=== PATIENT | female | born 1945 | race African-American/Black ===

== ENCOUNTER 2017-02-13 14:13 | Inpatient (IN) | payer OTHER ==
[~2017-02-13] VITALS: Ht 157.5 cm; Wt 59.0 kg
--- NOTE | ~2017-02-13 | EKG ---
[place] [address] [facility] [employer] [place] [address] ELECTROCARDIOGRAM REPORT Name: LEIDY ADAMES [id number] Admission: 02/13/17 Attend Phys: Discharge: Date of : 49 Report #: [id number] THIS REPORT FOR: //name// [facility] ED Test Date: 2017-02-13 Test Time: 14:17:23 Pat Name: LEIDY ADAMES Department: Room: Gender: F Purler: Liya GIBBONS : 1945 Requested By: Jasmin Johnson Order Number: [id number] MD: Howard Nguyen Measurements Intervals [place] Rate: 77 P: 43 ID: 136 QRS: 104 QRSD: 116 T: 50 QT: 380 QTc: 431 Interpretive Statements Sinus rhythm Probable left atrial enlargement IRBBB and LPFB Electronically Signed On 02-13-2017 16:59:51 CDT by Howard Nguyen [email or web address] <ELECTRONICALLY SIGNED> By: Howard Nguyen MD 02/13/17 1659 1417 1417 Howard Nguyen MD /SOUMYA
--- NOTE | ~2017-02-13 | HC ---
[facility] [place] [address] CONSULTATION Name: LEIDY ADAMES Room #: 216-P ADM IN M.R.#: [id number] Admission: 02/13/17 Attend Phys: Ashwin Poole MD Discharge: Date of : 49 Report #: [id number] THIS REPORT FOR: //name// CC: Jamaal Poole DATE OF SERVICE: 02/14/2017 PRIMARY CARE PHYSICIAN: Jamaal Cho M.D. HISTORY OF PRESENT ILLNESS: The patient is a 71-year-old black female who I was asked to see in the hospital today after she complained of chest pain. The patient has a previous history of coronary artery stenting. She eventually underwent coronary artery bypass surgery in 2008. The patient actually presented here to [facility] last May with shortness of breath. She ruled in for non-STEMI. I performed a repeat cardiac catheterization on June 03 of last summer, which showed normal left ventricular function. There was a stent in the circumflex that appeared to be chronically occluded. The robinson right coronary artery was chronically occluded. There was a vein graft to the diagonal with a jump graft to marginal branches. There was a second vein graft that went to the distal right coronary artery. There was an 80% stenosis noted at the anastomosis of the vein graft to the distal right coronary artery. There is a patent HALEY graft to the LAD, although the apical LAD had a 70% stenosis. I then placed a drug-eluting stent in the vein graft to the distal right coronary artery. She was subsequently discharged. She was actually admitted here to [facility] with pneumonia last August. She is not very active because of her multiple medical problems. She came to the emergency room yesterday after she noticed some chest pain. It is not related to exertion or meals. It seemed to occur after she was coughing. She did note some shortness of breath, diaphoresis. She took a couple nitroglycerins that did seem to help. She came to the hospital and was admitted. She denies any recent bleeding. She has had no belching with the episode. No recent rash on her chest. She denies significant dyspnea, palpitation, syncope, edema. PAST MEDICAL HISTORY: Significant for hysterectomy. She was diagnosed with lupus in the past. She has diabetes, hypertension, hyperlipidemia, seizure disorder, peripheral arterial disease with previous bilateral bypass and stenting. She has had a previous stroke. She has a history of carotid stenosis. MEDICATIONS: On admission included Pradaxa, Celexa, lisinopril, Lipitor, metoprolol, amlodipine, Aricept. ALLERGIES: She has intolerance to multiple medications including PENICILLIN and [address] [address] CONSULTATION Name: LEIDY ADAMES Room #: 216-P [facility] IN M.R.#: [id number] Admission: 02/13/17 Attend Phys: Ashwin Poole MD Discharge: Date of : 49 Report #: [id number] SULFA DRUGS. FAMILY HISTORY: had heart disease. SOCIAL HISTORY: She is . She and her live in [place], [place]. Quit smoking years ago. No alcohol abuse. REVIEW OF SYSTEMS: She has had no history of asthma, peptic ulcer disease, liver disease, no cancer. No chronic skin condition. PHYSICAL EXAMINATION: GENERAL: Revealed an elderly black female lying in bed. She appeared in no distress. VITAL SIGNS: She had a blood pressure 150/60, pulse is 90. She is afebrile. HEENT: She was anicteric, conjunctivae pink. Mucous membranes appear moist. NECK: Veins do not appear distended. CHEST: Clear to auscultation. CARDIAC: Regular rate and rhythm. ABDOMEN: Soft. EXTREMITIES: Had no edema. Dorsalis pedis pulse could not be palpated. SKIN: Cool and dry. NEUROLOGIC: Nonfocal. LABORATORY DATA: Her ECG showed a sinus rhythm with a right bundle branch block. Her workup in the emergency room, sodium 143, potassium 3.6, BUN 15, creatinine 1.0. Her troponin 0.04. Her white blood cell count 8.2, hemoglobin 10.3. She had a portable chest x-ray, which showed cardiomegaly. Mild interstitial lung markings were noted, possible pulmonary edema. IMPRESSION AND RECOMMENDATIONS: 1. Chest pain. Possible unstable angina. No evidence of acute myocardial infarction. At this time, I would recommend a conservative approach. I would not recommend stress testing or cardiac catheterization at this time. I would continue medical therapy. The patient had a drug-eluting stent placed last May, so I would consider Plavix. 2. Previous stroke. The patient is on Pradaxa. 3. Hypertension. 4. Diabetes. 5. Hyperlipidemia. 6. Peripheral arterial disease. 7. Anemia. By: 1441 0002 Junior Du MD, [facility] /nt
[~2017-02-13 14:13] MED LIST: ACETAMINOPHEN-1 EAC1 PO; ACETAMINOPHEN325 M1 PO; ACTOS 30 MG TAB30 MG PO; AMARYL4 MG PO; AMLODIPINE BESY10 MG PO; AMLODIPINE PO; ARICEPT 5 MG TAB5 MG PO; ARICEPT10 MG PO; ASA5UEC; ASA5UEC PO; ASA81BEC PO; ASPIR 8181 MG PO; ASPIRIN EC325 M1 PO; ASPIRIN325 PO; ATIVAN1 MG PO; ATORVASTATIN CA10 MG PO; ATORVASTATIN CA80 MG PO; AUGMENTIN 875875 M1 PO; AVELOX 400 MG400 MG PO; AZITHROMYCIN 2250 MG PO; BAYER CHEWABLE81 MG PO; CEFDINIR PO; CEFTIN 250 MG250 MG PO; CEFTIN500 MG PO; CELEXA 20 MG TA20 MG PO; CELLCEPT 250 M250 M1 PO; CELLCEPT500 MG PO; CHANTIX1 MG PO; CIPRO500 MG PO; CIPROFLOXACIN500 M1 PO; CIPROFLOXACIN500 M3 PO; CITALOPRAM HBR40 MG PO; CLOPIDOGREL75 MG PO; CYCLOBENZAPRINE PO; DARVOCET-N 1001 EAC1 PO; DILANTIN 100 M100 MG PO; DILANTIN100 MG PO; DOCUPRENE100 MG PO; DONEPEZIL HCL 55 M1 PO; ENOXAPARIN40 MG/0.1 SUBQ; FISH OIL 1,001000 M2 PO; FLONASE 0.05%50 MCG NASAL; FUROSEMIDE 40 M40 MG PO; GLUCOPHAGE XR500 MG PO; GLUCOPHAGE1000 MG PO; GLUCOPHAGE500 MG PO; HUMALOG PE100 UNIT/1 SC; HUMALOG100 UNIT/1; HUMALOG100 UNIT/1 SQ; HYDROCODON-ACE1 EAC8 PO; HYDROCODON-ACE1 EACH PO; HYDROCODONE-AP1 EAC6 PO; IMDUR 60 MG TAB60 M1 PO; IMDUR 60 MG TAB60 MG PO; IRON325 PO; ISOSORBIDE MONO20 MG PO; K-DUR 20 MEQ T20 MEQ; K-DUR 20 MEQ T20 MEQ PO; KEFLEX500 MG PO; KEPPRA 500 MG500 M2 PO; LANTUS SC; LASIX 20 MG TAB20 MG PO; LASIX 40 MG TAB40 M1 PO; LASIX 40 MG TAB40 MG PO; LEVAQUIN 250 M250 MG PO; LEVAQUIN 500 M500 M1 PO; LEVAQUIN 500 M500 M5 PO; LIPITOR10 MG PO; LIPITOR40 MG PO; LISINOPRIL10 MG PO; LISINOPRIL20 MG PO; LORATIDINE 10 M10 M1 PO; LORTAB 5 MG/5001 TA1 PO; MACROBID 100 M100 M1 PO; MAG DELAY64 MG PO; METFORMIN HCL500 MG PO; MONOKET10 MG PO; NAMENDA 5 MG TAB5 M1 PO; NAMENDA XR28 MG PO; NAPROSYN500 MG PO; NAPROXEN 220 M220 M1 PO; NITROGLYCERIN0.3 MG SL; NITROGLYCERIN0.4 MG SUBLING; NORCO 10-325 T1 EACH PO; NORCO 5-325 TA1 EACH PO; NORVASC 5 MG TAB5 MG PO; NORVASC10 MG PO; NORVASC5 MG PO; NOVOLOG100 UNIT/1; NOVOLOG100 UNIT/1 SUBQ; NYSTATIN 1100000 U/M PO; ONDANSETRON ODT4 MG PO; OXYCODON-ACETA1 EAC1 PO; PAIN RELIEVER325 MG PO; PANTOPRAZOLE SO40 M1 PO; PEPCID40 MG PO; PERCOCET 5-3251 EACH PO; PERCOCET PO; PHISOHEX148 ML; PLAVIX 75 MG TA75 M1 PO; PLAVIX 75 MG TA75 MG PO; POTASSIUM20 PO; PRADAXA150 MG PO; PREDNISONE 10 M10 M1 PO; PREDNISONE 10 M10 MG PO; PREDNISONE 20 M20 M1 PO; PREDNISONE PO; PRILOSEC 10MG C10 M1 PO; PROAIR HFA8.5 GM IH; PROMETHAZINE-C120 ML PO; PROTONIX40 M2 PO; RANEXA 500 MG500 M1 PO; TERBINAFINE HC250 MG PO; TESSALON PERLE100 MG PO; TOPIRAMATE200 MG PO; TOPROL XL100 MG PO; TOPROL XL25 MG PO; TRANDATE100 MG PO; TYLENOL325 MG PO; WELLBUTRIN XL150 M1 PO; ZOFRAN ODT4 MG PO; ZPAK PO
[2017-02-13 14:15] VITALS: BP 193/90
[2017-02-13 16:13] LABS: ABSOLUTE NEUTROPHILS 4.8 thou/uL (1.4-8.2); BASOPHILS 1.1 % (0.0-2.0); EOSINOPHILS 2.8 % (0.0-3.0); HEMATOCRIT 31.1 % (37.0-47.0); HEMOGLOBIN 10.3 gm/dL (12.0-15.0); LYMPHOCYTES 25.9 % (24.0-44.0); MCH 31.1 pg (26.0-34.0); MCHC 33.2 g/dL (28.0-37.0); MCV 93.4 fL (80.0-100.0); MONOCYTES 11.9 % (1.0-8.0); POLYS 58.3 % (36.0-66.0); RBC 3.33 mil/uL (4.20-5.00); RDW 13.7 % (10.5-14.5); WBC 8.2 thou/uL (4.0-11.0)
[2017-02-13 16:14] LABS: MANUAL DIFF NO
[2017-02-13 16:36] LABS: NT-PRO BRAIN NAT PEPTIDE 5343 pg/mL (<300); PLATELET COUNT 253 thou/uL (150-400); PLATELET ESTIMATE NORMAL; TROPONIN-I < 0.04 ng/mL (<0.04-0.07)
[2017-02-13 16:54] LABS: CALCIUM 8.2 mg/dL (8.5-10.1); CREATININE 0.9 mg/dL (0.6-1.0); POTASSIUM 4.9 mmol/L (3.5-5.1)
[2017-02-13 16:57] LABS: ALBUMIN 2.8 g/dL (3.4-5.0); MAGNESIUM 1.4 mg/dL (1.8-2.4); TOTAL BILIRUBIN 0.4 mg/dL (<0.1-1.0); TOTAL PROTEIN 7.2 g/dL (6.4-8.2)
[2017-02-13 18:23] VITALS: BP 151/64
[2017-02-13 18:49] VITALS: BP 189/84
[2017-02-13 20:17] VITALS: BP 152/61
[2017-02-13 23:57] VITALS: BP 148/69
[2017-02-13 23:59] VITALS: BP 148/69
[2017-02-14 03:27] VITALS: BP 121/53
[2017-02-14 03:35] LABS: CALCIUM 8.4 mg/dL (8.5-10.1); MAGNESIUM 1.2 mg/dL (1.8-2.4)
[2017-02-14 03:37] LABS: POTASSIUM 3.7 mmol/L (3.5-5.1)
[2017-02-14 08:36] VITALS: BP 152/60
[2017-02-14 11:56] VITALS: BP 162/63
[2017-02-14 16:20] VITALS: BP 134/63
[2017-02-14 21:10] VITALS: BP 148/65
[2017-02-15 04:30] LABS: ALBUMIN 2.9 g/dL (3.4-5.0); ANION GAP 9 mmol/L (7-16); BUN 21 mg/dL (7-18); CALCIUM 8.7 mg/dL (8.5-10.1); CHLORIDE 102 mmol/L (98-107); CO2 27 mmol/L (21-32); CREATININE 1.1 mg/dL (0.6-1.0); GLUCOSE 90 mg/dL (74-106); PHOSPHORUS 4.4 mg/dL (2.5-4.9); POTASSIUM 4.1 mmol/L (3.5-5.1); SODIUM 138 mmol/L (136-145); TROPONIN-I < 0.04 ng/mL (<0.04-0.07)
[2017-02-15 05:01] VITALS: BP 168/78
[2017-02-15 07:45] VITALS: BP 152/70
[2017-02-15] MEDS ORDERED: METOPROLOL SUCC50 MG PO (09:51)
[2017-02-15 10:50] VITALS: BP 152/70
[2017-02-15 12:07] VITALS: BP 152/70
== END 2017-02-15 12:13 | disposition home or self-care (01) | DRG 291 ==
LOC: ER 14:13 → 2N 17:22 → EROBS 17:22 → 2N 18:39
PROVIDERS: Hospitalist; Nurse Practitioner Acute Care; Nurse Practitioner Family
DX: I50.33 Acute on chronic diastolic (congestive) heart failure (principal); E43 Unspecified severe protein-calorie malnutrition; I11.0 Hypertensive heart disease with heart failure; M32.9 Systemic lupus erythematosus, unspecified; J44.9 Chronic obstructive pulmonary disease, unspecified; G40.909 Epilepsy, unspecified, not intractable, without status epilepticus; F41.9 Anxiety disorder, unspecified; E78.5 Hyperlipidemia, unspecified; E11.51 Type 2 diabetes mellitus with diabetic peripheral angiopathy without gangrene; F03.90 Unspecified dementia, unspecified severity, without behavioral disturbance, psychotic disturbance, mood disturbance, and anxiety; I16.0 Hypertensive urgency; I34.0 Nonrheumatic mitral (valve) insufficiency; I37.1 Nonrheumatic pulmonary valve insufficiency; I07.1 Rheumatic tricuspid insufficiency; E83.42 Hypomagnesemia; D64.9 Anemia, unspecified; I25.10 Atherosclerotic heart disease of native coronary artery without angina pectoris; Z79.4 Long term (current) use of insulin; Z86.711 Personal history of pulmonary embolism; I69.311 Memory deficit following cerebral infarction; Z95.1 Presence of aortocoronary bypass graft; Z98.42 Cataract extraction status, left eye; Z98.41 Cataract extraction status, right eye; Z90.711 Acquired absence of uterus with remaining cervical stump; Z87.891 Personal history of nicotine dependence; Z88.0 Allergy status to penicillin; Z88.2 Allergy status to sulfonamides; Z88.1 Allergy status to other antibiotic agents; Z95.5 Presence of coronary angioplasty implant and graft; Z82.49 Family history of ischemic heart disease and other diseases of the circulatory system; Z79.899 Other long term (current) drug therapy; I25.2 Old myocardial infarction
CPT/HCPCS: 10081

== ENCOUNTER 2017-05-05 18:40 | Inpatient (IN) | payer OTHER ==
[~2017-05-05] VITALS: Ht 157.5 cm; Wt 60.3 kg
--- NOTE | ~2017-05-05 | EKG ---
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: wilfred vidal : 1945 Requested By: Merary Kiran Order Number: [id number] MD: Markus Ott Measurements Intervals Belva Rate: 85 P: 43 DC: 146 QRS: 71 QRSD: 135 T: 44 QT: 392 QTc: 467 Interpretive Statements Sinus rhythm Right bundle branch block Compared to ECG 05/05/2017 19:08:57 No significant changes Electronically Signed On 05-07-2017 8:22:41 CDT by Markus Ott [email or web address] <ELECTRONICALLY SIGNED> By: Markus Ott MD, [facility] 05/07/17 0822 9 Markus Ott MD, [facility] /EPI
--- NOTE | ~2017-05-05 | EKG ---
[address] [place] [address] ELECTROCARDIOGRAM REPORT Name: LEIDY ADAMES Room #: 430- ADM IN M.R.#: [id number] Admission: 05/05/17 Attend Phys: Kaylin Joshi Discharge: Date of : 49 Report #: [id number] THIS REPORT FOR: //name// [facility] ED Test Date: 2017-05-05 Test Time: 19:08:57 Pat Name: LEIDY ADAMES Department: Room: 430 Gender: F Manager Medical Affairs: BRE : 1945 Requested By: Kirill Solano Order Number: [id number] MD: Markus Ott Measurements Intervals [place] Rate: 70 P: 30 MO: 147 QRS: 76 QRSD: 137 T: 56 QT: 423 QTc: 457 Interpretive Statements Sinus rhythm Right bundle branch block Compared to ECG 02/13/2017 14:17:23 No significant changes Electronically Signed On 05-06-2017 17:07:54 CDT by Markus Ott [email or web address] <ELECTRONICALLY SIGNED> By: Markus Ott MD, [facility] 05/06/17 1707 D: [id number] 07 Markus Ott MD, [facility] /EPI
[~2017-05-05 18:40] MED LIST changes: +METOPROLOL SUCC50 MG PO
[2017-05-05 18:41] VITALS: BP 128/60
[2017-05-05] MEDS ORDERED: PLAVIX 75 MG TA75 M1 PO (19:19)
[2017-05-05] MEDS ORDERED: GLUCOPHAGE1000 MG PO (19:20)
[2017-05-05 19:47] LABS: URINE BLOOD NEGATIVE (Negative); URINE COLOR YELLOW; URINE GLUCOSE-RANDOM* NEGATIVE (Negative); URINE KETONES TRACE (Negative); URINE NITRITE NEGATIVE (Negative); URINE PROTEIN (DIPSTICK) NEGATIVE (Negative); URINE SPECIFIC GRAVITY >= 1.030 (1.003-1.035); URINE UROBILINOGEN 0.2 E.U./dl (0.2-1.0)
[2017-05-05 19:48] LABS: ICTOTEST (BILI CONFIRMATORY) Negative (Negative); URINE BILIRUBIN NEGATIVE (Negative)
[2017-05-05 19:54] LABS: CASTS None Seen /LPF (None Seen); CRYSTALS None Seen /LPF (None Seen); SQUAMOUS 0-3 Few /LPF (0-3)
[2017-05-05 19:55] LABS: BACTERIA None Seen /HPF (None Seen); URINE RBC 0-2 Rare /HPF (0-2); URINE WBC 0-5 Rare /HPF (0-5)
[2017-05-05 19:57] LABS: ANION GAP 10 mmol/L (7-16); BUN 37 mg/dL (7-18); CALCIUM 9.1 mg/dL (8.5-10.1); CHLORIDE 107 mmol/L (98-107); CO2 25 mmol/L (21-32); CREATININE 2.9 mg/dL (0.6-1.0); GLUCOSE 151 mg/dL (74-106); POTASSIUM 4.9 mmol/L (3.5-5.1); SODIUM 142 mmol/L (136-145)
[2017-05-05 19:59] LABS: ABSOLUTE NEUTROPHILS 7.6 thou/uL (1.4-8.2); BASOPHILS 0.5 % (0.0-2.0); EOSINOPHILS 0.1 % (0.0-3.0); HEMATOCRIT 27.5 % (37.0-47.0); HEMOGLOBIN 9.1 gm/dL (12.0-15.0); LYMPHOCYTES 10.4 % (24.0-44.0); MCH 30.4 pg (26.0-34.0); MCHC 32.9 g/dL (28.0-37.0); MCV 92.1 fL (80.0-100.0); MONOCYTES 4.7 % (1.0-8.0); PLATELET COUNT 212 thou/uL (150-400); POLYS 84.3 % (36.0-66.0); RBC 2.98 mil/uL (4.20-5.00); RDW 15.1 % (10.5-14.5)
[2017-05-05 20:00] LABS: MANUAL DIFF NO
[2017-05-05 20:03] LABS: ALBUMIN 3.4 g/dL (3.4-5.0); ALKALINE PHOSPHATASE 91 U/L (46-116); DIRECT BILIRUBIN < 0.1 mg/dL (<0.1-0.3); SGOT 13 U/L (15-37); SGPT 13 U/L (30-65); TOTAL BILIRUBIN 0.3 mg/dL (<0.1-1.0)
[2017-05-05 20:30] LABS: NT-PRO BRAIN NAT PEPTIDE 1983 pg/mL (<300); TROPONIN-I < 0.04 ng/mL (<0.04-0.07)
[2017-05-05 21:53] VITALS: BP 134/60
[2017-05-05 22:30] VITALS: BP 149/66
[2017-05-06 04:35] VITALS: BP 119/51
[2017-05-06 06:31] LABS: HEMATOCRIT 23.1 % (37.0-47.0); HEMOGLOBIN 7.5 gm/dL (12.0-15.0); MCH 30.2 pg (26.0-34.0); MCHC 32.6 g/dL (28.0-37.0); MCV 92.6 fL (80.0-100.0); RBC 2.5 mil/uL (4.20-5.00); RDW 14.5 % (10.5-14.5); WBC 9.6 thou/uL (4.0-11.0)
[2017-05-06 06:46] LABS: CALCIUM 8.2 mg/dL (8.5-10.1); MAGNESIUM 1.8 mg/dL (1.8-2.4); POTASSIUM 4.5 mmol/L (3.5-5.1)
[2017-05-06 06:47] LABS: CREATININE 1.9 mg/dL (0.6-1.0)
[2017-05-06 07:21] VITALS: BP 121/48
[2017-05-06 16:00] VITALS: BP 167/65
[2017-05-06 20:15] VITALS: BP 105/38
[2017-05-07 04:20] VITALS: BP 136/50
[2017-05-07 06:20] LABS: ALBUMIN 2.5 g/dL (3.4-5.0); CREATININE 1.1 mg/dL (0.6-1.0); PHOSPHORUS 2.5 mg/dL (2.5-4.9); POTASSIUM 4.5 mmol/L (3.5-5.1)
[2017-05-07 08:55] VITALS: BP 179/81
[2017-05-07 17:30] VITALS: BP 197/85
[2017-05-07 20:00] VITALS: BP 165/83
[2017-05-08 04:00] VITALS: BP 209/98
[2017-05-08 06:56] LABS: ALBUMIN 2.6 g/dL (3.4-5.0); CALCIUM 8.4 mg/dL (8.5-10.1); CREATININE 0.9 mg/dL (0.6-1.0); PHOSPHORUS 2.6 mg/dL (2.5-4.9)
[2017-05-08 07:48] VITALS: BP 178/85
[2017-05-08] MEDS ORDERED: CYCLOBENZAPRINE5 MG PO (10:04)
[2017-05-08] MEDS ORDERED: SENOKOT-S1 TA1 PO (10:05)
[2017-05-08] MEDS ORDERED: HYDROCODON-ACE1 EAC7 PO (10:05)
[2017-05-08 10:11] VITALS: BP 178/85
[2017-05-08 15:18] VITALS: BP 178/85
== END 2017-05-08 15:15 | disposition home health service (06) | DRG 682 ==
LOC: ER 18:40 → EROBS 21:15 → 4E 21:15
PROVIDERS: Hospitalist; Nurse Practitioner; Nurse Practitioner Acute Care
DX: N17.9 Acute kidney failure, unspecified (principal); G93.41 Metabolic encephalopathy; I50.32 Chronic diastolic (congestive) heart failure; M48.56XA Collapsed vertebra, not elsewhere classified, lumbar region, initial encounter for fracture; L93.0 Discoid lupus erythematosus; I25.10 Atherosclerotic heart disease of native coronary artery without angina pectoris; I11.0 Hypertensive heart disease with heart failure; J44.9 Chronic obstructive pulmonary disease, unspecified; G40.909 Epilepsy, unspecified, not intractable, without status epilepticus; E11.51 Type 2 diabetes mellitus with diabetic peripheral angiopathy without gangrene; F03.90 Unspecified dementia, unspecified severity, without behavioral disturbance, psychotic disturbance, mood disturbance, and anxiety; E78.5 Hyperlipidemia, unspecified; W18.39XA Other fall on same level, initial encounter; Z95.1 Presence of aortocoronary bypass graft; Z98.42 Cataract extraction status, left eye; Z98.41 Cataract extraction status, right eye; Z90.710 Acquired absence of both cervix and uterus; Z86.73 Personal history of transient ischemic attack (TIA), and cerebral infarction without residual deficits; I25.2 Old myocardial infarction; Z95.5 Presence of coronary angioplasty implant and graft; Z79.899 Other long term (current) drug therapy; Z88.2 Allergy status to sulfonamides; Z88.0 Allergy status to penicillin; Z88.8 Allergy status to other drugs, medicaments and biological substances; Z88.1 Allergy status to other antibiotic agents; Z87.891 Personal history of nicotine dependence; Y93.89 Activity, other specified; Y92.89 Other specified places as the place of occurrence of the external cause; Y99.8 Other external cause status
CPT/HCPCS: 10183

== ENCOUNTER 2018-06-28 11:38 | Inpatient (IN) | payer OTHER ==
[~2018-06-28] VITALS: Ht 157.5 cm; Wt 59.0 kg
--- NOTE | ~2018-06-28 | EKG ---
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 : 1945 Requested By: Junior Du Order Number: [id number] MD: Howard Nguyen Measurements Intervals [place] Rate: 70 P: 45 CO: 160 QRS: 90 QRSD: 131 T: 28 QT: 443 QTc: 479 Interpretive Statements Sinus rhythm Probable left atrial enlargement RBBB and LPFB Baseline wander in lead(s) V3 Compared to ECG 05/07/2017 05:20:13 Left posterior fascicular block now present Electronically Signed On 07-02-2018 15:00:50 CDT by Howard Nguyen [email or web address] <ELECTRONICALLY SIGNED> By: Howard Nguyen MD 07/02/18 1500 4 4 Howard Nguyen MD /EPI
--- NOTE | ~2018-06-28 | EKG ---
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
--- NOTE | ~2018-06-28 | HC ---
[facility] [place] [address] CONSULTATION Name: LEIDY ADAMES Room #: 249-P ADM IN M.R.#: [id number] Admission: 06/28/18 Attend Phys: Lorne Saravia MD Discharge: Date of : 49 Report #: [id number] THIS REPORT FOR: //name// CC: Lorne Saravia ROMAINE BOX Romaine Box DATE OF SERVICE: 06/29/2018 Cardiology Consultation HISTORY OF PRESENT ILLNESS: The patient is a 72-year-old black female who I was asked to see in the hospital today after she complained of chest pain. The patient had a previous history of coronary artery stenting. She eventually underwent coronary artery bypass surgery in 2008. She presented in 2015 with a non-STEMI. I performed a repeat heart catheterization in 05/2016 that showed normal left ventricular function. The stent in the circumflex appeared chronically occluded. The lummi right coronary artery is chronically occluded. The vein graft to the diagonal had a jump graft to the marginal branch. There is a second vein graft to the distal right coronary artery. There was an 80% stenosis noted at the anastomosis of the vein graft to the distal right coronary artery. There is a patent HALEY graft to the LAD. Although the apical LAD had a 70% stenosis. I placed a drug-eluting stent in the vein graft to the distal right coronary artery. She is not very active because of multiple medical problems. She was actually admitted here to [facility] in 02/2017 with chest pain. Medical therapy was recommended. She has actually done fairly well since that time. The patient states she was doing well until yesterday she complained of some chest pain. She was evaluated in the emergency room and admitted. I was asked to see her in consultation. She denies the pain being related to food or exertion. The pain seemed to be related to food. She did have some belch with the episode. She has had a cough recently. She denied associated shortness of breath, diaphoresis or nausea. She was brought to the emergency room yesterday and admitted. She denies any leg pain, dyspnea on exertion, palpitations or syncope. PAST MEDICAL HISTORY: Significant for previous hysterectomy. She has been diagnosed with lupus. She has diabetes, hypertension, hyperlipidemia, seizure disorder, peripheral arterial disease with previous bilateral bypass and stenting. She has had a previous stroke. She has had a history of carotid stenosis. MEDICATIONS: On admission consisted of Pradaxa, metoprolol, Flexeril, Celexa, lisinopril, Lipitor, Keppra, amlodipine, prednisone, metformin, Neurontin. ALLERGIES: She is intolerant to SULFA DRUGS. [address] [address] CONSULTATION Name: LEIDY ADAMES Room #: 249-P [facility] IN M.R.#: [id number] Admission: 06/28/18 Attend Phys: Lorne Saravia MD Discharge: Date of : 49 Report #: [id number] FAMILY HISTORY: Heart disease runs in the family. SOCIAL HISTORY: She is . She lives with her in [place], [place]. She quit smoking years ago. No alcohol abuse. REVIEW OF SYSTEMS: She apparently has had a previous stroke. No history of asthma, peptic ulcer disease, liver disease. She has chronic kidney disease. No cancer. No chronic skin condition. She does have memory loss. PHYSICAL EXAMINATION: GENERAL: Revealed elderly -Fijian female lying in bed. She appeared in no acute distress. VITAL SIGNS: She had a blood pressure of 120/60, pulse 70. She is afebrile. HEENT: She was anicteric, conjunctiva pink. Mucous members moist. NECK: Veins nondistended. Bilateral carotid bruits were heard. CHEST: Clear to auscultation. CARDIAC: Regular rate and rhythm, grade 3 holosystolic murmur at the apex. ABDOMEN: Soft. EXTREMITIES: Had no edema. Dorsalis pedis pulse could not be palpated. SKIN: Cool and dry. NEUROLOGIC: Nonfocal. DIAGNOSTIC DATA: Her ECG shows sinus rhythm with a right bundle-branch block. There was no acute ST or T-wave change. LABORATORY WORK: Sodium 140, potassium 4.8, BUN 45. Her creatinine 5.4, in the past had been as high as 2.9. Her liver function studies were normal. Troponin elevated at 1.26. Her white blood cell count 7.3, hemoglobin 9.4. It had been 7.6 as far as back as 2016. IMPRESSION AND RECOMMENDATIONS: 1. Non-ST segment elevation myocardial infarction. In light of her multiple medical problems, I would recommend a conservative approach. I would not recommend cardiac catheterization or stress testing at this time. I would continue Plavix, aspirin, beta gary. 2. Mitral regurgitation. 3. Peripheral arterial disease with previous bifemoral bypass. 4. Diabetes. 5. Hypertension. 6. Hyperlipidemia. 7. Previous stroke. [facility] [address] [place] [address] CONSULTATION Name: LEIDY ADAMES Room #: 249-P ADM IN Tanja.#: [id number] Admission: 06/28/18 Attend Phys: Lorne Saravia MD Discharge: Date of : 49 Report #: [id number] 8. Renal failure. 9. Anemia. No history of bleeding. <ELECTRONICALLY SIGNED> By: Junior Du MD, FACC 06/29/18 1637 0733 0812 Junior Du MD, FACC /nt
--- NOTE | ~2018-06-28 | HC ---
[facility] [place] [address] CONSULTATION Name: LEIDY ADAMES Room #: 361-P [facility] IN M.R.#: [id number] Admission: 06/28/18 Attend Phys: Lorne Saravia MD Discharge: 07/01/18 Date of : 49 Report #: [id number] THIS REPORT FOR: //name// CC: Lorne Hinton Box REASON FOR CONSULTATION: Acute kidney injury. REASON FOR PRESENTATION: Vague chills and chest pain. HISTORY OF PRESENT ILLNESS: This is a 72-year-old with past medical history of coronary artery disease, post-CABG; also known to have peripheral vascular disease. She had normal kidney function when she was discharged back in 2017. She presented with vague chest pain and was found to have elevated troponins. She reported to chills. No urinary symptoms. No nausea or vomiting. Chest pain is being addressed by her entry analyst. It does look like that the patient has some sort of dementia and is not able to provide with further information. She denies any GI symptoms in the form of nausea or vomiting. No new medications. Listed amongst her diagnosis is lupus, but the patient is not able to provide me with the details of those issues. No nonsteroidal anti-inflammatory medications. She is known to have longstanding diabetes mellitus and hypertension besides her peripheral arterial disease, coronary artery disease. She is maintained on lisinopril. Laboratory values when the patient presented yesterday revealed that her creatinine was all the way up to the mid 4 range. She was on the hypotensive side when she came yesterday. I am being consulted to manage her acute kidney injury. PAST MEDICAL HISTORY: Extensive and includes the followin. Hypertension. 2. Diabetes mellitus. 3. Questionable lupus. 4. Coronary artery disease. 5. Bilateral cataracts. 6. Seizure disorder. 7. Hysterectomy. 8. Dementia. 9. Peripheral vascular disease. 10. CVA. 11. Non-STEMI. 12. Remote history of pyelonephritis. 13. Mitral regurgitation. 14. Severe pulmonary hypertension. 15. Right carotid endarterectomy. SOCIAL HISTORY: She lives with her . No drug or alcohol abuse. MEDICATIONS: [facility] [address] [place] [address] CONSULTATION Name: LEIDY ADAMES Room #: 361-P [facility] IN M.R.#: [id number] Admission: 06/28/18 Attend Phys: Lorne Saravia MD Discharge: 07/01/18 Date of : 49 Report #: [id number] 1. Lisinopril. 2. Atorvastatin. 3. Keppra. 4. Amlodipine. 5. Prednisone. 6. Plavix. 7. Metformin. 8. Gabapentin. 9. Ciprofloxacin. FAMILY HISTORY: Significant for hypertension. REVIEW OF SYSTEMS: GENERAL: No fever, but significant for chills. CARDIOVASCULAR: As per history of present illness. PULMONARY: No cough or hemoptysis. GASTROINTESTINAL: No nausea or vomiting. GENITOURINARY: No frequency, no urgency. MUSCULOSKELETAL: Occasional back pain. SKIN: No rash or ulcerations. PHYSICAL EXAMINATION: GENERAL: She is alert and oriented. VITAL SIGNS: Temperature 36.2, blood pressure 150/62. HEAD AND NECK: No jugular venous distention, no bruit, no thyromegaly. CHEST: No crackles. CARDIOVASCULAR: Systolic murmur present. ABDOMEN: Soft, nontender with no hepatosplenomegaly. LOWER EXTREMITIES: No edema. LABORATORY VALUES: From today reviewed. Creatinine is down to 4.2 from 5.4. Troponin mildly elevated at 1.04. Platelets low at 144. UA significant for trace protein. There are some white blood cells. ASSESSMENT, IMPRESSION AND PLAN: 1. Acute kidney injury. 2. Systemic lupus erythematosus. 3. Coronary artery disease. 4. Peripheral vascular disease. 5. Diabetes mellitus. 6. Hypertension. 7. Seizure disorder. 8. The source of worsening of her kidney function is not clear to me. She is known to have lupus in the past. She has required numerous immunosuppressive medications. I will have to reach out to her family as the patient is not able to provide me with the details of her lupus history, I reviewed previous [address] [address] CONSULTATION Name: LEIDY ADAMES Room #: 361-P [facility] IN M.R.#: [id number] Admission: 06/28/18 Attend Phys: Lorne Saravia MD Discharge: 07/01/18 Date of : 49 Report #: [id number] consultation from her rheumatological rural health consultant along with our previous nephrology consultation back in 2016 and in 2013. From the renal perspective, I will send appropriate laboratory values for her acute kidney injury. I will also scan her kidneys. We will evaluate the urine protein to creatinine ratio. We will hold on any nephrotoxic medications. 9. Continue strict input and output. 10. Continue IV fluid. 11. Cardiology is following regarding her elevated troponin. 12. Septic workup had been initiated as she is chronically immune compromise. 13. Continue with the gentle hydration for now. 14. Follow the cultures. 15. We will continue to follow along. <ELECTRONICALLY SIGNED> By: Nataly Gilbert MD 07/06/18 0741 0858 1042 Nataly Gilbert MD /nt
--- NOTE | ~2018-06-28 | 2DMMODE ---
[facility] [email or web address] [address] 2 D/M-MODE ECHOCARDIOGRAM Name: LEIDY ADAMES Room #: 249-P ADM IN .R.#: [id number] Admission: 06/28/18 Attend Phys: Lorne Saravia MD Discharge: Date of : 49 Date of Service: 06/29/18 1255 Report #: [id number] THIS REPORT FOR: //name// APPROVED REPORT Study performed: 06/29/2018 08:34:41 EXAM: Comprehensive 2D, Doppler, and color-flow Echocardiogram Patient Location: ICU Room #: 249 Status: routine BSA: 1.59 HR: 72 bpm BP: 152/62 mmHg Rhythm: NSR Other Information Study Quality: Good Indications COPD Non STEMI Chest Pain Hypertension/HDD CABG 2D Dimensions RVDd: 36.25 mm IVSd: 10.94 (7-11mm) LVOT Diam: 17.23 (18-24mm) LVDd: 39.89 mm PWd: 12.95 (7-11mm) Ascending Ao: 24.13 (22-36mm) LVDs: 22.41 (25-40mm) Aortic Root: 25.73 mm IVC: 22.00 mm Volumes Left Atrial Volume (Systole) Single Plane 4CH: 96.77 mL Single Plane 2CH: 92.58 mL LA ESV Index: 65.00 mL/m2 Aortic Valve AoV Peak Justice.: 1.33 m/s AO Peak Gr.: 7.09 mmHg LVOT Max P.40 mmHg LVOT Max V: 1.16 m/s NATALIE Vmax: 2.03 cm2 [facility] [address] [address] 2 D/M-MODE ECHOCARDIOGRAM Name: LEIDY ADAMES Room #: 249-P [facility]#: [id number] Admission: 06/28/18 Attend Phys: Lorne Saravia MD Discharge: Date of : 49 Date of Service: 06/29/18 1255 Report #: [id number] Mitral Valve MV Peak Gr.: 24.40 mmHg MV Mean Gr.: 12.90 mmHg E/A Ratio: 1.1 MV Decel. Time: 348.70 ms MV E Max Justice.: 2.11 m/s MV A Justice.: 1.92 m/s MV Max Justice.: 2.47 m/s MV Mean Justice.: 1.73 m/s MV VTI: 758.17 mm MV PHT: 101.12 ms MVA (PHT): 1.80 cm2 IVRT: 64.59 ms Pulmonary Valve PV Peak Justice.: 1.05 m/s PV Peak Gr.: 4.44 mmHg Pulmonary Vein P Vein S: 0.36 m/s P Vein A: 0.18 m/s P Vein D: 0.32 m/s P Vein A Dur.: 115.3 msec P Vein S/D Ratio: 1.13 Tricuspid Valve TR Peak Justice.: 3.69 m/s TR Peak Gr.: 54.61 mmHg PA Pressure: 70.00 mmHg Left Ventricle The left ventricle is normal size. There is normal LV segmental wall motion. Mild concentric left ventricular hypertrophy. Left ventricular systolic function is hyperdynamic. LVEF is 65-70%. The diastolic function is abnormal. Right Ventricle The right ventricle is normal size. The right ventricular systolic function is normal. Atria Left atrium is moderately dilated. Right atrium is mildly dilated. Aortic Valve Aortic valve is calcified. Trace aortic regurgitation. There is no aortic valvular stenosis. Mitral Valve Moderate mitral annular calcification. moderate mitral regurgitation. [facility] [address] [place] [address] 2 D/M-MODE ECHOCARDIOGRAM Name: LEIDY ADAMES Room #: 249-P [facility] IN ..#: [id number] Admission: 06/28/18 Attend Phys: Lorne Saravia MD Discharge: Date of : 49 Date of Service: 06/29/18 1255 Report #: [id number] Moderate mitral stenosis. Tricuspid Valve The tricuspid valve is normal in structure. There is mild to moderate tricuspid regurgitation. Estimated PAP 70 mmHg. There is moderate-severe pulmonary hypertension. Pulmonic Valve The pulmonary valve is normal in structure. Mild pulmonic regurgitation. Great Vessels The aortic root is normal in size. The inferior vena cava is dilated with no inspiratory collapse. Pericardium There is no pericardial effusion. <Conclusion> Mild concentric left ventricular hypertrophy. LVEF is 65-70%. Left atrium is moderately dilated. Aortic valve is calcified. Moderate mitral stenosis. moderate mitral regurgitation. There is mild to moderate tricuspid regurgitation. Estimated PAP 70 mmHg. There is moderate-severe pulmonary hypertension. <ELECTRONICALLY SIGNED> By: Junior Du MD, FACC 06/29/18 1255 1255 1255 Junior Du MD, FACC /INF
[~2018-06-28 11:38] MED LIST changes: +CYCLOBENZAPRINE5 MG PO; +HYDROCODON-ACE1 EAC7 PO; +SENOKOT-S1 TA1 PO
[2018-06-28 11:42] VITALS: BP 114/53
[2018-06-28] MEDS ORDERED: CIPRO250 M1 PO (12:35)
[2018-06-28] MEDS ORDERED: ATIVAN1 MG PO (12:35)
[2018-06-28] MEDS ORDERED: NEURONTIN 300300 M1 PO (12:35)
[2018-06-28 13:30] LABS: URINE BILIRUBIN NEGATIVE (Negative); URINE BLOOD NEGATIVE (Negative); URINE CLARITY SL CLOUDY; URINE COLOR YELLOW; URINE GLUCOSE-RANDOM* NEGATIVE (Negative); URINE KETONES NEGATIVE (Negative); URINE NITRITE-REFLEX NEGATIVE (Negative); URINE PROTEIN (DIPSTICK) TRACE (Negative); URINE SPECIFIC GRAVITY >= 1.030 (1.005-1.035); URINE UROBILINOGEN 0.2 E.U./dl (0.2-1.0)
[2018-06-28 13:31] LABS: URINE LEUKOCYTES-REFLEX 1+ (Negative)
[2018-06-28 13:38] LABS: SQUAMOUS 0-3 Few /LPF (0-3)
[2018-06-28 13:40] LABS: BACTERIA-REFLEX 1-9 Few /HPF (None Seen); CASTS None Seen /LPF (None Seen); URINE RBC None Seen /HPF (0-2); URINE WBC-REFLEX 6-15 Few /HPF (0-5)
[2018-06-28 13:41] LABS: CALCIUM OXALATE 0-3 Few /LPF (None Seen)
[2018-06-28 14:05] LABS: ABSOLUTE NEUTROPHILS 4.5 thou/uL (1.4-8.2); BASOPHILS 0.3 % (0.0-2.0); EOSINOPHILS 3.7 % (0.0-3.0); HEMATOCRIT 30.2 % (37.0-47.0); LYMPHOCYTES 26.6 % (24.0-44.0); MCH 31.8 pg (26.0-34.0); MCHC 33.2 g/dL (28.0-37.0); MCV 95.9 fL (80.0-100.0); MONOCYTES 11.2 % (1.0-8.0); PLATELET COUNT 161 thou/uL (150-400); POLYS 58.2 % (36.0-66.0); RBC 3.15 mil/uL (4.20-5.00); RDW 14.9 % (10.5-14.5); WBC 7.8 thou/uL (4.0-11.0)
[2018-06-28 14:06] LABS: CALCIUM 8.3 mg/dL (8.5-10.1); CREATININE 5.4 mg/dL (0.6-1.0); POTASSIUM 4.8 mmol/L (3.5-5.1)
[2018-06-28 14:15] LABS: ALBUMIN 3.3 g/dL (3.4-5.0); TOTAL BILIRUBIN 0.2 mg/dL (<0.1-1.0); TOTAL PROTEIN 7.9 g/dL (6.4-8.2)
[2018-06-28 14:18] LABS: TROPONIN-I 1.14 ng/mL (<0.06)
[2018-06-29] VITALS (7 sets, daily range): BP systolic 117–163; BP diastolic 45–71
[2018-06-29 03:06] LABS: HEMOGLOBIN 9.4 gm/dL (12.0-15.0); MCH 31.1 pg (26.0-34.0); MCHC 32.3 g/dL (28.0-37.0); MCV 96.1 fL (80.0-100.0); RBC 3.02 mil/uL (4.20-5.00); RDW 14.7 % (10.5-14.5); WBC 7.3 thou/uL (4.0-11.0)
[2018-06-29 03:22] LABS: POTASSIUM 4.8 mmol/L (3.5-5.1)
[2018-06-29 03:24] LABS: CREATININE 4.2 mg/dL (0.6-1.0)
[2018-06-29 03:26] LABS: TROPONIN-I 1.04 ng/mL (<0.06)
[2018-06-29 09:28] LABS: URINE BILIRUBIN NEGATIVE (Negative); URINE BLOOD NEGATIVE (Negative); URINE CLARITY CLEAR; URINE COLOR YELLOW; URINE GLUCOSE-RANDOM* NEGATIVE (Negative); URINE KETONES NEGATIVE (Negative); URINE LEUKOCYTES NEGATIVE (Negative); URINE NITRITE NEGATIVE (Negative); URINE PROTEIN (DIPSTICK) NEGATIVE (Negative); URINE SPECIFIC GRAVITY >= 1.030 (1.005-1.035); URINE UROBILINOGEN 0.2 E.U./dl (0.2-1.0)
[2018-06-29 09:43] LABS: URINE CREATININE-RANDOM* 228.3 mg/dL
[2018-06-30 04:35] VITALS: BP 150/66
[2018-06-30 05:29] LABS: HEMATOCRIT 29.4 % (37.0-47.0); HEMOGLOBIN 9.5 gm/dL (12.0-15.0); MCH 31.2 pg (26.0-34.0); MCHC 32.5 g/dL (28.0-37.0); MCV 96.1 fL (80.0-100.0); PLATELET COUNT 159 thou/uL (150-400); RBC 3.06 mil/uL (4.20-5.00); RDW 14.3 % (10.5-14.5); WBC 5.4 thou/uL (4.0-11.0)
[2018-06-30 05:58] LABS: ALBUMIN 2.6 g/dL (3.4-5.0); ANION GAP 10 mmol/L (7-16); BUN 35 mg/dL (7-18); CALCIUM 8.4 mg/dL (8.5-10.1); CHLORIDE 111 mmol/L (98-107); CHOLESTEROL 105 mg/dL (<200); CO2 20 mmol/L (21-32); GLUCOSE 78 mg/dL (74-106); HDL CHOLESTEROL 36 mg/dL (>40); LDL CHOLESTEROL 58 mg/dL (<100); PHOSPHORUS 2.8 mg/dL (2.5-4.9); POTASSIUM 4.4 mmol/L (3.5-5.1); SODIUM 141 mmol/L (136-145); TC:HDL 2.9 Ratio (Not establshd); TRIGLYCERIDE 56 mg/dL (<150); VLDL 11 mg/dL (<40)
[2018-06-30 06:07] LABS: % SATURATION 33 % (20-39); CREATININE 1.8 mg/dL (0.6-1.0); IRON 57 ug/dL (50-170); TIBC 175 ug/dL (250-450)
[2018-06-30 06:55] LABS: ABSOLUTE NEUTROPHILS 3.7 thou/uL (1.4-8.2); METAMYELOCYTES 1 %; MYELOCYTES 1 %
[2018-06-30 06:56] LABS: ANISOCYTOSIS SLIGHT
[2018-06-30 07:52] VITALS: BP 184/75
[2018-06-30 16:52] VITALS: BP 172/65
[2018-06-30 19:10] VITALS: BP 168/69
[2018-07-01 03:57] VITALS: BP 153/66
[2018-07-01 06:25] LABS: ALBUMIN 2.6 g/dL (3.4-5.0); CALCIUM 8.5 mg/dL (8.5-10.1); CREATININE 1.4 mg/dL (0.6-1.0); PHOSPHORUS 2.5 mg/dL (2.5-4.9); POTASSIUM 4.8 mmol/L (3.5-5.1)
[2018-07-01 08:33] VITALS: BP 151/66
[2018-07-01] MEDS ORDERED: IMDUR 60 MG TAB60 M1 PO (08:45)
[2018-07-01 11:20] VITALS: BP 151/66
== END 2018-07-01 13:22 | disposition home or self-care (01) | DRG 280 ==
LOC: ER 11:38 → ICU 14:41 → EROBS 14:41 → ICU 23:45 → 3W 06-29 17:23 → ENTRNSPT 07-01 13:06 → EDTRNSPTSTS 07-01 13:10 → 3W 07-01 13:22
PROVIDERS: Hospitalist; Internal Medicine Cardiovascular Disease; Nurse Practitioner Family; Student in an Organized Health Care Education/Training Program
DX: I21.4 Non-ST elevation (NSTEMI) myocardial infarction (principal); E43 Unspecified severe protein-calorie malnutrition; N39.0 Urinary tract infection, site not specified; N17.9 Acute kidney failure, unspecified; M32.9 Systemic lupus erythematosus, unspecified; F03.90 Unspecified dementia, unspecified severity, without behavioral disturbance, psychotic disturbance, mood disturbance, and anxiety; I25.10 Atherosclerotic heart disease of native coronary artery without angina pectoris; J44.9 Chronic obstructive pulmonary disease, unspecified; G40.909 Epilepsy, unspecified, not intractable, without status epilepticus; F41.9 Anxiety disorder, unspecified; E78.5 Hyperlipidemia, unspecified; I50.9 Heart failure, unspecified; E11.51 Type 2 diabetes mellitus with diabetic peripheral angiopathy without gangrene; I11.0 Hypertensive heart disease with heart failure; I95.9 Hypotension, unspecified; I27.20 Pulmonary hypertension, unspecified; D50.0 Iron deficiency anemia secondary to blood loss (chronic); I05.2 Rheumatic mitral stenosis with insufficiency; I65.21 Occlusion and stenosis of right carotid artery; Z95.5 Presence of coronary angioplasty implant and graft; Z95.1 Presence of aortocoronary bypass graft; Z98.42 Cataract extraction status, left eye; Z98.41 Cataract extraction status, right eye; Z90.710 Acquired absence of both cervix and uterus; Z86.73 Personal history of transient ischemic attack (TIA), and cerebral infarction without residual deficits; I25.2 Old myocardial infarction; Z79.899 Other long term (current) drug therapy; Z88.0 Allergy status to penicillin; Z88.8 Allergy status to other drugs, medicaments and biological substances; Z87.891 Personal history of nicotine dependence; Z88.2 Allergy status to sulfonamides; Z82.49 Family history of ischemic heart disease and other diseases of the circulatory system
CPT/HCPCS: 10080; 10203

== ENCOUNTER 2018-08-29 15:24 | Emergency (ER) | payer OTHER ==
[~2018-08-29] VITALS: Ht 157.5 cm; Wt 54.4 kg
[~2018-08-29 15:24] MED LIST changes: +CIPRO250 M1 PO; +NEURONTIN 300300 M1 PO
[2018-08-29 17:51] VITALS: BP 146/62
[2018-08-29] MEDS ORDERED: NORCO 5-325 TA1 EACH PO (17:56)
[2018-08-29] MEDS ORDERED: SENNA8.6 MG PO (17:56)
[2018-08-29] MEDS ORDERED: ELIQUIS5 M1 PO (17:56)
== END 2018-08-29 17:51 | disposition home or self-care (01) ==
LOC: ER 15:24
DX: I82.402 Acute embolism and thrombosis of unspecified deep veins of left lower extremity (principal); M32.9 Systemic lupus erythematosus, unspecified; E11.9 Type 2 diabetes mellitus without complications; I25.10 Atherosclerotic heart disease of native coronary artery without angina pectoris; J44.9 Chronic obstructive pulmonary disease, unspecified; F41.9 Anxiety disorder, unspecified; E78.5 Hyperlipidemia, unspecified; I11.0 Hypertensive heart disease with heart failure; I50.9 Heart failure, unspecified; F03.90 Unspecified dementia, unspecified severity, without behavioral disturbance, psychotic disturbance, mood disturbance, and anxiety; I73.9 Peripheral vascular disease, unspecified; M06.9 Rheumatoid arthritis, unspecified; Z86.73 Personal history of transient ischemic attack (TIA), and cerebral infarction without residual deficits; Z90.711 Acquired absence of uterus with remaining cervical stump; Z87.891 Personal history of nicotine dependence; Z88.8 Allergy status to other drugs, medicaments and biological substances; Z88.0 Allergy status to penicillin; Z88.2 Allergy status to sulfonamides; Z86.2 Personal history of diseases of the blood and blood-forming organs and certain disorders involving the immune mechanism

== ENCOUNTER 2018-10-31 00:38 | Inpatient (IN) | payer OTHER ==
[~2018-10-31] VITALS: Ht 165.1 cm; Wt 63.3 kg
[2018-10-31] VITALS (9 sets, daily range): BP systolic 114–177; BP diastolic 50–89
--- NOTE | ~2018-10-31 | HC ---
[facility] [place] [address] CONSULTATION Name: LEIDY ADAMES Room #: 217-P ADM IN M.R.#: [id number] Admission: 10/31/18 Attend Phys: Perry Arellano MD Discharge: Date of : 49 Report #: [id number] THIS REPORT FOR: //name// CC: Junior Du MD [facility] Perry Arellano ROMAINE BOX Romaine Box INDICATION: Chest pain. HISTORY OF PRESENT ILLNESS: The patient is a very pleasant 72-year-old -Turkish female with a long history of coronary artery disease. She has a remote history of coronary artery bypass grafting in 2008. Subsequent to that, she has had some percutaneous coronary intervention. In 2015, she had a catheterization that showed normal LV systolic function. There was a stent in the circumflex artery that appeared occluded. The [place] right coronary artery was occluded. A vein graft to a diagonal with a jump to a marginal branch was patent. A vein graft to the distal right coronary artery had an 80% stenosis at the distal anastomosis. A HALEY graft to the LAD was patent. The [place] LAD distal to the graft was diffusely diseased. At that time, she underwent percutaneous coronary intervention with a drug-eluting stent placed to the vein graft to the distal right coronary artery. Yesterday, she had midsternal chest discomfort that was prolonged in nature. She had some associated diaphoresis, but no shortness of breath, nausea or vomiting. The patient apparently was treated in the Emergency Room with resolution of her pain. Of note, she was fairly hypertensive on admission. At present, she is resting comfortably and not having any pain. Her troponins have been unremarkable. EKG shows sinus rhythm with right bundle-branch block without acute ST or T-wave changes when compared to her previous EKGs. She otherwise appears stable from a cardiac standpoint. PAST MEDICAL HISTORY: 1. Lupus. 2. Type 2 diabetes mellitus. 3. Hypertension. 4. Hyperlipidemia. 5. Seizure disorder. 6. Peripheral arterial disease with bilateral bypass and stenting to the legs. 7. History of stroke. 8. History of carotid stenosis. 9. Previous hysterectomy. HOME MEDICATIONS: Amlodipine 5 mg p.o. q. day, Eliquis 5 mg p.o. b.i.d., atorvastatin 20 mg at bedtime, citalopram 40 mg daily, Plavix 75 mg daily, gabapentin 300 mg t.i.d., hydrocodone/acetaminophen 5/325 q. 4 hours p.r.n., Imdur 60 mg daily, Keppra 500 mg b.i.d., lisinopril 20 mg daily, lorazepam 2 mg t.i.d., Namenda 5 mg daily, metformin 1000 mg b.i.d., metoprolol succinate [address] [place] [address] CONSULTATION Name: LEIDY ADAMES Room #: 217-P [facility] IN .R.#: [id number] Admission: 10/31/18 Attend Phys: Perry Arellano MD Discharge: Date of : 49 Report #: [id number], Nitrostat p.r.n., Protonix 40 mg daily, prednisone 10 mg daily, Senokot-S 1 tablet at bedtime. ALLERGIES: SULFA. FAMILY HISTORY: Positive for coronary artery disease. SOCIAL HISTORY: The patient is . She lives with her in [facility]. She quit smoking many years ago. She does not drink alcohol. She has an adult daughter that lives in town. REVIEW OF SYSTEMS: Positive for stroke. She denies convulsions, although she has a seizure disorder. No unexplained weight loss or fever. She has a cough that is chronic without production. Cardiac as outlined above. In addition, she denies orthopnea or paroxysmal nocturnal dyspnea. She has type 2 diabetes mellitus. She denies thyroid disease. She denies any hematemesis, melena or hematochezia. She has no dysuria or hematuria. No history of cancer or blood clots. Allergies as outlined above. She denies depression or anxiety. She has arthritis. She has lupus. She wears glasses for reading, but has no acute loss in vision. She denies epistaxis. PHYSICAL EXAMINATION: VITAL SIGNS: Blood pressure 186/84, pulse is 68 and regular. GENERAL: This is a pleasant elderly female in no distress. Mood and affect appropriate. HEENT: Extraocular muscles intact. Mucous membranes are moist. NECK: Shows no jugular venous distention. There are no carotid bruits. CHEST: Reveals clear lung kumar. CARDIAC: Reveals regular rhythm with rate 2-3/6 apical holosystolic murmur. I do not appreciate gallop. ABDOMEN: Reveals normal bowel sounds. The abdomen is soft and nontender. EXTREMITIES: Shows no edema. Peripheral pulses palpable. SKIN: Warm and dry. LABORATORY DATA: A 12-lead EKG shows sinus rhythm with right bundle-branch block. No acute ST or T-wave abnormalities are noted. Labs are reviewed. Sodium 144, potassium 3.5, chloride 108, bicarbonate 29, BUN 17, creatinine 1.0. Serum glucose 81. LFTs are within normal limits. Troponins are less than 0.06 on 2 separate occasions. White blood cell count 10.1, hemoglobin 10.6, platelet count 180,000. Chest x-ray shows possible mild congestion consistent with congestive heart failure. NT-proBNP slightly elevated at 1982. [facility] [address] [place] [address] CONSULTATION Name: LEIDY ADAMES Room #: 217-P ADM IN M.R.#: [id number] Admission: 10/31/18 Attend Phys: Perry Arellano MD Discharge: Date of : 49 Report #: [id number] IMPRESSION AND RECOMMENDATIONS: 1. Chest pain. The patient has ruled out for myocardial infarction. At this point in time, I would continue continued medical management. We will make adjustments to her medications. I believe her hypertension is likely contributing. No plans for invasive evaluation at this time. Continue antiplatelet therapy as outlined above. 2. Hypertension. Blood pressure elevated. I will make adjustments to her antihypertensive regimen in an effort to improve her blood pressure. 3. Hyperlipidemia. Continue current statin agent. She has been at goal on this dose. 4. Peripheral vascular disease, presently stable. 5. History of stroke in the past without recurrent symptoms presently. Continue antiplatelet therapy. By: 1450 [id number] Denny Gallegos MD, FACC /nt
[~2018-10-31 00:38] MED LIST changes: +ELIQUIS5 M1 PO; +SENNA8.6 MG PO
[2018-10-31 02:29] LABS: ABSOLUTE NEUTROPHILS 7.5 thou/uL (1.4-8.2); BASOPHILS 0.9 % (0.0-2.0); EOSINOPHILS 1.8 % (0.0-3.0); HEMOGLOBIN 10.6 gm/dL (12.0-15.0); LYMPHOCYTES 14.4 % (24.0-44.0); MCH 30.6 pg (26.0-34.0); MCHC 32.1 g/dL (28.0-37.0); MCV 95.3 fL (80.0-100.0); MONOCYTES 7.9 % (1.0-8.0); PLATELET COUNT 180 thou/uL (150-400); RBC 3.46 mil/uL (4.20-5.00); RDW 16.7 % (10.5-14.5); WBC 10.1 thou/uL (4.0-11.0)
[2018-10-31 02:31] LABS: ANION GAP 8 mmol/L (7-16); BUN 16 mg/dL (7-18); CALCIUM 8.4 mg/dL (8.5-10.1); CHLORIDE 106 mmol/L (98-107); CO2 29 mmol/L (21-32); GLUCOSE 105 mg/dL (74-106); POTASSIUM 3.5 mmol/L (3.5-5.1); SODIUM 143 mmol/L (136-145)
[2018-10-31 02:39] LABS: ALBUMIN 3.2 g/dL (3.4-5.0); SGOT 12 U/L (15-37); SGPT 13 U/L (30-65); TOTAL BILIRUBIN 0.6 mg/dL (<0.1-1.0); TOTAL PROTEIN 7.9 g/dL (6.4-8.2); TROPONIN-I <0.06 ng/mL (<0.06)
[2018-10-31] MEDS ORDERED: LISINOPRIL20 MG PO (03:25)
--- NOTE | 2018-10-31 04:21 | NUR ---
THE PATIENT IS ORIENTED TO SELF, PLACE AND SITUATION. SHE DOES NOT KNOW THE MONTH OR THE YEAR. SHE STATES THAT SHE WAS AT HOME AND SHE STARTED TO HAVE CHEST PAINS YESTERDAY EVENING. SHE SAID THAT SHE TOOK 4 NTG TABLETS AT HOME AND ALSO TOOK A TYLENOL #3. SHE DID STATE THAT GAVE HER SOME RELIEF. SHE TOLD HER ABOUT THE PAIN AND HE DROVE HER TO THE HOSPITAL. THE PT CURRENTL DENIES CHEST PAIN, HOWEVER SHE DOES STATE THAT SHE HAS SOME LOWER ABDOMINAL PAIN. SHE STATES THAT SHE HAD A BM YESTERDAY. SHE STATES THAT SHE HAS NOT HAD DIARRHEA OR NAUSEA. SHE DENIES NAUSEA AT THIS TIME. THE PATIENT STATES THAT HER DAUGHTER PLACES HER PILLS IN A PILL BOX AND THE PATIENT STATES THAT SHE DOES TAKE HER MEDICATIONS THAT HER DAUGHTER PUTS IN THE BOX. SHE STATES THAT SHE IS ABLE TO AFFORD HER MEDICATIONS/COPAY. SHE SAYS THAT SHE HAD A PAIN LIKE THIS BEFORE ABOUT 2 MONTHS AGO. SHE WENT TO HER DOCTOR AT THAT TIME AND HE GAVE HER SOME NTG TABLETS. SHE STATES THAT THEY WORKED. THE PAIN DOES NOT RADIATE. SHE STATES THAT IT STAYS IN ONE SPOT FOR THE MOST PART. SHE DENIES ANY TROUBLE BREATHING. THE PATIENT IS CURRENTLY TIRED IT IS 4:30 IN THE MORNING. VSS. ASSESSMENT CHARTED. WILL CONTINUE TO MONITOR.
[2018-10-31 08:43] LABS: CALCIUM 8.2 mg/dL (8.5-10.1); POTASSIUM 3.5 mmol/L (3.5-5.1)
--- NOTE | 2018-10-31 12:06 | EKG ---
[place] [address] [facility] [place] [address] ELECTROCARDIOGRAM REPORT Name: LEIDY ADAMES Room #: 217-P ADM IN M.R.#: [id number] Admission: 10/31/18 Attend Phys: Perry Arellano MD Discharge: Date of : 49 Report #: [id number] THIS REPORT FOR: //name// [facility] ED Test Date: 2018-10-31 Test Time: 01:45:54 Pat Name: LEIDY ADAMES Department: Room: 217 Gender: F Tractor Operator Helper: Liya WELLS : 1945 Requested By: Lindy Guy Order Number: [id number] MD: Markus Ott Measurements Intervals [place] Rate: 86 P: 53 NM: 149 QRS: 98 QRSD: 126 T: 24 QT: 408 QTc: 488 Interpretive Statements Sinus rhythm Left atrial enlargement Right bundle branch block Compared to ECG 06/30/2018 06:15:28 No significant change was found Electronically Signed On 10-31-2018 12:06:09 CUSTOM GRINDER by Markus Ott [email or web address] <ELECTRONICALLY SIGNED> By: Markus Ott MD, [facility] 10/31/18 1206 0145 0145 Markus Ott MD, FAC /EPI
--- NOTE | 2018-10-31 12:12 | EKG ---
[place] [address] [facility] [place] [address] ELECTROCARDIOGRAM REPORT Name: LEIDY ADAMES Room #: 217-P ADM IN M.R.#: [id number] Admission: 10/31/18 Attend Phys: Perry Arellano MD Discharge: Date of : 49 Report #: [id number] THIS REPORT FOR: //name// [facility] Test Date: 2018-10-31 Test Time: 10:41:11 Pat Name: LEIDY ADAMES Department: Room: 217 Gender: F Pool Lifeguard: ABBIE : 1945 Requested By: Ana Luisa Brown Order Number: [id number] MD: Markus Ott Measurements Intervals [place] Rate: 75 P: 40 DE: 146 QRS: 104 QRSD: 126 T: 35 QT: 439 QTc: 491 Interpretive Statements Sinus rhythm Probable left atrial enlargement Right bundle branch block Compared to ECG 06/30/2018 06:15:28 No significant change was found Electronically Signed On 10-31-2018 12:12:24 TRUCK LOADER by Markus Ott [email or web address] <ELECTRONICALLY SIGNED> By: Markus Ott MD, [facility] 10/31/18 1212 104 104 Markus Ott MD, FAC /EPI
--- NOTE | 2018-10-31 12:12 | EKG ---
[place] [address] [facility] [employer] [place] [place] [address] ELECTROCARDIOGRAM REPORT Name: LEIDY ADAMES Room #: 217-P ADM IN M.R.#: [id number] Admission: 10/31/18 Attend Phys: Perry Arellano MD Discharge: Date of : 49 Report #: [id number] THIS REPORT FOR: //name// [facility] Test Date: 2018-10-31 Test Time: 10:40:13 Pat Name: LEIDY ADAMES Department: Room: 217 Gender: F Picker And Sorter Load And Unload: TRENT : 1945 Requested By: Lindy Guy Order Number: [id number] MD: Markus Ott Measurements Intervals [place] Rate: 75 P: 40 MS: 144 QRS: 101 QRSD: 128 T: 36 QT: 437 QTc: 489 Interpretive Statements Sinus rhythm Right bundle branch block Baseline wander in lead(s) V2 Compared to ECG 06/30/2018 06:15:28 No significant change was found Electronically Signed On 10-31-2018 12:12:10 LINING CASER by Markus Ott [email or web address] <ELECTRONICALLY SIGNED> By: Markus Ott MD, [facility] 10/31/18 1212 1040 1040 Markus Ott MD, [facility] /EPI
[2018-11-01] VITALS (7 sets, daily range): BP systolic 116–155; BP diastolic 51–80
[2018-11-01 07:13] LABS: HEMATOCRIT 25.8 % (37.0-47.0); HEMOGLOBIN 8.7 gm/dL (12.0-15.0); MCH 31.8 pg (26.0-34.0); MCHC 33.6 g/dL (28.0-37.0); MCV 94.6 fL (80.0-100.0); RBC 2.72 mil/uL (4.20-5.00); RDW 16.7 % (10.5-14.5); WBC 8.8 thou/uL (4.0-11.0)
--- NOTE | 2018-11-01 07:54 | NUR ---
ASSUME CARE 1900. PT DENIES ANY PAIN. TOLEWRATES ACTIVITY WELL. UP TO Bathroom with supervions. assessment as charted. no chest pain noted, trops negative. plan is to medically manage chest pain and adjust meds. will contiue to follow with jorge
[2018-11-01] MEDS ORDERED: LIDOPATCH1 EACH TRANSDERM (09:01)
--- NOTE | 2018-11-01 13:35 | NUR ---
ASSUMED PATIENT CARE THIS AM. PATIENT UP TO CHAIR STAND BY ASSIST. NO COMPLAINTS STATED. HEADACHE MANAGED WITH TYLENOL. THERAPY WITH PATIENT AT THIS TIME. PLAN TO DISCHARGE PATIENT HOME WITH SPOUSE.
--- NOTE | 2018-11-01 16:06 | NUR ---
PATIENT TO CT HOME TODAY. THERAPY APPROACHED AND REPORTS PATIENT HAS A WALKER AT HOME AND THEY RECOMMEND SHE USE WALKER AT HOME. THEY REPORTS SHE WOULD BENEFIT FROM HH AT [place]. HER HX INDICATES SHE HAS USED [facility] IN PAST. SP WITH PATIENT WHO AT FIRST DECLINED HH BUT THEN AGREEABLE WITH [facility]. [facility] NOTES SHE HAS REFUSED VISITS IN PAST BUT ACCEPTING FOR HOME HEALTH. VERFIED ADDRESS AND DR DEGROOT HER PCP.
== END 2018-11-01 17:06 | disposition home health service (06) | DRG 302 ==
LOC: ER 00:38 → EROBS 03:01 → 2N 03:01 → ENTRNSPT 11-01 16:43 → 2N 11-01 17:06
PROVIDERS: Nurse Practitioner Family; Student in an Organized Health Care Education/Training Program; ADMIT Hospitalist
DX: I25.110 Atherosclerotic heart disease of native coronary artery with unstable angina pectoris (principal); E43 Unspecified severe protein-calorie malnutrition; J44.9 Chronic obstructive pulmonary disease, unspecified; F41.9 Anxiety disorder, unspecified; R07.89 Other chest pain; E78.5 Hyperlipidemia, unspecified; F03.90 Unspecified dementia, unspecified severity, without behavioral disturbance, psychotic disturbance, mood disturbance, and anxiety; E11.51 Type 2 diabetes mellitus with diabetic peripheral angiopathy without gangrene; I10 Essential (primary) hypertension; M32.9 Systemic lupus erythematosus, unspecified; F32.9 Major depressive disorder, single episode, unspecified; D63.8 Anemia in other chronic diseases classified elsewhere; K21.9 Gastro-esophageal reflux disease without esophagitis; G40.909 Epilepsy, unspecified, not intractable, without status epilepticus; Z79.4 Long term (current) use of insulin; Z95.1 Presence of aortocoronary bypass graft; Z98.42 Cataract extraction status, left eye; Z98.41 Cataract extraction status, right eye; Z90.711 Acquired absence of uterus with remaining cervical stump; I25.2 Old myocardial infarction; Z95.5 Presence of coronary angioplasty implant and graft; Z86.73 Personal history of transient ischemic attack (TIA), and cerebral infarction without residual deficits; Z88.1 Allergy status to other antibiotic agents; Z88.0 Allergy status to penicillin; Z88.2 Allergy status to sulfonamides; Z88.8 Allergy status to other drugs, medicaments and biological substances; Z87.891 Personal history of nicotine dependence; Z82.49 Family history of ischemic heart disease and other diseases of the circulatory system; Z86.718 Personal history of other venous thrombosis and embolism; Z95.828 Presence of other vascular implants and grafts; Z79.52 Long term (current) use of systemic steroids; Z79.899 Other long term (current) drug therapy
CPT/HCPCS: 10081

== ENCOUNTER 2018-11-23 12:41 | Inpatient (IN) | payer OTHER ==
[~2018-11-23] VITALS: Ht 157.5 cm; Wt 63.5 kg
[~2018-11-23 12:41] MED LIST changes: +CELEXA20 MG PO; +LIDOPATCH1 EACH TRANSDERM
[2018-11-23 12:43] VITALS: BP 107/45
[2018-11-23 13:00] LABS: ABSOLUTE NEUTROPHILS 4.7 thou/uL (1.4-8.2); BASOPHILS 1.4 % (0.0-2.0); EOSINOPHILS 3.8 % (0.0-3.0); HEMATOCRIT 28.2 % (37.0-47.0); HEMOGLOBIN 9.6 gm/dL (12.0-15.0); LYMPHOCYTES 18.1 % (24.0-44.0); MCHC 33.9 g/dL (28.0-37.0); MCV 94.3 fL (80.0-100.0); MONOCYTES 8.1 % (1.0-8.0); POLYS 68.6 % (36.0-66.0); RBC 2.99 mil/uL (4.20-5.00); RDW 15.3 % (10.5-14.5); WBC 6.9 thou/uL (4.0-11.0)
[2018-11-23 13:08] LABS: CALCIUM 9.3 mg/dL (8.5-10.1); CREATININE 4.8 mg/dL (0.6-1.0)
[2018-11-23 13:11] LABS: POTASSIUM 6.4 mmol/L (3.5-5.1)
[2018-11-23 13:14] LABS: ALBUMIN 3.6 g/dL (3.4-5.0); TOTAL BILIRUBIN 0.4 mg/dL (<0.1-1.0); TOTAL PROTEIN 8.2 g/dL (6.4-8.2)
[2018-11-23 13:23] LABS: LARGE PLATELETS FEW; PLATELET COUNT 165 thou/uL (150-400); PLATELET ESTIMATE NORMAL
[2018-11-23] MEDS ORDERED: IMDUR 30 MG TAB30 M1 PO (15:13)
[2018-11-23] MEDS ORDERED: SPIRONOLACTONE25 M1 PO (15:13)
[2018-11-23] MEDS ORDERED: PROTONIX40 M1 PO (15:13)
[2018-11-23 15:30] LABS: CHOLESTEROL 123 mg/dL (<200); HDL CHOLESTEROL 36 mg/dL (>40); LDL CHOLESTEROL 75 mg/dL (<100); TC:HDL 3.4 Ratio (Not establshd); TRIGLYCERIDE 63 mg/dL (<150); VLDL 13 mg/dL (<40)
[2018-11-23 15:52] VITALS: BP 123/50
[2018-11-23 16:23] VITALS: BP 148/54
[2018-11-23 16:30] VITALS: BP 130/56
--- NOTE | 2018-11-23 17:17 | EKG ---
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 Washing Machine Mechanic: erica : 1945 Requested By: Mary Wilson Order Number: [id number] MD: Howard Nguyen Measurements Intervals [place] Rate: 65 P: 57 WI: 183 QRS: 126 QRSD: 152 T: 50 QT: 467 QTc: 486 Interpretive Statements Sinus rhythm Right bundle branch block Compared to ECG 10/31/2018 10:41:11 No significant changes Electronically Signed On 11-23-2018 17:16:48 UPPER CUTTER OUT by Howard Nguyen [email or web address] ��������������������������������������������� <ELECTRONICALLY SIGNED> ���������������������������������������� By: Howard Nguyen MD ��������������������������������������������� 11/23/18 1716 1343 1343 Howard Nguyen MD /SOUMYA
--- NOTE | 2018-11-23 18:26 | NUR ---
Assumed care of Pt at 0700. alert and oriented x2. denies pain. breathing comfortably on room air. iv fluids infusing per order. simmons inserted per order. sinus on telemetry. up w/ 1 assist. reports weakness. minimal appetite. will cont to monitor.
[2018-11-23 20:00] VITALS: BP 155/71
[2018-11-23 23:42] VITALS: BP 148/64
--- NOTE | 2018-11-24 02:00 | NUR ---
LAB UNABLE TO OBTAIN SPECIMEN FOR POTASSIUM LEVEL CHECK AT 2100. PT ALSO HAD L-AC IV SITE INFILTRATE AND WAS THUS REMOVED. PT HAD MULTIPLE UNSUCCESFUL IV STARTS. AN IV WAS FINALLY OBTAINED OVER THE LEFT BREAST BUT RN WAS NOT ABLE TO ASPIRATE ANY BLOOD FOR THE LAB. LAB AT THIS TIME IS ATTEMPTING TO OBTAIN THE SAMPLE. WILL FOLLOW.
[2018-11-24 02:22] LABS: ABSOLUTE NEUTROPHILS 3.6 thou/uL (1.4-8.2); BASOPHILS 0.7 % (0.0-2.0); EOSINOPHILS 2.9 % (0.0-3.0); HEMATOCRIT 28.6 % (37.0-47.0); HEMOGLOBIN 9.4 gm/dL (12.0-15.0); LYMPHOCYTES 22.4 % (24.0-44.0); MCH 31.1 pg (26.0-34.0); MCHC 32.8 g/dL (28.0-37.0); MCV 94.7 fL (80.0-100.0); PLATELET COUNT 158 thou/uL (150-400); RBC 3.02 mil/uL (4.20-5.00); RDW 15.3 % (10.5-14.5); WBC 5.6 thou/uL (4.0-11.0)
[2018-11-24 02:28] LABS: CALCIUM 9.2 mg/dL (8.5-10.1); MAGNESIUM 2.2 mg/dL (1.8-2.4)
[2018-11-24 02:59] LABS: CREATININE 3.6 mg/dL (0.6-1.0); POTASSIUM 5.7 mmol/L (3.5-5.1)
[2018-11-24 04:11] VITALS: BP 124/58
--- NOTE | 2018-11-24 05:34 | NUR ---
PT MAKING SLOW PROGRESS TOWARDS GOALS. NOTED ORIGINAL K+ VALUE OF (6.4). REPEAT k+ LEVEL WAS (6.2). ORDERS RECIEVED TO REPEAT DOSING OF ALBUTEROL, INSULIN AND DEX 50%. THIS AM K+ IS (5.7). CREATININE HAS ALSO IMPROVED FROM 4.8 TO 3.6 CONTINUE TO MONITOR.
[2018-11-24 07:19] VITALS: BP 137/61
[2018-11-24 11:20] VITALS: BP 125/48
--- NOTE | 2018-11-24 14:36 | NUR ---
INITIAL ASSESSMENT: SW reviewed chart and spoke with nursing and attending physician. Pt was admitted from home due weakness/CHEYENNE/hyperkalemia. Renal consulted. SW met with pt at bedside. Introduced role of SW. Pt is alert/orientated x 4. Pt reports she lives at home with family. Prior to admission, pt was independent with ADLs. Pt has a cane and walker at home. Pt states she does not use the DME. Pt states she is currently on service with [facility] for home health. Pt's PCP is Dr. Jamaal Cho. SW notified intake at [facility]. Plan is for pt to return home with services. SW is following to assist as needed with discharge planning.
[2018-11-24 16:34] VITALS: BP 29/67
[2018-11-24 19:37] VITALS: BP 120/59
--- NOTE | 2018-11-24 20:05 | NUR ---
care of pt assumed this am @ ~0700. pt noted to be sleepy and drowsy this am, needing much encouragement to wake, go to her chair to enjoy breakfast. pt w/ a fair appetite for her meals today, she least liked/enjoyed dinner tonight. pt able to sit up in her chair for ~ 5 hours today. pt worked w/ pt and ot today, she was noted to ambulate in the hallway (w/ gait belt and walker) w/ pt today. pt also ambulating to the [facility] w/ x1 minimal to sba. pt has denied n/v/d today. no soa and her only co pain was a lower posterior headache which she requested a pain pill, refusing tylenol (stating it would not help this headache). ivf's infusing wo issue. new iv access placed by iv team, as teddy stated the pt is not a canidate for a picc line at this time. pt seen by dr. gallagher today.
[2018-11-25 05:23] LABS: ALBUMIN 2.9 g/dL (3.4-5.0); CALCIUM 8.7 mg/dL (8.5-10.1); CREATININE 2.6 mg/dL (0.6-1.0); PHOSPHORUS 3.3 mg/dL (2.5-4.9); POTASSIUM 5.3 mmol/L (3.5-5.1)
[2018-11-25 07:30] VITALS: BP 109/43
--- NOTE | 2018-11-25 08:15 | NUR ---
PT MAKING SLOW PROGRESS TOWARDS GOALS. PT INITIALLY DENIED ANY PAIN BUT DID STATE THAT HER BACK WAS SORE TO WHICH PT ALREADY HAS A LIDOCAINE PATCH IN PLACE.
[2018-11-25 12:35] VITALS: BP 132/59
--- NOTE | 2018-11-25 15:03 | NUR ---
SW reviewed chart and spoke with nursing and attending physician. Pt is progressing towards goals for discharge. Discharge home is anticipated for tomorrow. SW met with pt at bedside to discuss discharge plan. Pt requests SW contact her dtr, Ramila, regarding HH services. ANDRE spoke with Ramila, via phone to provide update and notify of anticipated discharge. Ramila is aware and agreeable with d/c plan and states that she does not think pt will need HH services. SW updated intake at [facility]. SW is following to assist as needed with discharge planning.
[2018-11-25 15:57] VITALS: BP 133/70
--- NOTE | 2018-11-25 17:36 | NUR ---
PT RATES BACK PAIN @ 6-10..MEDICATED WITH LIDOCAINE PATCH AND TYLENOL PRN...
[2018-11-25 20:20] VITALS: BP 144/66
[2018-11-26 03:30] VITALS: BP 160/75
[2018-11-26 04:15] LABS: ALBUMIN 2.9 g/dL (3.4-5.0); CALCIUM 8.6 mg/dL (8.5-10.1); PHOSPHORUS 2.8 mg/dL (2.5-4.9)
[2018-11-26 04:22] LABS: POTASSIUM 5.5 mmol/L (3.5-5.1)
[2018-11-26 07:05] VITALS: BP 149/97
--- NOTE | 2018-11-26 08:00 | NUR ---
PATIENT IS SLOWLY PROGRESSING IN HER CARE PLAN. VITAL SIGNS STABLE WITH PATIENT HAVING NO COMPLAINTS OF NAUSEA. PATIENT DID COMPLAIN OF PAIN IN CHEST AND HEADACHE WHICH WERE TREATED WITH MEDICATIONS AND NON PHARMACOLOGICAL INTERVENTIONS. AROUND 0330 PATIENT ALERTED NURSE TO CHEST AND BACK PAIN. AFTER OBTAINING VITAL SIGNS PATIENT GIVEN NITRO TIMES ONE AND 3L VIA NASAL CANNULA. RESTAURANT HOST [employer]FA[employer] CONTACTED WITH ORDERS OBTAINED FOR STAT EKG AND TROPONIN, BOTH OF WHICH WERE NEGATIVE. IT IS THOUGHT THAT PATIENT WAS EXPERIENCING INDIGESTION. CONTINUE PLAN OF CARE.
--- NOTE | 2018-11-26 08:17 | EKG ---
[address] [place] [address] ELECTROCARDIOGRAM REPORT Name: LEIDY ADAMES Room #: 363-P ADM IN M.R.#: [id number] ������������������ Admission: 11/23/18 ������������������ Attend Phys: Lorne Saravia MD Discharge: ������������������ Date of : 49 Report #: [id number] ����������������������������������������������������������������� [id number] THIS REPORT FOR: //name// [facility] Test Date: 2018-11-26 Test Time: 03:44:54 Pat Name: LEIDY ADAMES Department: Room: 363 Gender: F Headend Technician: ernestine valdez : 1945 Requested By: Ana Luisa Brown Order Number: [id number] MD: Markus Ott Measurements Intervals [place] Rate: 72 P: 43 MT: 159 QRS: 85 QRSD: 137 T: 21 QT: 444 QTc: 486 Interpretive Statements Sinus rhythm Right bundle branch block Compared to ECG 11/23/2018 13:43:56 No significant change was found Electronically Signed On 11-26-2018 8:17:02 SENIOR SQL DATABASE DEVELOPER by Markus Ott [email or web address] ��������������������������������������������� <ELECTRONICALLY SIGNED> ���������������������������������������� By: Markus Ott MD, [facility] ��������������������������������������������� 11/26/18 0817 0344 3 Markus Ott MD, FAC /EPI
--- NOTE | 2018-11-26 09:23 | HC ---
[facility] [address] CONSULTATION Name: LEIDY ADAMES Room #: 363-P ADM IN M.R.#: [id number] Admission: 11/23/18 ������������������ Attend Phys: Lorne Saravia MD Discharge: ������������������ Date of : 49 Report #: [id number] THIS REPORT FOR: //name// CC: Lorne Hinton Box DATE OF SERVICE: 11/24/2018 REASON FOR CONSULTATION: Hyperkalemia and renal insufficiency. HISTORY OF PRESENT ILLNESS: The patient with a longstanding diagnosis of systemic lupus as well as coronary artery disease had coronary bypass grafting in 2008, had since that time drug-eluting stents placed in her heart despite that having relatively normal LV function with some diastolic dysfunction on an echocardiogram late last year. She has been on long-term chronic prednisone. At some point, according to the patient the prednisone was stopped. She was admitted to this hospital 3 weeks ago and was on prednisone at that time and also admitted to this hospital last fall also on prednisone at that time. It is unclear who or why the prednisone was stopped, but she insists that she has not been taking prednisone at home. She has felt reasonably well and went for routine labs and was found to have hyperkalemia and a creatinine that had been 1.0 had risen to 4.8, potassium up to 6.4 and blood pressure on the low side with mild hyponatremia. No nausea, vomiting or diarrhea, but her appetite had been off and she had been somewhat weak. History is somewhat compromised by the patient's some degree of cognitive impairment. PAST MEDICAL HISTORY: She had the previous heart disease as mentioned as well as a history of seizure disorder, previous hypertension, diabetes, peripheral arterial disease. She has had bypasses and stenting in her legs, history of stroke and previous hysterectomy. HOME MEDICATIONS: As listed include amlodipine 5 mg daily, Lipitor 10 mg daily, Celexa 20 mg daily, Imdur 30 mg daily, Keppra 500 mg b.i.d., lisinopril 20 mg daily, metformin 1000 mg b.i.d., Protonix 40 mg daily, prednisone 10 mg daily, spironolactone 25 mg daily and she states she was not taking the prednisone, but had been on daily Lasix, which she had been on presumably for some swelling. FAMILY HISTORY: No renal disease or connective tissue disease. SOCIAL HISTORY: Lives at home with her . No alcohol and no drugs. Remote smoking history. REVIEW OF SYSTEMS: Again she is somewhat of a poor historian. EYES: She says her vision is okay. ENT: Swallows okay. No mouth sores. ENDOCRINE: Positive for the diabetes. [address] [address] CONSULTATION Name: LEIDY ADAMES Room #: 363-P [facility] IN M.R.#: [id number] Admission: 11/23/18 ������������������ Attend Phys: Lorne Saravia MD Discharge: ������������������ Date of : 49 Report #: [id number] RESPIRATORY: Denies shortness of breath or pleuritic pain. CARDIAC: Denying chest pain. She has had the swelling in her legs and was on the Lasix and now is better. GASTROINTESTINAL: Appetite poor, but no nausea, vomiting or diarrhea. No bloody stools. GENITOURINARY: Good urinary stream without dysuria. NEUROLOGIC: Just generalized weakness and the cognitive impairment as mentioned. MUSCULOSKELETAL: Arthritis, she says her joints have been feeling okay. PHYSICAL EXAMINATION: GENERAL: This is a reasonably well-appearing, slightly confused woman in no acute distress. SKIN: No lesions are noted. SKELETAL: Well developed, well nourished: No amputations. HEENT: Extraocular movements are full. Mucous membranes are somewhat dry. NECK: Supple, without JVD. CHEST: Clear. HEART: Regular. ABDOMEN: Soft and nontender. EXTREMITIES: Show no peripheral edema. NEUROLOGIC: Shows a little bit of compromise in terms of recall. LABORATORY DATA: Potassium was 6.4 and now down to 5.7. ASSESSMENT: 1. Acute kidney injury. Creatinine up. It is coming down with IV fluids. Of interest, she did get her prednisone as ordered today, I believe and we will be sure that she is back on her prednisone as I believe the patient has iatrogenic adrenal insufficiency, was not getting her prednisone at home and therefore developed hyperkalemia, weakness and hypotension and was also on lisinopril, spironolactone and Lasix further contributing to the volume depletion and hyperkalemia ended up with a vicious cycle and now is recovering with IV fluids, discontinuation of the offending agents and with yazidi of her steroids. I believe she will get better without much difficulty. She will have to stay on prednisone for a while and this can be possibly slowly tapered. 2. Systemic lupus. 3. Hyperkalemia, improving. 4. Cognitive impairment. 5. Coronary artery disease, status post bypass and stents. 6. History of diastolic dysfunction. ��������������������������������������������� <ELECTRONICALLY SIGNED> ���������������������������������������� By: Marcio Tirado MD ��������������������������������������������� 11/26/18 0923 1645 0323 Marico Tirado MD /nt
[2018-11-26 11:32] VITALS: BP 133/60
--- NOTE | 2018-11-26 12:28 | NUR ---
ANDRE reviewed chart and spoke with nursing and attending physician. Pt is not ready for discharge home today. Chest Xray will be repeated tomorrow. Plan is for pt to discharge home. ANDRE spoke with pt's dtr, Ramila, via phone to provide update. Ramila is agreeable with discharge plan. Pt will not have any discharge needs. SW is available to assist should needs arise.
--- NOTE | 2018-11-26 17:48 | NUR ---
ASSUMED PATIENT CARE AT 0700. A/O X3. PLEASANT. DENIES CHEST PAIN, NO SOB. UP WALK IN HALLWAY WITH WALKER. VOID AFTER AVERY VALLES'D PROGRESSING TOWARDS POC GOALS.. TRANSFER TO 222.
[2018-11-26 17:54] VITALS: BP 178/73
[2018-11-26 19:25] VITALS: BP 168/76
--- NOTE | 2018-11-27 04:19 | NUR ---
ASSUMED CARE OF PATIENT AT 1899. VSS. ASSESSMENT COMPLETED AT 2114 AND IS DOCUMENTED. FSBS AT 2020 WAS 199. 3U OF COVERAGE INSULIN GIVEN PER SLIDING SCALE. AFTER AMBULATING TO THE BATHROOM AT 2299, PT C/O WEAKNESS AND "NOT FEELING RIGHT". BLOOD SUGAR WAS 33 AND 34 RESPECTFULLY. STAT GLUCOSE LAB OBTAINED AND WAS 47. 1 PRN GLUCOSE TAB GIVEN WITH ORANGE JUICE. BLOOD SUGAR WAS CHECKED AGAIN AT 19 AND WAS 51. ANOTHER PRN GLUCOSE TAB GIVEN WITH 2 CUPS OF ORANGE JUICE. AT 0047, BLOOD SUGAR WAS 86. CAMILO ORTIZ NOTIFIED OF HYPOGLYCEMIA. AT 2329, PT C/O CHEST PAIN AND REQUESTED PRN NITRO, WHICH WAS GIVEN PER ORDER. BP: 170/74 AT THIS TIME. AT 5, PAIN HAD STILL NOT SUBSIDED AND PT REQUESTED PAIN MEDICATION. BP: 150/66. PRN MORPHINE GIVEN WITH DESIRED EFFECT ACHIEVED. PT IS CURRENTLY SLEEPING SOUNDLY IN BED IN NO ACUTE DISTRESS. CALL LIGHT WITHIN REACH. BED LOCKED AND IN LOWEST POSITION. WCTM.
[2018-11-27 07:34] VITALS: BP 165/73
[2018-11-27 08:44] LABS: ALBUMIN 3.1 g/dL (3.4-5.0); CALCIUM 9.1 mg/dL (8.5-10.1); CREATININE 1.8 mg/dL (0.6-1.0); POTASSIUM 5.7 mmol/L (3.5-5.1)
--- NOTE | 2018-11-27 09:26 | NUR ---
ASSUMED CARE OF PATIENT THIS MORNING. SHE IS ALERT AND ORIENTED TO PERSON AND PLACE. PATIENT COMPLAINED OF CHEST PAIN THIS MORNING NON CARDIAC, NO OTHER COMPLAINTS OF PAIN. SHE IS UP WITH STAND BY ASSISTANCE W/ A WALKER. MORNING MEDICATIONS WERE GIVEN AND LIDOCAINE PATCH PLACED ON PATIENTS BACK FOR PAIN. PATIENT'S LABS WERE DRAWN AT 0825, POTASSIUM ELEVATED AT 5.7 AND SODIUM LOW AT 134, CREATITINE 1.8H. HER BLOOD SUGAR WAS 98 AT 0741 NO INSULIN WAS GIVEN. PATIENT WILL BE TRANSFERRED TO CCU ROOM 219. SHE IS CURRENTLY LYING IN BED WITH CALL LIGHT WITHIN REACH. SHE CALLS OUT APPROPRIATELY.
[2018-11-27 10:00] VITALS: BP 166/72
[2018-11-27 16:00] VITALS: BP 134/60
[2018-11-27 20:55] VITALS: BP 149/55
[2018-11-28] VITALS: BP 129/49
[2018-11-28 03:10] VITALS: BP 120/41
--- NOTE | 2018-11-28 04:41 | NUR ---
PT. ALERT TO PERSON, SITUATION AND PLACE; CALLED FOR HELP TO USE THE BED SIDE COMMODE; C/O HEADACHE; BS CHECKED 98 WHILE EATING; PRN ACETAMINOPHEN AND JUICE PROVIDE; ABLE TO REST MOST OF THE NIGHT; HIGHEST SBP 140'S; HS MEDICATION GIVEN; ASSESSMENT CHARGED; FOLLOWIN POC; WILL PASS ON REPORT.
[2018-11-28 06:24] LABS: ALBUMIN 2.9 g/dL (3.4-5.0); CALCIUM 9.3 mg/dL (8.5-10.1); CREATININE 2.1 mg/dL (0.6-1.0); PHOSPHORUS 3.1 mg/dL (2.5-4.9); POTASSIUM 5.3 mmol/L (3.5-5.1)
[2018-11-28 08:00] VITALS: BP 142/52
[2018-11-28 12:40] VITALS: BP 121/44
[2018-11-28 16:00] VITALS: BP 139/51
--- NOTE | 2018-11-28 16:58 | NUR ---
ASSESSMENTS DOCUMENTED. PT DENIES ANY CHEST PAIN OR DISCOMFORT. SINUS RHYTHM ON THE MONITOR. UP TO CHAIR THROUGH OUT THE DAY. ALERT AND ORIENTED TO SELF AND SITUATION. FORGETFUL AT TIMES. PLAN TO HAVE STRESS TEST IN THE AM. WILL CONTINUE TO MONITOR.
[2018-11-28 19:37] VITALS: BP 149/58
--- NOTE | 2018-11-29 04:08 | NUR ---
ASSESSMENT DOCUMENTED.PT BEEN RESTING IN NO ACUTE DISTRESS.DENIES CHEST PAIN AT THIS TIME.PAIN MEDS GIVEN FOR HEADCHE W/RELIEF.VSS.SR ON MONITOR.STB ASSIST W/TOILETING.NPO AFTER MIDNOC FOR STRESS TEST TODAY.PT DENIES NEEDS AT THIS TIME.WILL CONT TO MONITOR PER POC.
[2018-11-29 04:24] LABS: ALBUMIN 2.9 g/dL (3.4-5.0); CALCIUM 8.6 mg/dL (8.5-10.1); CREATININE 1.9 mg/dL (0.6-1.0); PHOSPHORUS 3.4 mg/dL (2.5-4.9)
[2018-11-29 04:44] LABS: POTASSIUM 5.2 mmol/L (3.5-5.1)
[2018-11-29 04:54] VITALS: BP 141/50
[2018-11-29 08:08] VITALS: BP 145/49
[2018-11-29 12:41] VITALS: BP 122/57
--- NOTE | 2018-11-29 14:38 | NUR ---
ASSESSMENTS DOCUMENTED. SINUS RHYTHM ON THE MONITOR. DENIES ANY PAIN OR DISCOMFORT. DR. MULLIGAN CONSULTED FOR DIABETIC MANAGEMENT. TELEPHONE ORDERS RECIEVED. RN TO CALL WITH [facility] BLOOD SUGARS FOR INSULIN DOSING. STRESS TEST DONE THIS AM - RESULTS PENDING. PATIENT DENIES ANY NEEDS OR CONCERNS AT THIS TIME. WILL CONTINUE TO MONITOR.
[2018-11-29 16:45] VITALS: BP 124/67
[2018-11-29 21:18] VITALS: BP 133/68
[2018-11-29 23:07] LABS: GLYCOHEMOGLOBIN (HGB A1C) 6.3 % (4.8-5.6)
--- NOTE | 2018-11-30 01:29 | HC ---
[facility] [address] CONSULTATION Name: LEIDY ADAMES Room #: 219-P ADM IN M.R.#: [id number] Admission: 11/23/18 ������������������ Attend Phys: Lorne Saravia MD Discharge: ������������������ Date of : 47 Report #: [id number] THIS REPORT FOR: //name// CC: Lorne Hinton Box DATE OF SERVICE: 11/29/2018 ENDOCRINE CONSULTATION The patient of Dr. Saravia, U, room 219. SUBJECTIVE: A 73-year-old black female admitted for acute renal insufficiency, hyperkalemia, weakness, etc. The patient is a limited historian. She states she has had kidney disease for "many years," but is unable to elaborate the duration or extent. She states that recently she was told of a worsening in renal function. She also notes she has had diabetes for approximately 1 year and during that time, has been on an unknown dosage of metformin given b.i.d., but it is not clear whether this was given in contradiction to renal status, but it was recently discontinued. Since admission, the patient has been treated with sliding scale insulin and has had episodes of both hyper and hypoglycemia, with many, but not all of the hypoglycemia, apparently precipitated by insulin administration, particularly given the long duration of insulin in patients with renal disease. At home, the patient has not been on any specific diet. She eats approximately 3 meals per day and snacks occasionally. Her weight has been relatively stable. Her activity is extremely limited. She states she monitors her glucoses at home in an unknown frequency and values are generally in the low 100s. She does not have any information regarding hemoglobin A1c or other determinants of glucose control. Otherwise, she is unable to provide any pertinent endocrine history that has not previously been dictated. OBJECTIVE: LABORATORY DATA: As per chart. There is evidence of subclinical hypothyroidism. Multiple episodes of hypoglycemia are as noted. There is no recent hemoglobin A1c. PHYSICAL EXAMINATION: GENERAL: Thin 73-year-old black female, in no acute distress. VITAL SIGNS: The patient is afebrile. Heart rate 68 and regular, blood pressure 122/57. SKIN: Warm and moist without abnormality. Otherwise, the routine physical examination is as previously dictated. She is clinically euthyroid. [address] [address] CONSULTATION Name: LEIDY ADAMES Room #: 219-P [facility] IN M.R.#: [id number] Admission: 11/23/18 ������������������ Attend Phys: Lorne Saravia MD Discharge: ������������������ Date of : 47 Report #: [id number] ASSESSMENT: 1. Diabetes mellitus, out of control with multiple episodes of hypoglycemia. Many if not all of these are precipitated by insulin, particularly in a patient with significant renal disease, but some may be due to decreased gluconeogenesis in the liver. 2. Subclinical hypothyroidism, which is of no clinical significance at this time. PLAN: 1. Will evaluate prior control with hemoglobin A1c. 2. Will discontinue insulin and place the patient on appropriate diet for renal disease, diabetes, height and weight etc. 3. Will then monitor glucose and treat only if there is significant hyperglycemia, most likely using a DPP-4 inhibitor such as linagliptin, which can be used in renal disease and will not be prone to inducing hypoglycemia since this blocks hyperglycemia, but does not induce increases in basal insulin secretion. Will monitor for hypoglycemia and treat accordingly to not institute secondary hyperglycemia. 4. The patient's mild elevation of TSH is subclinical and does not need to be treated, but only followed at this time. Thank you very much for this consultation. I will continue to follow the patient with you for evaluation and treatment of endocrine disease. ��������������������������������������������� <ELECTRONICALLY SIGNED> ���������������������������������������� By: Junior Vázquez MD ��������������������������������������������� 11/30/18 0129 1514 0022 Junior Vázquez MD /nt
--- NOTE | 2018-11-30 01:29 | HC ---
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 This will not be a problem as long as the patient is continued on current dosage, but caution should be undertaken if dosage is ever tapered or discontinued, which should probably not occur. If it does occur, it should only be done over a protracted period of time in very slow and minimal increments while monitoring patient response. ��������������������������������������������� <ELECTRONICALLY SIGNED> ���������������������������������������� By: Junior Vázquez MD ��������������������������������������������� 11/30/18 0129 1522 0013 Junior Vázquez MD /nt
[2018-11-30 03:50] VITALS: BP 148/63
--- NOTE | 2018-11-30 07:22 | NUR ---
ASSESSMENT DOCUMENTED.PT BEEN RESTING IN NO ACUTE DISTRESS.VSS.BLOOD GLUCOSE MANAGED BY DR MULLIGAN,RESULTS CALLED,ORDERS NOTED.NO CONCERNS VOICED BY THE PT AT THIS TIME.WILL CONT TO MONITOR PER POC.
[2018-11-30 07:29] VITALS: BP 127/56
[2018-11-30 10:28] LABS: ALBUMIN 3.4 g/dL (3.4-5.0); CREATININE 1.9 mg/dL (0.6-1.0); POTASSIUM 4.6 mmol/L (3.5-5.1)
[2018-11-30 11:08] VITALS: BP 106/52
--- NOTE | 2018-11-30 11:49 | NUR ---
Nutrition: pt admitted with acute renal failure, hyperkalemia, metabolic encephalopathy and seen due to LOS. Chart reviewed. Pt eating approx. 50% of meals. No weight change per hx. Instructed on ordering meals as desired. BG 52-298 on carb controlled diet and also requiring steroids. String Laster consulted for insulin management. Pt would like Glucerna daily, offer at dinner. D/C soon. Consider low nutrition risk at this time.
[2018-11-30] MEDS ORDERED: CARVEDILOL12.5 MG PO (14:40)
[2018-11-30] MEDS ORDERED: ASPIR 8181 MG PO (14:40)
[2018-11-30] MEDS ORDERED: TRADJENTA5 MG PO (14:41)
[2018-11-30 14:59] VITALS: BP 106/52
== END 2018-11-30 17:43 | disposition home or self-care (01) | DRG 682 ==
LOC: ER 12:41 → EROBS 14:17 → 3W 14:17 → ENTRNSPT 11-24 18:25 → SICU 11-26 17:07 → 2N 11-27 10:33
PROVIDERS: Internal Medicine Endocrinology, Diabetes & Metabolism; Internal Medicine Nephrology; Nurse Practitioner; Physician Assistant; ADMIT Hospitalist
DX: N17.9 Acute kidney failure, unspecified (principal); G93.41 Metabolic encephalopathy; E87.2 Acidosis; E27.40 Unspecified adrenocortical insufficiency; E11.51 Type 2 diabetes mellitus with diabetic peripheral angiopathy without gangrene; M32.9 Systemic lupus erythematosus, unspecified; I25.10 Atherosclerotic heart disease of native coronary artery without angina pectoris; J44.9 Chronic obstructive pulmonary disease, unspecified; F41.9 Anxiety disorder, unspecified; E78.5 Hyperlipidemia, unspecified; G40.909 Epilepsy, unspecified, not intractable, without status epilepticus; E87.5 Hyperkalemia; E11.649 Type 2 diabetes mellitus with hypoglycemia without coma; D64.9 Anemia, unspecified; R62.7 Adult failure to thrive; F32.9 Major depressive disorder, single episode, unspecified; I27.20 Pulmonary hypertension, unspecified; E02 Subclinical iodine-deficiency hypothyroidism; I11.0 Hypertensive heart disease with heart failure; I50.9 Heart failure, unspecified; F03.90 Unspecified dementia, unspecified severity, without behavioral disturbance, psychotic disturbance, mood disturbance, and anxiety; I25.2 Old myocardial infarction; Z95.1 Presence of aortocoronary bypass graft; Z95.5 Presence of coronary angioplasty implant and graft; Z87.891 Personal history of nicotine dependence; Z68.25 Body mass index [BMI] 25.0-25.9, adult; Z86.73 Personal history of transient ischemic attack (TIA), and cerebral infarction without residual deficits; Z86.718 Personal history of other venous thrombosis and embolism; Z98.42 Cataract extraction status, left eye; Z98.41 Cataract extraction status, right eye; Z95.820 Peripheral vascular angioplasty status with implants and grafts; Z90.710 Acquired absence of both cervix and uterus; Z79.899 Other long term (current) drug therapy; Z79.84 Long term (current) use of oral hypoglycemic drugs; Z88.1 Allergy status to other antibiotic agents; Z88.0 Allergy status to penicillin; Z88.2 Allergy status to sulfonamides; Z88.8 Allergy status to other drugs, medicaments and biological substances
CPT/HCPCS: 10081; 10879; 15002

== ENCOUNTER 2018-12-05 21:49 | Inpatient (IN) | payer OTHER ==
[~2018-12-05] VITALS: Ht 157.5 cm; Wt 61.2 kg
--- NOTE | ~2018-12-05 | HC ---
[facility] [place] [address] CONSULTATION Name: LEIDY ADAMES Room #: 202-P ADM IN M.R.#: [id number] Admission: 12/05/18 ������������������ Attend Phys: Perry Arellano MD Discharge: ������������������ Date of : 47 Report #: [id number] THIS REPORT FOR: //name// CC: Perry Hinton Box DATE OF SERVICE: 12/06/2018 REASON FOR CONSULTATION: Right hip fracture. HISTORY OF PRESENT ILLNESS: The patient is a 73-year-old female, with a fair amount of dementia, who apparently was diagnosed with a fractured right hip at [facility] ER. She was out of network and was transferred to [facility] apparently. She is a very poor historian. PAST MEDICAL HISTORY: Obtained from the patient's medical record includes history of acute kidney failure, dementia, congestive heart failure, history of CVA, DVT, hypertension, hyperlipidemia, peripheral artery disease. ALLERGIES: ERTAPENEM, PENICILLIN, SULFA, SULFAMETHOXAZOLE, TETRACYCLINE AND TRIMETHOPRIM. SOCIAL HISTORY: She reports living with her . Denies using any ambulatory aids; however, with her history of dementia, I am uncertain if this is correct. PAST SURGICAL HISTORY: Obtained from the patient's medical record and appears to be none. MEDICATIONS: The patient's MAR was reviewed, which showed Senokot, prednisone, isosorbide mononitrate, citalopram, atorvastatin, carvedilol, pantoprazole, nitroglycerin, levetiracetam, hydrocodone, insulin. LABORATORY DATA: From 12/06/2018 shows white blood cell count of 10.5, hemoglobin 9, hematocrit 27.1, platelet count 277. INR is 1. Chemistry: Has a low sodium of 135, potassium is 5.1, creatinine is 1.7, the rest is within normal range. PHYSICAL EXAMINATION: GENERAL: The patient is alert and oriented to person and place. She answers some questions, but is somewhat confused. She is a well-developed, well-nourished female. VITAL SIGNS: Most recent vital signs show heart rate of 78, blood pressure 145/49. Height and weight are unable to be obtained, they appear within normal ranges. EXTREMITIES: Examination of her bilateral upper extremities, distally [address] [address] CONSULTATION Name: LEIDY ADAMES Room #: 202-P ADM IN .R.#: [id number] Admission: 12/05/18 ������������������ Attend Phys: Perry Arellano MD Discharge: ������������������ Date of : 47 Report #: [id number] neurovascularly intact. Brisk capillary refill. Skin is clean, dry and intact. She moves her bilateral upper extremities without pain. She is sitting in her bed with both of her hips flexed and knees flexed, she actually apparently tolerated that quite well. She has significant pain with attempted right hip range of motion. No pain with left hip, bilateral knee, ankle or foot range of motion, is distally neurovascularly intact on both. The skin is clean, dry and intact. She has no tenderness to palpation throughout the bilateral knees, ankles, legs or feet. RADIOGRAPHS: AP and lateral of the right hip were reviewed, which shows an essentially nondisplaced right intertrochanteric hip fracture. IMPRESSION AND PLAN: Right intertrochanteric hip fracture in a 73-year-old patient with moderate amount of dementia. I have discussed this patient with Dr. Dial as he most likely will be performing the surgical procedure to provide stabilization of the hip in order to allow her to rehab and allow the hip fracture to heal. I will try to attempt to contact her family. Surgery will most likely be today either by my partner, Dr. Junior Dial or by Dr. Rick Barrett. ��������������������������������������������� ���������������������������������������� By: ��������������������������������������������� 0924 2338 Clarissa Huber MD /nt
[~2018-12-05 21:49] MED LIST changes: +CARVEDILOL12.5 MG PO; +IMDUR 30 MG TAB30 M1 PO; +PROTONIX40 M1 PO; +SPIRONOLACTONE25 M1 PO; +TRADJENTA5 MG PO
[2018-12-05 23:24] VITALS: BP 168/70
[2018-12-06] VITALS (9 sets, daily range): BP systolic 118–157; BP diastolic 45–63
[2018-12-06 03:52] LABS: HEMATOCRIT 27.1 % (37.0-47.0); MCHC 33.3 g/dL (28.0-37.0); MCV 96.2 fL (80.0-100.0); RBC 2.81 mil/uL (4.20-5.00); RDW 15.7 % (10.5-14.5); WBC 10.5 thou/uL (4.0-11.0)
[2018-12-06 04:00] LABS: CREATININE 1.7 mg/dL (0.6-1.0)
[2018-12-06 04:03] LABS: POTASSIUM 5.1 mmol/L (3.5-5.1)
--- NOTE | 2018-12-06 04:32 | NUR ---
PT DIRECT ADMIT FROM [facility].ARRIVED 2300 PT HAD PREVIOUSLY BEEN HOSPITALIZED AT [facility], AND DC'D ON THE . WENT TO [facility] EMERGENCY ROOM AFTER BEING UNABLE TO HER RIGHT HIP AFTER FALL. CT/X-RAY SHOW HIP FRACTURE. PT AO X3. DENIES CHEST PAIN , N/V/D. C/O INTENSE PAIN IN THE RIGHT HIP. MORPHINE 4MG AND HYDROCODONE GIVEN . PT HAS BEEN NPO SINCE 99, PENDING AORTHO CONSULT. WILL CONTINUE TO FOLLOW POC.
[2018-12-06 15:45] LABS: HEMOGLOBIN 7.9 gm/dL (12.0-15.0); MCH 32.2 pg (26.0-34.0); MCHC 32.8 g/dL (28.0-37.0); MCV 98.1 fL (80.0-100.0); RBC 2.45 mil/uL (4.20-5.00); RDW 15.4 % (10.5-14.5); WBC 14.7 thou/uL (4.0-11.0)
--- NOTE | 2018-12-06 15:56 | NUR ---
PT GONE TO OR THIS AM FOR RT HIP FX REPAIR. PT RETURNED AT APPROX 1500. PT ON 2L NC, NO SOA. NO ABDUCTOR PILLOW, REGULAR PILLOW BETWEEN LEGS. PAIN MED ADMINISTERED PER PT REQUEST. DAUGHTER AT BEDSIDE HAS BEEN EDUCATED AND UPDATED ON POC
--- NOTE | 2018-12-06 18:57 | O ---
[facility] [place] [address] OPERATIVE REPORT Name: LEIDY ADAMES Room #: 202-P ADM IN M.R.#: [id number] Admission: 12/05/18 ������������������ Attend Phys: Perry Arellano MD Discharge: ������������������ Date of : 47 Report #: [id number] THIS REPORT FOR: //name// CC: Perry Arellano Jamaal Box DATE OF SERVICE: 12/06/2018 PREOPERATIVE DIAGNOSIS: Right proximal femur fracture. POSTOPERATIVE DIAGNOSIS: Right proximal femur fracture. PROCEDURE: Open reduction and internal fixation, right femoral intertrochanteric fracture using antegrade TFN nail fixation. SURGEON: Junior Dial MD INDICATIONS: This rather frail and mildly demented 73-year-old female who has been ambulatory, but with difficulty and poor balance, she fell injuring the right hip. X-rays confirmed an essentially nondisplaced fracture in the intertrochanteric region of the right proximal femur. I have discussed the issue with the patient and her daughter and they have agreed to go ahead with surgical repair. DESCRIPTION OF PROCEDURE: The patient was taken to the operating room where she was placed under general anesthesia. Prophylactic intravenous antibiotics were administered. She was positioned on the fracture table with gentle longitudinal traction and slight internal rotation, which resulted in essentially anatomic alignment of the right proximal femur fracture. This was confirmed with C-arm. The lateral aspect of the right hip and thigh were then meticulously prepped and draped. A skin incision was made just proximal to the greater trochanter and a guidewire passed through the trochanter into the canal. The trochanter was opened with a small reamer and a Synthes TFN 10 mm diameter nail was inserted. This was advanced to an appropriate level. The outrigger guide was positioned and guidewire passed to the lateral femoral cortex positioning this low and slightly posterior in the femoral head and neck region. This was measured and a 90 mm length helical blade was inserted. This was impacted to a point about 1 cm below the subchondral bone at the femoral head. It seated nicely and appeared to be secure. A distal interlock screw was then placed using the outrigger guide and C-arm guidance. The wounds were gently irrigated. Good hemostasis was established. The wounds were closed with 2-0 Monocryl and skin [facility] [address] [place] [address] OPERATIVE REPORT Name: LEIDY ADAMES Room #: 202-P ADM IN .R.#: [id number] Admission: 12/05/18 ������������������ Attend Phys: Perry Arellano MD Discharge: ������������������ Date of : 47 Report #: [id number] rosie. A sterile dressing was applied. The patient was awakened and returned to recovery room in good condition. ��������������������������������������������� <ELECTRONICALLY SIGNED> ���������������������������������������� By: Junior Dial MD ��������������������������������������������� 12/06/18 1857 1244 1330 Junior Dial MD /nt
[2018-12-07 03:35] VITALS: BP 130/40
--- NOTE | 2018-12-07 04:00 | NUR ---
Pt post ORIF of the right hip fracture. pt rates pain at 6-9, that is controled with pain meds. vital signs stable. Alert x 2, when reoriented, pt alert x 3. ice pac on the dressing (R hip) and q2 turns as tolerated by patient. dress c/d/i. Pt received 2 doses clindamycin over night. Pain management was primary goal for the night. pt reports having rested better than previous night. will continue to follow poc.
[2018-12-07 04:36] LABS: HEMATOCRIT 21.7 % (37.0-47.0); MCHC 32.1 g/dL (28.0-37.0); RBC 2.21 mil/uL (4.20-5.00); WBC 8.5 thou/uL (4.0-11.0)
[2018-12-07 04:37] LABS: MCH 31.5 pg (26.0-34.0); RDW 15.6 % (10.5-14.5)
[2018-12-07 07:56] VITALS: BP 18/40
[2018-12-07 10:25] LABS: HEMOGLOBIN 6.6 gm/dL (12.0-15.0)
[2018-12-07 10:26] LABS: HEMATOCRIT 20.4 % (37.0-47.0)
[2018-12-07 12:06] LABS: % SATURATION 8 % (20-39); IRON 16 ug/dL (50-170); TIBC 194 ug/dL (250-450)
[2018-12-07 12:15] VITALS: BP 118/41; BP 121/40
--- NOTE | 2018-12-07 12:35 | NUR ---
met with patient who post ORIF. She reports resides at home with spouse and grandson. All needs on one level. She has a walker but was not using sea captain. Patient with recent dc from [facility] 11/26/18. She reports she fell at home. She went to [facility] who transferred to [facility] as she was out of network. Discussed with patient need for post acute care. Left coventry/aetna list in room of skilled facilities to review. Left message with dtr of above to call casemgt
[2018-12-07 14:27] VITALS: BP 120/42
--- NOTE | 2018-12-07 14:34 | NUR ---
PT IS ALERT AND ORIENTED X3. FORGETS WHAT SHE IS HERE IN THE HOSPITAL FOR AND WHAT HAPPENED EXPLAIN TO HER THAT IT WAS HER HIP. PAIN MEDS GIVEN FOR HIP PAIN DRESSING DRY AND INTACT ON RIGHT HIP. LUNGS ARE CLEAR. LOW SODIUM DIET. TOLERATING WELL. VARELA TO DD WITH YELLOW URINE PRESENT. 1 UNIT OF BLOOD GIVEN FOR LOW REPEAT HGB DRAWN. NOTIFIED PHYSICAN AND ORDER OBTAINED FOR A UNIT OF BLOOD. NO ADVERSE REACTION. WILL CONTINUE TO MONITOR AND ASSESS PER NURSING
[2018-12-07 20:01] VITALS: BP 141/48
[2018-12-08 03:57] VITALS: BP 140/48
--- NOTE | 2018-12-08 04:06 | NUR ---
Assumed care 1900, pt AO x 2. unable to recall why she is at [facility]. Pt has a cathete by frequently forgets and request a bedpan to void. C/o pain in the right hip. pt does not remember she fractured her hip. pulled the dressing off. incision sutures C/D/I. no swelling noted, covered with abds. vital signs stable, no nausea, vomiting or diarrea reported/noted. pt primarily was pain management, will continue to follow POC.
[2018-12-08 04:14] LABS: HEMATOCRIT 24.3 % (37.0-47.0); HEMOGLOBIN 8.1 gm/dL (12.0-15.0); MCH 31.8 pg (26.0-34.0); MCHC 33.2 g/dL (28.0-37.0); MCV 95.5 fL (80.0-100.0); RBC 2.55 mil/uL (4.20-5.00); RDW 15.5 % (10.5-14.5); WBC 15.6 thou/uL (4.0-11.0)
--- NOTE | 2018-12-08 10:53 | NUR ---
Dtr still reviewing list of facilities and touring. She reports patient at this time not agreeable will cont to discuss recommendation of post acute care.
[2018-12-08 15:16] VITALS: BP 124/42
--- NOTE | 2018-12-08 18:31 | NUR ---
ASSUMED CARE OF PT AT SHIFT CHANGE. ASSESSMENTS CHARTED. MEDS GIVEN PER DEC. PT ALERT AND ORIENTED, FORGETFUL AT TIMES. PT CALLS APPROPRIATELY WITH NEEDS, FALL PRECAUTIONS IN PLACE. VSS, NO S/SX OF CARDIAC OR RESP DISTRESS NOTED. C/O PAIN, MANAGED WITH PO PAIN MEDS. DENIES CONCERNS AT THIS TIME. WILL CONTINUE TO MONITOR AND FOLLOW POC.
[2018-12-09 03:21] VITALS: BP 150/57
[2018-12-09 04:30] LABS: HEMOGLOBIN 7.6 gm/dL (12.0-15.0); MCH 30.4 pg (26.0-34.0); MCHC 31.7 g/dL (28.0-37.0); MCV 95.9 fL (80.0-100.0); RBC 2.5 mil/uL (4.20-5.00); WBC 12.5 thou/uL (4.0-11.0)
[2018-12-09 04:39] LABS: CALCIUM 8.2 mg/dL (8.5-10.1); CREATININE 1.9 mg/dL (0.6-1.0)
[2018-12-09 05:02] LABS: POTASSIUM 5.4 mmol/L (3.5-5.1)
--- NOTE | 2018-12-09 06:59 | NUR ---
ASSUME CARE 1900. PT/VITALS STABLE. TOLERATING ACTIVITY MODERATELY. ASSESSMETN CHARTED. PROGRESSING WELL WITH POC. ADEQUATE REST NOTED. VARELA OUT, PT VOIDING ADEQUATELY. PLAN IS TO CONTINUE TO MONITRO POST UP IMPROVEMENT AND PREVENT INFECTION. WILL CONTINUE TO FOLLOW WITH POC
[2018-12-09 07:20] VITALS: BP 160/59
[2018-12-09 11:45] VITALS: BP 130/47
--- NOTE | 2018-12-09 12:27 | NUR ---
Continuous Wave Operator spoke with the pt's dtr Ramila. She indicates that [facility] SNF is their first choice for rehab. She is also open to taking the pt home with HH ([facility]) if therapy feels that is reasonable. She has FMLA available through her employer. The pt is TTWB. Call placed to therapy to discuss recommendations. [facility] to submit for admission auth per her insurance plan if they can accept as she is dc ready per the attending. The [facility] environmental emergencies planner has faxed her referral to admissions.
[2018-12-09 16:25] VITALS: BP 153/76
--- NOTE | 2018-12-09 16:26 | NUR ---
FAXED REFERRAL TO [facility] SPOKE WITH [facility] IN ADM. SHE RECEIVED REFERRAL AND THEY WILL REVIEW. DCP TO FOLLOW.
--- NOTE | 2018-12-09 18:58 | NUR ---
PT HAS BEEN IN CHAIR SINCE 0900..USING BEDPAN AT TIMES AND COMMODE AT TIMES..PLANS TO TX TO REHAB WHEN INSURANCE AUTH..
[2018-12-09 19:28] VITALS: BP 161/62
[2018-12-10] VITALS (8 sets, daily range): BP systolic 123–182; BP diastolic 45–76
--- NOTE | 2018-12-10 05:27 | NUR ---
ASSUME CARE 1900. PT/VITALS STABLE. INTERMITTENT RIGHT HIP PAIN. HYDROCODONE FOR MANAGEMENT. TOLERATES ACTIVITY WELL. UP TO CHAIR/BSC WITH ASSISTANCE AND WALKER. TIME CONSUMING. ASSESSMENT CHARTED. PROGRESSING WELL WITH POC. PLAN IS POSSIBLE DISCHARE TO REHAB WITHIN 1-2 DAYS. WILL CONTINUE TO MONITOR AND FOLLOW WITH POC
[2018-12-10 05:50] LABS: CALCIUM 8.8 mg/dL (8.5-10.1); CREATININE 1.4 mg/dL (0.6-1.0)
[2018-12-10 05:53] LABS: POTASSIUM 5.7 mmol/L (3.5-5.1)
--- NOTE | 2018-12-10 14:34 | NUR ---
DC to snf at [facility] on hold today d/t elev potassium. All parties anticipating dc to SNF tomorrow. [facility] admissions is working on ins auth for tomorrow. Dtr and care team updated. Chart copy will need to be updated. Call back rec'd now from [facility] and ins auth is in place for Thursday admission.Thursday staff to call report to [phone] and fax orders to [phone]. W/c van transport can be arranged thru [facility] at [phone] billable to the snf. Dtr updated.
[2018-12-11] VITALS (7 sets, daily range): BP systolic 102–198; BP diastolic 48–93
[2018-12-11 04:58] LABS: CALCIUM 8.8 mg/dL (8.5-10.1); CREATININE 1.5 mg/dL (0.6-1.0); POTASSIUM 4.8 mmol/L (3.5-5.1)
--- NOTE | 2018-12-11 07:48 | NUR ---
ASSESSMENTS CHARTED. PT COMPLAINED OF CHEST PAIN AROUND 2330. ELEVATED BLOOD PRESSURE, TRIED NITRO THERAPY. NITRO DID NOT DO WELL RELIEVING PAIN. DID EKG, NO CHANGE NOTED. GAVE GI COCKTAIL AND PAIN MEDS WHICH WERE AVAILABLE. WHEN PATIENT WOKE UP AGAIN SHE AGAIN C/O CHEST PAIN 06/21 AND BLOOD PRESSURE WAS AGAIN ELEVATED. HAD TROPONIN RUN, PAIN MEDS GIVEN AGAIN, WAITED 30 MINUTES TOOK BLOOD PRESSURE AGAIN, STILL HIGH, GAVE ONETIME DOSE OF HYDRALAZINE. PATIENT WAS TO GO TO [facility] TODAY OR TOMORROW.
[2018-12-11] MEDS ORDERED: IRON325 PO (13:09)
[2018-12-11] MEDS ORDERED: HYDROCODONE-AP1 EAC6 PO (15:20)
--- NOTE | 2018-12-12 19:33 | EKG ---
[address] [place] [address] ELECTROCARDIOGRAM REPORT Name: LEIDY ADAMES Room #: 202- DIS IN M.R.#: [id number] ������������������ Admission: 12/05/18 ������������������ Attend Phys: Perry Arellano MD Discharge: 12/11/18 ������������������ Date of : 47 Report #: [id number] ����������������������������������������������������������������� [id number] THIS REPORT FOR: //name// [facility] Test Date: 2018-12-10 Test Time: 23:55:30 Pat Name: LEIDY ADAMES Department: Room: 202 P Gender: F Pattern Grader Cutter: rakesh : 1945 Requested By: Ana Luisa Brown Order Number: [id number] MD: Jules Garcia Measurements Intervals [place] Rate: 97 P: 32 CA: 188 QRS: 108 QRSD: 123 T: 19 QT: 368 QTc: 468 Interpretive Statements Sinus rhythm Right bundle branch block Compared to ECG 11/26/2018 03:44:54 No significant changes Electronically Signed On 12-12-2018 19:33:26 TOURS HOSTESS by Jules Garcia [email or web address] ��������������������������������������������� <ELECTRONICALLY SIGNED> ���������������������������������������� By: Jules Garcia MD ��������������������������������������������� 12/12/181932 5180 Jules Garcia MD /EPI
--- NOTE | 2018-12-13 15:17 | NUR ---
WAS NOTIFIED TODAY BY [facility] IN ADM. AT THAT SHE NEEDED THE DA-124 FAXED TO FACILITY. HAIP FAXED AND IT WAS RECEIVED .
== END 2018-12-11 16:39 | DRG 480 ==
LOC: 2N 21:49
PROVIDERS: Nurse Practitioner Acute Care; Orthopaedic Surgery; ADMIT Hospitalist
PROC: 0QS606Z Reposition Right Upper Femur with Intramedullary Internal Fixation Device, Open Approach (ICD-10-PCS; principal; 2018-12-06)
PROC: 30233N1 Transfusion of Nonautologous Red Blood Cells into Peripheral Vein, Percutaneous Approach (ICD-10-PCS; 2018-12-07)
DX: S72.141A Displaced intertrochanteric fracture of right femur, initial encounter for closed fracture (principal); N17.0 Acute kidney failure with tubular necrosis; D62 Acute posthemorrhagic anemia; I13.0 Hypertensive heart and chronic kidney disease with heart failure and stage 1 through stage 4 chronic kidney disease, or unspecified chronic kidney disease; N17.9 Acute kidney failure, unspecified; N18.3 Chronic kidney disease, stage 3 (moderate); E11.22 Type 2 diabetes mellitus with diabetic chronic kidney disease; I25.10 Atherosclerotic heart disease of native coronary artery without angina pectoris; J44.9 Chronic obstructive pulmonary disease, unspecified; G40.909 Epilepsy, unspecified, not intractable, without status epilepticus; F41.9 Anxiety disorder, unspecified; I50.9 Heart failure, unspecified; E11.51 Type 2 diabetes mellitus with diabetic peripheral angiopathy without gangrene; F03.90 Unspecified dementia, unspecified severity, without behavioral disturbance, psychotic disturbance, mood disturbance, and anxiety; E87.5 Hyperkalemia; M32.9 Systemic lupus erythematosus, unspecified; I27.20 Pulmonary hypertension, unspecified; I34.0 Nonrheumatic mitral (valve) insufficiency; K21.9 Gastro-esophageal reflux disease without esophagitis; E78.5 Hyperlipidemia, unspecified; W18.39XA Other fall on same level, initial encounter; Y93.89 Activity, other specified; Y92.090 Kitchen in other non-institutional residence as the place of occurrence of the external cause; Y99.8 Other external cause status; Z95.1 Presence of aortocoronary bypass graft; Z95.5 Presence of coronary angioplasty implant and graft; Z90.710 Acquired absence of both cervix and uterus; I25.2 Old myocardial infarction; Z87.891 Personal history of nicotine dependence; Z98.42 Cataract extraction status, left eye; Z98.41 Cataract extraction status, right eye; Z86.73 Personal history of transient ischemic attack (TIA), and cerebral infarction without residual deficits; Z86.718 Personal history of other venous thrombosis and embolism; Z79.4 Long term (current) use of insulin; Z79.899 Other long term (current) drug therapy; Z88.1 Allergy status to other antibiotic agents; Z88.0 Allergy status to penicillin; Z88.2 Allergy status to sulfonamides; Z88.8 Allergy status to other drugs, medicaments and biological substances; Z82.49 Family history of ischemic heart disease and other diseases of the circulatory system
CPT/HCPCS: 10081; 50010; 50101; 50133; 50386; 51412; 51538; 51817; 52145; 52146; 52304; 56525; 57092; 62110; 62900; 70005

== ENCOUNTER 2018-12-23 18:36 | Inpatient (IN) | payer OTHER ==
[~2018-12-23] VITALS: Ht 157.5 cm; Wt 59.9 kg
[2018-12-23 18:56] VITALS: BP 209/80
[2018-12-23 20:24] LABS: ABSOLUTE NEUTROPHILS 7.6 thou/uL (1.4-8.2); EOSINOPHILS 0.2 % (0.0-3.0); HEMATOCRIT 27.8 % (37.0-47.0); HEMOGLOBIN 9.1 gm/dL (12.0-15.0); LYMPHOCYTES 8.8 % (24.0-44.0); MCH 32.4 pg (26.0-34.0); MCHC 32.9 g/dL (28.0-37.0); MCV 98.5 fL (80.0-100.0); MONOCYTES 5.3 % (1.0-8.0); PLATELET COUNT 220 thou/uL (150-400); POLYS 84.7 % (36.0-66.0); RBC 2.83 mil/uL (4.20-5.00)
[2018-12-23 20:34] LABS: CALCIUM 8.6 mg/dL (8.5-10.1); CREATININE 1.2 mg/dL (0.6-1.0); POTASSIUM 4.9 mmol/L (3.5-5.1)
[2018-12-23 20:41] LABS: ALBUMIN 3.3 g/dL (3.4-5.0); TOTAL BILIRUBIN 0.5 mg/dL (<0.1-1.0); TOTAL PROTEIN 7.8 g/dL (6.4-8.2)
[2018-12-23 21:52] LABS: APTT 27.1 Seconds (24.5-32.8); PROTIME 10.5 Seconds (9.3-11.4)
[2018-12-23 22:09] VITALS: BP 209/80
[2018-12-23 22:24] VITALS: BP 203/86
[2018-12-23] MEDS ORDERED: METFORMIN HCL500 MG PO (23:48)
[2018-12-23] MEDS ORDERED: LASIX 40 MG TAB40 M2 PO (23:50)
[2018-12-23] MEDS ORDERED: SPIRONOLACTONE25 M1 PO (23:50)
[2018-12-23] MEDS ORDERED: LISINOPRIL20 MG PO (23:51)
[2018-12-23] MEDS ORDERED: ELIQUIS5 MG PO (23:51)
[2018-12-23] MEDS ORDERED: NEURONTIN 300300 M1 PO (23:52)
[2018-12-23 23:53] VITALS: BP 207/108
[2018-12-24 01:30] VITALS: BP 158/75
[2018-12-24 01:45] VITALS: BP 171/77
--- NOTE | 2018-12-24 02:36 | NUR ---
PATIENT ARRIVED FROM ED AT 2310 VIA CART WITH BILATERAL LOWER EXTREMITY DVT. PATIENT WAS ALERT AND ORIENTED X 4 AND WAS PLEASENTY COOPERATIVE. VISHNU WAS ORIENTED TO THE ROOM AND SIGNED CONSENTS. ADMISSION CHECKLIST COMPLETED. INITIAL BP ON THE FLOOR READ 207/108 AND ASSEMBLY LINE INSPECTOR WAS NOTIFIED. HYDRALAZINE WAS ADMINISTERED RESULTING IN A BP OF 158/75. AN URINARY CATHETER WAS INSERTED DUE TO PATIENT BEING ON BEDREST. PATIENT THEN COMPLAINED ABOUT CHEST PAIN. NITROGLYCERIN WAS ADMINISTERED X2 WHICH RESULTED IN SOME RELIEF. THIS IS PATIENT'S NORMAL AND OCCURS EVERY OTHER DAY PER PATIENT AND SHE ALLEVIATES CHEST PAIN WITH NITRATES AT HOME. UPON REASSESSMENT, VISHNU WAS SLEEPING COMFORTABLY.
[2018-12-24 03:56] VITALS: BP 130/53
[2018-12-24 05:25] LABS: HEMATOCRIT 27.2 % (37.0-47.0); HEMOGLOBIN 9.2 gm/dL (12.0-15.0); MCH 33.2 pg (26.0-34.0); MCHC 33.7 g/dL (28.0-37.0); MCV 98.3 fL (80.0-100.0); RBC 2.76 mil/uL (4.20-5.00); RDW 17.1 % (10.5-14.5); WBC 9.4 thou/uL (4.0-11.0)
[2018-12-24 05:29] LABS: CALCIUM 8.8 mg/dL (8.5-10.1); CREATININE 1.1 mg/dL (0.6-1.0)
[2018-12-24 05:32] LABS: POTASSIUM 3.9 mmol/L (3.5-5.1)
--- NOTE | 2018-12-24 08:15 | NUR ---
chart review. cm visited with pt at bedside, a & o x 3. able to make her needs know, some forgetfulness and pleasant. intro to cm, transition of care, home health and post acute " i just home for [facility]. hh yes. live with -celia, 1 step to front door. no step inside house. use walker, shower chair and check own bs. daughter sets up medication pill box, does laundry and cooks. does the driving. right left is hurting"/krys. letting pt rest and passed on information to bedside nurse rt c/o of pain. will cont following as needed for dc needs. joni spoke with daughter, "yenny just dc yesterday from [facility] place because of insurance, she was not even able to work with walking with therapy because of dr orders after she fell and broke hip last months, she was going to have [facility] home [facility] and she does need to learn how to walk again. i brought her back because of swelling and pain she was having in her right leg. she does have a ivc flitter . call if need anything or have any question. thank you"/lucy. will cont following as needed for dc needs. dcp home with [facility] vs reccomendation
--- NOTE | 2018-12-24 11:36 | NUR ---
Nutrition: assess d/t consult. Pt admitted for DVT. Was recently d/c. Hx of high BG. Weight stable over past 2 years. Pt sleeping during attempted visit. Previously liked Kira parker, will reorder. With diet intervention in place, consider low risk.
[2018-12-24 15:00] VITALS: BP 140/63
--- NOTE | 2018-12-24 16:49 | NUR ---
IF PT IS MEDICALLY STABLE TO DISCHARGE OVER THE WEEKEMD FAX ORDERS AND DC SUMMERY TO [facility] AT .
[2018-12-24 20:00] VITALS: BP 115/36
--- NOTE | 2018-12-25 03:28 | NUR ---
ASSUMED CARE FROM PREVIOUS SHIFT, PT RESTING IN BED UP TO BSC HAS MED SOFT STOOL, PAIN MEDICATION GIVEN FOR LEG AND FOOT PAIN, NSR ON CONSULTANT, RESTED WELL THROUGHOUT HOURLY ROUNDS,WILL CONTINUE WITH CURRENT PLAN OF CARE.
[2018-12-25 03:41] VITALS: BP 156/53
[2018-12-25 03:53] VITALS: BP 156/53
[2018-12-25 07:00] VITALS: BP 143/58
[2018-12-25] MEDS ORDERED: IRON325 PO (08:49)
[2018-12-25] MEDS ORDERED: ELIQUIS5 MG PO ×2 (08:50→08:53)
[2018-12-25] MEDS ORDERED: HYDROCODONE-AP1 EAC6 PO (08:50)
[2018-12-25] MEDS ORDERED: PREDNISONE 10 M10 MG PO (08:55)
[2018-12-25 11:21] VITALS: BP 143/48
--- NOTE | 2018-12-25 12:47 | NUR ---
ASSUMED PATIENT CARE AT 0715. A&OX4, FORGETFUL. NO COMPLAINTS OF PAIN. UP WITH ASSIST OF ONE WITH WALKER AND GAIT BELT. CHRIS IN RIGHT HIP OPEN TO AIR. PATIENT STATES THEY HAVE A FOLLOW UP APPOINTMENT WITH ORTHO ON THURSDAY. DISCHARGING WITH HOME HEALTH. ORDERS FAXED AND SPOKE WITH THE HOME HEALTH [facility]. [facility] WILL SEE PATIENT AT HOME TOMORROW. IV DC'D. VARELA REMOVED. SPOKE WITH DAUGHTER REGARDING DISCHARGE.
== END 2018-12-25 15:40 | disposition home health service (06) | DRG 291 ==
LOC: ER 18:36 → EROBS 22:06 → 4W 22:06
PROVIDERS: Nurse Practitioner Family; Physician Assistant; ADMIT Hospitalist
DX: I13.0 Hypertensive heart and chronic kidney disease with heart failure and stage 1 through stage 4 chronic kidney disease, or unspecified chronic kidney disease (principal); I50.33 Acute on chronic diastolic (congestive) heart failure; D62 Acute posthemorrhagic anemia; N17.9 Acute kidney failure, unspecified; I16.0 Hypertensive urgency; N18.3 Chronic kidney disease, stage 3 (moderate); M32.9 Systemic lupus erythematosus, unspecified; I25.10 Atherosclerotic heart disease of native coronary artery without angina pectoris; J44.9 Chronic obstructive pulmonary disease, unspecified; G40.909 Epilepsy, unspecified, not intractable, without status epilepticus; F41.9 Anxiety disorder, unspecified; E78.5 Hyperlipidemia, unspecified; F03.90 Unspecified dementia, unspecified severity, without behavioral disturbance, psychotic disturbance, mood disturbance, and anxiety; F32.9 Major depressive disorder, single episode, unspecified; I27.20 Pulmonary hypertension, unspecified; I34.0 Nonrheumatic mitral (valve) insufficiency; E11.51 Type 2 diabetes mellitus with diabetic peripheral angiopathy without gangrene; Z95.1 Presence of aortocoronary bypass graft; Z86.718 Personal history of other venous thrombosis and embolism; Z95.820 Peripheral vascular angioplasty status with implants and grafts; Z86.711 Personal history of pulmonary embolism; Z86.73 Personal history of transient ischemic attack (TIA), and cerebral infarction without residual deficits; I25.2 Old myocardial infarction; Z87.891 Personal history of nicotine dependence; Z98.42 Cataract extraction status, left eye; Z98.41 Cataract extraction status, right eye; Z90.710 Acquired absence of both cervix and uterus; Z79.01 Long term (current) use of anticoagulants; Z79.82 Long term (current) use of aspirin; Z79.899 Other long term (current) drug therapy; Z88.0 Allergy status to penicillin; Z88.2 Allergy status to sulfonamides; Z88.8 Allergy status to other drugs, medicaments and biological substances; Z82.49 Family history of ischemic heart disease and other diseases of the circulatory system
CPT/HCPCS: 10045

== ENCOUNTER 2018-12-28 10:47 | Emergency (ER) | payer OTHER ==
[~2018-12-28] VITALS: Ht 157.5 cm; Wt 54.4 kg
[~2018-12-28 10:47] MED LIST changes: +ELIQUIS5 MG PO; +LASIX 40 MG TAB40 M2 PO
[2018-12-28 11:41] LABS: ABSOLUTE NEUTROPHILS 6.2 thou/uL (1.4-8.2); BASOPHILS 1.1 % (0.0-2.0); EOSINOPHILS 1.6 % (0.0-3.0); HEMATOCRIT 26.2 % (37.0-47.0); HEMOGLOBIN 8.8 gm/dL (12.0-15.0); LYMPHOCYTES 14.7 % (24.0-44.0); MCH 32.6 pg (26.0-34.0); MCHC 33.4 g/dL (28.0-37.0); MCV 97.6 fL (80.0-100.0); MONOCYTES 7.6 % (1.0-8.0); PLATELET COUNT 242 thou/uL (150-400); RBC 2.69 mil/uL (4.20-5.00); RDW 16.7 % (10.5-14.5); WBC 8.3 thou/uL (4.0-11.0)
[2018-12-28 11:56] LABS: ANION GAP 6 mmol/L (7-16); BUN 45 mg/dL (7-18); CALCIUM 8.9 mg/dL (8.5-10.1); CHLORIDE 101 mmol/L (98-107); CO2 31 mmol/L (21-32); CREATININE 1.6 mg/dL (0.6-1.0); GLUCOSE 101 mg/dL (74-106); POTASSIUM 3.9 mmol/L (3.5-5.1); SODIUM 138 mmol/L (136-145); TROPONIN-I <0.06 ng/mL (<0.06)
[2018-12-28 17:27] VITALS: BP 126/49
--- NOTE | 2018-12-29 16:54 | EKG ---
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: KKODJOVI : 1945 Requested By: Denny Winston Order Number: [id number] MD: Markus Ott Measurements Intervals [place] Rate: 88 P: 52 [place]: 156 QRS: 100 QRSD: 127 T: 27 QT: 407 QTc: 493 Interpretive Statements Sinus rhythm RBBB and LPFB Compared to ECG 12/10/2018 23:55:30 No significant change was found Electronically Signed On 12-29-2018 16:54:25 CDT by Markus Ott [email or web address] ��������������������������������������������� <ELECTRONICALLY SIGNED> ���������������������������������������� By: Markus Ott MD, [facility] ��������������������������������������������� 12/29/18 1654 1059 58 Markus Ott MD, FACC /EPI
--- NOTE | 2018-12-29 16:59 | EKG ---
[address] [address] [facility] [place] [address] ELECTROCARDIOGRAM REPORT Name: LEIDY ADAMES [id number] ������������������ Admission: 12/28/18 ������������������ Attend Phys: Discharge: 12/28/18 ������������������ Date of : 49 Report #: [id number] ����������������������������������������������������������������� [id number] THIS REPORT FOR: //name// [facility] ED Test Date: 2018-12-28 Test Time: 14:44:13 Pat Name: LEIDY ADAMES Department: Room: Gender: F Membership Sales Manager: KKODJOVI : 1945 Requested By: Denny Winston Order Number: [id number] MD: Markus Ott Measurements Intervals [place] Rate: 82 P: 48 [place]: 156 QRS: 99 QRSD: 126 T: 18 QT: 412 QTc: 482 Interpretive Statements Sinus rhythm RBBB and LPFB Compared to ECG 12/10/2018 23:55:30 No significant change was found Electronically Signed On 12-29-2018 16:59:39 CDT by Markus Ott [email or web address] ��������������������������������������������� <ELECTRONICALLY SIGNED> ���������������������������������������� By: Markus Ott MD, [facility] ��������������������������������������������� 12/29/18 1659 1444 1444 Markus Ott MD, FACC /EPI
== END 2018-12-28 17:46 | disposition home or self-care (01) ==
LOC: ER 10:47
PROVIDERS: Emergency Medicine
DX: R07.89 Other chest pain (principal); M32.9 Systemic lupus erythematosus, unspecified; I25.10 Atherosclerotic heart disease of native coronary artery without angina pectoris; J44.9 Chronic obstructive pulmonary disease, unspecified; F41.9 Anxiety disorder, unspecified; E78.5 Hyperlipidemia, unspecified; F03.90 Unspecified dementia, unspecified severity, without behavioral disturbance, psychotic disturbance, mood disturbance, and anxiety; I11.0 Hypertensive heart disease with heart failure; I50.9 Heart failure, unspecified; E11.9 Type 2 diabetes mellitus without complications; Z88.0 Allergy status to penicillin; Z88.1 Allergy status to other antibiotic agents; Z88.2 Allergy status to sulfonamides; Z86.2 Personal history of diseases of the blood and blood-forming organs and certain disorders involving the immune mechanism; Z90.711 Acquired absence of uterus with remaining cervical stump; Z88.8 Allergy status to other drugs, medicaments and biological substances; Z87.891 Personal history of nicotine dependence; Z86.718 Personal history of other venous thrombosis and embolism

== ENCOUNTER 2019-01-01 11:15 | Emergency (ER) | payer OTHER ==
[~2019-01-01] VITALS: Ht 157.5 cm; Wt 54.4 kg
[2019-01-01 12:15] LABS: ABSOLUTE NEUTROPHILS 8.5 thou/uL (1.4-8.2); BASOPHILS 0.4 % (0.0-2.0); EOSINOPHILS 0.6 % (0.0-3.0); HEMOGLOBIN 7.4 gm/dL (12.0-15.0); LYMPHOCYTES 8.7 % (24.0-44.0); MCH 33.2 pg (26.0-34.0); MCHC 33.4 g/dL (28.0-37.0); MCV 99.5 fL (80.0-100.0); MONOCYTES 6.3 % (1.0-8.0); PLATELET COUNT 234 thou/uL (150-400); RBC 2.22 mil/uL (4.20-5.00); RDW 16.9 % (10.5-14.5); WBC 10.2 thou/uL (4.0-11.0)
[2019-01-01 12:23] LABS: ANION GAP 9 mmol/L (7-16); BUN 59 mg/dL (7-18); CALCIUM 8.3 mg/dL (8.5-10.1); CHLORIDE 103 mmol/L (98-107); CO2 26 mmol/L (21-32); CREATININE 1.9 mg/dL (0.6-1.0); GLUCOSE 189 mg/dL (74-106); POTASSIUM 4.1 mmol/L (3.5-5.1); SODIUM 138 mmol/L (136-145)
[2019-01-01 12:32] LABS: ALBUMIN 3.3 g/dL (3.4-5.0); MAGNESIUM 2.1 mg/dL (1.8-2.4); SGOT 13 U/L (15-37); SGPT 12 U/L (30-65); TOTAL BILIRUBIN 0.4 mg/dL (<0.1-1.0); TOTAL PROTEIN 7.4 g/dL (6.4-8.2); TROPONIN-I <0.06 ng/mL (<0.06)
[2019-01-01] MEDS ORDERED: PREDNISONE 20 M20 MG PO (13:20)
[2019-01-01] MEDS ORDERED: LIDODERM1 EACH TOP (13:20)
[2019-01-01 13:32] VITALS: BP 154/67
--- NOTE | 2019-01-02 10:49 | EKG ---
[address] [address] [place] [address] ELECTROCARDIOGRAM REPORT Name: LEIDY ADAMES [id number] ������������������ Admission: 01/01/19 ������������������ Attend Phys: Discharge: 01/01/19 ������������������ Date of : 49 Report #: [id number] ����������������������������������������������������������������� [id number] THIS REPORT FOR: //name// [facility] ED Test Date: 2019-01-01 Test Time: 11:40:42 Pat Name: LEIDY ADAMES Department: Room: Gender: F Supervisor [employer]: : 1945 Requested By: Russell Carpenter Order Number: [id number] MD: Ki Gimenez Measurements Intervals [place] Rate: 71 P: 55 PA: 154 QRS: 93 QRSD: 132 T: 20 QT: 426 QTc: 463 Interpretive Statements Sinus rhythm RBBB and LPFB Compared to ECG 12/28/2018 14:44:13 No significant changes Electronically Signed On 01-02-2019 10:48:52 CDT by Ki Gimenez [email or web address] ��������������������������������������������� <ELECTRONICALLY SIGNED> ���������������������������������������� By: Ki Gimenez MD ��������������������������������������������� 01/02/19 1048 1140 1140 Ki Gimenez MD /SOUMYA
== END 2019-01-01 13:32 | disposition home or self-care (01) ==
LOC: ER 11:15
PROVIDERS: Emergency Medicine
DX: R07.89 Other chest pain (principal); K21.9 Gastro-esophageal reflux disease without esophagitis; D64.9 Anemia, unspecified; I12.9 Hypertensive chronic kidney disease with stage 1 through stage 4 chronic kidney disease, or unspecified chronic kidney disease; E11.22 Type 2 diabetes mellitus with diabetic chronic kidney disease; N18.9 Chronic kidney disease, unspecified; I13.0 Hypertensive heart and chronic kidney disease with heart failure and stage 1 through stage 4 chronic kidney disease, or unspecified chronic kidney disease; I50.9 Heart failure, unspecified; J44.9 Chronic obstructive pulmonary disease, unspecified; F41.9 Anxiety disorder, unspecified; E78.5 Hyperlipidemia, unspecified; F03.90 Unspecified dementia, unspecified severity, without behavioral disturbance, psychotic disturbance, mood disturbance, and anxiety; Z90.710 Acquired absence of both cervix and uterus; Z87.891 Personal history of nicotine dependence; Z88.0 Allergy status to penicillin; Z88.2 Allergy status to sulfonamides; Z88.8 Allergy status to other drugs, medicaments and biological substances

== ENCOUNTER 2019-07-14 13:25 | Emergency (ER) | payer OTHER ==
[~2019-07-14] VITALS: Ht 157.5 cm; Wt 52.2 kg
[~2019-07-14 13:25] MED LIST changes: +LIDODERM1 EACH TOP; +PREDNISONE 20 M20 MG PO
[2019-07-14 13:48] LABS: URINE BILIRUBIN NEGATIVE (Negative); URINE BLOOD NEGATIVE (Negative); URINE CLARITY SL CLOUDY; URINE COLOR YELLOW; URINE GLUCOSE-RANDOM* NEGATIVE (Negative); URINE KETONES NEGATIVE (Negative); URINE LEUKOCYTES-REFLEX TRACE (Negative); URINE NITRITE-REFLEX NEGATIVE (Negative); URINE PROTEIN (DIPSTICK) TRACE (Negative); URINE SPECIFIC GRAVITY >= 1.030 (1.005-1.035); URINE UROBILINOGEN 0.2 E.U./dl (0.2-1.0)
[2019-07-14 14:06] LABS: SQUAMOUS >10 Many /LPF (0-3)
[2019-07-14 14:07] LABS: HYALINE CASTS 0-3 Few /LPF (None Seen)
[2019-07-14 14:08] LABS: CRYSTALS None Seen /LPF (None Seen); URINE RBC None Seen /HPF (0-2); URINE WBC 6-15 Few /HPF (0-5)
[2019-07-14 14:10] LABS: ABSOLUTE NEUTROPHILS 8.3 thou/uL (1.4-8.2); BASOPHILS 0.7 % (0.0-2.0); EOSINOPHILS 1.6 % (0.0-3.0); HEMATOCRIT 30.9 % (37.0-47.0); HEMOGLOBIN 9.8 gm/dL (12.0-15.0); LYMPHOCYTES 6.8 % (24.0-44.0); MCH 30.9 pg (26.0-34.0); MCHC 31.7 g/dL (28.0-37.0); MCV 97.4 fL (80.0-100.0); MONOCYTES 4.4 % (1.0-8.0); POLYS 86.5 % (36.0-66.0); RBC 3.17 mil/uL (4.20-5.00); RDW 17.1 % (10.5-14.5); WBC 9.6 thou/uL (4.0-11.0)
[2019-07-14 14:28] LABS: PLATELET COUNT 203 thou/uL (150-400)
[2019-07-14 15:03] LABS: CREATININE 1.9 mg/dL (0.6-1.0); POTASSIUM 5.3 mmol/L (3.5-5.1)
[2019-07-14 15:09] LABS: ALBUMIN 2.8 g/dL (3.4-5.0); TOTAL BILIRUBIN 0.3 mg/dL (<0.1-1.0); TOTAL PROTEIN 7.1 g/dL (6.4-8.2)
[2019-07-14] MEDS ORDERED: NORCO 5-325 TA1 EAC1 PO (15:31)
[2019-07-14] MEDS ORDERED: CIPRO500 MG PO ×5 (15:31→15:38)
[2019-07-14 16:51] VITALS: BP 119/60
== END 2019-07-14 17:20 | disposition home or self-care (01) ==
LOC: ER 13:25
PROVIDERS: Nurse Practitioner Family
DX: N39.0 Urinary tract infection, site not specified (principal); N28.9 Disorder of kidney and ureter, unspecified; E11.9 Type 2 diabetes mellitus without complications; I11.0 Hypertensive heart disease with heart failure; I50.9 Heart failure, unspecified; I25.2 Old myocardial infarction; F41.9 Anxiety disorder, unspecified; J44.9 Chronic obstructive pulmonary disease, unspecified; I25.10 Atherosclerotic heart disease of native coronary artery without angina pectoris; Z90.711 Acquired absence of uterus with remaining cervical stump; Z86.2 Personal history of diseases of the blood and blood-forming organs and certain disorders involving the immune mechanism; Z86.73 Personal history of transient ischemic attack (TIA), and cerebral infarction without residual deficits; Z88.2 Allergy status to sulfonamides; Z88.0 Allergy status to penicillin; Z88.8 Allergy status to other drugs, medicaments and biological substances; Z87.891 Personal history of nicotine dependence

== ENCOUNTER 2019-11-21 21:11 | Inpatient (IN) | payer OTHER ==
[~2019-11-21] VITALS: Ht 157.5 cm; Wt 63.5 kg
[~2019-11-21 21:11] MED LIST changes: +NORCO 5-325 TA1 EAC1 PO
[2019-11-21 22:28] VITALS: BP 181/78
[2019-11-21] MEDS ORDERED: FUROSEMIDE 40 M40 MG IV PUSH (23:22)
[2019-11-21] MEDS ORDERED: LEVO-T50 MCG PO (23:29)
[2019-11-21] MEDS ORDERED: LISINOPRIL2.5 MG PO (23:32)
[2019-11-21] MEDS ORDERED: LORAZEPAM 1 MG T1 MG PO (23:33)
[2019-11-21] MEDS ORDERED: REMERON 30 MG T30 M1 PO (23:34)
[2019-11-21] MEDS ORDERED: NAMENDA 10 MG T10 MG PO (23:35)
[2019-11-21] MEDS ORDERED: NAMENDA XR28 MG PO (23:36)
[2019-11-21] MEDS ORDERED: LOPRESSOR50 MG PO (23:38)
[2019-11-21] MEDS ORDERED: NORVASC 2.5 MG2.5 M1 PO (23:39)
[2019-11-21] MEDS ORDERED: PREDNISONE 5 MG5 M1 PO (23:39)
[2019-11-21] MEDS ORDERED: RANEXA1000 MG PO (23:42)
[2019-11-22] VITALS (7 sets, daily range): BP systolic 122–157; BP diastolic 47–79
[2019-11-22 00:42] LABS: ABSOLUTE NEUTROPHILS 7.9 thou/uL (1.4-8.2); BASOPHILS 0.6 % (0.0-2.0); EOSINOPHILS 0.5 % (0.0-3.0); HEMATOCRIT 25.4 % (37.0-47.0); HEMOGLOBIN 8.4 gm/dL (12.0-15.0); LYMPHOCYTES 8.3 % (24.0-44.0); MCH 32.7 pg (26.0-34.0); MCV 98.9 fL (80.0-100.0); MONOCYTES 8.4 % (1.0-8.0); PLATELET COUNT 234 thou/uL (150-400); POLYS 82.2 % (36.0-66.0); RBC 2.57 mil/uL (4.20-5.00); RDW 16.5 % (10.5-14.5); WBC 9.6 thou/uL (4.0-11.0)
[2019-11-22 00:55] LABS: ANION GAP 7 mmol/L (7-16); BUN 33 mg/dL (7-18); CALCIUM 8.2 mg/dL (8.5-10.1); CHLORIDE 102 mmol/L (98-107); CO2 31 mmol/L (21-32); CREATININE 1.5 mg/dL (0.6-1.0); GLUCOSE 98 mg/dL (74-106); MAGNESIUM 1.5 mg/dL (1.8-2.4); POTASSIUM 3.6 mmol/L (3.5-5.1); SODIUM 140 mmol/L (136-145); TROPONIN-I <0.06 ng/mL (<0.06)
--- NOTE | 2019-11-22 03:05 | NUR ---
PT NEW ADMIT, DIRECT FROM [facility]. ARRIVED ON UNIT ABOUT 1934. DEAN OF GRADUATE STUDIES NOTIFIED. INITIAL ASSESSMENT AND ADMISSION COMPLETED. PT HAD BRUISES ON THE ABDOMEN WHICH SHE REPORTS ITS FROM ANTICOAGULANTS. 2L OXYGEN NC. DESATS RAPIDLY WITHOUT O2. SMALL PRESSURE ULCER ON THE RIGHT BUTTOCK. PHOTOGRAPH TAKEN. PT C/O OF HEADACHE AND LE PAIN. TYLENOL GIVEN. CONSENTS SIGNED. PT HAS A VARELA CATHETER IN PLACE. GOOD OUTPUT. ELEVATED BP, HYDRALAZINE PRN GIVEN. ORDERS ACKNOWLEGED. NO FURTHER C/O/ DISTRESS AT THIS TIME. WILL CONTINUE TO FOLLOW POC.
--- NOTE | 2019-11-22 10:28 | NUR ---
WOUND CARE CONSULT; SMALL ULCER R BUTTOCK, .9CM L X .6CM W X.2CM D, BLANCHABLE, NO S/S INFECTION, NO DRAINAGE, WOUND BED MOSTLY DRY/CRUSTED, HELIARC WELDER PRESENT, PT ALERT, COOPERATIVE, PT UNSURE WHY/HOW WOUND OCCURRED, SCRATCHING, ENCOURAGED TO KEEP OFF AREA RECOMMENDATIONS ZGUARD DAILY AND PRN, OFF LOADING, IF LESS MOBILE WILL ORDER LOW AIR LOSS HELIARC WELDER AWARE
--- NOTE | 2019-11-22 11:35 | 2DMMODE ---
[facility] [place] [address] 2 D/M-MODE ECHOCARDIOGRAM Name: LEIDY ADAMES Room #: 212-P ADM IN M.R.#: [id number] Admission: 11/21/19 Attend Phys: Samantha Oh MD Discharge: Date of : 49 Report #: [id number] THIS REPORT FOR: cc: Jaamal Cho MD, Mark S. MD Lammoglia, Francisco J. MD ~ APPROVED REPORT Study performed: 11/22/2019 09:36:21 EXAM: Comprehensive 2D, Doppler, and color-flow Echocardiogram Patient Location: Bedside Room #: 212 Status: routine BSA: 1.61 HR: 74 bpm BP: 142/54 mmHg Rhythm: NSR Other Information Study Quality: Good Indications COPD Pulmonary Hypertension Diabetes CAD Hypertension/HDD 2D Dimensions RVDd: 43.87 mm IVSd: 10.72 (7-11mm) LVOT Diam: 17.83 (18-24mm) LVDd: 38.29 mm PWd: 11.58 (7-11mm) Ascending Ao: 25.51 (22-36mm) LVDs: 24.92 (25-40mm) Aortic Root: 25.30 mm IVC: 23.00 mm Volumes Left Atrial Volume (Systole) Single Plane 4CH: 132.48 mL Single Plane 2CH: 101.79 mL LA ESV Index: 78.00 mL/m2 Aortic Valve AoV Peak Justice.: 1.67 m/s [facility] [address] [place] [address] 2 D/M-MODE ECHOCARDIOGRAM Name: LEIDY ADAMES Room #: 212-P ADM IN M.R.#: [id number] Admission: 11/21/19 Attend Phys: Preet Roper Discharge: Date of : 49 Report #: [id number] AO Peak Gr.: 11.09 mmHg LVOT Max P.81 mmHg LVOT Max V: 1.31 m/s NATALIE Vmax: 1.96 cm2 AI Vmax: 3.77 m/s AI Dimmit: 3.47 m/s2 AI PHT: 315.52 ms Mitral Valve MV Peak Gr.: 22.65 mmHg MV Mean Gr.: 13.72 mmHg MV Max Justice.: 2.38 m/s MV Mean Justice.: 1.80 m/s MV VTI: 863.25 mm MV PHT: 135.46 ms MVA (PHT): 1.62 cm2 Pulmonary Valve PV Peak Justice.: 1.15 m/s PV Peak Gr.: 5.31 mmHg Tricuspid Valve TR Peak Justice.: 4.35 m/s TR Peak Gr.: 75.53 mmHg PA Pressure: 85.00 mmHg Left Ventricle The left ventricle is normal size. There is normal left ventricular wall thickness. Left ventricular systolic function is hyperdynamic. LVEF is 65-70%. This study is not technically sufficient to allow evaluation of the LV diastolic function. Right Ventricle The right ventricle is normal size. The right ventricular systolic function is normal. Atria Left atrium is dilated. Right atrium is dilated. Aortic Valve The aortic valve is normal in structure. Focal echodensity present likely calcification cannot exclude vegatation Aortic valve is calcified. Mild to moderate aortic regurgitation. There is no aortic valvular stenosis. Mitral Valve Prosthetic mitral valve. Mild to moderate mitral regurgitation. No evidence of mitral valve stenosis. [facility] [address] [place] [address] 2 D/M-MODE ECHOCARDIOGRAM Name: LEIDY ADAMES Room #: 212-P ADM IN .R.#: [id number] Admission: 11/21/19 Attend Phys: Preet Roper Discharge: Date of : 49 Report #: [id number] Tricuspid Valve The tricuspid valve is normal in structure. There is moderate to severe tricuspid regurgitation. Estimated PAP 85 mmHg. There is severe pulmonary hypertension. Pulmonic Valve The pulmonary valve is normal in structure. Mild pulmonic regurgitation. Great Vessels The aortic root is normal in size. IVC is dilated and collapses <50% with inspiration. Pericardium There is no pericardial effusion. <Conclusion> The left ventricle is normal size. LVEF is 65-70%. Left atrium is dilated. Right atrium is dilated. The aortic valve is normal in structure. Focal echodensity present likely calcification cannot exclude vegatation Aortic valve is calcified. Mild to moderate aortic regurgitation. Prosthetic mitral valve. Mild to moderate mitral regurgitation. The tricuspid valve is normal in structure. There is moderate to severe tricuspid regurgitation. Estimated PAP 85 mmHg. There is severe pulmonary hypertension. The pulmonary valve is normal in structure. Mild pulmonic regurgitation. There is no pericardial effusion. <ELECTRONICALLY SIGNED> By: Jules Garcia MD 11/22/19 1134 1134 1134 Jules Garcia MD /INF
--- NOTE | 2019-11-22 14:53 | NUR ---
Nutrition: pt admitted with pulmonary edema, DVT and seen due to consult for wounds. Wound care has evaled and indicated a small ulcer on buttock that is more consistent with a scratch per nsg. No wounds. Unable to interview pt. Sleeping soundly at time of visit and no po records to view however noted very stable weight trends. PMH: CAD, COPD, dementia, DM. No BG levels to evaluate. Currently only on one oral med for DM. Per past admit likes glucerna, offer once daily. Consider low nutrition risk for now.
[2019-11-22 16:58] LABS: INR 1.1; PROTIME 10.8 Seconds (9.3-11.4)
--- NOTE | 2019-11-22 18:28 | NUR ---
PT CARE ASSUMED APPROXIMATELY 0700. PT ASSESSMENTS CHARTED. MEDICATION CHARTED. PT HAS BASELINE DEMENTIA BUT RESPONDS APPROPRIATELY ONCE HER ATTENTION IS GAINED. SALES AND DISTRIBUTION CLERK DOESN'T BELIEVE PT'S WOUND IS A PRESSURE WOUND.
[2019-11-23] VITALS (7 sets, daily range): BP systolic 117–151; BP diastolic 50–64
--- NOTE | 2019-11-23 04:52 | NUR ---
1900. PT ALERT AND ORIENTED. FAMILY AT BEDSIDE. C/O HEADACHE AND LE PAIN. HYDROCODONE PRN. VARELA CATHETER IN PLACE. MIDLINE DRESSING DONE. PT TOLERATED PROCEDURE WELL. NO FURTHER EVENTS OVERNIGHT. PT CONTINUES TO PROGRESS TOWARDS GOAL.
[2019-11-23 06:57] LABS: CALCIUM 8.2 mg/dL (8.5-10.1); CREATININE 1.7 mg/dL (0.6-1.0); POTASSIUM 3.5 mmol/L (3.5-5.1)
[2019-11-23 12:15] LABS: HEMATOCRIT 25.9 % (37.0-47.0); HEMOGLOBIN 8.5 gm/dL (12.0-15.0); MCH 32.7 pg (26.0-34.0); MCHC 32.6 g/dL (28.0-37.0); MCV 100.2 fL (80.0-100.0); RBC 2.59 mil/uL (4.20-5.00); RDW 17.4 % (10.5-14.5); WBC 9.6 thou/uL (4.0-11.0)
--- NOTE | 2019-11-23 12:43 | EKG ---
[facility] [place] [address] ELECTROCARDIOGRAM REPORT Name: LEIDY ADAMES Room #: 212- ADM IN M.R.#: [id number] Admission: 11/21/19 Attend Phys: Samantha Oh MD Discharge: Date of : 49 Report #: [id number] THIS REPORT FOR: cc: Jamaal Cho MD, Mark S. MD Lundgren,Markus Daniel MD [facility] THIS REPORT FOR: //name// [facility] Test Date: 2019-11-22 Test Time: 08:30:03 Pat Name: LEIDY ADAMES Department: Room: 212 Gender: F Drawbridge Operator: MILAD : 1945 Requested By: Germaine Hough Order Number: [id number] MD: Markus Ott Measurements Intervals [place] Rate: 67 P: 60 AL: 153 QRS: 117 QRSD: 143 T: 50 QT: 457 QTc: 483 Interpretive Statements Sinus rhythm RBBB and LPFB Compared to ECG 01/01/2019 11:40:42 No significant changes Electronically Signed On 11-22-2019 9:21:12 SHUTTLE SPOTTER by Markus Ott [email or web address] <ELECTRONICALLY SIGNED> By: Markus Ott MD, FAC 11/22/1921 9 9 Markus Ott MD, [facility] /EPI
--- NOTE | 2019-11-23 14:12 | NUR ---
Patient transferred to [facility] for ins purpose. She admits with pulm edema. met with patient and sp with dtr Ramila. patient resides at home with spouse and grandson. All needs on one level in home. She has a walker at home and shower bnech. She does not wear home oxygen. She reports in [place], grandson home at night but works during day. Patient with [facility] for skilled care and [facility] for HH. She reports both were fine. Dtr reports they assist and keep close eye on patient may not need HH at ma. [facility] following.
--- NOTE | 2019-11-23 15:17 | NUR ---
PT CARE ASSUMED APPROXIMATELY 0700. PT ASSESSMENTS CHARTED. PT RECEIVED DIALYSIS WITHOUT ISSUE. PT TO BE DISCHARGED POST DIALYSIS PER DR ORDER. PT DENIES PAIN. PT RECEIVED MEDICATION CHARTED.
--- NOTE | 2019-11-23 17:36 | NUR ---
PT CARE ASSUMED APPROXIMATELY 0700. PT ASSESSMENTS CHARTED. PT MEDICATION CHARTED. PT ALERT AND ORIENTED X 4 ONCE HER ATTENTION IS GAINED, BUT WILL OFTEN STARE BLANKLY. PT WENT FOR AN US AND CT OF HER LEFT ARM AND FLANK, DUE TO PAIN AND NODULES UNDER THE SKIN. PT WALKS WELL WITH PT. APPETITE IS POOR, BUT SHE WILL DRINK.
[2019-11-24] VITALS (9 sets, daily range): BP systolic 128–169; BP diastolic 45–61
[2019-11-24 07:57] LABS: HEMATOCRIT 21.9 % (37.0-47.0); HEMOGLOBIN 7.1 gm/dL (12.0-15.0); MCH 32.3 pg (26.0-34.0); MCHC 32.2 g/dL (28.0-37.0); MCV 100.3 fL (80.0-100.0); RBC 2.19 mil/uL (4.20-5.00); RDW 17.2 % (10.5-14.5); WBC 9.9 thou/uL (4.0-11.0)
[2019-11-24 08:02] LABS: CALCIUM 8.2 mg/dL (8.5-10.1); CREATININE 1.6 mg/dL (0.6-1.0); POTASSIUM 3.8 mmol/L (3.5-5.1)
--- NOTE | 2019-11-24 08:42 | NUR ---
PAIN WELL CONTROLLED WITH PAIN PILL.MONITOR SHOWS TO DD.O2 1L NC.POC CONTINUED.
--- NOTE | 2019-11-24 09:21 | NUR ---
WOUND CARE F/U ASSESS R BUTTOCK WOUND W/ UI ARCHITECT TWIN, AREA ALMOST CLOSED, .3CMX.3CM, BLANCHABLE, NO DRAINAGE NO S/S INFECTION, ENCOURAGED TO TURN/OFF LOADING WHEN IN BED, PT ABLE TO TURN SELF, AMBULATORY RECOMMENDATIONS, CONT ZGUARD DAILY AND PRN, PRESSURE RELIEF, OFF LOADING, TURN [id number] WHEN IN BED, UI ARCHITECT AWARE
--- NOTE | 2019-11-24 16:43 | NUR ---
Continuing to follow for possible hh referral at dc. Referral faxed to [facility] for possible weekend dc. Will follow.
--- NOTE | 2019-11-24 18:33 | NUR ---
PT CARE ASSUMED APPROXIMATELY 0700. PT ASSESSMENTS CHARTED. VSS. PT HAS REOCCURRING FLANK PAIN, TREATED SUCCESSFULY WITH MEDICATION. PT RECEIVED 1 UNIT OF BLOOD WITHOUT ISSUE. URINARY CATHETER REMOVED.
[2019-11-24 19:04] LABS: HEMOGLOBIN 8.1 gm/dL (12.0-15.0)
[2019-11-25 04:30] VITALS: BP 131/54
[2019-11-25 05:06] LABS: HEMATOCRIT 24.4 % (37.0-47.0); HEMOGLOBIN 7.9 gm/dL (12.0-15.0); MCH 31.3 pg (26.0-34.0); MCHC 32.5 g/dL (28.0-37.0); MCV 96.2 fL (80.0-100.0); RBC 2.54 mil/uL (4.20-5.00); RDW 18.6 % (10.5-14.5); WBC 11.4 thou/uL (4.0-11.0)
--- NOTE | 2019-11-25 05:06 | NUR ---
ASSUMED PT CARE AT AROUND 1900, PT IS ALERT AND ORIENTEDX4,COMPLAINS OF PAIN ON THE RIGHT FLANK AND LEFT LOWER EXTREMITY, PAIN MEDICATION GIVEN ORDERED WITH PARTIAL RELIEF, SR/BBB ON THE MONITOR, ASSESSMENTS CHARTED, VS STABLE,DENIES SOB, RESTED WELL, WILL CONTINUE TO MONITOR
[2019-11-25 05:30] LABS: CALCIUM 7.8 mg/dL (8.5-10.1); CREATININE 1.6 mg/dL (0.6-1.0); POTASSIUM 4.1 mmol/L (3.5-5.1)
[2019-11-25 08:10] VITALS: BP 124/47
[2019-11-25 11:23] VITALS: BP 126/51
[2019-11-25] MEDS ORDERED: KEFLEX500 M1 PO (13:12)
[2019-11-25] MEDS ORDERED: KEPPRA 500 MG500 M1 PO (13:12)
[2019-11-25] MEDS ORDERED: IPRAT-ALBUT 0.5-3 ML INH (13:12)
[2019-11-25] MEDS ORDERED: SPIRONOLACTONE25 M1 PO (13:12)
[2019-11-25] MEDS ORDERED: LASIX 40 MG TAB40 MG PO (13:43)
--- NOTE | 2019-11-25 13:54 | NUR ---
PT ASSESSED, ORIENTED 2-3, SOMEWHAT FORGETFUL, BUT VERY PLEASANT, DR FOY IN TO ASSESS PT AND THE "SORE/TENDER HEMATOMA" BY HER RIGHT BREAST, LUMP IS SMALLER THAT IT WAS YESTERDAY PER MD, PAIN MEDS GIVEN TO MAKE PT COMFORTABLE WHEN MOVING. REPORT GIVEN TO KRISTY GOODRICH AT 6231
[2019-11-25 13:55] VITALS: BP 126/51
--- NOTE | 2019-11-25 13:58 | NUR ---
PT DCING HOME TODAY. HH ORDERS TO BE FAXED TO [facility] PER THE DC HEALTH CARE TECHNICIAN. FAMILY TO TAKE THE PT HOME THIS AFTERNOON. NO OTHER NEEDS INDICATED.
--- NOTE | 2019-11-25 14:06 | NUR ---
14:00 ASSUMED CARE OF PT, SITTING UP IN RECLINER. PULLED IT OUT SO SHE COULD RECLINE AND PULLED TABLE OVER, NO NEEDS AT THIS TIME.A&0X2-3 WITH PROMPTING. IS NOT IMPULISIVE THUS FAR. ENCOURAGED HER TO USE CALL LIGHT FOR ANY NEEDS. SLURRED SPEECH. SEE SEPARATE INTERVENTIONS FOR ASSESSMENTS.ON ROOM AIR
--- NOTE | 2019-11-25 14:22 | NUR ---
REFERRAL FAXED TO [facility] SPOKE WITH [facility] THEY CAN ACCEPT AND FAXED DC ORDERS/SUMMARY RECEIVED CONFIRMATION AND THEY WILL NOTIFY PT TIME OF VISITS.
[2019-11-25 16:09] VITALS: BP 116/54
--- NOTE | 2019-11-26 10:21 | NUR ---
PT'S DAUGHTER CALLED (PT DISCHARGED YESTERDAY) D/C INSTRUCTIONS CONFUSING. WENT OVER W/HER AND CALLED PHYSICIAN TO AMEND
== END 2019-11-25 19:11 | disposition home health service (06) | DRG 291 ==
LOC: 2N 21:11
PROVIDERS: Internal Medicine Pulmonary Disease; Nurse Practitioner; ADMIT Hospitalist
DX: I13.0 Hypertensive heart and chronic kidney disease with heart failure and stage 1 through stage 4 chronic kidney disease, or unspecified chronic kidney disease (principal); I50.31 Acute diastolic (congestive) heart failure; J96.01 Acute respiratory failure with hypoxia; N17.9 Acute kidney failure, unspecified; I69.351 Hemiplegia and hemiparesis following cerebral infarction affecting right dominant side; D62 Acute posthemorrhagic anemia; E78.5 Hyperlipidemia, unspecified; I27.20 Pulmonary hypertension, unspecified; J44.9 Chronic obstructive pulmonary disease, unspecified; I25.10 Atherosclerotic heart disease of native coronary artery without angina pectoris; F03.90 Unspecified dementia, unspecified severity, without behavioral disturbance, psychotic disturbance, mood disturbance, and anxiety; G40.909 Epilepsy, unspecified, not intractable, without status epilepticus; F41.9 Anxiety disorder, unspecified; E11.51 Type 2 diabetes mellitus with diabetic peripheral angiopathy without gangrene; I34.0 Nonrheumatic mitral (valve) insufficiency; I07.1 Rheumatic tricuspid insufficiency; I65.21 Occlusion and stenosis of right carotid artery; I16.0 Hypertensive urgency; E11.22 Type 2 diabetes mellitus with diabetic chronic kidney disease; N18.9 Chronic kidney disease, unspecified; F32.9 Major depressive disorder, single episode, unspecified; E53.8 Deficiency of other specified B group vitamins; K59.00 Constipation, unspecified; M79.81 Nontraumatic hematoma of soft tissue; I27.21 Secondary pulmonary arterial hypertension; Z82.49 Family history of ischemic heart disease and other diseases of the circulatory system; Z88.1 Allergy status to other antibiotic agents; Z95.5 Presence of coronary angioplasty implant and graft; Z86.718 Personal history of other venous thrombosis and embolism; Z79.01 Long term (current) use of anticoagulants; Z95.828 Presence of other vascular implants and grafts; Z95.1 Presence of aortocoronary bypass graft; Z88.0 Allergy status to penicillin; Z88.2 Allergy status to sulfonamides; Z79.82 Long term (current) use of aspirin; Z79.891 Long term (current) use of opiate analgesic; Z79.899 Other long term (current) drug therapy; M32.9 Systemic lupus erythematosus, unspecified; Z98.42 Cataract extraction status, left eye; Z98.41 Cataract extraction status, right eye; Z90.710 Acquired absence of both cervix and uterus; I25.2 Old myocardial infarction; Z87.891 Personal history of nicotine dependence
CPT/HCPCS: 10081

== ENCOUNTER 2019-11-26 20:55 | Inpatient (IN) | payer OTHER ==
[~2019-11-26] VITALS: Ht 157.5 cm; Wt 60.1 kg
[~2019-11-26 20:55] MED LIST changes: +FUROSEMIDE 40 M40 MG IV PUSH; +IPRAT-ALBUT 0.5-3 ML INH; +KEFLEX500 M1 PO; +KEPPRA 500 MG500 M1 PO; +LEVO-T50 MCG PO; +LISINOPRIL2.5 MG PO; +LOPRESSOR50 MG PO; +LORAZEPAM 1 MG T1 MG PO; +NAMENDA 10 MG T10 MG PO; +NORVASC 2.5 MG2.5 M1 PO; +PREDNISONE 5 MG5 M1 PO; +RANEXA1000 MG PO; +REMERON 30 MG T30 M1 PO
[2019-11-26 20:58] VITALS: BP 145/63
--- NOTE | 2019-11-26 22:28 | NUR ---
ULTRASOUND IV ATTEMPTED X4. NOT PATENT. BLOOD RETURN AND NOT ABLE TO ADVANCE. DR. WHEELER NOTIFIED.
[2019-11-27] VITALS (8 sets, daily range): BP systolic 109–139; BP diastolic 44–64
[2019-11-27 00:05] LABS: ABSOLUTE NEUTROPHILS 10.6 thou/uL (1.4-8.2); BASOPHILS 0.6 % (0.0-2.0); EOSINOPHILS 0.6 % (0.0-3.0); HEMATOCRIT 25.5 % (37.0-47.0); HEMOGLOBIN 8.1 gm/dL (12.0-15.0); LYMPHOCYTES 3.9 % (24.0-44.0); MCH 31.1 pg (26.0-34.0); MCHC 31.7 g/dL (28.0-37.0); MCV 98.1 fL (80.0-100.0); MONOCYTES 4.4 % (1.0-8.0); PLATELET COUNT 220 thou/uL (150-400); POLYS 90.5 % (36.0-66.0); RDW 18.7 % (10.5-14.5); WBC 11.7 thou/uL (4.0-11.0)
[2019-11-27 00:10] LABS: CALCIUM 8.5 mg/dL (8.5-10.1); CREATININE 2.5 mg/dL (0.6-1.0); POTASSIUM 4.9 mmol/L (3.5-5.1)
[2019-11-27 00:17] LABS: APTT 27.8 Seconds (24.5-32.8); PROTIME 10.2 Seconds (9.3-11.4)
[2019-11-27 00:20] LABS: TROPONIN-I 0.59 ng/mL (<0.06)
--- NOTE | 2019-11-27 02:53 | NUR ---
73 y/o female admitted to CCU Room 209 as CC Tele w/ diagnosis: [place], Elevated troponin, and right breast hematoma. Oriented x 4. Denies pain at this time. VSS. Afebrile. SR/BBB per monitor. Murmur. Denies chest pain or pressure. O2 2L NC. Lungs with bibasilar crackles. Pt states she has not been taking lasix since discharge Thursday. No shortness of breath noted. Denies nausea. Awaiting orders on diet. Saline lock RAC placed in ER by Dr. Barrera utilizing ultrasound. Denies need to void at this time. See admission H&P.
[2019-11-27 06:30] LABS: HEMOGLOBIN 7.8 gm/dL (12.0-15.0); MCHC 32.4 g/dL (28.0-37.0); MCV 98.7 fL (80.0-100.0); RBC 2.43 mil/uL (4.20-5.00); RDW 18.4 % (10.5-14.5); WBC 9.3 thou/uL (4.0-11.0)
[2019-11-27 06:44] LABS: CALCIUM 8.4 mg/dL (8.5-10.1); CREATININE 2.5 mg/dL (0.6-1.0); POTASSIUM 4.6 mmol/L (3.5-5.1)
[2019-11-27 06:54] LABS: TROPONIN-I 1.09 ng/mL (<0.06)
--- NOTE | 2019-11-27 07:46 | NUR ---
Pt very difficult IV stick. Multiple attempts at access in ER with use of ultrasound. Dr. Barrera able to place saline lock right AC. Pt c/o it hurting/burning. IV therapy consulted to place midline. Cardiology consult called to Dr. Benoit, message left with answering service.
--- NOTE | 2019-11-27 08:53 | EKG ---
[facility] [place] [address] ELECTROCARDIOGRAM REPORT Name: LEIDY ADAMES Room #: 209-P ADM IN M.R.#: [id number] Admission: 11/27/19 Attend Phys: Duane Muhammad MD Discharge: Date of : 49 Report #: [id number] THIS REPORT FOR: cc: Jamaal Cho MD, Mark S. MD Couchonnal, Luis F. 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: [facility] : 1945 Requested By: April Barrera Order Number: [id number] MD: Howard Nguyen Measurements Intervals [place] Rate: 96 P: 76 [place]: 159 QRS: 131 QRSD: 139 T: 31 QT: 386 QTc: 488 Interpretive Statements Sinus rhythm Probable left atrial enlargement RBBB and LPFB Baseline wander in lead(s) II,III,aVR,aVF,V4 Compared to ECG 11/22/2019 08:30:03 No significant changes Electronically Signed On 11-27-2019 8:52:47 DIRECTOR OF PUBLIC RELATIONS by Howard Nguyen [email or web address] <ELECTRONICALLY SIGNED> By: Howard Nguyen MD 11/27/19 0852 00 00 Howard Nguyen MD /EPI
--- NOTE | 2019-11-27 08:55 | EKG ---
[facility] [place] [address] ELECTROCARDIOGRAM REPORT Name: LEIDY ADAMES Room #: 209-P ADM IN M.R.#: [id number] Admission: 11/27/19 Attend Phys: Duane Muhammad MD Discharge: Date of : 49 Report #: [id number] THIS REPORT FOR: cc: Jamaal Cho MD, Mark S. MD Couchonnal, Luis F. MD ~ THIS REPORT FOR: //name// [facility] Test Date: 2019-11-27 Test Time: 07:54:44 Pat Name: LEIDY ADAMES Department: Room: 209 Gender: F Invoice Clerk: : 1945 Requested By: Ana Luisa Brown Order Number: [id number] MD: Howard Nguyen Measurements Intervals [place] Rate: 73 P: 39 NV: 153 QRS: 122 QRSD: 135 T: 42 QT: 440 QTc: 485 Interpretive Statements Sinus rhythm Probable left atrial enlargement Right bundle branch block Compared to ECG 11/22/2019 08:30:03 Left posterior fascicular block no longer present Electronically Signed On 11-27-2019 8:54:37 MEETING PLANNER by Howard Ngueyn [email or web address] <ELECTRONICALLY SIGNED> By: Howard Nguyen MD 11/27/19 0854 0754 0754 Howard Nguyen MD /EPI
--- NOTE | 2019-11-27 11:36 | NUR ---
PLACED A 20G 2.5INCH PIV IN LO FOR IV ACCESS FOR PRN IV MEDS. BRISK BLOOD RETURN AND PT HAS CKD SO A ML IS CONTRAINDICATED
--- NOTE | 2019-11-27 17:29 | NUR ---
ASSUMED CARE AT SHIFT CHANGE, ALERT AND ORIENTED X4. VSS AND SA/BBB ON THE MONITOR. C/O LT LEG SEVERE PAIN AND MEDICATED INDICATED. METOPROLOL HELD FOR LOW BP AND DR COUGHLIN NOTIFIED. AND WILL CONTIUE WITH POC.
[2019-11-28 00:29] VITALS: BP 122/57
[2019-11-28 05:38] VITALS: BP 131/45
[2019-11-28 08:00] VITALS: BP 140/52
[2019-11-28 11:11] VITALS: BP 168/73
[2019-11-28 11:21] LABS: HEMATOCRIT 26.3 % (37.0-47.0); HEMOGLOBIN 8.3 gm/dL (12.0-15.0); MCH 31.4 pg (26.0-34.0); MCHC 31.7 g/dL (28.0-37.0); RBC 2.65 mil/uL (4.20-5.00); RDW 18.4 % (10.5-14.5); WBC 9.5 thou/uL (4.0-11.0)
[2019-11-28 11:23] LABS: CALCIUM 8.5 mg/dL (8.5-10.1); CREATININE 2.2 mg/dL (0.6-1.0); POTASSIUM 5.1 mmol/L (3.5-5.1)
[2019-11-28] MEDS ORDERED: NORVASC 2.5 MG2.5 M1 PO (16:14)
[2019-11-28] MEDS ORDERED: NEURONTIN300 MG PO (16:15)
[2019-11-28] MEDS ORDERED: VITAMIN D31250 MC1 PO (16:17)
[2019-11-28 20:50] VITALS: BP 131/46
[2019-11-29 05:25] VITALS: BP 145/64
[2019-11-29 05:28] LABS: HEMATOCRIT 24.1 % (37.0-47.0); HEMOGLOBIN 7.7 gm/dL (12.0-15.0); MCHC 32.2 g/dL (28.0-37.0); MCV 99.5 fL (80.0-100.0); RBC 2.42 mil/uL (4.20-5.00); RDW 18.9 % (10.5-14.5); WBC 9.9 thou/uL (4.0-11.0)
--- NOTE | 2019-11-29 05:39 | NUR ---
PATIENTS CARES WERE ASSUMED AT SHIFT CHANGE. PATIENT WAS ASSESSED AND MEDS WERE PASSED DIRECTED. PATIENT DID SLEEP MOST OF THIS SHIFT. UP X2 TO THE BSC THIS SHIFT. HOURLY ROUNDS WERE DONE. THE BE IS IN A LOW AND LOCKED POSITION
[2019-11-29 05:48] LABS: CALCIUM 8.4 mg/dL (8.5-10.1); CREATININE 2.1 mg/dL (0.6-1.0); POTASSIUM 4.6 mmol/L (3.5-5.1)
[2019-11-29 08:10] VITALS: BP 166/50
[2019-11-29 12:10] VITALS: BP 155/54
[2019-11-29 16:00] VITALS: BP 133/57
--- NOTE | 2019-11-29 17:46 | NUR ---
ASSESSMENT DOCUMENTED, AND SCHEDULED MEDS PASSED. VSS AND AFEBRILE.PATIENT C/O GENERALIZED PAIN 10, AND MEDICATED NEEDED. WILL CONTINUE WITH POC.
[2019-11-29 22:08] VITALS: BP 153/53
[2019-11-30 04:05] VITALS: BP 154/62
--- NOTE | 2019-11-30 05:30 | NUR ---
PATIENTS CARES WERE ASSUMED AT SHIFT CHANGE. PATIENT WAS ASSESSED AND MEDS WERE PASSED. PATIENT DID SLEEP THE MAJORITY OF THIS SHIFT. NO REQUEST WERE MADE. HOURLY ROUNDS WERE MADE. THE BED IS IN A LOW AND LOCKED POSITION
[2019-11-30 08:00] VITALS: BP 173/69
[2019-11-30 09:10] LABS: ABSOLUTE NEUTROPHILS 7.5 thou/uL (1.4-8.2); BASOPHILS 0.8 % (0.0-2.0); EOSINOPHILS 1.4 % (0.0-3.0); HEMATOCRIT 29.5 % (37.0-47.0); HEMOGLOBIN 9.4 gm/dL (12.0-15.0); LYMPHOCYTES 10.1 % (24.0-44.0); MCH 31.7 pg (26.0-34.0); MCV 99.1 fL (80.0-100.0); MONOCYTES 7.8 % (1.0-8.0); PLATELET COUNT 316 thou/uL (150-400); POLYS 79.9 % (36.0-66.0); RBC 2.98 mil/uL (4.20-5.00); RDW 18.2 % (10.5-14.5); WBC 9.4 thou/uL (4.0-11.0)
[2019-11-30 09:22] LABS: ALBUMIN 3.2 g/dL (3.4-5.0); CREATININE 1.7 mg/dL (0.6-1.0); PHOSPHORUS 3.4 mg/dL (2.5-4.9); POTASSIUM 4.4 mmol/L (3.5-5.1)
--- NOTE | 2019-11-30 09:36 | NUR ---
Patient dc home Thursday and readmit. Plan cardiac cath. Met with patient she resides at home with spouse and grandson. Grandson works during day but avail at night. Dtr assists with care as well. Patient has walker and bath bench at home. Patient rec HH at dc but patient reports she does no want HH this time. "I dont want to be bothered." [facility] following for dc planning therapy evals in process.
[2019-11-30 10:04] LABS: ANISOCYTOSIS 1+; HYPOCHROMASIA 1+; PLATELET ESTIMATE NORMAL
[2019-11-30 12:00] VITALS: BP 149/69
[2019-11-30 17:00] VITALS: BP 140/64
[2019-11-30 18:14] LABS: URINE BILIRUBIN NEGATIVE (Negative); URINE BLOOD NEGATIVE (Negative); URINE CLARITY CLEAR; URINE COLOR YELLOW; URINE GLUCOSE-RANDOM* NEGATIVE (Negative); URINE KETONES NEGATIVE (Negative); URINE LEUKOCYTES NEGATIVE (Negative); URINE NITRITE NEGATIVE (Negative); URINE PROTEIN (DIPSTICK) NEGATIVE (Negative); URINE UROBILINOGEN 0.2 E.U./dl (0.2-1.0)
[2019-11-30 18:19] LABS: URINE CREATININE-RANDOM* 47.4 mg/dL; URINE PROTEIN-RANDOM* 22.5 mg/dL (<11.9)
--- NOTE | 2019-11-30 19:46 | NUR ---
ASSESSMENT DOCUMENTED,SCHEDULED MEDS GIVEN, AND NEW ORDERS CARRIED OUT. AND WILL CONTNUE WITH POC.
[2019-11-30 20:54] VITALS: BP 154/64
[2019-12-01 03:29] VITALS: BP 159/55
[2019-12-01 05:58] LABS: HEMATOCRIT 26.2 % (37.0-47.0); HEMOGLOBIN 8.5 gm/dL (12.0-15.0); MCH 32.5 pg (26.0-34.0); MCHC 32.5 g/dL (28.0-37.0); RBC 2.62 mil/uL (4.20-5.00); RDW 18.8 % (10.5-14.5); WBC 8.6 thou/uL (4.0-11.0)
[2019-12-01 06:19] LABS: ALBUMIN 2.8 g/dL (3.4-5.0); CALCIUM 8.5 mg/dL (8.5-10.1); CREATININE 1.5 mg/dL (0.6-1.0); PHOSPHORUS 3.5 mg/dL (2.5-4.9); POTASSIUM 4.9 mmol/L (3.5-5.1)
[2019-12-01 07:00] VITALS: BP 159/70
[2019-12-01 07:30] VITALS: BP 173/66
--- NOTE | 2019-12-01 08:06 | NUR ---
ASSESSMENTS CHARTED, PT RESTING QUIETLY IN BED AND REPOSITIONED NEEDED, VSS, NO PAIN MEDS NEEDED THRU THE NOC, REPORT GIVEN TO NEXT SHIFT TO CON'T WITH PPOC.
[2019-12-01 11:30] VITALS: BP 159/78
[2019-12-01 16:30] VITALS: BP 152/63
--- NOTE | 2019-12-01 18:39 | NUR ---
RECEIVED PT'S CARE AROUND 0735; PT. REQUESTING TO VOID; HELPED TO VOID ON BEDSIDE COMMODE; DURING ASSESSMENT C/O HEADACHE; PRN PAIN MEDICATION GIVEN BY FUNDRAISING SALE REPRESENTATIVE; PT. ALERT TO PERSON, YEAR, NOT MONTH; AM MEDICATIONS GIVEN; EDUCATED ABOUT FALL PRECAUTIONS; ST. UNDERSTANDING; EDUCATED ABOUT GOALS THROUGH THE DAY; ST. UNDERSTANDING; DURING THE AFTERNOON UP TO CHAIR; FALL PRECAUTIONS ON PLACE; SR ON THE MONITOR; SBP 170s EARLY ON THE MORNING; SCHEDULED MEDICATION GIVEN; SBP ON THE LATES 150s; PACK MASTER DRIVER'S EDUCATION INSTRUCTOR NOTIFIED; NO NEW ORDERS; MONITORING; ASSESSMENT CHARGED; FOLLOWING POC; WILL PASS ON REPORT;
[2019-12-01 20:47] VITALS: BP 171/58
[2019-12-02] VITALS (12 sets, daily range): BP systolic 122–171; BP diastolic 45–73
--- NOTE | 2019-12-02 03:45 | NUR ---
ASSUMED PT CARE AT 1900, PT IS ALERT AND ORIENTED TO SELF AND PLACE, PT IS WITH SR/BBB, PT IS ON 2L OF O2, PT IS NPO AFTER MIDNIGHT FOR HEART CATH IN THE AM, NO COMPLAINS OF PAIN, VITAL SIGNS STABLE, NO EDEMA, BLOOD SUGAR STABLE, ASSESSMENTS CHARTED, RESTED WELL, WILL CONTINUE TO MONITOR
[2019-12-02 04:08] LABS: ALBUMIN 2.9 g/dL (3.4-5.0); CREATININE 1.7 mg/dL (0.6-1.0); PHOSPHORUS 3.9 mg/dL (2.5-4.9); POTASSIUM 5.2 mmol/L (3.5-5.1)
--- NOTE | 2019-12-02 14:24 | HC ---
[facility] [place] [address] CONSULTATION Name: LEIDY ADAMES Room #: 209-P ADM IN M.R.#: [id number] Admission: 11/27/19 Attend Phys: Samantha Oh MD Discharge: Date of : 49 Report #: [id number] THIS REPORT FOR: cc: Jamaal Cho MD, Mark S. MD Al-Absi, Ahmed I. MD ~ CC: Samantha Cho REASON FOR THE PRESENTATION: Chest pain. REASON FOR CONSULTATION: Elevated creatinine. HISTORY OF PRESENT ILLNESS: A 74-year-old with extensive past medical history including diabetes mellitus and hypertension. She presented to the hospital reporting that she has been having some chest pain. She is known to have coronary artery disease, status post CABG. She is also known to have seizure disorder with history of lupus. It looks like that the patient has been in different facilities lately. I have evaluated this patient along with one of my associates' evaluation back in 2019. She is status post CABG in 2009 with a drug-eluted stent. She has had prednisone chronically in the past. She goes into episodes of acute kidney injury; one of them was associated with hyperkalemia. Last time was back in 2019 and this was thought due to be to hypertension. The patient does have dementia and is not able to provide me with the details of her comorbid conditions. She is being considered for cardiac catheterization given her elevated troponin. PAST MEDICAL HISTORY: 1. Hypertension. 2. Diabetes mellitus. 3. Questionable history of lupus. 4. Seizure disorder. 5. Hysterectomy. 6. Dementia. 7. Cerebrovascular accident. 8. Peripheral vascular disease. 9. Severe pulmonary hypertension. 10. Right carotid endarterectomy. SOCIAL HISTORY: She lives with her . No reported drug abuse. MEDICATIONS: 1. Atorvastatin. 2. Keppra. 3. Plavix. 4. Gabapentin. 5. Amlodipine. [facility] [address] [place] [address] CONSULTATION Name: LEIDY ADAMES Room #: 209-P [facility] IN [facility].#: [id number] Admission: 11/27/19 Attend Phys: Samantha Oh MD Discharge: Date of : 49 Report #: [id number] FAMILY HISTORY: Significant for hypertension. REVIEW OF SYSTEMS: GENERAL: No fever or chills. CARDIOVASCULAR: As per the history of present illness. PULMONARY: No cough or hemoptysis. GASTROINTESTINAL: No nausea or vomiting. GENITOURINARY: No frequency, no urgency. NEUROLOGICAL: No headache, no dizziness. PHYSICAL EXAMINATION: GENERAL: She is awake, alert, and confused. VITAL SIGNS: Blood pressure is 145/64, temperature 37.1. HEAD AND NECK: No jugular venous distention. CHEST: No crackles. CARDIOVASCULAR: No rub. ABDOMEN: Soft, nontender. LOWER EXTREMITIES: There is no evidence of lower extremity edema. LABORATORY DATA: Creatinine was up to 2.5 and this has trended down to 2.1. Sodium 140, potassium 4.6, chloride 102, carbon dioxide 32. IMPRESSION AND PLAN: 1. Acute kidney injury. 2. Chronic kidney disease. 3. Elevated troponins. 4. Severe pulmonary hypertension. 5. Right chest wall hematoma. 6. Deep venous thrombosis. 7. Seizure disorder. 8. Lupus. 9. Chronic steroid usage. 10. The patient's creatinine seems to be improving and I would continue with the current measures for now. Continue to hold on cardiac catheterization until we get her creatinine down. 11. Risk of contrast-induced nephropathy should be discussed with the patient. She has a very limited cognitive issue and I am not really sure if she got what we have talked about with her. 12. Continue her blood pressure medication. 13. Continue to address her pulmonary hypertension. 14. We will continue to follow. <ELECTRONICALLY SIGNED> By: Nataly Gilbert MD 12/02/19 1424 [id number] [id number] Nataly Gilbert MD /nt
--- NOTE | 2019-12-02 18:53 | NUR ---
RECEIVED PT'S CARE AROUND 0715; PT. ON BED RESTING WITH EYES CLOSED; EQUAL CHEST RISING NOTICED; NPO; DURING AM ASSESSMENT REMAINED ABOUT NPO; MOST AM MEDICATION GIVEN; IV STARTED; FLUIDS STARTED; SCHEDULED FOR CARDIAC CATH; AROUND 1100 PT. GONE FOR PROCEDURE; RETURNED ABOUT 1315; PT. AOX4; O2 80s ON RA; NC APPLIED; 1L; SB; EDUCATED ABOUT BED REST; ST. UNDERSTANDING; FORGETFUL; REMAINED; R. GROIN AREA C/D/I; NO HEMATOMA THROUGH THE AFTERNOON; VS STABLE; MONITORING; ASSESSMENT CHARGED; FOLLOWING POC; WILL PASS ON REPORT;
[2019-12-03 03:20] VITALS: BP 177/65
--- NOTE | 2019-12-03 05:10 | NUR ---
ASSUMED PT CARE AT 1945. PT IS ALERT AND ORIENTED WITH NO SIGN OF DISTRESS NOTED IN PT. DENIES ANY PAIN.PT IS ALYING COMFORATBLE IN BED. FALL PRECAUTION IN PLACE. CALL LIGHT WITHIN REACH. ASSESSMENT COMPLETED AND DOCUMETED. DENIES ANY PAIN. SCHEDULED MEDS ADMINISTERED TO PT. TOLERATED PO INTAKE. CONTINUE TO MONITOR PATIENT. DENIES ANY FURTHER NEEDS AT THIS TIME.
[2019-12-03 06:50] LABS: ALBUMIN 2.9 g/dL (3.4-5.0); CALCIUM 8.8 mg/dL (8.5-10.1); CREATININE 1.5 mg/dL (0.6-1.0); POTASSIUM 4.5 mmol/L (3.5-5.1)
[2019-12-03 07:17] VITALS: BP 179/66
[2019-12-03] MEDS ORDERED: NORVASC5 MG PO (10:56)
[2019-12-03] MEDS ORDERED: ASPIR 8181 MG PO (10:56)
[2019-12-03] MEDS ORDERED: LOPRESSOR50 PO (10:56)
[2019-12-03] MEDS ORDERED: TRADJENTA5 MG PO (10:59)
[2019-12-03 11:54] VITALS: BP 179/66
[2019-12-03] MEDS ORDERED: ISOSORBIDE MONO60 M1 PO (13:56)
--- NOTE | 2019-12-03 19:33 | NUR ---
PT WAS DISCHARGED AROUND 1420. DISCHARGE INSTRUCTIONS WERE REVIEWED WITH DAUGHTER. PIV AND TELE WERE DC'D EARLIER. ALL PT BELONGINGS WERE SENT WITH PT ALONG WITH DC INSTRUCTIONS, EDUCATION MATERIALS. RXS WERE SENT ELECTRONICALLY BY DR FULLER AND [facility] RX WAS CALLED IN BY THIS RN PER DR FULLER.
--- NOTE | 2019-12-07 22:24 | CATHLAB ---
[facility] [place] [address] INVASIVE PROCEDURE REPORT Name: LEIDY ADAMES Room #: 209-P DIS IN M.R.#: [id number] Admission: 11/27/19 Attend Phys: Samantha Oh MD Discharge: 12/03/19 Date of : 49 Report #: [id number] THIS REPORT FOR: cc: Jamaal Cho MD, Mark S. MD Lammoglia, Francisco J. MD ~ APPROVED REPORT Study performed: 12/02/2019 11:41:11 Patient Details Patient Status: Out-Patient Room #: The patient is a 74 year-old female Event Personnel Jules Garcia Aviation Maintenance Technician, Kayley Shah RN RN, Junior Mirza Brown, Roberta Monitor, Gabriel Trujillo RTR Monitor, Isiah Garcia RTR Monitor Procedures Performed Art Access - R femoral artery* Left Heart Cath w/or w/o Coronaries 0751988 [facility] 35661 Initial Mod Sed Same Phys/QHP [facility] 096298 19133 Mod Sed Same Phys/QHP Ea 285486 Hemostasis with Manual pressure, supervision of conscious sedation,left internal mammary artery bypass angiography: Saphenous vein graft angiography Indication Heart failure, Cardiomyopathy, Chest pain, elevated cardiac enzymes Risk Factors Peripheral Vascular Disease, Hypercholesterolemia, Coronary Artery DiseaseHypertension Procedure Narrative The Right Groin^ was infiltrated with 1% Lidocaine subcutaneous anesthesia. A PINNACLE 4FR Sheath #[id number] sheath was inserted into the RFA^. Coronary angiography was performed using coronary diagnostic catheters. The right coronary system was accessed and visualized with a JR4 catheter. The left coronary system was accessed and visualized with a JL4 catheter. The left ventricle was accessed and visualized with a pigtail catheter. The patient tolerated the procedure well and there were no complications associated with the procedure. There was no hematoma. [facility] [employer] [address] INVASIVE PROCEDURE REPORT Name: LEIDY ADAMES Room #: 209-P [facility] IN M.R.#: [id number] Admission: 11/27/19 Attend Phys: Preet Roper Discharge: 12/03/19 Date of : 49 Report #: [id number] Intraoperative Conscious Sedation Sedation start time: 1218 Case end Time: 1249 Versed 1 mg Fluoro Time: 6.09 minutes Dose: DAP 3281.00 cGycm2 458 mGy Contrast Type and Amount: Omnipaque 60 ml Coronary Angiography The patient's coronary anatomy is right dominant. Diagnostic Cath Left Main left main is of normal origin and caliber bifurcates left anterior descending left circumflex. There is a rapid taper towards the distal portion of the left main of 50%. No flow-limiting lesions are noted LAD small-caliber vessel which is occluded in the proximal portion of the mid LAD. small threadlike diagonal and septal vessels are noted prior to the total occlusion. the mid and distal LAD fills via a patent left internal mammary graft. There is moderate calcification throughout the course of the mid and distal LAD. There is moderate irregularities in the diffuse disease identified. Diagonal 1 small string-like vessels with diffuse moderate stenosis Circumflex totally occluded proximally the site of previous stenting. Marginal branches are filled via saphenous vein graft and are meter string-like vessels.distal portion of the saphenous vein which is anastomose to the marginal branch tapers to a strain which is supplying the marginal branch of the circumflex itself is self is a string-like vessel OM1 highly disease and diminutive size vessel OM2 disease and diminutive size vessel Right Coronary 100% occlusion at the origin with mild homocollaterals filling the proximal portion of the RCAis totally occluded shortly thereafter R PDA string-like vessel filling via [id number] collaterals Left Ventriculography Left Ventriculography was not performed. Hemodynamics The aortic pressure is 152/59 mmHg with a mean of 95 mmHg. The left ventricular pressure is 149/10 mmHg with a mean of mmHg. The left ventricular end diastolic pressure is 37 mmHg. [facility] [address] [place] [address] INVASIVE PROCEDURE REPORT Name: LEIDY ADAMES Room #: 209-P DIS IN M.R.#: [id number] Admission: 11/27/19 Attend Phys: Preet Roper Discharge: 12/03/19 Date of : 49 Report #: [id number] Conclusion 1. Coronary disease, severe, multivessel, involving occlusion of a saphenous vein graft to the PDA 2. Abnormal hemodynamics with elevated left ventricular end-diastolic pressures 3. Diminutive's highly diseased vessels not amenable to percutaneous or surgical revascularization Recommendations Cardiac Risk Reduction Program Medical Therapy <ELECTRONICALLY SIGNED> By: Jules Garcia MD 12/07/192222 22 22 Jules Garcia MD /INF
== END 2019-12-03 14:43 | disposition home or self-care (01) | DRG 286 ==
LOC: ER 20:55 → EROBS 11-27 00:46 → 2N 11-27 00:46
PROVIDERS: Emergency Medicine; Hospitalist; Nurse Practitioner; Nurse Practitioner Family; ADMIT Hospitalist
PROC: B2111ZZ Fluoroscopy of Multiple Coronary Arteries using Low Osmolar Contrast (ICD-10-PCS; principal; 2019-12-02)
PROC: 4A023N7 Measurement of Cardiac Sampling and Pressure, Left Heart, Percutaneous Approach (ICD-10-PCS; principal; 2019-12-02)
DX: I25.10 Atherosclerotic heart disease of native coronary artery without angina pectoris (principal); I50.31 Acute diastolic (congestive) heart failure; J96.01 Acute respiratory failure with hypoxia; N17.9 Acute kidney failure, unspecified; D62 Acute posthemorrhagic anemia; I69.351 Hemiplegia and hemiparesis following cerebral infarction affecting right dominant side; I13.0 Hypertensive heart and chronic kidney disease with heart failure and stage 1 through stage 4 chronic kidney disease, or unspecified chronic kidney disease; I25.110 Atherosclerotic heart disease of native coronary artery with unstable angina pectoris; J44.9 Chronic obstructive pulmonary disease, unspecified; G40.909 Epilepsy, unspecified, not intractable, without status epilepticus; E78.5 Hyperlipidemia, unspecified; F41.9 Anxiety disorder, unspecified; E11.51 Type 2 diabetes mellitus with diabetic peripheral angiopathy without gangrene; I27.20 Pulmonary hypertension, unspecified; N18.9 Chronic kidney disease, unspecified; S20.01XA Contusion of right breast, initial encounter; M32.9 Systemic lupus erythematosus, unspecified; I34.0 Nonrheumatic mitral (valve) insufficiency; F32.9 Major depressive disorder, single episode, unspecified; I27.21 Secondary pulmonary arterial hypertension; E11.22 Type 2 diabetes mellitus with diabetic chronic kidney disease; S40.021A Contusion of right upper arm, initial encounter; F03.90 Unspecified dementia, unspecified severity, without behavioral disturbance, psychotic disturbance, mood disturbance, and anxiety; I25.2 Old myocardial infarction; Z88.1 Allergy status to other antibiotic agents; Z88.0 Allergy status to penicillin; Z88.2 Allergy status to sulfonamides; Z88.8 Allergy status to other drugs, medicaments and biological substances; Z87.891 Personal history of nicotine dependence; Z86.718 Personal history of other venous thrombosis and embolism; Z95.828 Presence of other vascular implants and grafts; Z79.4 Long term (current) use of insulin; Z95.1 Presence of aortocoronary bypass graft; Z98.42 Cataract extraction status, left eye; Z98.41 Cataract extraction status, right eye; Z90.711 Acquired absence of uterus with remaining cervical stump; Z82.49 Family history of ischemic heart disease and other diseases of the circulatory system; Z79.52 Long term (current) use of systemic steroids; Z95.5 Presence of coronary angioplasty implant and graft; Z79.82 Long term (current) use of aspirin; Z79.899 Other long term (current) drug therapy; X58.XXXA Exposure to other specified factors, initial encounter; Y93.89 Activity, other specified; Y92.89 Other specified places as the place of occurrence of the external cause; Y99.8 Other external cause status
CPT/HCPCS: 10081

== ENCOUNTER 2019-12-12 18:21 | Inpatient (IN) | payer OTHER ==
[~2019-12-12] VITALS: Ht 157.5 cm; Wt 63.0 kg
[~2019-12-12 18:21] MED LIST changes: +ISOSORBIDE MONO60 M1 PO; +LOPRESSOR50 PO; +NEURONTIN300 MG PO; +VITAMIN D31250 MC1 PO
[2019-12-12 18:23] VITALS: BP 117/43
[2019-12-12 19:48] LABS: URINE BILIRUBIN NEGATIVE (Negative); URINE BLOOD NEGATIVE (Negative); URINE CLARITY CLEAR; URINE COLOR YELLOW; URINE GLUCOSE-RANDOM* NEGATIVE (Negative); URINE KETONES TRACE (Negative); URINE LEUKOCYTES-REFLEX NEGATIVE (Negative); URINE NITRITE-REFLEX NEGATIVE (Negative); URINE PROTEIN (DIPSTICK) NEGATIVE (Negative); URINE SPECIFIC GRAVITY >= 1.030 (1.005-1.035); URINE UROBILINOGEN 0.2 E.U./dl (0.2-1.0)
[2019-12-12 20:28] LABS: ABSOLUTE NEUTROPHILS 8.9 thou/uL (1.4-8.2); BASOPHILS 0.7 % (0.0-2.0); EOSINOPHILS 0.3 % (0.0-3.0); HEMATOCRIT 31.6 % (37.0-47.0); LYMPHOCYTES 7.2 % (24.0-44.0); MCH 32.1 pg (26.0-34.0); MCHC 31.7 g/dL (28.0-37.0); MCV 101.1 fL (80.0-100.0); MONOCYTES 5.8 % (1.0-8.0); PLATELET COUNT 258 thou/uL (150-400); RBC 3.12 mil/uL (4.20-5.00); RDW 18.7 % (10.5-14.5); WBC 10.3 thou/uL (4.0-11.0)
[2019-12-12 20:48] LABS: CALCIUM 8.8 mg/dL (8.5-10.1); CREATININE 4.8 mg/dL (0.6-1.0)
[2019-12-12 20:53] LABS: ALBUMIN 3.5 g/dL (3.4-5.0); TOTAL BILIRUBIN 0.4 mg/dL (<0.1-1.0); TOTAL PROTEIN 8.4 g/dL (6.4-8.2)
[2019-12-12 21:41] VITALS: BP 116/52
[2019-12-12 22:07] VITALS: BP 104/50
[2019-12-12 23:04] VITALS: BP 112/51
--- NOTE | 2019-12-13 01:12 | NUR ---
Pt arrived on unit from ED at 2230 via cart accompanied by staff/son. Assist of 2 to transfer to bed. Pt only stands w/Walker but uses WC as primary mode of transport per son when at home. A/OX4,denied pain on assessment. Unable to reconcile home meds as son/pt does not remember all the meds she has been taking last week off her head and requested to wait to ask dtr in the morning for list. Pt's continent of B&B. Fall education reinforced and pt agrees to call for help,saon at the bedside for the night. Fall precautions in place,call light/personal items within reach.
[2019-12-13 04:23] LABS: ABSOLUTE NEUTROPHILS 7.6 thou/uL (1.4-8.2); BASOPHILS 0.6 % (0.0-2.0); EOSINOPHILS 0.5 % (0.0-3.0); HEMATOCRIT 30.3 % (37.0-47.0); HEMOGLOBIN 9.6 gm/dL (12.0-15.0); LYMPHOCYTES 11.2 % (24.0-44.0); MCHC 31.6 g/dL (28.0-37.0); MCV 101.3 fL (80.0-100.0); MONOCYTES 9.9 % (1.0-8.0); PLATELET COUNT 257 thou/uL (150-400); POLYS 77.8 % (36.0-66.0); RBC 2.99 mil/uL (4.20-5.00); RDW 17.7 % (10.5-14.5); WBC 9.8 thou/uL (4.0-11.0)
[2019-12-13 04:41] LABS: CALCIUM 8.2 mg/dL (8.5-10.1); CREATININE 4.9 mg/dL (0.6-1.0); MAGNESIUM 2.2 mg/dL (1.8-2.4); POTASSIUM 4.9 mmol/L (3.5-5.1)
--- NOTE | 2019-12-13 08:21 | EKG ---
[facility] [place] [address] ELECTROCARDIOGRAM REPORT Name: LEIDY ADAMES Room #: 404-P ADM IN M.R.#: [id number] Admission: 12/12/19 Attend Phys: Perry Arellano MD Discharge: Date of : 49 Report #: [id number] THIS REPORT FOR: cc: Jamaal Cho MD, Mark S. MD Lundgren, Craig H. MD [facility] THIS REPORT FOR: //name// [facility] ED Test Date: 2019-12-12 Test Time: 20:32:12 Pat Name: LEIYD ADAMES Department: Room: [facility] Gender: F Director Trial: DELIO : 1945 Requested By: Jasmin Johnson Order Number: [id number] MD: Makrus Ott Measurements Intervals [place] Rate: 58 P: 60 ID: [id number] QRS: 114 QRSD: 139 T: 37 QT: 478 QTc: 470 Interpretive Statements Sinus rhythm RBBB and LPFB Compared to ECG 11/27/2019 07:54:44 No significant change was found Electronically Signed On 12-13-2019 8:20:11 PATIENT SAFETY MANAGER by Markus Ott [email or web address] <ELECTRONICALLY SIGNED> By: Markus Ott MD, FACC 12/13/19819 31 31 Markus Ott MD, [facility] /EPI
[2019-12-13 08:22] VITALS: BP 124/60; BP 134/60
[2019-12-13 15:56] VITALS: BP 134/61
--- NOTE | 2019-12-13 19:41 | NUR ---
ASSUMED CARE OF PATIENT AT 0715, PATIENT ALERT BUT DROWSY. C/O PAIN WITH BACK AREA, HYDROCODONE 1 TABLET GIVEN, LIDOCAINE PATCH APPED TO LOW BACK. LEFT CHEST WITH NS AT 75CC/HR. VARELA INSERTED WITH ADEQUATE AMT. PATIENT IS A FEEDER, HAS TREMORS. CT SCAN OF ABD/PELVIS, DR MONGE CALLED WITH RESULTS HEMATOMA RIGHT AXILLA 4X7CM. IVC FILTER PENTRATING WALL OF JVC/DR NOTIFIED. BLOOD SUGAR MONITORED, INSULIN REFUSED AT LUNCH, PATIENT DIDN'T EAT LUNCH. WILL CONTINUE TO MONITOR.
[2019-12-13 20:32] VITALS: BP 140/52
--- NOTE | 2019-12-14 01:40 | NUR ---
ASSESSMENT COMPLETED AT THE START OF SHIFT.PT DENIED PAIN SO FAR.PT'S DTR CAME TO THE UNIT BECAUSE SHE WAS CONCERNED THAT PT IS NOT ACTING WELL.PT'S DTR STATED THAT SHE COULDN'T UNDERSTAND A WORD HER MOM IS SAYING.PT'S MED LIST WAS UPDATED PER METAL CEILING HANGER'S ORDER,SEE EMAR.PT'S DTR TO BRING PT'S NAMENDA FROM HOME WE DON'T CARRY THAT DOSAGE HERE,SHE WAS REMINDED TO BRING IT IN THE ORIGINAL BOTTLE THAT THE MED CAME IN SHE REF TO USE THE SUBSTITUTE WE HAVE. PT'S DTR ALSO HAD QUESTIONS ON WHY PT WAS GETTING IVF,EDUCATION GIVEN FAMILY SPENT SOME TIME WITH THE PT BEFORE THEY FINALLY WENT HOME.PT STILL SLEEPING BUT EASILY AROUSABLE.PT'S SON IN THE ROOM SLEEPING AT THIS TIME.PT'S DTR WANTS THE GABAPENTIN TO BE HELD IN THE MORNING TO SEE IF PT WILL BE MORE AWAKE.FALL PRECAUTIONS IN PLACE,CALL LIGHT WITHIN REACH.
--- NOTE | 2019-12-14 03:38 | NUR ---
PT WAS DROWSY BUT EASILY AROUSABLE AT THE START OF SHIFT.PT DENIED PAIN.PT'S FAMILY CAME TO VISIT ,THEY EXPRESSED CONCERN ON THE WAY PT PRESENTED,THEY STATED THAT PT'S CONDITION WAS NOT HER BASELINE.PT'S DTR CAME BY AND BROUGHT HER MED LIST TO BE RECOINCILED.MEDLIST UPDATED AND TENSION MACHINE OPERATOR ON DUTY NOTIFIED OF THE CHANGES ON HER MED LIST,TENSION MACHINE OPERATOR STATED THAT IT IS OK TO MAKE THE CHANGES.PT'S DTR TO BRING HER NAMENDA FROM HOME BC WE DON'T HAVE THE DOSAGE SHE TAKES AT HOME AND DTR DOES NOT WANT TO USE THE SUBSTITUTE WE HAVE FOR THE MED.PT'S DTR WAS REMINDED TO BRING THE MEDICATION IN THE ORIGINAL BOTTLE IT CAME WITH BEFORE SHE WENT HOME.PT'S SON STILL IN THE ROOM WITH HER.AVERY GUTIÉRREZ TO DD.FALL PRECAUTIONS IN PLACE,CALL LIGHT ANITHA MURPHY.
[2019-12-14 05:21] LABS: HEMATOCRIT 29.1 % (37.0-47.0); HEMOGLOBIN 9.1 gm/dL (12.0-15.0); MCH 31.7 pg (26.0-34.0); MCHC 31.2 g/dL (28.0-37.0); MCV 101.4 fL (80.0-100.0); RBC 2.87 mil/uL (4.20-5.00); RDW 17.9 % (10.5-14.5); WBC 11.6 thou/uL (4.0-11.0)
[2019-12-14 05:31] LABS: ALBUMIN 2.7 g/dL (3.4-5.0); CALCIUM 7.2 mg/dL (8.5-10.1); PHOSPHORUS 5.5 mg/dL (2.5-4.9); POTASSIUM 4.7 mmol/L (3.5-5.1)
[2019-12-14 05:53] LABS: CREATININE 3.8 mg/dL (0.6-1.0)
[2019-12-14 07:39] LABS: BE(vivo) -1.3 mmol/L (-2 to +3); HCO3 23.3 mmol/L (22.0-26.0); PO2 69.4 mmHg (80.0-100.0); pH 7.395 (7.360-7.450); sO2 93.9 % (92.0-98.0)
[2019-12-14 09:56] VITALS: BP 180/75
[2019-12-14 10:40] VITALS: BP 180/75
--- NOTE | 2019-12-14 10:44 | NUR ---
ASSUMED CARE OF PATIENT AT 0700. PT IS VERY LETHARGIC WHEN AWAKE. PT IS CURRENTLY SLEEPING. NURSE WOKE THE PT IN ORDER TO GIVE SCHEDULED MORNING MEDS WITH APPLESAUCE. SON AGREED PT NEEDED TO TAKE BP MEDICATION LONG GABAPENTIN WAS NOT INCLUDED. PT'S VARELA CATH IS PATENT WITH GOOD OUTPUT. IV PATENT ON LEFT CHEST WITH FLUIDS RUNNING AT 75CC/HR. SON AT BEDSIDE, CALL LIGHT IN REACH. WILL CONTINUE TO MONITOR PT.
[2019-12-14 13:15] VITALS: BP 142/60
[2019-12-14 15:42] LABS: URINE BILIRUBIN NEGATIVE (Negative); URINE BLOOD 1+ (Negative); URINE CLARITY CLEAR; URINE COLOR YELLOW; URINE GLUCOSE-RANDOM* NEGATIVE (Negative); URINE KETONES NEGATIVE (Negative); URINE NITRITE-REFLEX NEGATIVE (Negative); URINE PROTEIN (DIPSTICK) NEGATIVE (Negative); URINE SPECIFIC GRAVITY 1.025 (1.005-1.035); URINE UROBILINOGEN 0.2 E.U./dl (0.2-1.0)
[2019-12-14 15:43] LABS: URINE LEUKOCYTES-REFLEX 1+ (Negative)
[2019-12-14 15:50] LABS: CASTS None Seen /LPF (None Seen); SQUAMOUS 0-3 Few /LPF (0-3); URINE RBC 3-10 Few /HPF (0-2); URINE WBC-REFLEX 6-15 Few /HPF (0-5)
[2019-12-14 15:51] VITALS: BP 152/57
[2019-12-14 15:51] LABS: BACTERIA-REFLEX 1-9 Few /HPF (None Seen); CRYSTALS None Seen /LPF (None Seen)
[2019-12-14 16:46] LABS: SMEAR FOR EOSINOPHILS Moderate per HPF
[2019-12-14 17:08] LABS: COMPLEMENT-C3 89 mg/dL (82-167); COMPLEMENT-C4 10 mg/dL (14-44)
--- NOTE | 2019-12-14 18:20 | NUR ---
Pt was a transfer from [facility] today approx 1300 accompanied by family. Pt lethargic and drowsy, but following commands. Dr. Sanz notified of pts crackles in lungs; normal saline dc'd and D5 0.45 NS started at a slow rate to maintain blood sugar as patient is not eating or drinking at this time. Pt following commands and now slightly easier to arouse, but still drowsy and not wanting to wake up and eat. Family updated by nursing staff and physician at bedside today. Pt not progressing toward plan of care goals yet.
[2019-12-14 20:03] VITALS: BP 158/53
[2019-12-15 00:28] VITALS: BP 150/47
[2019-12-15 02:54] VITALS: BP 143/60
[2019-12-15 04:55] LABS: ALBUMIN 2.4 g/dL (3.4-5.0); CALCIUM 7.9 mg/dL (8.5-10.1); PHOSPHORUS 3.5 mg/dL (2.5-4.9); POTASSIUM 4.4 mmol/L (3.5-5.1)
[2019-12-15 05:09] LABS: HEMATOCRIT 27.1 % (37.0-47.0); HEMOGLOBIN 8.4 gm/dL (12.0-15.0); MCH 31.9 pg (26.0-34.0); MCHC 31.2 g/dL (28.0-37.0); MCV 102.3 fL (80.0-100.0); RBC 2.65 mil/uL (4.20-5.00); WBC 13.4 thou/uL (4.0-11.0)
--- NOTE | 2019-12-15 06:16 | NUR ---
ASSUMED CARE AT 1900. PT VERY DROWSY BUT AROUSABLE AND WOULD ANSWER MOST QUESTIONS APPROPRIATELY AND FOLLOW COMMANDS. PT STILL HIGH RISK FOR ASPIRATION, HELD PO MEDS AND OBTAINED ORDERS FOR IV ROUTE ON SOME MEDS. PT DENIED PAIN, NAUSEA, OR SOB. HAS CONGESTED COUGH AND UNABLE TO CLEAR SECRETIONS, CONGESTED LUNG SOUNDS. ELEVATED TEMP OVERNIGHT, GAVE ONE DOSE OF TYLENOL SUPPOSITORY. IV FLUIDS INFUSING. TESTED PT WITH SOME ORANGE JUICE AND WATER, BUT COUGHED AND SPLUTTERED WHEN DRINKING. NO OTHER CONCERNS, WILL CONTINUE TO MONITOR.
[2019-12-15 08:04] VITALS: BP 144/48
[2019-12-15 12:43] VITALS: BP 143/48
--- NOTE | 2019-12-15 14:51 | NUR ---
INITIAL ASSESSMENT: Received consult for discharge planning. SW reviewed chart and spoke with nursing and attending physician. Pt was admitted from home due to acute renal failure/dehydration. [facility]. Pt is slowly progressing towards goals for discharge. Pt may be ready for discharge home over the weekend. SW met with pt at bedside. Pt is alert/orientated. Pt reports that she lives at home with her family. Prior to admission, pt was independent with ADLs. Pt has a walker at home. Pt states she has used [facility] for HH in the past and she has been to [facility] for skilled rehab. Pt's PCP is Dr. Jamaal Cho. Pt asked SW to contact her dtr, Ramila, for an update. SW spoke with Ramila. Confirmed plan is for pt to discharge home. Pt's dtr is agreeable with services if needed, and would like to use [facility]. SW is following to assist as needed with discharge planning.
[2019-12-15 15:35] VITALS: BP 117/81
--- NOTE | 2019-12-15 16:25 | NUR ---
Assumed care approx. 0700 this AM. Pt awake and alert eating, drinking and taking PO meds. Pt complains of chronic lower back pain with no relief from tylenol. Dr. Sanz notified, new order added. Maintenance fluids stopped per verbal order from Dr. Gilbert. Family updated on phone and at bedside today. No new changes noted. Pt progressing toward plan of care goals.
[2019-12-15 19:14] VITALS: BP 123/42
[2019-12-16] VITALS (8 sets, daily range): BP systolic 145–165; BP diastolic 59–78
[2019-12-16 05:15] LABS: HEMOGLOBIN 9.2 gm/dL (12.0-15.0); MCH 32.2 pg (26.0-34.0); MCHC 31.6 g/dL (28.0-37.0); MCV 101.9 fL (80.0-100.0); RBC 2.84 mil/uL (4.20-5.00); RDW 18.2 % (10.5-14.5); WBC 10.7 thou/uL (4.0-11.0)
[2019-12-16 05:19] LABS: CALCIUM 8.1 mg/dL (8.5-10.1); CREATININE 1.8 mg/dL (0.6-1.0); POTASSIUM 4.7 mmol/L (3.5-5.1)
--- NOTE | 2019-12-16 07:37 | NUR ---
following poc to reach dc goals. pt mentation is improvoing and more alert and aware. vss, and pt has no complaints. hourly rounding.
--- NOTE | 2019-12-16 11:14 | NUR ---
PT OFF UNIT TO [facility].
--- NOTE | 2019-12-16 11:34 | NUR ---
PT RETURN TO [facility].
--- NOTE | 2019-12-16 16:10 | NUR ---
SW reviewed chart and spoke with nursing and attending physician. ID physician consulted due to recurrent fevers. corporate planner to fax HH referral to [facility] for review. Anticipate pt will discharge home with services when medically stable. SW is available to assist as needed with discharge planning. [facility] --
--- NOTE | 2019-12-16 16:12 | NUR ---
DISCHARGE PLANNING. ANTICIPATED WEEKEND DISCHARGE. HOME WITH HOME HEALTH SERVICES. PATIENT REFERRAL FAXED TO [facility] PER REQUEST. CALL PLACED TO DAMIEN REYNAGA [facility] TO NOTIFY. RONNELL TO FACILITATE. IF PATIENT SHOULD DISCHARGE OVER THE WEEKEND. PLEASE FAX COMPLETED DISCHARGE/HOME HEALTH ORDERS AND DISCHARGE SUMMARY TO [facility]. DAMIEN INTAKE CONTACT NUMBER IS [phone] FAX NUMBER IS [phone]. THANK YOU.
--- NOTE | 2019-12-17 01:44 | NUR ---
Pt alert and oriented x4 with periods of forgetfulness. T 99.1 other VSS. Metoprolol given as ordered for hr and BP. Tolerated well. Lungs have fine scattered crackles on all lung kumar. O2 2LNC on. No SOA noted presently. IV to left chest discontinued since it was not intact. RFA SL intact and patent. Reinstructed pt on fall and safety precautons. Bed alarm is on . Call light in reach. C/o back pain. Medicated with ultram. She is sleeping presently . NO s/s distress.
[2019-12-17 04:39] LABS: HEMATOCRIT 29.4 % (37.0-47.0); HEMOGLOBIN 9.5 gm/dL (12.0-15.0); MCH 32.6 pg (26.0-34.0); MCHC 32.3 g/dL (28.0-37.0); MCV 100.9 fL (80.0-100.0); RBC 2.91 mil/uL (4.20-5.00); RDW 18.4 % (10.5-14.5); WBC 9.3 thou/uL (4.0-11.0)
[2019-12-17 04:55] LABS: CALCIUM 8.3 mg/dL (8.5-10.1); CREATININE 1.5 mg/dL (0.6-1.0); MAGNESIUM 2.1 mg/dL (1.8-2.4); POTASSIUM 5.3 mmol/L (3.5-5.1)
--- NOTE | 2019-12-17 04:59 | NUR ---
Pt is sleeping quietly after tramadol. No s/sdistress.
[2019-12-17 06:00] VITALS: BP 160/93
[2019-12-17 06:23] VITALS: BP 153/74
--- NOTE | 2019-12-17 06:25 | NUR ---
Pt resting quietly. Denied pain. VSS.
[2019-12-17 07:48] VITALS: BP 138/65
--- NOTE | 2019-12-17 09:52 | NUR ---
PT CARE ASSUMED AT 0700, ALERT AND ORIENTED X4, DENIES ANY PAIN, NAUSEA AND VOMITING. ASSESSMENT COMPLETED. SACRUM REDNESS, BARRIER CREAM APPLIED. PT STATES ITS PAINFUL. PT MDENIES ANY OTHER NEEDS, CALL LIGHT AND TABLE IN REACH AND BED AT LOWEST LEVEL.
[2019-12-17 11:36] VITALS: BP 138/60
[2019-12-17 15:13] VITALS: BP 126/63
[2019-12-17 20:08] VITALS: BP 128/69
--- NOTE | 2019-12-17 20:43 | NUR ---
Pt alert and oriented x person, place, sitation. Reoriented to date and month. HRR. Denied SOA/ NO chest pain. o2 2lnc on. NO s/s distress presently. Reinstructed pt to not get OOB witjout help. Siderails up x3. Bed alarm on. Moisture barrier to buttocks.
[2019-12-18 00:01] VITALS: BP 144/60
--- NOTE | 2019-12-18 04:50 | NUR ---
Pt is cnfused pulled off scds and pulled out SL. SL restarted left shoulder. UO 250. Bed alarm composition worker light in reach. No c/o pain presently.
[2019-12-18 04:54] LABS: HEMATOCRIT 27.8 % (37.0-47.0); HEMOGLOBIN 8.9 gm/dL (12.0-15.0); MCH 32.3 pg (26.0-34.0); RBC 2.76 mil/uL (4.20-5.00); RDW 17.8 % (10.5-14.5); WBC 8.2 thou/uL (4.0-11.0)
[2019-12-18 04:55] LABS: CALCIUM 8.3 mg/dL (8.5-10.1); CREATININE 1.4 mg/dL (0.6-1.0); MAGNESIUM 2.1 mg/dL (1.8-2.4); POTASSIUM 5.9 mmol/L (3.5-5.1)
[2019-12-18 04:59] VITALS: BP 135/65
[2019-12-18 07:34] VITALS: BP 157/79
--- NOTE | 2019-12-18 11:00 | NUR ---
PT CARE ASSUMED AT 0700, PT ALERT AND ORIENTED X4, FORGETFUL AT TIMES. PT DENIES ANY PAIN, NAUSEA AND VOMITING. NO SIGNS OF DISTRESS NOTED. ASSESSMENT COMPLETED. PT UP IN CHAIR, ALARM ON. CALL LIGHT AND TABLE WITHIN REACH. PRAMOD CONTINUE TO MONITOR.
[2019-12-18 11:28] VITALS: BP 146/67
[2019-12-18 15:43] VITALS: BP 147/71
[2019-12-18 20:05] VITALS: BP 126/63
--- NOTE | 2019-12-19 04:02 | NUR ---
DENIES PAIN, SHE OCCASSIONALLY PULLS OFF THE OXYGEN. SHE IS RESTING QUIETLY TONIGHT. CONTINUES ON IV ANTIBIOTICS. CAREPLAN REVIEWED.
[2019-12-19 05:00] VITALS: BP 119/60
--- NOTE | 2019-12-19 06:40 | NUR ---
CONFUSED THIS MORNING, SHE AWOKE ASKING WHERE SHE IS AT?. REORIENTED HER AND OFFERED REASSURANCE. DENIES PAIN.
[2019-12-19 08:24] VITALS: BP 155/70
[2019-12-19 08:47] LABS: HEMATOCRIT 30.6 % (37.0-47.0); HEMOGLOBIN 9.4 gm/dL (12.0-15.0); MCH 31.6 pg (26.0-34.0); MCHC 30.6 g/dL (28.0-37.0); RBC 2.97 mil/uL (4.20-5.00); WBC 7.2 thou/uL (4.0-11.0)
[2019-12-19 08:49] LABS: CALCIUM 8.8 mg/dL (8.5-10.1); CREATININE 1.5 mg/dL (0.6-1.0); MAGNESIUM 2.3 mg/dL (1.8-2.4)
[2019-12-19 08:56] LABS: POTASSIUM 6.3 mmol/L (3.5-5.1)
[2019-12-19 12:12] VITALS: BP 155/69
--- NOTE | 2019-12-19 12:36 | NUR ---
WOUND CONSULT; FRICTION INJURY AREAS NOTED TO THE BUTTOCKS BILATERALLY. SUPERFICIAL. NO S/S OF INFECTION. PATIENT DENIES PAIN. RECOMMENDATIONS; 1-LOW AIR LOSS PUMP 2-ZGUARD BID 3-Q2H TURNS DISCUSSED WITH RN
[2019-12-19 15:11] VITALS: BP 145/62
--- NOTE | 2019-12-19 16:31 | NUR ---
SW reviewed chart and spoke with nursing and attending physician. Pt is slowly progressing towards goals for discharge. Plan is for pt to discharge home with [facility] when medically stable. ANDRE spoke with Ramila in intake at to provide update. ANDRE is following to assist as needed with discharge planning.
--- NOTE | 2019-12-19 18:53 | HC ---
[facility] [place] [address] CONSULTATION Name: LEIDY ADAMES Room #: 362-P ADM IN M.R.#: [id number] Admission: 12/12/19 Attend Phys: Perry Arellano MD Discharge: Date of : 49 Report #: [id number] THIS REPORT FOR: cc: Jamaal Cho MD, Mark S. MD Geha, Daniel J. MD ~ CC: Perry Cho DATE OF SERVICE: 12/16/2019 INFECTIOUS DISEASE CONSULTATION. REASON FOR CONSULTATION: I was asked to evaluate concerning fever. HISTORY OF PRESENT ILLNESS: The patient is a 74-year-old who has been hospitalized for most of the last 2 months with congestive heart failure, right chest hematoma, DVT in the setting of seizures, COPD, coronary artery disease, stroke with right hemiparesis and underlying dementia. She was discharged approximately a week ago with congestive heart failure. Now returns with generalized weakness, acute kidney injury with creatinine up to 4.8. She had temperature 2 days ago up to 103 degrees. She has been on broad antibiotic coverage. Overall, has shown some improvement. She was up and ambulating with physical therapy today. The patient has underlying dementia and was without complaint other than some low back pain, which she says is chronic. Denied any headache or photophobia. No oral lesions or pharyngitis symptoms. Denied any rash or decubiti. No cough or sputum production. No chest pain. Denies any shortness of breath, PND or orthopnea. No nausea, vomiting or diarrhea. She has an indwelling Lovelace catheter. Peripheral IV in place. Does have tenderness to her right chest wall, which has been chronic. She notes no change in this. No other bleeding episodes. REVIEW OF SYSTEMS: Full 14-point review of systems was negative other than what has been described above. ALLERGIES: PENICILLIN, SULFA, ERTAPENEM, TETRACYCLINE. MEDICATIONS: As noted on her MAR including Levaquin. She was previously on corticosteroids for systemic lupus erythematosus. She was not on this when she was admitted nor has it been restarted. PAST MEDICAL HISTORY: Fairly extensive including DVT with IVC filter; lupus; diabetes; coronary artery disease; coronary bypass grafting; bioprosthetic mitral valve placed in 2007; hypertension; tobacco use, past; bilateral cataract surgery; COPD; seizure disorder; anxiety; congestive heart failure; hyperlipidemia; partial hysterectomy; dementia; peripheral vascular disease, [facility] [address] [place] [address] CONSULTATION Name: LEIDY ADAMES Room #: 362-P [facility] IN .R.#: [id number] Admission: 12/12/19 Attend Phys: Perry Arellano MD Discharge: Date of : 49 Report #: [id number] status post peripheral bypass; stroke; pyelonephritis in 2015; bilateral renal stones; anemia; pulmonary hypertension; right carotid artery endarterectomy; right hip ORIF. FAMILY HISTORY: Coronary artery disease. SOCIAL HISTORY: Past smoker, no significant alcohol intake. Lives with her . PHYSICAL EXAMINATION: VITAL SIGNS: Afebrile, hemodynamically stable. She is alert and cooperative. She just got done walking in the room with physical therapy. Her maximum temperature earlier this morning was 100.6. GENERAL: She is alert and cooperative and pleasant. SKIN: With ecchymosis to the right chest wall and breast. No other rashes or lesions. Right axillary tenderness and fullness with palpable nodes in the right axilla with fullness and tenderness right breast. EYES: Without scleral icterus. MOUTH: Without mucositis. NECK: Supple. LUNGS: Clear to auscultation. HEART: Regular without appreciable murmur, gallop or rub. She had crisp valve sounds. ABDOMEN: Soft, nontender, no hepatosplenomegaly or mass. BACK: Low back tenderness across the lumbar region. There was no specific CVA tenderness or one-spot percussion tenderness. It was fairly diffuse in the lumbar region. EXTREMITIES: With trace edema. Mild weakness on the right side. NEUROLOGIC: Cranial nerves intact. PSYCHIATRIC: Mood was normal. LABORATORY STUDIES: Reviewed. MICROBIOLOGY: Reviewed. IMAGING: CT scan chest, abdomen and pelvis reviewed. Noted on her CT scan, she had a right renal stent in place and an IVC filter. There was no ureteral stent. IMPRESSION: A 74-year-old with underlying history of coronary artery disease; coronary artery bypass grafting; chronic obstructive pulmonary disease; seizures; systemic lupus erythematosus, on previous corticosteroids, presents with generalized weakness and fever. Source of her fever is yet to be determined. Possibilities would include occult bacteremia, right chest wall from previous hematoma, basilar infiltrate. Hypoadrenalism should cause a persistent fever, which I do not think she qualifies for at this point. [facility] [address] [place] [address] CONSULTATION Name: LEIDY ADAMES Room #: 362-P ADM IN M.R.#: [id number] Admission: 12/12/19 Attend Phys: Perry Arellano MD Discharge: Date of : 49 Report #: [id number] RECOMMENDATIONS: We will change from Levaquin to vancomycin, cefepime and add back in her prednisone. We will see how she does with this, pending further culture results. Monitor her right chest wall, serial laboratory studies and follow her renal function. <ELECTRONICALLY SIGNED> By: Russell Munoz MD 12/19/19 1853 1514 03 Russell Munoz MD /nt
[2019-12-19 19:27] VITALS: BP 123/58
[2019-12-19 23:57] VITALS: BP 141/71
--- NOTE | 2019-12-20 02:32 | NUR ---
pt awake this morning. yelling and pulling of her heart monitor. she is trying to get out of bed and wants the catheter out. she is oriented x person place and time. she says that the catheter is uncomfortable. removed, per her direction she would not take no for an answer. instructed to call for assist out of bed, when she needs to get up to urinate. she stated that she understands. son at bedside, she is very irritable.
--- NOTE | 2019-12-20 04:12 | NUR ---
PT CONTINUES TO TAKE OFFF HEART MONITOR. REMOVED IT MULTIPLE TIMES AND SETS IT ON BEDSIDE TABLE. SHE IS TAKING A BREAK FROM IT SO I CAN, GIVE HER SOME SPACE AND THEN TRY AGAIN. SHE HAS BEEN UNCOOPERATIVE AND ANGRY MOST OF THE NIGHT. SHE WANTS TO GO HOME IS MAIN THEME.
[2019-12-20 06:43] LABS: HEMATOCRIT 27.6 % (37.0-47.0); HEMOGLOBIN 8.8 gm/dL (12.0-15.0); MCH 32.2 pg (26.0-34.0); MCHC 31.9 g/dL (28.0-37.0); RBC 2.74 mil/uL (4.20-5.00); WBC 9.4 thou/uL (4.0-11.0)
[2019-12-20 06:56] LABS: CALCIUM 8.4 mg/dL (8.5-10.1); CREATININE 1.3 mg/dL (0.6-1.0)
[2019-12-20 07:13] LABS: POTASSIUM 5.3 mmol/L (3.5-5.1)
[2019-12-20 07:36] VITALS: BP 151/70
[2019-12-20 12:36] VITALS: BP 166/80
[2019-12-20 15:18] VITALS: BP 173/80
--- NOTE | 2019-12-20 15:30 | NUR ---
SW reviewed chart and spoke with nursing and attending physician. Pt is progressing towards goals for discharge. Pt to have lymph node bx and will follow up with hem/onc as an outpatient. Discharge home is anticipated for tomorrow with [facility]. SW updated liaison. SW is following to assist as needed with discharge planning.
[2019-12-20 16:57] VITALS: BP 140/62
--- NOTE | 2019-12-20 18:34 | NUR ---
PT APPEARS MUCH CALMER TODAY...POTASSIUM IS TRENDING DOWN...WILL MONITOR
[2019-12-20 19:24] VITALS: BP 124/67
--- NOTE | 2019-12-21 01:32 | NUR ---
Pt is alert and oriented x2. Confused ad forgetful at times. Bed alarm is on. Call light in reach. Reinstructed on fall precautions. Inc. of urine x1. Moisture barrier applied to buttock wounds. Lungs sound clear tonight. Unlabored on RA. No s/s distress. C/o pain to right leg. Medicated with tramadlol with adequate relief obtained. Pt is sleeping quietly. Report gave to Shari Carrasco who assumed care of pt.
--- NOTE | 2019-12-21 03:14 | NUR ---
TOOK OVER CARE OF PATIENT AT 0100. ASSESSMENT CHARTED. MEDS CHARTED GIVEN. PATIENT C/O BACK PAIN 06/21 WHEN I FIRST MET PATIENT, PAIN MEDS HAD RECENTLY BEEN GIVEN. PATIENT MOST COMFORTABLE SITTING ON THE SIDE OF THE BED. SINUS ARRHYTHMIA ON TELEMETRY AT O2OO. LOOKING AT PAST STRIPS, RHYTHM IS NOT NEW TO PATIENT. C/O PAIN AT 0300 03/21. MOVED PATIENT TO RECLINER. PLAN OF CARE IS TO CONTINUE CARES TO DETERMINE CAUSE OF RIGHT BREAST SWELLING AND LYMPH NODE ENLARGEMENT. ANTIBIOTIC THERAPY. FALL PRECAUTIONS IN PLACE DURING SHIFT.
[2019-12-21 04:52] VITALS: BP 148/65
[2019-12-21 08:10] VITALS: BP 144/68
[2019-12-21 10:01] LABS: ALBUMIN 2.9 g/dL (3.4-5.0); CALCIUM 8.5 mg/dL (8.5-10.1); CREATININE 1.4 mg/dL (0.6-1.0); POTASSIUM 4.7 mmol/L (3.5-5.1)
--- NOTE | 2019-12-21 11:31 | NUR ---
WOUND CARE F/U; THE BILATERAL BUTTOCKS WOUND ARE MUCH IMPROVED. THERE IS NO NEED TO CHANGE THE TREATMENT PLAN AT THIS TIME. RECOMMEDNATION; CONTINUE POC RN PRESENT
[2019-12-21 12:27] VITALS: BP 121/58
[2019-12-21] MEDS ORDERED: CEFDINIR300 MG PO (13:17)
[2019-12-21 14:55] VITALS: BP 149/68
--- NOTE | 2019-12-21 14:58 | NUR ---
DISCHARGE NOTE: ANDRE reviewed chart and spoke with nursing and attending physician. Pt is medically stable for discharge home today with HH. ANDRE faxed finalized discharge orders/summary to [facility]. ANDRE spoke with Deb in intake to notify of pt's discharge. ANDRE spoke with pt's dtr, Ramila, via phone to provide update and notify of discharge. Pt's dtr is agreeable with discharge plan and will provide transportation home this afternoon. Contact info for HH placed in pt's discharge summary. No additional SW needs identified at this time, but is available to assist should needs arise.
[2019-12-21 15:18] VITALS: BP 149/68
--- NOTE | 2019-12-21 16:31 | NUR ---
DC IUNSTRUCTIOS RECEIVED. IV REMOVED FROM R UA. DC INSTRUCTIONS, F/U APPOINTMENTS AND PO ANTIBIOTIC SENT TO PT'S PHARMACY. PT ESCORTED BY VOLUNTEER TO MAIN ENTRANCE.
== END 2019-12-21 16:15 | disposition home health service (06) | DRG 871 ==
LOC: ER 18:21 → EROBS 21:08 → 4N 21:08 → 3W 12-14 12:40 → ENTRNSPT 12-14 12:41 → 3W 12-14 12:41 → EDTRNSPTSTS 12-14 12:46 → ENTRNSPT 12-21 16:15 → 3W 12-21 16:15
PROVIDERS: Hospitalist; Internal Medicine; Nurse Practitioner; Nurse Practitioner Family; ADMIT Hospitalist
DX: A41.9 Sepsis, unspecified organism (principal); J18.9 Pneumonia, unspecified organism; S22.009A Unspecified fracture of unspecified thoracic vertebra, initial encounter for closed fracture; N17.9 Acute kidney failure, unspecified; G93.40 Encephalopathy, unspecified; I13.0 Hypertensive heart and chronic kidney disease with heart failure and stage 1 through stage 4 chronic kidney disease, or unspecified chronic kidney disease; I50.9 Heart failure, unspecified; I27.20 Pulmonary hypertension, unspecified; E11.22 Type 2 diabetes mellitus with diabetic chronic kidney disease; F32.9 Major depressive disorder, single episode, unspecified; N64.89 Other specified disorders of breast; N20.0 Calculus of kidney; I34.0 Nonrheumatic mitral (valve) insufficiency; N18.9 Chronic kidney disease, unspecified; F03.90 Unspecified dementia, unspecified severity, without behavioral disturbance, psychotic disturbance, mood disturbance, and anxiety; J44.9 Chronic obstructive pulmonary disease, unspecified; G40.909 Epilepsy, unspecified, not intractable, without status epilepticus; F41.9 Anxiety disorder, unspecified; E78.5 Hyperlipidemia, unspecified; M54.9 Dorsalgia, unspecified; X58.XXXA Exposure to other specified factors, initial encounter; I25.10 Atherosclerotic heart disease of native coronary artery without angina pectoris; Z95.1 Presence of aortocoronary bypass graft; Z86.718 Personal history of other venous thrombosis and embolism; Z79.01 Long term (current) use of anticoagulants; I73.9 Peripheral vascular disease, unspecified; M32.9 Systemic lupus erythematosus, unspecified; Z95.828 Presence of other vascular implants and grafts; Z86.73 Personal history of transient ischemic attack (TIA), and cerebral infarction without residual deficits; Z87.440 Personal history of urinary (tract) infections; Z95.2 Presence of prosthetic heart valve; Z87.891 Personal history of nicotine dependence; Z98.42 Cataract extraction status, left eye; Z98.41 Cataract extraction status, right eye; Z90.710 Acquired absence of both cervix and uterus; I25.2 Old myocardial infarction; Z95.5 Presence of coronary angioplasty implant and graft; Z88.0 Allergy status to penicillin; Z88.2 Allergy status to sulfonamides; Z88.8 Allergy status to other drugs, medicaments and biological substances; Y93.9 Activity, unspecified; Z82.49 Family history of ischemic heart disease and other diseases of the circulatory system; Y92.89 Other specified places as the place of occurrence of the external cause; Y99.8 Other external cause status; Z79.899 Other long term (current) drug therapy
CPT/HCPCS: 10091; 10879

== ENCOUNTER 2019-12-25 00:07 | Inpatient (IN) | payer OTHER ==
[2019-12-25] VITALS (7 sets, daily range): BP systolic 152–199; BP diastolic 71–100
[~2019-12-25] VITALS: Ht 157.5 cm; Wt 58.6 kg
[~2019-12-25 00:07] MED LIST changes: +CEFDINIR300 MG PO
[2019-12-25 01:21] LABS: ABSOLUTE NEUTROPHILS 12.7 thou/uL (1.4-8.2); BASOPHILS 0.6 % (0.0-2.0); EOSINOPHILS 1.2 % (0.0-3.0); HEMATOCRIT 33.9 % (37.0-47.0); HEMOGLOBIN 10.7 gm/dL (12.0-15.0); LYMPHOCYTES 7.2 % (24.0-44.0); MCH 31.6 pg (26.0-34.0); MCHC 31.4 g/dL (28.0-37.0); MCV 100.6 fL (80.0-100.0); MONOCYTES 4.2 % (1.0-8.0); PLATELET COUNT 345 thou/uL (150-400); POLYS 86.8 % (36.0-66.0); RBC 3.37 mil/uL (4.20-5.00); RDW 17.9 % (10.5-14.5); WBC 14.6 thou/uL (4.0-11.0)
[2019-12-25 01:24] LABS: ANION GAP 8 mmol/L (7-16); BUN 23 mg/dL (7-18); CALCIUM 9.1 mg/dL (8.5-10.1); CHLORIDE 105 mmol/L (98-107); CO2 26 mmol/L (21-32); CREATININE 1.1 mg/dL (0.6-1.0); GLUCOSE 103 mg/dL (74-106); POTASSIUM 4.1 mmol/L (3.5-5.1); SODIUM 139 mmol/L (136-145)
[2019-12-25 01:34] LABS: MAGNESIUM 1.5 mg/dL (1.8-2.4); TROPONIN-I <0.06 ng/mL (<0.06)
[2019-12-25 01:47] LABS: BE(vivo) -2.1 mmol/L (-2 to +3); HCO3 21.5 mmol/L (22.0-26.0); PCO2 32.4 mmHg (35.0-45.0); pH 7.439 (7.360-7.450); sO2 90.5 % (92.0-98.0)
[2019-12-25 01:48] LABS: PO2 55.8 mmHg (80.0-100.0)
--- NOTE | 2019-12-25 06:39 | NUR ---
ADMIT FROM ED. PT ADMITTED FROM HOME C/O BACK PAIN AND L SIDE PAIN SINCE YESTERDAY AM. PT WAS AT [facility] FOR A PE AND DISCHARGED TWO DAYS AGO. PT AOX4, AMBULATES INDEPENDENTLY, CONTINENT. LIVES WITH HER . WHILE IN ED PT PLACED ON BIPAP SINCE RR 30 AND O2 SAT ON 4L 91%. SHE RECEIVED NITRO TO LOWER HER BP AND RELEIVE CHEST PAIN, WELL IV LASIX. HR IRREG CLICK, LUNGS WITH WHEEZES, O2 PER NC 2L. PRN PROVIDED FOR BACK PAIN, PER REQUEST. DAUGHTER AT BEDSIDE. BED ALARM.
--- NOTE | 2019-12-25 16:15 | NUR ---
PT adimitted from ER for CHF and RESP FAILURE in this category consultant , pt is A&OX3, pt is continuing o2 3l/min/nc, pt starts IV lasix 40mg BID, PT'S vs and o2sat are stable, RN has called Dr to replace low mag 1.5, pt's pain and sob have improved.
--- NOTE | 2019-12-26 03:12 | NUR ---
PT WAS SEEN IN THE ROOM AT THE BEGINNING OF THE SHIFT ON THE COMMODE, THE PATIENT WAS REMINDED OF FALL RISK AND INSTRUCTED BY THE RNs TO USE THE CALL LIGHT FOR GETTING OUT OF BED. PT HAS BEEN PLEASANT THROUGHOUT THE SHIFT, PT WAS SEEN RESTING DURING HOURLY ROUNDING. CALL LIGHT/PERSONAL ITEMS/BEDSIDE TABLE WITHIN REACH. LIGHTS TURNED OFF AND DOOR HALF SHUT PER REQUEST. WILL CONTINUE TO MONITOR AND UPDATE PRN
[2019-12-26 04:16] VITALS: BP 188/89
[2019-12-26 05:41] LABS: HEMOGLOBIN 9.3 gm/dL (12.0-15.0); MCH 31.7 pg (26.0-34.0); MCV 99.2 fL (80.0-100.0); RBC 2.92 mil/uL (4.20-5.00); RDW 18.4 % (10.5-14.5)
[2019-12-26 05:53] LABS: CALCIUM 8.3 mg/dL (8.5-10.1); CREATININE 1.3 mg/dL (0.6-1.0); MAGNESIUM 2.1 mg/dL (1.8-2.4); POTASSIUM 3.8 mmol/L (3.5-5.1)
[2019-12-26 07:24] VITALS: BP 180/75
[2019-12-26 08:33] LABS: URINE BILIRUBIN NEGATIVE (Negative); URINE BLOOD NEGATIVE (Negative); URINE CLARITY CLEAR; URINE COLOR YELLOW; URINE GLUCOSE-RANDOM* NEGATIVE (Negative); URINE KETONES NEGATIVE (Negative); URINE LEUKOCYTES-REFLEX NEGATIVE (Negative); URINE NITRITE-REFLEX NEGATIVE (Negative); URINE PROTEIN (DIPSTICK) 1+ (Negative); URINE SPECIFIC GRAVITY 1.015 (1.005-1.035); URINE UROBILINOGEN 0.2 E.U./dl (0.2-1.0)
[2019-12-26 08:53] LABS: SQUAMOUS 0-3 Few /LPF (0-3)
[2019-12-26 08:54] LABS: BACTERIA-REFLEX 1-9 Few /HPF (None Seen); CASTS None Seen /LPF (None Seen); CRYSTALS None Seen /LPF (None Seen); URINE RBC None Seen /HPF (0-2); URINE WBC-REFLEX None Seen /HPF (0-5)
--- NOTE | 2019-12-26 09:48 | EKG ---
[facility] [place] [address] ELECTROCARDIOGRAM REPORT Name: LEIDY ADAMES Room #: 354-P ADM IN M.R.#: [id number] Admission: 12/25/19 Attend Phys: Samantha Oh MD Discharge: Date of : 49 Report #: [id number] THIS REPORT FOR: cc: Jamaal Cho MD, Mark S. MD Lundgren,Markus Daniel MD [facility] ~ THIS REPORT FOR: //name// [facility] ED Test Date: 2019-12-25 Test Time: 00:49:36 Pat Name: LEIDY ADAMES Department: Room: [facility] Gender: F Falsework Builder: elena cooper : 1945 Requested By: Maddi Mcclelland Order Number: [id number] MD: Markus Ott Measurements Intervals [place] Rate: 98 P: 38 OK: 188 QRS: 107 QRSD: 120 T: -13 QT: 373 QTc: 477 Interpretive Statements Sinus rhythm Left atrial enlargement RBBB and LPFB Repol abnrm suggests ischemia, diffuse leads Compared to ECG 12/12/2019 20:32:12 ST and T wave abnormality is now present Electronically Signed On 12-26-2019 9:47:03 CDT by Markus Ott [email or web address] <ELECTRONICALLY SIGNED> By: Markus Ott MD, FAC 12/26/19 0947 0049 0049 Markus Ott MD, FAC /EPI
[2019-12-26 11:42] VITALS: BP 129/53
--- NOTE | 2019-12-26 14:31 | NUR ---
INITIAL ASSESSMENT: Received consult for discharge planning. SW reviewed chart and spoke with nursing and attending physician. Pt was admitted from home due to CHF. Pt is on IV lasix. Pt was recently discharge home with [facility] on 12/20. SW met with pt at bedside. Pt is alert/orientated. Pt reports that she lives at home with her family. Prior to admission, pt was independent with ADLs. Pt has a walker at home. No steps to navigate. Pt states she has been to [facility] for skilled rehab in the past. Pt's PCP is Dr. aJmaal Cho. Pt asked SW to contact her dtr, Ramila, for an update. SW left voice message for Ramila. SW is following to assist as needed with discharge planning.
[2019-12-26 15:13] VITALS: BP 127/54
--- NOTE | 2019-12-26 19:59 | NUR ---
PT is A&OX3, PT's 02 has reduced to 2L/MIN/NC from 3L , pt's vs and o2sat are stable, pt gets up to use BSC with assist, pt denies N/V and SOB at this time.
[2019-12-26 20:00] VITALS: BP 152/69
[2019-12-27 04:05] VITALS: BP 147/71
--- NOTE | 2019-12-27 05:15 | NUR ---
ASSUMED CARE OF PATIENT AT 1900. PATIENT REPORTED IMPROVEMENT OF SOA AND OCCASIONAL NON-PRODUCTIVE COUGH. NO EDEMA PRESENT. PATIENT HAD C/O MODERATE PAIN IN LEFT BACK/SIDE. REPORTS RELIEF WITH TYLENOL. PATIENT CALLS APPROPRIATELY FOR ASSISTANCE TO BEDSIDE COMMODE. FALL PRECAUTIONS IN PLACE. PATIENT STABLE. WILL CONTINUE TO MONITOR.
[2019-12-27 07:16] VITALS: BP 132/55
[2019-12-27 09:56] LABS: CALCIUM 8.6 mg/dL (8.5-10.1); CREATININE 1.8 mg/dL (0.6-1.0); POTASSIUM 4.1 mmol/L (3.5-5.1)
[2019-12-27 11:23] VITALS: BP 140/47
--- NOTE | 2019-12-27 14:29 | NUR ---
SW reviewed chart and spoke with nursing and attending physician. Pt is progressing towards goals for discharge. Pt to be on PO lasix when discharged home. SW faxed clinical info to [facility] for review and notified HH liaison of anticipated discharge. ANDRE spoke with pt's dtr, Ramila, via phone, who confirmed plan for pt to discharge home with HH. Pt's dtr states pt may not be agreeable with HH services, but we can set it up. Pt's dtr had questions regarding possible need for home O2 and requests to speak with attending physician. SW explained criteria for qualifying for home O2. Pt's dtr verbalized understanding. Ramila'e contact info provided to attending physician. Rest/exercise oximetry to be completed prior to discharge. ANDRE is following to assist as needed with discharge planning.
[2019-12-27 14:58] VITALS: BP 140/59
--- NOTE | 2019-12-27 18:31 | NUR ---
PT IS A&OX3, PT STARTS OFF O2 AT 1600PM , O2SAT KEEP AT 92-94%, PT'S VS ARE STABLE, PT DENIES SOB BY THIS TIME, PT MAY DC HOME TOMORROW.
[2019-12-27 19:30] VITALS: BP 154/59
[2019-12-28 03:35] VITALS: BP 184/82
--- NOTE | 2019-12-28 05:56 | NUR ---
ASSUMED CARE OF PATIENT AT 1900. PATIENT CONTINUED ON RA WHICH MAINTAINED OXYGEN SATURATIONS ABOVE 94% T/O THE NOC. PATIENT HAD TO BE REMINDED TO CALL FOR ASSISTANCE TO THE BEDSIDE COMMODE. PATIENT REPORTED BACK PAIN THAT WAS MINIMALLY RELIEVED BY TYLENOL. PATIENT IN STABLE CONDITION. WILL CONTINUE TO MONITOR.
[2019-12-28 06:19] LABS: CALCIUM 8.2 mg/dL (8.5-10.1); CREATININE 1.8 mg/dL (0.6-1.0); POTASSIUM 4.2 mmol/L (3.5-5.1)
[2019-12-28 07:43] VITALS: BP 163/61
[2019-12-28 10:25] VITALS: BP 163/61
[2019-12-28 11:29] VITALS: BP 141/60
[2019-12-28] MEDS ORDERED: AMLODIPINE BESY10 MG PO (12:21)
[2019-12-28] MEDS ORDERED: LASIX 40 MG TAB40 M2 PO (12:21)
--- NOTE | 2019-12-28 14:06 | NUR ---
DISCHARGE NOTE: SW reviewed chart and spoke with nursing and attending physician. Pt is medically stable for discharge home today with HH. Pt's RA sat is 90% or above. SW faxed finalized discharge orders/summary to [facility]. SW notified HH liaison of discharge orders. Pt's family to provide transportation home. Contact info for HH placed in pt's discharge summary. No additional SW needs identified at this time, but is available to assist should needs arise.
== END 2019-12-28 14:45 | disposition home health service (06) | DRG 291 ==
LOC: ER 00:07 → 3W 05:02 → EROBS 05:02 → 3W 05:44 → ENTRNSPT 12-28 14:22 → 3W 12-28 14:45
PROVIDERS: Emergency Medicine Emergency Medical Services; Nurse Practitioner; Nurse Practitioner Family; ADMIT Hospitalist
PROC: 5A09357 Assistance with Respiratory Ventilation, Less than 24 Consecutive Hours, Continuous Positive Airway Pressure (ICD-10-PCS; principal; 2019-12-25)
PROC: 5A09357 Assistance with Respiratory Ventilation, Less than 24 Consecutive Hours, Continuous Positive Airway Pressure (ICD-10-PCS; 2019-12-26)
DX: I13.0 Hypertensive heart and chronic kidney disease with heart failure and stage 1 through stage 4 chronic kidney disease, or unspecified chronic kidney disease (principal); I50.33 Acute on chronic diastolic (congestive) heart failure; J96.21 Acute and chronic respiratory failure with hypoxia; N17.0 Acute kidney failure with tubular necrosis; I69.351 Hemiplegia and hemiparesis following cerebral infarction affecting right dominant side; I27.20 Pulmonary hypertension, unspecified; I25.10 Atherosclerotic heart disease of native coronary artery without angina pectoris; G40.909 Epilepsy, unspecified, not intractable, without status epilepticus; F41.9 Anxiety disorder, unspecified; I34.0 Nonrheumatic mitral (valve) insufficiency; M54.89 Other dorsalgia; F32.9 Major depressive disorder, single episode, unspecified; M32.9 Systemic lupus erythematosus, unspecified; R59.1 Generalized enlarged lymph nodes; E83.42 Hypomagnesemia; R23.4 Changes in skin texture; N63.0 Unspecified lump in unspecified breast; N18.9 Chronic kidney disease, unspecified; F03.90 Unspecified dementia, unspecified severity, without behavioral disturbance, psychotic disturbance, mood disturbance, and anxiety; E78.5 Hyperlipidemia, unspecified; E11.22 Type 2 diabetes mellitus with diabetic chronic kidney disease; E11.51 Type 2 diabetes mellitus with diabetic peripheral angiopathy without gangrene; J44.9 Chronic obstructive pulmonary disease, unspecified; Z86.718 Personal history of other venous thrombosis and embolism; Z95.828 Presence of other vascular implants and grafts; Z79.4 Long term (current) use of insulin; Z95.1 Presence of aortocoronary bypass graft; Z98.42 Cataract extraction status, left eye; Z98.41 Cataract extraction status, right eye; Z90.711 Acquired absence of uterus with remaining cervical stump; Z88.1 Allergy status to other antibiotic agents; Z88.0 Allergy status to penicillin; Z88.2 Allergy status to sulfonamides; Z88.8 Allergy status to other drugs, medicaments and biological substances; Z87.891 Personal history of nicotine dependence; Z79.82 Long term (current) use of aspirin; Z79.899 Other long term (current) drug therapy
CPT/HCPCS: 10779; 10879

== ENCOUNTER → 2020-01-05 | Outpatient (CLI) | payer OTHER ==
[~2020-01-05] MED LIST changes: +BACTRIM DS TAB1 EACH PO; +BENICAR40 MG PO
== END ==
LOC: SJCVC 13:25
PROVIDERS: ATTEND Internal Medicine
DX: I45.10 Unspecified right bundle-branch block (principal); R94.31 Abnormal electrocardiogram [ECG] [EKG]; I25.118 Atherosclerotic heart disease of native coronary artery with other forms of angina pectoris; E78.49 Other hyperlipidemia; J44.9 Chronic obstructive pulmonary disease, unspecified; E11.22 Type 2 diabetes mellitus with diabetic chronic kidney disease; I13.0 Hypertensive heart and chronic kidney disease with heart failure and stage 1 through stage 4 chronic kidney disease, or unspecified chronic kidney disease; I50.9 Heart failure, unspecified; N18.9 Chronic kidney disease, unspecified; Z95.5 Presence of coronary angioplasty implant and graft; Z90.710 Acquired absence of both cervix and uterus; Z95.1 Presence of aortocoronary bypass graft; Z79.899 Other long term (current) drug therapy; Z87.891 Personal history of nicotine dependence

== ENCOUNTER 2020-01-25 11:13 | Emergency (ER) | payer OTHER ==
[~2020-01-25] VITALS: Ht 157.5 cm; Wt 52.2 kg
[~2020-01-25 11:13] MED LIST changes: -BACTRIM DS TAB1 EACH PO; -BENICAR40 MG PO
[2020-01-25 12:02] LABS: ABSOLUTE NEUTROPHILS 4.8 thou/uL (1.4-8.2); BASOPHILS 1.5 % (0.0-2.0); EOSINOPHILS 4.4 % (0.0-3.0); HEMATOCRIT 35.9 % (37.0-47.0); HEMOGLOBIN 11.5 gm/dL (12.0-15.0); LYMPHOCYTES 15.2 % (24.0-44.0); MCH 32.1 pg (26.0-34.0); MCV 100.4 fL (80.0-100.0); MONOCYTES 9.6 % (1.0-8.0); PLATELET COUNT 223 thou/uL (150-400); POLYS 69.3 % (36.0-66.0); RBC 3.58 mil/uL (4.20-5.00); RDW 16.4 % (10.5-14.5)
[2020-01-25 12:08] LABS: CALCIUM 9.1 mg/dL (8.5-10.1); CREATININE 1.5 mg/dL (0.6-1.0); POTASSIUM 3.6 mmol/L (3.5-5.1)
[2020-01-25 12:14] LABS: ALBUMIN 3.3 g/dL (3.4-5.0); TOTAL BILIRUBIN 0.4 mg/dL (<0.1-1.0); TOTAL PROTEIN 8.2 g/dL (6.4-8.2)
[2020-01-25 13:44] LABS: URINE BILIRUBIN NEGATIVE (Negative); URINE BLOOD 2+ (Negative); URINE CLARITY CLEAR; URINE COLOR YELLOW; URINE GLUCOSE-RANDOM* NEGATIVE (Negative); URINE KETONES NEGATIVE (Negative); URINE LEUKOCYTES-REFLEX NEGATIVE (Negative); URINE NITRITE-REFLEX NEGATIVE (Negative); URINE PROTEIN (DIPSTICK) 1+ (Negative); URINE SPECIFIC GRAVITY 1.025 (1.005-1.035); URINE UROBILINOGEN 0.2 E.U./dl (0.2-1.0)
[2020-01-25 13:59] LABS: URINE RBC 0-2 Rare /HPF (0-2); URINE WBC-REFLEX None Seen /HPF (0-5)
[2020-01-25 14:00] LABS: BACTERIA-REFLEX 1-9 Few /HPF (None Seen); CASTS None Seen /LPF (None Seen); CRYSTALS None Seen /LPF (None Seen); SQUAMOUS 0-3 Few /LPF (0-3)
[2020-01-25] MEDS ORDERED: BACTRIM DS TAB1 EACH PO (16:04)
[2020-01-25 16:35] VITALS: BP 173/64
== END 2020-01-25 16:35 | disposition home or self-care (01) ==
LOC: ER 11:13
PROVIDERS: Physician Assistant
DX: N39.0 Urinary tract infection, site not specified (principal); L02.214 Cutaneous abscess of groin; I11.0 Hypertensive heart disease with heart failure; I50.9 Heart failure, unspecified; E11.9 Type 2 diabetes mellitus without complications; J44.9 Chronic obstructive pulmonary disease, unspecified; G40.909 Epilepsy, unspecified, not intractable, without status epilepticus; F17.210 Nicotine dependence, cigarettes, uncomplicated; Z79.4 Long term (current) use of insulin; Z86.718 Personal history of other venous thrombosis and embolism; Z86.79 Personal history of other diseases of the circulatory system; Z88.0 Allergy status to penicillin; Z88.2 Allergy status to sulfonamides; Z88.1 Allergy status to other antibiotic agents; Z88.8 Allergy status to other drugs, medicaments and biological substances; Z79.899 Other long term (current) drug therapy

== ENCOUNTER → 2020-02-09 | Outpatient (CLI) | payer OTHER ==
[~2020-02-09] MED LIST changes: +BACTRIM DS TAB1 EACH PO
== END ==
LOC: SJCVC 15:11
DX: I25.118 Atherosclerotic heart disease of native coronary artery with other forms of angina pectoris (principal); E11.22 Type 2 diabetes mellitus with diabetic chronic kidney disease; I12.9 Hypertensive chronic kidney disease with stage 1 through stage 4 chronic kidney disease, or unspecified chronic kidney disease; N18.9 Chronic kidney disease, unspecified; M06.9 Rheumatoid arthritis, unspecified; J44.9 Chronic obstructive pulmonary disease, unspecified; E78.5 Hyperlipidemia, unspecified; I25.2 Old myocardial infarction; Z95.1 Presence of aortocoronary bypass graft; Z95.5 Presence of coronary angioplasty implant and graft; Z90.710 Acquired absence of both cervix and uterus; Z79.899 Other long term (current) drug therapy; Z87.891 Personal history of nicotine dependence

== ENCOUNTER → 2020-02-17 | Outpatient (CLI) | payer OTHER | LOC: RAD 13:09 | DX: M47.817 Spondylosis without myelopathy or radiculopathy, lumbosacral region (principal); M43.8X5 Other specified deforming dorsopathies, thoracolumbar region ==

== ENCOUNTER 2020-04-14 20:19 | Inpatient (IN) | payer OTHER ==
[~2020-04-14] VITALS: Ht 5.1 cm; Wt 54.4 kg
[~2020-04-14 20:19] MED LIST changes: -LEVO-T50 MCG PO; +LEVO-T75 MCG PO
[2020-04-14 20:26] VITALS: BP 129/63
[2020-04-15] VITALS (16 sets, daily range): BP systolic 134–191; BP diastolic 51–83
[2020-04-15 01:04] LABS: HEMOGLOBIN 11.9 gm/dL (12.0-15.0); MCH 32.4 pg (26.0-34.0); MCV 98.2 fL (80.0-100.0); RBC 3.67 mil/uL (4.20-5.00); RDW 15.1 % (10.5-14.5); WBC 7.5 thou/uL (4.0-11.0)
[2020-04-15 01:14] LABS: APTT 32.1 Seconds (24.5-32.8); INR 1.1
--- NOTE | 2020-04-15 04:24 | NUR ---
PT WAS AN ER ADMIT. SHE WAS ADMITTED A RESULT OF DVT TO LEFT LEG. PT IS ON HEPARIN DRIP. VERBALIZES PAIN OF 9 ON A SCALE OF 0-10. PAIN MED ADMINISTERED TO PT. NO SIGN OF DISTRESS NOTED IN PT. PT IS ALERT AND ORIENTED. PT IS ABLE TO ANSWER QUESTIONS. ADMISSION EDUCATION AND ASSESSMENT COMPLETED WITH PATIENT. FALL PRECAUTION IN PLACE. ELEVATED BLOOD PRESSURE NOTED UPON ADMISSION. NO NOTIFIED. PT IS NPO. BLODD SUGAR STABLE. CONTINUE TO MONITOR PT. DENIES ANY FURTHER NEEDS AT THIS TIME.
[2020-04-15 08:55] LABS: ALBUMIN 2.9 g/dL (3.4-5.0); CALCIUM 8.5 mg/dL (8.5-10.1); POTASSIUM 3.7 mmol/L (3.5-5.1); TOTAL BILIRUBIN 0.3 mg/dL (0.2-1.0); TOTAL PROTEIN 7.2 g/dL (6.4-8.2)
--- NOTE | 2020-04-15 17:43 | NUR ---
PT ALERT AND ORIENTED. HAD HIGH BP THIS AM. BP MEDS GIVEN ORDERED. PT HAD CARDIAC CATH THIS SHIFT. RIGHT GROIN INCISION C/D/I. NO HEMATOMA NOTED. PRN PAIN MED GIVEN WITH PARTIAL RELIEF. NO CONCERNS AT THIS TIME. WILL CONTINUE TO MONITOR.
[2020-04-16] VITALS (8 sets, daily range): BP systolic 131–194; BP diastolic 55–88
[2020-04-16 02:07] LABS: GLYCOHEMOGLOBIN (HGB A1C) 6.6 % (4.8-5.6)
[2020-04-16 08:53] LABS: CALCIUM 8.7 mg/dL (8.5-10.1); CREATININE 1.1 mg/dL (0.6-1.0); POTASSIUM 3.6 mmol/L (3.5-5.1)
--- NOTE | 2020-04-16 09:49 | NUR ---
ASSUME CARE 1900. PT/VITALS STABLE. CONSTANT LEFT LEG PAIN AND CHEST PAIN. BLE WARM WITH CAP REFILL LESS THAT 3. DOPPLER PULSES NOTED ON LEFT LEG AND 1+ NOTED RIGHT PEDAL PULSES. BP RUNS HIGH/BP MEDS TO STABILIZE BP. EDUCATED ON THE NEED TO CALL BEFORE GETTING UP. PROGRESSING MODERATELY WITH POC. PLAN IS POSSIBLE DISCHARGE TODAY. WILL CONTINUE TO MONITOR AND FOLLOW WIHT POC
[2020-04-16] MEDS ORDERED: CLOPIDOGREL75 MG PO (11:59)
[2020-04-16] MEDS ORDERED: CARVEDILOL12.5 MG PO (12:00)
[2020-04-16] MEDS ORDERED: BENICAR40 MG PO (12:00)
[2020-04-16] MEDS ORDERED: HYDROCODON-ACE1 EAC7 PO ×2 (12:01→13:13)
[2020-04-16] MEDS ORDERED: ISOSORBIDE MONO60 M1 PO (13:13)
--- NOTE | 2020-04-16 14:02 | NUR ---
ASSESSMENT CHARTED. PT ALERT AND ORIENTED. HAD HIGH BP THIS AM. RIGHT GROIN INCISION C/D/I. NO HEMATOMA NOTED. PRN PAIN MED GIVEN WITH PARTIAL RELIEF. ORDERS GIVEN TO DISCHARGE PT TO HOME. DISCHARGE INSTRUCTIONS GIVEN TO PT AND THE DAUGHTER. THEY BOTH VERBERLISED UNDERSTANDING. WILL CONTINUE TO MONITOR.
--- NOTE | 2020-04-17 07:38 | EKG ---
[facility] [place] [address] ELECTROCARDIOGRAM REPORT Name: LEIDY ADAMES Room #: 208-P DIS IN M.R.#: [id number] Admission: 04/15/20 Attend Phys: Duane Muhammad MD Discharge: 04/16/20 Date of : 49 Report #: [id number] THIS REPORT FOR: cc: Jamaal Cho MD, Mark S. MD Lundgren, Craig H. MD [facility] ~ THIS REPORT FOR: //name// [facility] Test Date: 2020-04-16 Test Time: 09:15:34 Pat Name: LEIDY ADAMES Department: Room: 208 P Gender: F Embedded Software Development Engineer: EDILSON : 1945 Requested By: Perry Arellano Order Number: [id number] MD: Markus Ott Measurements Intervals [place] Rate: 89 P: 46 [place]: 156 QRS: 119 QRSD: 141 T: 17 QT: 403 QTc: 491 Interpretive Statements Sinus rhythm Probable left atrial enlargement Right bundle branch block Compared to ECG 12/25/2019 00:49:36 ST segment abnormality is less pronounced Electronically Signed On 04-17-2020 7:38:39 CDT by Markus Ott [email or web address] <ELECTRONICALLY SIGNED> By: Markus Ott MD, [facility] 04/17/20 0738 4 4 Markus Ott MD, [facility] /EPI
[2020-04-19] MEDS ORDERED: IMDUR 30 MG TAB30 M1 PO (13:13)
[2020-04-25] MEDS ORDERED: CEFDINIR300 MG PO (10:06)
== END 2020-04-16 14:06 | disposition home or self-care (01) | DRG 252 ==
LOC: ER 20:19 → EROBS 04-15 00:10 → 2N 04-15 00:10
PROVIDERS: Emergency Medicine; Nurse Practitioner Adult Health; Nurse Practitioner Family; ADMIT Internal Medicine; ATTEND Internal Medicine
PROC: B41D1ZZ Fluoroscopy of Aorta and Bilateral Lower Extremity Arteries using Low Osmolar Contrast (ICD-10-PCS; principal; 2020-04-15)
PROC: B4181ZZ Fluoroscopy of Bilateral Renal Arteries using Low Osmolar Contrast (ICD-10-PCS; principal; 2020-04-15)
PROC: [UNRECOGNIZED PROCEDURE] (principal; 2020-04-15)
DX: T82.858A Stenosis of other vascular prosthetic devices, implants and grafts, initial encounter (principal); E43 Unspecified severe protein-calorie malnutrition; N17.9 Acute kidney failure, unspecified; I50.32 Chronic diastolic (congestive) heart failure; I13.0 Hypertensive heart and chronic kidney disease with heart failure and stage 1 through stage 4 chronic kidney disease, or unspecified chronic kidney disease; I69.351 Hemiplegia and hemiparesis following cerebral infarction affecting right dominant side; I82.412 Acute embolism and thrombosis of left femoral vein; I77.89 Other specified disorders of arteries and arterioles; J44.9 Chronic obstructive pulmonary disease, unspecified; E78.5 Hyperlipidemia, unspecified; F03.90 Unspecified dementia, unspecified severity, without behavioral disturbance, psychotic disturbance, mood disturbance, and anxiety; I27.20 Pulmonary hypertension, unspecified; G43.909 Migraine, unspecified, not intractable, without status migrainosus; G40.909 Epilepsy, unspecified, not intractable, without status epilepticus; F41.9 Anxiety disorder, unspecified; I16.0 Hypertensive urgency; N18.3 Chronic kidney disease, stage 3 (moderate); E11.22 Type 2 diabetes mellitus with diabetic chronic kidney disease; E11.51 Type 2 diabetes mellitus with diabetic peripheral angiopathy without gangrene; M06.9 Rheumatoid arthritis, unspecified; F32.9 Major depressive disorder, single episode, unspecified; E78.00 Pure hypercholesterolemia, unspecified; Y83.8 Other surgical procedures as the cause of abnormal reaction of the patient, or of later complication, without mention of misadventure at the time of the procedure; I70.203 Unspecified atherosclerosis of native arteries of extremities, bilateral legs; I25.119 Atherosclerotic heart disease of native coronary artery with unspecified angina pectoris; N63.0 Unspecified lump in unspecified breast; Z86.718 Personal history of other venous thrombosis and embolism; Z90.710 Acquired absence of both cervix and uterus; Z98.42 Cataract extraction status, left eye; Z98.41 Cataract extraction status, right eye; Z95.1 Presence of aortocoronary bypass graft; Z79.899 Other long term (current) drug therapy; Z79.82 Long term (current) use of aspirin; Z88.1 Allergy status to other antibiotic agents; Z88.0 Allergy status to penicillin; Z88.2 Allergy status to sulfonamides; Z88.8 Allergy status to other drugs, medicaments and biological substances; Z95.5 Presence of coronary angioplasty implant and graft; I25.2 Old myocardial infarction; Z87.891 Personal history of nicotine dependence; Y92.89 Other specified places as the place of occurrence of the external cause
CPT/HCPCS: 10081

== ENCOUNTER 2020-04-16 20:36 | Inpatient (IN) | payer OTHER ==
[~2020-04-16] VITALS: Ht 154.9 cm; Wt 54.0 kg
[~2020-04-16 20:36] MED LIST changes: +BENICAR40 MG PO
[2020-04-16 21:12] LABS: ABSOLUTE NEUTROPHILS 8.5 thou/uL (1.4-8.2); BASOPHILS 0.9 % (0.0-2.0); EOSINOPHILS 0.8 % (0.0-3.0); HEMATOCRIT 38.6 % (37.0-47.0); HEMOGLOBIN 12.6 gm/dL (12.0-15.0); LYMPHOCYTES 9.3 % (24.0-44.0); MCHC 32.7 g/dL (28.0-37.0); MCV 97.8 fL (80.0-100.0); MONOCYTES 8.1 % (1.0-8.0); PLATELET COUNT 330 thou/uL (150-400); POLYS 80.9 % (36.0-66.0); RBC 3.94 mil/uL (4.20-5.00); RDW 14.8 % (10.5-14.5); WBC 10.6 thou/uL (4.0-11.0)
[2020-04-16 21:36] LABS: POTASSIUM 4.9 mmol/L (3.5-5.1)
[2020-04-16 21:44] LABS: ALBUMIN 3.3 g/dL (3.4-5.0); TOTAL BILIRUBIN 1.4 mg/dL (0.2-1.0); TOTAL PROTEIN 8.6 g/dL (6.4-8.2)
[2020-04-16 21:47] LABS: TROPONIN-I 0.88 ng/mL (<0.06)
[2020-04-16 21:56] LABS: HEMOGLOBIN 12.2 gm/dL (12.0-15.0); MCH 31.9 pg (26.0-34.0); MCHC 33.1 g/dL (28.0-37.0); MCV 96.6 fL (80.0-100.0); RBC 3.83 mil/uL (4.20-5.00); RDW 14.8 % (10.5-14.5); WBC 10.5 thou/uL (4.0-11.0)
[2020-04-16 22:09] LABS: PROTIME 10.6 Seconds (9.3-11.4)
[2020-04-16 22:57] VITALS: BP 124/74
--- NOTE | 2020-04-16 23:20 | NUR ---
FIRST ATTEMPT AT REPORT. NURSE IS BUSY AND WILL CALL BACK.
[2020-04-16 23:40] VITALS: BP 171/69
[2020-04-17] VITALS: BP 184/81
--- NOTE | 2020-04-17 03:36 | NUR ---
PT WAS AN ER ADMIT. PATIENT WAS ADMITTED WITH CHEST PAIN. PT WAS RECENTLY DISCHARGED HOME ON THE SAME DAY OF ADMISSION. PT VERBALIZES CHEST PAIN. PAIN MED ADMINISTERED FOR CHEST PAIN. ADMISSION ASSESSMENT AND EDUCATION COMPLETED WITH PATIENT. PT IS STABLE THROUGH THE NIGHT. CONTINUE TO MONITOR PT. DENIES ANY FURTHER NEEDS AT THIS TIME.
[2020-04-17 04:25] VITALS: BP 159/71
[2020-04-17 05:20] LABS: CALCIUM 8.6 mg/dL (8.5-10.1)
[2020-04-17 05:36] LABS: POTASSIUM 3.2 mmol/L (3.5-5.1)
[2020-04-17 05:37] LABS: TROPONIN-I 0.9 ng/mL (<0.06)
--- NOTE | 2020-04-17 07:49 | EKG ---
[facility] [address] ELECTROCARDIOGRAM REPORT Name: LEIDY ADAMES Room #: 212- ADM IN M.R.#: [id number] Admission: 04/16/20 Attend Phys: Perry Arellano MD Discharge: Date of : 49 Report #: [id number] THIS REPORT FOR: cc: Jamaal Cho MD, Mark S. MD Lundgren, Craig H. MD [facility] ~ THIS REPORT FOR: //name// [facility] ED Test Date: 2020-04-16 Test Time: 20:46:50 Pat Name: LEIDY ADAMES Department: Room: [facility] Gender: F Procurement Technician: : 1945 Requested By: Kaylin Joshi Order Number: [id number] MD: Markus Ott Measurements Intervals [place] Rate: 88 P: 54 [place]: 163 QRS: 129 QRSD: 136 T: 20 QT: 387 QTc: 469 Interpretive Statements Sinus rhythm Probable left atrial enlargement Right bundle branch block Compared to ECG 04/16/2020 09:15:34 No significant changes Electronically Signed On 04-17-2020 7:49:24 CDT by Markus Ott [email or web address] <ELECTRONICALLY SIGNED> By: Markus Ott MD, [facility] 04/17/20 0749 45 45 Markus Ott MD, [facility] /EPI
[2020-04-17 08:00] VITALS: BP 155/58
--- NOTE | 2020-04-17 08:32 | NUR ---
I WENT INTO THIS MEDICAL CHART BECAUSE I WAS TOLD I WAS GOING TO GET THIS PATIENT, I AM GETTING PT IN 211 INSTEAD.
--- NOTE | 2020-04-17 16:27 | NUR ---
ASSESSMENT DOCUMENTED, VSS AND AFEBRILE. C/O LLE AND CHEST PAIN THROUGH OUT THE DAY,AND MEDICATED NEEDED. BG WAS 70 THIS MORINING, 8OZ OF APPLE JUICE GIVEN, AND PATIENT ATE BF. AND WILL CONTINUE WITH POC.
[2020-04-17 16:50] VITALS: BP 121/61
--- NOTE | 2020-04-17 17:03 | NUR ---
Met with patient she dc home and readmit within 24 hours. She admits with CP. Patient resides at home with spouse and grandson all needs on one level. Grandson works during day. patient reports her dtr sometimes cooks or bring meals. Spouse drives patient no longer drives. She uses a walker for ambulation in home and community. PCP Dr Cho. [facility] in past with [facility], from NOV-December HH has attempted to see 4x and patient declined visit. Praveen tellez in process. patient reports weakness.
[2020-04-17 20:00] VITALS: BP 110/53
[2020-04-18 04:40] VITALS: BP 150/62
--- NOTE | 2020-04-18 07:55 | NUR ---
ASSUMED PT CARE AT 1900. PT IS ALERT AND ORIENTED. PT VERBALIZES PAIN AT THE BEGINNING OF STHE SHIFT. PAIN MED ADMINISTERED TO PT APPROPRIATE. NO SIGN OF DISTRESS NOTED IN PT. ASSESSMENT COMPLETED AND DOCUMENTED. SCHEDULED MEDS ADMINISTERED TO PT TOLERATED PO INATKE. NO ACUTE EVENTS AT THIS TIME. CONTINUE TO MONITOR. NO FURTHER NEEDS AT THIS TIME.
[2020-04-18 08:00] VITALS: BP 148/52
[2020-04-18 09:07] LABS: HBsAG-EMPLOYEE EXPOSURE Negative (Negative); HCV AB-EMPLOYEE EXPOSURE <0.1 (0.0-0.9)
--- NOTE | 2020-04-18 11:59 | NUR ---
[facility] agreeable to accept patient for HH at dc.
[2020-04-18 12:00] VITALS: BP 148/52; BP 92/39
[2020-04-18 16:00] VITALS: BP 119/48
[2020-04-18 20:30] VITALS: BP 139/65
[2020-04-19 04:45] VITALS: BP 144/68
[2020-04-19 08:00] VITALS: BP 162/69
[2020-04-19] MEDS ORDERED: IMDUR 30 MG TAB30 M1 PO ×2 (13:13)
[2020-04-19 14:42] VITALS: BP 148/52
[2020-04-19 16:30] VITALS: BP 148/52
--- NOTE | 2020-04-19 17:01 | NUR ---
Patient to dc home with care. Sp with dtr Ramila regarding skilled care. She reports patient is fine going home but need leg pain addressed. Dr Arellano called dtr to discuss. Plan home with [facility]. faxed orders, confimed they rec. no further needs
--- NOTE | 2020-04-19 17:30 | NUR ---
ASSESSMENT DOCUMENTED. VSS. AFEBRILE. NO CHEST PAIN REPORTED BY THE PT. SR ON THE MONITOR. PT STATES PAIN IN L LEG. PAIN MEDICATION ADMINISTERED PER EMAR. IV AND HEART MONITOR DISCONTINUED. PT DISCHARGED HOME WITH FAMILY. SPOKE WITH AND DAUGHTER R/T DISCHARGE. PT AND FAMILY EDUCATED BY RN R/T DISCHARGE AND PT PLAN OF CARE DURING THIS ADMISSION. PT RESTING IN BED WITH CALL LIGHT IN REACH. WILL CONTINUE TO MONITOR.
[2020-07-25] MEDS ORDERED: DEMADEX20 MG PO (13:42)
== END 2020-04-19 17:16 | disposition home health service (06) | DRG 280 ==
LOC: ER 20:36 → 2N 22:18 → EROBS 22:18 → 2N 23:40
PROVIDERS: Emergency Medicine; Nurse Practitioner Family; ADMIT Hospitalist; ATTEND Hospitalist
DX: I21.4 Non-ST elevation (NSTEMI) myocardial infarction (principal); E43 Unspecified severe protein-calorie malnutrition; I26.99 Other pulmonary embolism without acute cor pulmonale; I13.0 Hypertensive heart and chronic kidney disease with heart failure and stage 1 through stage 4 chronic kidney disease, or unspecified chronic kidney disease; I69.351 Hemiplegia and hemiparesis following cerebral infarction affecting right dominant side; I50.32 Chronic diastolic (congestive) heart failure; I25.10 Atherosclerotic heart disease of native coronary artery without angina pectoris; G43.909 Migraine, unspecified, not intractable, without status migrainosus; J44.9 Chronic obstructive pulmonary disease, unspecified; G40.909 Epilepsy, unspecified, not intractable, without status epilepticus; F41.9 Anxiety disorder, unspecified; E78.5 Hyperlipidemia, unspecified; I27.20 Pulmonary hypertension, unspecified; F03.90 Unspecified dementia, unspecified severity, without behavioral disturbance, psychotic disturbance, mood disturbance, and anxiety; E11.51 Type 2 diabetes mellitus with diabetic peripheral angiopathy without gangrene; N18.3 Chronic kidney disease, stage 3 (moderate); F32.9 Major depressive disorder, single episode, unspecified; M32.9 Systemic lupus erythematosus, unspecified; I77.1 Stricture of artery; E11.22 Type 2 diabetes mellitus with diabetic chronic kidney disease; Z79.82 Long term (current) use of aspirin; Z79.899 Other long term (current) drug therapy; Z82.49 Family history of ischemic heart disease and other diseases of the circulatory system; Z86.718 Personal history of other venous thrombosis and embolism; Z95.828 Presence of other vascular implants and grafts; Z79.4 Long term (current) use of insulin; Z95.1 Presence of aortocoronary bypass graft; Z90.711 Acquired absence of uterus with remaining cervical stump; I25.2 Old myocardial infarction; Z88.1 Allergy status to other antibiotic agents; Z88.0 Allergy status to penicillin; Z88.2 Allergy status to sulfonamides; Z88.8 Allergy status to other drugs, medicaments and biological substances; Z87.891 Personal history of nicotine dependence; Z95.5 Presence of coronary angioplasty implant and graft; Z68.22 Body mass index [BMI] 22.0-22.9, adult; Z98.42 Cataract extraction status, left eye; Z98.41 Cataract extraction status, right eye
CPT/HCPCS: 10081

== ENCOUNTER 2020-04-22 14:13 | Inpatient (IN) | payer MEDICARE, OTHER ==
[~2020-04-22] VITALS: Ht 157.5 cm; Wt 55.2 kg
[2020-04-22] VITALS (21 sets, daily range): BP systolic 108–172; BP diastolic 33–75
[2020-04-22 14:46] LABS: ABSOLUTE NEUTROPHILS 9.3 thou/uL (1.4-8.2); BASOPHILS 0.9 % (0.0-2.0); EOSINOPHILS 0.8 % (0.0-3.0); HEMATOCRIT 32.3 % (37.0-47.0); HEMOGLOBIN 10.7 gm/dL (12.0-15.0); LYMPHOCYTES 10.9 % (24.0-44.0); MCH 32.1 pg (26.0-34.0); MCHC 33.2 g/dL (28.0-37.0); MCV 96.6 fL (80.0-100.0); MONOCYTES 12.4 % (1.0-8.0); PLATELET COUNT 211 thou/uL (150-400); RBC 3.34 mil/uL (4.20-5.00); RDW 15.1 % (10.5-14.5); WBC 12.3 thou/uL (4.0-11.0)
[2020-04-22 14:51] LABS: ANION GAP 9 mmol/L (7-16); BUN 52 mg/dL (7-18); CALCIUM 8.3 mg/dL (8.5-10.1); CHLORIDE 100 mmol/L (98-107); CO2 27 mmol/L (21-32); CREATININE 4.6 mg/dL (0.6-1.0); GLUCOSE 94 mg/dL (74-106); POTASSIUM 3.9 mmol/L (3.5-5.1); SODIUM 136 mmol/L (136-145)
[2020-04-22 14:52] LABS: URINE BILIRUBIN NEGATIVE (Negative); URINE BLOOD NEGATIVE (Negative); URINE CLARITY CLEAR; URINE COLOR YELLOW; URINE GLUCOSE-RANDOM* NEGATIVE (Negative); URINE KETONES NEGATIVE (Negative); URINE LEUKOCYTES-REFLEX NEGATIVE (Negative); URINE NITRITE-REFLEX NEGATIVE (Negative); URINE PROTEIN (DIPSTICK) NEGATIVE (Negative); URINE SPECIFIC GRAVITY >= 1.030 (1.005-1.035); URINE UROBILINOGEN 0.2 E.U./dl (0.2-1.0)
[2020-04-22 15:00] LABS: MAGNESIUM 2.1 mg/dL (1.8-2.4); TROPONIN-I <0.06 ng/mL (<0.06)
[2020-04-22 15:04] LABS: URINE CREATININE-RANDOM* 253.8 mg/dL
[2020-04-22 16:43] LABS: BE(vivo) -1.5 mmol/L (-2 to +3); HCO3 23.4 mmol/L (22.0-26.0); PCO2 39.9 mmHg (35.0-45.0); pH 7.386 (7.360-7.450); sO2 87.8 % (92.0-98.0)
[2020-04-22 17:43] LABS: PROTIME 10.6 Seconds (9.3-11.4)
--- NOTE | 2020-04-22 19:00 | NUR ---
Pt brought down to ICU from the emergency dept and admitted into 237. Pt is awake and responsive. States her back hurts. Pt has difficulty recalling the correct month/recalls correct year. Oriented to call light.
[2020-04-23] VITALS (29 sets, daily range): BP systolic 100–185; BP diastolic 29–80
--- NOTE | 2020-04-23 06:50 | NUR ---
1900. PT ARRIVED FROM ER. REPORT GOTTEN FROM DAY KRISTY LINCLON. CONSULTS CALLED. ADMISSION ASSESSMENTS COMPLETED AND ARE CHARTED. PT CAME TO THE FLOOR ON 3L NC BUT SATS WERE BTW 88 AND 95 SO HAND THERMAL CUTTER INCREASE LITER FLOW TO 5L. PT NOW BACK DOWN TO 3L THIS AM WITH SATS OF 98%. PT DOESNT HAVE HER DENTURES SO HER SPEECH IS SOMETIMES MUFFLED. 2017. PT'S DTR AND DPMARIAN ADAMES CALLED FOR AN UPDATE ON PT'S STATUS. INFORMED HER THAT PT IS STABLE AND RN WAS ABOUT TO HAND IV ABX. 0001; DTR CALLED AGAIN WANTING AN UPDATE, INFORMED HER THAT WE WERE TRYING TO GET AN IV ACCESS ON PT IN ORDER TO ADMINISTER MEDS. DTR STATED HER CONCERN THAT HER MOM HADNT EATEN ALL DAY, RN INFORMED DTR THAT THE PT WAS MADE NPO UNTIL A A SWALLOW STUDY CAN BE DONE [id number]; 3 RN's ATTEMPTED TO START AN IV ACCESS ON PT BUT TO NO AVAIL. [place]TE DUNCAN NOTIFIED AND AN ORDER FOR PICC LINE IN THE AM WAS GIVEN. KRISTY NATH FROM ER ATTEMPTED AND WAS SUCCESFFUL WITH AN 18G TO LEFT UPPER ARM. RN RESTARTED IV MEDS AND FLUIDS. 0010: PT STATED THAT HER HAND HURTS. UPON ASSESSMENT, RN NOTICED THAT IV INFILTRATED AGAIN. CURRENT INFUSING IVs AND THE ACCESS WAS D/C. [id number]; AUTO RADIATOR SPECIALIST AND CHARLOTTE DUNCAN NOTIFIED ABT PT NOT HAVING AN IV ACCESS. CHARLOTTE DUNCAN SAID TO PUT A PRIORITY CALL IN FOR IV TEAM IN THE AM. 0632; DTR CALLED AGAIN FOR AN UPDATE WANTED TO KNOW IF COVID TEST RESULTED. RN INFORMED HER THAT TEST WAS STILL PENDING. I ALSO STATED PT'S VITAL SIGNS AT THAT TIME AND MENTIONED THAT PT IS STABLE. PT'S U/0 THIS SHIFT WAS 1150. PT IS CURRENTLY STABLE, SYSTOLIC BP SLIGHTLY ELEVATED AT 171/60. PT IS CURRENTLY RESTING AND ASYMPTOMATIC, WILL CONTINUE TO MONITOR
[2020-04-23 08:09] LABS: ABSOLUTE NEUTROPHILS 17.7 thou/uL (1.4-8.2); BASOPHILS 0.5 % (0.0-2.0); HEMOGLOBIN 11.9 gm/dL (12.0-15.0); LYMPHOCYTES 3.3 % (24.0-44.0); MCH 31.7 pg (26.0-34.0); MCHC 32.2 g/dL (28.0-37.0); MCV 98.3 fL (80.0-100.0); MONOCYTES 2.8 % (1.0-8.0); PLATELET COUNT 225 thou/uL (150-400); POLYS 93.4 % (36.0-66.0); RBC 3.77 mil/uL (4.20-5.00); WBC 18.9 thou/uL (4.0-11.0)
[2020-04-23 08:39] LABS: ALBUMIN 3.3 g/dL (3.4-5.0); MAGNESIUM 2.2 mg/dL (1.8-2.4); POTASSIUM 4.6 mmol/L (3.5-5.1); TOTAL BILIRUBIN 0.7 mg/dL (0.2-1.0); TOTAL PROTEIN 8.2 g/dL (6.4-8.2)
[2020-04-23 08:43] LABS: CREATININE 2.6 mg/dL (0.6-1.0)
--- NOTE | 2020-04-23 08:54 | EKG ---
[facility] [place] [address] ELECTROCARDIOGRAM REPORT Name: LEIDY ADAMES Room #: 243-P ADM IN M.R.#: [id number] Admission: 04/22/20 Attend Phys: Samantha Ramírez MD Discharge: Date of : 49 Report #: [id number] THIS REPORT FOR: cc: Jamaal Cho MD, Mark S. MD Lundgren, Craig H. MD [facility] ~ THIS REPORT FOR: //name// [facility] ED Test Date: 2020-04-22 Test Time: 14:50:45 Pat Name: LEIDY ADAMES Department: Room: [facility] Gender: F Job Developer: shazia : 1945 Requested By: Denny Winston Order Number: [id number] MD: Markus Ott Measurements Intervals [place] Rate: 66 P: 64 MN: 157 QRS: 116 QRSD: 141 T: 52 QT: 443 QTc: 465 Interpretive Statements Sinus rhythm Left atrial enlargement RBBB and LPFB Compared to ECG 04/16/2020 20:46:50 No significant change was found Electronically Signed On 04-23-2020 8:54:18 CDT by Markus Ott [email or web address] <ELECTRONICALLY SIGNED> By: Markus Ott MD, [facility] 04/23/20 0854 1450 1450 Markus Ott MD, [facility] /EPI
--- NOTE | 2020-04-23 11:53 | NUR ---
VAT CONSULTED FOR A CL FOR THIS PT. A 4FRDBL PLACED RT IJ. TIP AT THE [facility] AND RELEASED FOR USE. PLEASE SEE NI FOR DETAILS
--- NOTE | 2020-04-23 13:22 | NUR ---
PT'S FAMILY MEMBER CALLED, RN PROVIDED UPDATE ON PT'S STATUS, SECURITY CODE PROVIDED. DR. FOY ROUNDED THIS AM, PLAN OF CARE DISCUSSED, RN WILL CONTINUE TO MONITOR. SPEECH EVALUATION COMPLETED, DIET ORDERED. R JUGULAR CENTRAL LINE PLACED BY IV TEAM.
--- NOTE | 2020-04-23 15:32 | NUR ---
chart review. unable to visit with krys rt bedside nurse in room working with her. cm visited with daughter lucy via phone call " oh yes sw, i think talked with you last time and look just got her home on and right back there, his not good to try keep her from getting covid. wish doctor would figure something out. she lives with in house, 3 steps to enter. have cane and a walker. shower chair. daughter set up medication. celia her drives. been skilled [facility], in past and [facility]"/daughter lucy. will cont following as needed for dc needs. pt has no home o2 and is on 3-5 L/nc here.
[2020-04-24] VITALS: BP 127/48
[2020-04-24 04:00] VITALS: BP 138/52
--- NOTE | 2020-04-24 05:32 | NUR ---
PATIENT REMAINS ON 2L OF OXYGEN VIA NASAL CANULA, SATURATING 100%. VITALS CHARTED. NO COMPLAINTS OF CHEST PAIN; HOWEVER, ONE EPISODE OF ACHING PAIN IN HER LEFT LEG. WHARF OPERATOR, DAKOTA BERGER, NOTIFIED AND TYLENOL ORDERED AND GIVEN WITH EFFECTIVENESS. PATIENT ALSO HAD A TEMP MAX OF 100.3 WHICH BROKE WITH THE TYLENOL DOSE AND IS CURRENTLY 98.3. PATIENT ALERT/ORIENTED X 2-3 WITH PERIODS OF CONFUSION. PATIENT MOVES ALL EXTREMITIES AND FOLLOW COMMANDS. DAUGHTER, SAV ADAMES, CALLED AND WAS UPDATED. SEE ASSESSMENT FOR MORE INFO.
[2020-04-24 06:43] LABS: ALBUMIN 2.4 g/dL (3.4-5.0); CALCIUM 8.4 mg/dL (8.5-10.1); CREATININE 2.2 mg/dL (0.6-1.0); PHOSPHORUS 4.3 mg/dL (2.5-4.9); POTASSIUM 4.6 mmol/L (3.5-5.1)
[2020-04-24 13:06] LABS: BE(vivo) -3.6 mmol/L (-2 to +3); HCO3 20.4 mmol/L (22.0-26.0); PCO2 33.2 mmHg (35.0-45.0); PO2 100.6 mmHg (80.0-100.0); pH 7.406 (7.360-7.450); sO2 97.7 % (92.0-98.0)
--- NOTE | 2020-04-24 16:07 | NUR ---
ASSUMED CARE PT SHIFT CHANGE. ASSESSMENTS CHARTED.MEDS GIVEN PER DEC. PT AWAKE ORIENTED 2-3. CONFUSED. VSS. C/O PAIN IN LEG AT TIMES. OFFERED PAIN MEDS, DID NOT WAMT. COVID RESULT NEGATIVE X2. BLOOD SUGARS MANAGED. PT DENIES ANY SWALLOWING DEFICITS. ORDERS RECEIVED TO TX PT TO CCU. COLLARETTE SEPARATOR NOTIFIED. REPORT CALLED. PT TRANSFERRED TO CCU 219.
--- NOTE | 2020-04-24 18:36 | NUR ---
ASSUMED CARE AT 1600 TRANSFER FROM ICU. PT ALERT TO SELF AND PLACE. DENIES SOB, ON 2L NASAL CANNULA NOTED PT DOES NOT USE OXYGEN AT HOME. PT SLEEPY DURING ASSESMENT AND DURING MEAL. NOTED LEFT UPPER ARM EDEMA NOTIFIED PHYSICIAN WITH ORDERS PLACED OF US. FALL PRECAUTIONS IN PLACE. CALL LIGHT IN REACH.
[2020-04-24 20:45] VITALS: BP 151/62
[2020-04-24 21:50] VITALS: BP 150/50
[2020-04-24 22:15] VITALS: BP 125/42
[2020-04-24 23:14] LABS: ALBUMIN 2.2 g/dL (3.4-5.0); ANION GAP 8 mmol/L (7-16); BUN 53 mg/dL (7-18); CALCIUM 8.2 mg/dL (8.5-10.1); CHLORIDE 104 mmol/L (98-107); CO2 25 mmol/L (21-32); CREATININE 1.9 mg/dL (0.6-1.0); GLUCOSE 204 mg/dL (74-106); POTASSIUM 4.1 mmol/L (3.5-5.1); SGOT 15 U/L (15-37); SGPT 7 U/L (30-65); SODIUM 137 mmol/L (136-145); TOTAL BILIRUBIN 0.3 mg/dL (0.2-1.0); TOTAL PROTEIN 6.4 g/dL (6.4-8.2); TROPONIN-I <0.06 ng/mL (<0.06)
[2020-04-25] VITALS (8 sets, daily range): BP systolic 93–134; BP diastolic 40–58
--- NOTE | 2020-04-25 03:50 | NUR ---
PATIENTS CARES WERE ASSUMED AT SHIFT CHANGE. PATIENT WAS ASSESSED AND MEDS WERE PASSED. AT 2150 PATIENT C/O CHEST PAIN AND RATED IT A 8/10 . NITRO WAS GIVEN. B/P WAS RE ASSESSED FIFTEEN MINUTES LATER. B/P WAS 125/42 HEART RATE OF 73. PATIENT RATED HER CHEST PAIN AT 5/10. RECHECKED PATIENT AND SHE STAED HER CHEST PAIN WAS 7/10. CONCERNED WITH THE PATIENT CALL RAPID AND WAS TOLD HEAT ISSUES ARE NOT A RAPID ON THIS UNITE. LAB WAS DONE ,EKG DONE AND CALLED THE CARDIOLOGY ON CALLED AND A ORDER OF MORPHINE WAS GIVEN. AFTER THE MED WAS GIVEN PATIENT CALLED OUT ONCE MORE FOR A CAN OF COKE. BY 0200 PATIENT WAS ASLEEP. HOURLY ROUNDS WERE DONE. THE BED IS IN A LOW AND LOCKED POSITION.
[2020-04-25 05:50] LABS: ALBUMIN 2.1 g/dL (3.4-5.0); CALCIUM 8.1 mg/dL (8.5-10.1); CREATININE 1.6 mg/dL (0.6-1.0); PHOSPHORUS 3.7 mg/dL (2.5-4.9); POTASSIUM 3.8 mmol/L (3.5-5.1)
--- NOTE | 2020-04-25 07:30 | EKG ---
[facility] [place] [address] ELECTROCARDIOGRAM REPORT Name: LEIDY ADAMES Room #: 219-P ADM IN M.R.#: [id number] Admission: 04/22/20 Attend Phys: Samantha Ramírez MD Discharge: Date of : 49 Report #: [id number] THIS REPORT FOR: cc: Jamaal Cho MD, Mark S. MD Lundgren, Craig H. MD [facility] ~ THIS REPORT FOR: //name// [facility] Test Date: 2020-04-24 Test Time: 22:36:36 Pat Name: LEIDY ADAMES Department: Room: 219 P Gender: F Iridologist: JULIO CESAR : 1945 Requested By: Jules Garcia Order Number: [id number] MD: Markus Ott Measurements Intervals [place] Rate: 77 P: 50 [place]: 169 QRS: 94 QRSD: 143 T: 12 QT: 431 QTc: 488 Interpretive Statements Sinus rhythm RBBB and LPFB Compared to ECG 04/22/2020 14:50:45 No significant change was found Electronically Signed On 04-25-2020 7:30:17 CDT by Markus Ott [email or web address] <ELECTRONICALLY SIGNED> By: Markus Ott MD, [facility] 04/25/20 0730 35 35 Markus Ott MD, [facility] /EPI
[2020-04-25] MEDS ORDERED: CEFDINIR300 MG PO ×2 (10:06)
[2020-04-25 15:25] LABS: HEMATOCRIT 26.7 % (37.0-47.0); HEMOGLOBIN 8.8 gm/dL (12.0-15.0)
--- NOTE | 2020-04-25 15:28 | NUR ---
Spoke with patient. She resides at home with spouse and grandson. casemgt familiar with patient. Discussed post acute care and patient is receptive. She complains of pain and casemgt alerted to Rn of complaint. patient rec HH from [facility] bellhop [facility]. Sp with [facility] who report they were able to assess patient in home setting. Sp with Ramila benton of patient. Discussed post acute care. Dtr reports they will NOT have mother in facility as long as virus COVID going around. They are agreeable to HH and agree with same HH agency as prior to admission. Faxed referral to [facility]. They rec HH orders for start of care.
--- NOTE | 2020-04-25 17:10 | NUR ---
PT CARE ASSUMED APPROX 0700. ASSESSMENTS CHARTED. PT REPORTS CONSTANT PAIN EVERYWHERE. CARDIO DR DETERMINED THAT PT ISN'T HAVING ACUTE CHEST PAIN. EKG AND TROP NEGATIVE. PT'S DAUGHTER SPOKE TO DR DUNCAN THIS EVENING REGARDING HER HESITATIONS TO TAKE PT HOME TODAY. AFTER DISCUSSION PT'S DAUGHTER WAS HAPPY TO TAKE PT HOME. IV AND URINARY CATH REMOVED WITHOUT ISSUE. PT HAS VOIDED MINIMAL AMOUNT. DR FATIMA AWARE AND TOLD THIS NURSE TO SEND STRAIGHT CATH KIT HOME WITH PT AND PT'S DAUGHTER. BOTH EDUCATED ON DISCHARGE AND STRAIGHT CATH INFO. ALSO INFORMED ON HOW TO F/U IF STRAIGHT CATHING IS NECESSARY. PT'S DAUGHTER VERBALIZED BACK INTRUCTIONS HOW TO CATH APPROPRIATELY. VSS. PT BEING ESCORTED OUT AT THIS TIME.
--- NOTE | 2020-04-26 07:53 | EKG ---
[facility] [place] [address] ELECTROCARDIOGRAM REPORT Name: LEIDY ADAMES Room #: 219- DIS IN M.R.#: [id number] Admission: 04/22/20 Attend Phys: Samantha Ramírez MD Discharge: 04/25/20 Date of : 49 Report #: [id number] THIS REPORT FOR: cc: Jamaal Cho MD, Mark S. MD Lundgren,Markus Daniel MD [facility] ~ THIS REPORT FOR: //name// [facility] Test Date: 2020-04-25 Test Time: 13:14:36 Pat Name: LEIDY ADAMES Department: Room: 219 Gender: F Risk Control Manager: Preet SHEPARD : 1945 Requested By: Ki Gimenez Order Number: [id number] MD: Markus Ott Measurements Intervals [place] Rate: 62 P: 50 RI: 152 QRS: 102 QRSD: 145 T: 18 QT: 449 QTc: 456 Interpretive Statements Sinus rhythm RBBB and LPFB Compared to ECG 04/24/2020 22:36:36 No significant changes Electronically Signed On 04-26-2020 7:53:31 CDT by Markus Ott [email or web address] <ELECTRONICALLY SIGNED> By: Markus Ott MD, [facility] 04/26/20 0753 1314 1314 Markus Ott MD, [facility] /EPI
--- NOTE | 2020-04-27 20:47 | HC ---
[facility] [place] [address] CONSULTATION Name: LEIDY ADAMES Room #: 219-P DIS IN M.R.#: [id number] Admission: 04/22/20 Attend Phys: Samantha Ramírez MD Discharge: 04/25/20 Date of : 49 Report #: [id number] THIS REPORT FOR: cc: Jamaal Cho MD, Mark S. MD Al-Absi, Ahmed I. MD ~ CC: Jamaal Ramírez REASON FOR CONSULTATION: Acute kidney injury. REASON FOR PRESENTATION: Mental status changes. HISTORY OF PRESENT ILLNESS: Obtained from the medical chart. This is a 74-year-old with past medical history of hypertension, coronary artery disease, recent stent placement in one of her coronaries back in November of this year. She also had major peripheral vascular disease. Apparently, the patient had some acute mental status changes and was brought to the Emergency Room as she continued to have those changes. Daughter reported that the patient recently on the 04/15/2020 had an intervention of angiogram done on her. She continued to have leg pain and was brought to the Emergency Room where she was found to be in acute kidney injury. The patient was thought that she might have overdosed on narcotics. She received few doses of Narcan with no improvement in her mental status. She continued to be very lethargic. She was isolated, the patient is being under investigation for COVID-19 symptoms. I was asked to assist with the management of her acute kidney injury. From the renal perspective, we have seen this patient on numerous times. Unfortunately, she has had repeated episodes of acute kidney injury most recently and around 04/17/2020, her creatinine was actually 1.0. When she presented yesterday, her creatinine was up to 4.6 mandating a Nephrology consultation. PAST MEDICAL HISTORY: 1. Peripheral vascular disease. 2. Coronary artery disease. 3. Hypertension. 4. CVA. 5. Angina. 6. DVT with IVC filter. 7. Lupus requiring steroids. 8. Diabetes mellitus. 9. Seizure disorder. 10 COPD. 11. Hysterectomy. 12. Dementia. 13. Right chest wall hematoma. 14. Open reduction and internal fixations of the right hip. 15. Severe pulmonary hypertension with moderate to severe tricuspid [address] [address] CONSULTATION Name: LEIDY ADAMES Room #: 219-P DIS IN M.R.#: [id number] Admission: 04/22/20 Attend Phys: Samantha Ramírez MD Discharge: 04/25/20 Date of : 49 Report #: [id number] regurgitation. 16. Peripheral vascular disease. FAMILY HISTORY: Mother with breast cancer. SOCIAL HISTORY: Ex-smoker. No drug or alcohol abuse. ALLERGIES: ERTAPENEM, PENICILLIN. REVIEW OF SYSTEMS: Unobtainable given the patient's current mental status. HOME MEDICATIONS: 1. Keppra. 2. Amlodipine. 3. Furosemide. 4. Aspirin. 5. Tradjenta. 6. Plavix. 7. Olmesartan. 8. Hydrocodone. PHYSICAL EXAMINATION: GENERAL: She is confused, lethargic, disoriented. VITAL SIGNS: Blood pressure is 174/70. HEAD AND NECK: No jugular venous distention. Dry mucous membrane. CHEST: No crackles. CARDIOVASCULAR: No rub detected. ABDOMEN: Soft, nontender. EXTREMITIES: Lower extremities, no edema. LABORATORY VALUES: White blood cell count is 12.3, hemoglobin is 10.7. Sodium from yesterday is 136, potassium is 3.9, BUN is 52, creatinine is 4.6. UA was not remarkable. Chest x-ray: Mild vascular congestions. ASSESSMENT, IMPRESSION AND PLAN: 1. Acute kidney injury. 2. Acute mental status changes. 3. Recent angiogram of the lower extremities. 4. History of seizure disorder. 5. Coronary artery disease. 6. Peripheral vascular disease. 7. Cerebrovascular accident. 8. Remote history of dementia. 9. History of lupus, requiring prednisone. [facility] [address] [place] [address] CONSULTATION Name: LEIDY ADAMES Room #: 219-P [facility] IN [facility].#: [id number] Admission: 04/22/20 Attend Phys: Samantha Ramírez MD Discharge: 04/25/20 Date of : 49 Report #: [id number] 10. Hypothyroidism. 11. The patient is dehydrated on my physical examination and her acute kidney injury could be related to a prerenal condition. We will start normal saline. 12. Hold on any nephrotoxic medications. Other differential diagnosis include post-contrast, cholesterol embolization from recent angiogram procedure. 1. We will keep that in our mind. 2. Adjust all medications to her GFR. 3. Follow vancomycin level. 4. We will continue to follow. <ELECTRONICALLY SIGNED> By: Nataly Gilbert MD 04/27/207 9 9 Nataly Gilbert MD /nt
[2020-04-27 23:06] LABS: ADENOVIRUS Negative (Negative); INFLUENZA A Negative (Negative); INFLUENZA B Negative (Negative); METAPNEUMOVIRUS Negative (Negative); PARAINFLUENZA 1 Negative (Negative); PARAINFLUENZA 2 Negative (Negative); PARAINFLUENZA 3 Negative (Negative); RHINOVIRUS Negative (Negative); RSV A Negative (Negative); RSV B Negative (Negative)
[2020-07-25] MEDS ORDERED: DEMADEX20 MG PO (13:42)
== END 2020-04-25 17:15 | disposition home health service (06) | DRG 682 ==
LOC: ER 14:13 → ICU 16:01 → EROBS 16:01 → ICU 19:22 → 2N 04-24 15:55
PROVIDERS: Emergency Medicine; Hospitalist; Internal Medicine Cardiovascular Disease; Internal Medicine Pulmonary Disease; ADMIT Internal Medicine; ATTEND Internal Medicine
PROC: 02HV33Z Insertion of Infusion Device into Superior Vena Cava, Percutaneous Approach (ICD-10-PCS; principal; 2020-04-23)
DX: N17.0 Acute kidney failure with tubular necrosis (principal); G92 Toxic encephalopathy; J96.21 Acute and chronic respiratory failure with hypoxia; J81.1 Chronic pulmonary edema; I13.0 Hypertensive heart and chronic kidney disease with heart failure and stage 1 through stage 4 chronic kidney disease, or unspecified chronic kidney disease; I50.9 Heart failure, unspecified; I25.10 Atherosclerotic heart disease of native coronary artery without angina pectoris; E78.5 Hyperlipidemia, unspecified; E11.22 Type 2 diabetes mellitus with diabetic chronic kidney disease; G43.909 Migraine, unspecified, not intractable, without status migrainosus; M32.9 Systemic lupus erythematosus, unspecified; E11.51 Type 2 diabetes mellitus with diabetic peripheral angiopathy without gangrene; G40.909 Epilepsy, unspecified, not intractable, without status epilepticus; J44.9 Chronic obstructive pulmonary disease, unspecified; F03.90 Unspecified dementia, unspecified severity, without behavioral disturbance, psychotic disturbance, mood disturbance, and anxiety; I27.20 Pulmonary hypertension, unspecified; I07.1 Rheumatic tricuspid insufficiency; E03.9 Hypothyroidism, unspecified; E86.0 Dehydration; N18.3 Chronic kidney disease, stage 3 (moderate); M19.90 Unspecified osteoarthritis, unspecified site; Z99.81 Dependence on supplemental oxygen; Z90.710 Acquired absence of both cervix and uterus; Z95.820 Peripheral vascular angioplasty status with implants and grafts; Z86.73 Personal history of transient ischemic attack (TIA), and cerebral infarction without residual deficits; Z95.1 Presence of aortocoronary bypass graft; Z95.2 Presence of prosthetic heart valve; Z79.82 Long term (current) use of aspirin; Z79.891 Long term (current) use of opiate analgesic; Z79.899 Other long term (current) drug therapy; Z88.0 Allergy status to penicillin; Z88.2 Allergy status to sulfonamides; Z88.8 Allergy status to other drugs, medicaments and biological substances; I25.2 Old myocardial infarction; Z87.01 Personal history of pneumonia (recurrent); Z86.711 Personal history of pulmonary embolism; Z79.01 Long term (current) use of anticoagulants; Z86.718 Personal history of other venous thrombosis and embolism; Z87.891 Personal history of nicotine dependence; Z95.5 Presence of coronary angioplasty implant and graft; Z03.818 Encounter for observation for suspected exposure to other biological agents ruled out; Z80.3 Family history of malignant neoplasm of breast
CPT/HCPCS: 10078; 10081

== ENCOUNTER 2020-05-29 20:53 | Inpatient (IN) | payer OTHER ==
[~2020-05-29] VITALS: Ht 157.5 cm; Wt 60.3 kg
[2020-05-29 20:55] VITALS: BP 211/103
[2020-05-29 21:38] LABS: HEMATOCRIT 33.4 % (37.0-47.0); HEMOGLOBIN 11.3 gm/dL (12.0-15.0); MCH 33.6 pg (26.0-34.0); MCHC 33.8 g/dL (28.0-37.0); MCV 99.3 fL (80.0-100.0); PLATELET COUNT 212 thou/uL (150-400); RBC 3.36 mil/uL (4.20-5.00); RDW 15.6 % (10.5-14.5)
[2020-05-29 21:42] LABS: ANION GAP 10 mmol/L (7-16); BUN 20 mg/dL (7-18); CHLORIDE 103 mmol/L (98-107); CO2 30 mmol/L (21-32); CREATININE 1.5 mg/dL (0.6-1.0); GLUCOSE 75 mg/dL (74-106); POTASSIUM 3.9 mmol/L (3.5-5.1); SODIUM 143 mmol/L (136-145)
[2020-05-29 21:51] LABS: ALBUMIN 3.4 g/dL (3.4-5.0); SGOT 19 U/L (15-37); SGPT 14 U/L (30-65); TOTAL BILIRUBIN 0.6 mg/dL (0.2-1.0); TOTAL PROTEIN 8.3 g/dL (6.4-8.2); TROPONIN-I <0.06 ng/mL (<0.06)
[2020-05-29 22:18] LABS: ABSOLUTE NEUTROPHILS 4.3 thou/uL (1.4-8.2); LARGE PLATELETS OCCASIONAL
[2020-05-30] VITALS (8 sets, daily range): BP systolic 129–198; BP diastolic 46–85
--- NOTE | 2020-05-30 00:28 | NUR ---
PT DAUGHTER SAV METCALF CALLED, UPDATED ON CARE, ADMISSION PLAN AND ROOM NUMBER, VERIFIED PHONE NUMBERS
--- NOTE | 2020-05-30 04:36 | NUR ---
PATIENT TRANSFERRED FROM ER VIA WHEELCHAIR. ASSUMED CARE OF PATIENT AT APPROXIMATELY 0130. PATIENT WAS ON 2L OF OXYGEN IN ED. ED NURSE STATED SHE WAS GOING TO REMOVE OXYGEN IN ATTEMPT TO TITRATE. WHEN PATIENT RECEIVED ON FLOOR O2 SATS WERE 88%. PLACED PATIENT BACK ON 2L OF OXYGEN VIA NC. PLACED PATIENT ON SEIZURE PRECAUTIONS ORDERED. PATIENT DENIED PAIN AT ASSESSMENT. WILL CONTINUE TO MONITOR.
[2020-05-30 04:39] LABS: HEMATOCRIT 30.5 % (37.0-47.0); HEMOGLOBIN 10.2 gm/dL (12.0-15.0); MCH 33.4 pg (26.0-34.0); MCHC 33.4 g/dL (28.0-37.0); RBC 3.05 mil/uL (4.20-5.00); RDW 15.7 % (10.5-14.5); WBC 5.5 thou/uL (4.0-11.0)
[2020-05-30 05:08] LABS: ANION GAP 10 mmol/L (7-16); BUN 22 mg/dL (7-18); CHLORIDE 106 mmol/L (98-107); CO2 28 mmol/L (21-32); CREATININE 1.4 mg/dL (0.6-1.0); GLUCOSE 84 mg/dL (74-106); MAGNESIUM 1.8 mg/dL (1.8-2.4); POTASSIUM 3.5 mmol/L (3.5-5.1); SODIUM 144 mmol/L (136-145); TROPONIN-I <0.06 ng/mL (<0.06)
--- NOTE | 2020-05-30 09:34 | 2DMMODE ---
[facility] [place] [address] 2 D/M-MODE ECHOCARDIOGRAM Name: LEIDY ADAMES Room #: 215-P ADM IN M.R.#: [id number] Admission: 05/29/20 Attend Phys: Samantha Oh MD Discharge: Date of : 49 Report #: [id number] THIS REPORT FOR: cc: Jamaal Cho MD, Mark S. MD Lundgren, Craig H. MD [facility] ~ APPROVED REPORT Study performed: 05/30/2020 08:32:22 EXAM: Comprehensive 2D, Doppler, and color-flow Echocardiogram Patient Location: Bedside Room #: 215 Status: routine BSA: 1.61 HR: 77 bpm BP: 158/65 mmHg Rhythm: NSR Other Information Study Quality: Good Indications CHF, chest pain, leg edema. Hx: MV replacement, CABG, stent, CVA, COPD, PVD, HTN, DM. 2D Dimensions RVDd: 44.18 mm IVSd: 12.00 (7-11mm) LVOT Diam: 19.00 (18-24mm) LVDd: 35.00 mm PWd: 12.00 (7-11mm) Ascending Ao: 28.00 (22-36mm) LVDs: 20.00 (25-40mm) Aortic Root: 28.77 mm Volumes Left Atrial Volume (Systole) Single Plane 4CH: 108.54 mL Single Plane 2CH: 97.80 mL LA ESV Index: 69.00 mL/m2 Aortic Valve AoV Peak Justice.: 1.30 m/s AO Peak Gr.: 6.75 mmHg LVOT Max P.80 mmHg LVOT Max V: 0.97 m/s NATALIE Vmax: 2.05 cm2 [facility] [address] [place] [address] 2 D/M-MODE ECHOCARDIOGRAM Name: LEIDY ADAMES Room #: 215-P [facility] IN [facility].#: [id number] Admission: 05/29/20 Attend Phys: Preet Roper Discharge: Date of : 49 Report #: [id number] AI Vmax: 5.08 m/s AI Wells: 4.52 m/s2 AI PHT: 326.23 ms Mitral Valve MV Decel. Time: 225.13 ms MV PHT: 65.29 ms Pulmonary Valve PV Peak Justice.: 0.81 m/s PV Peak Gr.: 2.65 mmHg Tricuspid Valve TR Peak Justice.: 4.98 m/s RAP Estimate: 10.00 mmHg TR Peak Gr.: 99.34 mmHg PA Pressure: 109.00 mmHg Left Ventricle The left ventricle is normal size. There is normal LV segmental wall motion. Mild concentric left ventricular hypertrophy. Left ventricular systolic function is normal. LVEF is 65%. Right Ventricle Right ventricle is dilated. Right ventricle is hypokinetic. Atria Left atrium is severely dilated. Right atrium is moderately dilated. Aortic Valve Focal aortic leaflet calcification involving the noncoronary cusp leaflet. Mild to moderate aortic regurgitation. There is no aortic valvular stenosis. Mitral Valve Heavily calcified mitral leaflets, moderate mitral annular calcification. Restricted mitral leaflet motion, severe mitral stenosis (Mean pressure gradient 20mmHg. Peak of 38mmHg). Moderate mitral regurgitation. Tricuspid Valve The tricuspid valve is normal in structure. Moderate to severe tricuspid regurgitation. Pulmonary artery pressure greater than 100mmHg. Severe pulmonary hypertension. Pulmonic Valve [address] [address] 2 D/M-MODE ECHOCARDIOGRAM Name: LEIDY ADAMES Room #: 215-P ADM IN .R.#: [id number] Admission: 05/29/20 Attend Phys: Preet Roper Discharge: Date of : 49 Report #: [id number] The pulmonary valve is normal in structure. Moderate pulmonic regurgitation. Great Vessels The aortic root is normal in size. The ascending aorta is normal in size. IVC is dilated and collapses <50% with inspiration. Pericardium There is no pericardial effusion. <Conclusion> There is normal LV segmental wall motion. Mild concentric left ventricular hypertrophy. LVEF is 65%. Right ventricle is dilated and mildy hypokinetic. Both atria are severely dilated. Focal aortic leaflet calcification involving the noncoronary cusp leaflet. Mild to moderate aortic regurgitation, no stenosis. Heavily calcified mitral leaflets, moderate mitral annular calcification. Restricted mitral leaflet motion, severe mitral stenosis (Mean pressure gradient 20mmHg. Peak of 38mmHg). Moderate mitral regurgitation. Moderate to severe tricuspid regurgitation. Pulmonary artery pressure greater than 100mmHg. There is no pericardial effusion. <ELECTRONICALLY SIGNED> By: Markus Ott MD, [facility] 05/30/20933 3 3 Markus Ott MD, FACC /INF
--- NOTE | 2020-05-30 10:59 | NUR ---
Patient with recent dc from hospital in April/2020. She discharged home with HH care. Met with patient. She resides at home with gson and spouse. All needs on one level, she uses a walker and has a cane and shower chair. She does not have home oxygen. She reports she stopped HH care but they report they are still on service. HH care is [facility]/NADJAS RN, PT,OT and SW. Prev dtr reports she will not allow post acute care with COVID as they cannot see patient and not wanting to be at a place with COVID virus cont. Tenative plan for home with HH at [place].
--- NOTE | 2020-05-30 17:15 | NUR ---
PT CARE ASSUMED APPROX 0700. ASSESSMENT CHARTED. PT DENIES SOA OR N/V. REPORTS ADEQUATE PAIN MANAGEMENT OF GENERALIZED AND LLE PAIN. BP SLIGHLTY ELEVATED EARLIER AND POC CHANGED WERE MADE. PT'S BP HAS IMPROVED. VITAL SIGNS OTHERWISE STABLE. CLINICAL UPDATE GIVEN TO PT'S DAUGHTER SAV. SHE DENIED QUESTIONS OR CONCERNS REGARDING POC WELL PT. PT TOLERATING POC. NO DISTRESS NOTED.
--- NOTE | 2020-05-31 04:19 | NUR ---
Assumed pt care at 1900. Pt is sleeping but arosuable. No sign of distress noted in pt. Verbalizes pain. Pain med administered as needed. Fall precaution in place. Assessment completed and documented. Pt is alert and oriented. Scheduled meds administered to pt. No acute events overnight. Continue to monitor. No further needs at this time
[2020-05-31 05:39] VITALS: BP 180/56
[2020-05-31 05:49] LABS: CALCIUM 8.9 mg/dL (8.5-10.1); CREATININE 1.5 mg/dL (0.6-1.0); POTASSIUM 3.6 mmol/L (3.5-5.1)
[2020-05-31 07:30] VITALS: BP 169/59
--- NOTE | 2020-05-31 08:14 | EKG ---
[facility] [place] [address] ELECTROCARDIOGRAM REPORT Name: LEIDY ADAMES Room #: 215-P ADM IN M.R.#: [id number] Admission: 05/29/20 Attend Phys: Samantha Oh MD Discharge: Date of : 49 Report #: [id number] THIS REPORT FOR: cc: Jamaal Cho MD, Mark S. MD Couchonnal, Luis F. MD ~ THIS REPORT FOR: //name// [facility] ED Test Date: 2020-05-29 Test Time: 21:01:50 Pat Name: LEIDY ADAMES Department: Room: [facility] Gender: F Sap Administrator: [facility] : 1945 Requested By: Jono Guillory Order Number: [id number] MD: Howard Nguyen Measurements Intervals [place] Rate: 90 P: 34 [place]: 151 QRS: 131 QRSD: 141 T: 29 QT: 421 QTc: 515 Interpretive Statements Sinus rhythm Left atrial enlargement RBBB and LPFB Compared to ECG 04/25/2020 13:14:36 Atrial abnormality now present Electronically Signed On 05-31-2020 8:14:15 CDT by Howard Nguyen [email or web address] <ELECTRONICALLY SIGNED> By: Howard Nguyen MD 05/31/20813 00 00 Howard Nguyen MD /EPI
[2020-05-31 11:15] VITALS: BP 150/48
[2020-05-31 16:35] VITALS: BP 163/52
--- NOTE | 2020-05-31 20:51 | NUR ---
RECEIVED PT'S CARE AROUND 0725; PT. ON BED; ALERT; DURING AM ASSESSMENT PT. AOX2; SBP ELEVATED SCHEDULED MEDICATION GIVEN; AM MEDICATION GIVEN; EDUCATED ABOUT FALL PRECAUTIONS; ST. UNDERSTANDING; UP TO CHAIR WITH PT.; SR ON THE MONITOR; ASSESSMENT CHARGED; FOLLOWING POC; WILL PASS ON REPORT;
[2020-05-31 20:54] VITALS: BP 163/61
[2020-06-01 00:32] VITALS: BP 168/62
--- NOTE | 2020-06-01 03:16 | NUR ---
ASSESSMENTS CHARTED, MEDS CHARTED GIVEN. PATIENT RESTING IN BED DURING SHIFT. SLEEPING MOST OF THE SHIFT UNLESS WOKEN UP. SR W/ BBB ON TELEMETRY, ON ROOM AIR, ACCU CHECK ACHS 92 AT HS, NO COVERAGE NEEDED. DENIED PAIN. PATIENT ON [facility] THERAPY PLAN OF CARE INCLUDES GOING HOME TODAY. FALL PRECAUTIONS IN PLACE DURING SHIFT.
[2020-06-01 05:28] VITALS: BP 177/60
[2020-06-01 07:45] VITALS: BP 160/67
[2020-06-01 08:11] LABS: HEMATOCRIT 32.9 % (37.0-47.0); HEMOGLOBIN 10.9 gm/dL (12.0-15.0); MCH 33.1 pg (26.0-34.0); MCV 100.3 fL (80.0-100.0); RBC 3.28 mil/uL (4.20-5.00); RDW 15.2 % (10.5-14.5); WBC 4.3 thou/uL (4.0-11.0)
[2020-06-01 08:14] LABS: CALCIUM 9.3 mg/dL (8.5-10.1); CREATININE 1.5 mg/dL (0.6-1.0); POTASSIUM 3.7 mmol/L (3.5-5.1)
[2020-06-01] MEDS ORDERED: LASIX 40 MG TAB40 M1 PO (11:00)
[2020-06-01] MEDS ORDERED: AMLODIPINE BESY10 MG PO (11:00)
[2020-06-01] MEDS ORDERED: ACETAMINOPHEN325 M1 PO (11:00)
[2020-06-01] MEDS ORDERED: HYDRALAZINE 2525 MG PO (11:00)
[2020-06-01] MEDS ORDERED: KLOR-CON 1010 MEQ PO (11:00)
[2020-06-01 11:11] VITALS: BP 160/67
--- NOTE | 2020-06-01 11:14 | NUR ---
Dc to home today [facility] and dc summary and instructions faxed to intake. Pt's family to provide transport. Physician concerns regarding frequent hospital admissions discussed with the HH provider and RECTIFYING ATTENDANT recommended as well as close nursing mngt for medications and cardio pulmonary monitoring.
[2020-06-01 13:53] VITALS: BP 160/67
--- NOTE | 2020-06-01 14:57 | NUR ---
ASSUMED CARE OF PT AT SHIFT CHANGE. ASSESSMENTS CHARTED. MEDS GIVEN PER DEC. PT A&OX4, NO C/O PAIN OR SOA. DISCHARGE ORDERS AND INSTRUCTIONS COMPLETE. IV AND TELE DC'D. STAFF TOOK PT OUT VIA WHEELCHAIR TO ER ENTRANCE TO WAITING DAUGHTER IN PRIVATE CAR.
== END 2020-06-01 13:56 | disposition home health service (06) | DRG 291 ==
LOC: ER 20:53 → EROBS 23:42 → 2N 23:42
PROVIDERS: Emergency Medicine; Nurse Practitioner; Nurse Practitioner Family; ADMIT Hospitalist; ATTEND Hospitalist
DX: I13.0 Hypertensive heart and chronic kidney disease with heart failure and stage 1 through stage 4 chronic kidney disease, or unspecified chronic kidney disease (principal); I50.33 Acute on chronic diastolic (congestive) heart failure; J96.21 Acute and chronic respiratory failure with hypoxia; N17.9 Acute kidney failure, unspecified; R07.9 Chest pain, unspecified; E11.9 Type 2 diabetes mellitus without complications; I25.10 Atherosclerotic heart disease of native coronary artery without angina pectoris; J44.9 Chronic obstructive pulmonary disease, unspecified; F41.9 Anxiety disorder, unspecified; E78.5 Hyperlipidemia, unspecified; I27.20 Pulmonary hypertension, unspecified; F03.90 Unspecified dementia, unspecified severity, without behavioral disturbance, psychotic disturbance, mood disturbance, and anxiety; E11.51 Type 2 diabetes mellitus with diabetic peripheral angiopathy without gangrene; E03.9 Hypothyroidism, unspecified; I25.119 Atherosclerotic heart disease of native coronary artery with unspecified angina pectoris; N18.9 Chronic kidney disease, unspecified; I08.3 Combined rheumatic disorders of mitral, aortic and tricuspid valves; M62.84 Sarcopenia; K21.9 Gastro-esophageal reflux disease without esophagitis; G47.00 Insomnia, unspecified; E53.8 Deficiency of other specified B group vitamins; G40.409 Other generalized epilepsy and epileptic syndromes, not intractable, without status epilepticus; F32.9 Major depressive disorder, single episode, unspecified; Z88.8 Allergy status to other drugs, medicaments and biological substances; Z95.1 Presence of aortocoronary bypass graft; Z98.42 Cataract extraction status, left eye; Z79.4 Long term (current) use of insulin; Z98.41 Cataract extraction status, right eye; Z87.891 Personal history of nicotine dependence; Z83.3 Family history of diabetes mellitus; Z82.49 Family history of ischemic heart disease and other diseases of the circulatory system; Z90.711 Acquired absence of uterus with remaining cervical stump; Z86.73 Personal history of transient ischemic attack (TIA), and cerebral infarction without residual deficits; I25.2 Old myocardial infarction; Z88.1 Allergy status to other antibiotic agents; Z88.0 Allergy status to penicillin; Z80.3 Family history of malignant neoplasm of breast; Z80.8 Family history of malignant neoplasm of other organs or systems; Z79.52 Long term (current) use of systemic steroids; E11.22 Type 2 diabetes mellitus with diabetic chronic kidney disease; Z86.718 Personal history of other venous thrombosis and embolism
CPT/HCPCS: 10081

== ENCOUNTER 2020-06-12 11:55 | Emergency (ER) | payer OTHER ==
[~2020-06-12] VITALS: Ht 157.5 cm; Wt 54.4 kg
[~2020-06-12 11:55] MED LIST changes: +HYDRALAZINE 2525 MG PO; +KLOR-CON 1010 MEQ PO
[2020-06-12 12:52] LABS: HEMATOCRIT 32.4 % (37.0-47.0); HEMOGLOBIN 10.8 gm/dL (12.0-15.0); MCH 33.3 pg (26.0-34.0); MCHC 33.4 g/dL (28.0-37.0); MCV 99.5 fL (80.0-100.0); PLATELET COUNT 258 thou/uL (150-400); RBC 3.26 mil/uL (4.20-5.00); WBC 8.2 thou/uL (4.0-11.0)
[2020-06-12 13:05] LABS: ANION GAP 10 mmol/L (7-16); BUN 23 mg/dL (7-18); CALCIUM 8.3 mg/dL (8.5-10.1); CHLORIDE 108 mmol/L (98-107); CO2 24 mmol/L (21-32); CREATININE 1.3 mg/dL (0.6-1.0); GLUCOSE 86 mg/dL (74-106); POTASSIUM 4.7 mmol/L (3.5-5.1); SODIUM 142 mmol/L (136-145)
[2020-06-12 13:15] LABS: ALBUMIN 3.1 g/dL (3.4-5.0); SGOT 19 U/L (15-37); SGPT 9 U/L (30-65); TOTAL BILIRUBIN 0.6 mg/dL (0.2-1.0); TOTAL PROTEIN 7.7 g/dL (6.4-8.2); TROPONIN-I <0.06 ng/mL (<0.06)
[2020-06-12 13:55] LABS: ABSOLUTE NEUTROPHILS 6.2 thou/uL (1.4-8.2); PLATELET ESTIMATE NORMAL
[2020-06-12] MEDS ORDERED: NAPROXEN375 MG PO (14:00)
[2020-06-12 14:22] VITALS: BP 159/68
--- NOTE | 2020-06-12 16:39 | EKG ---
[facility] [place] [address] ELECTROCARDIOGRAM REPORT Name: LEIDY ADAMES Room #: DEP [facility].#: [id number] Admission: 06/12/20 Attend Phys: Discharge: 06/12/20 Date of : 49 Report #: [id number] THIS REPORT FOR: cc: Jamaal Cho MD, Mark S. MD Lundgren, Craig H. MD [facility] ~ THIS REPORT FOR: //name// [facility] ED Test Date: 2020-06-12 Test Time: 11:58:33 Pat Name: LEIDY ADAMES Department: Room: Gender: F Orthotic/Prosthetic Practitioner: [facility] : 1945 Requested By: Russell Carpenter Order Number: [id number] MD: Markus Ott Measurements Intervals [place] Rate: 64 P: 41 [place]: 161 QRS: 87 QRSD: 147 T: 51 QT: 451 QTc: 466 Interpretive Statements Sinus rhythm Right bundle branch block Compared to ECG 05/29/2020 21:01:50 No significant change was found Electronically Signed On 06-12-2020 16:39:49 CDT by Markus Ott [email or web address] <ELECTRONICALLY SIGNED> By: Markus Ott MD, FAC 06/12/20 1639 1158 1158 Markus Ott MD, [facility] /EPI
== END 2020-06-12 14:22 | disposition home or self-care (01) ==
LOC: ER 11:55
PROVIDERS: Emergency Medicine
DX: R07.89 Other chest pain (principal); I20.8 Other forms of angina pectoris; I11.0 Hypertensive heart disease with heart failure; I50.9 Heart failure, unspecified; E11.9 Type 2 diabetes mellitus without complications; G43.909 Migraine, unspecified, not intractable, without status migrainosus; J44.9 Chronic obstructive pulmonary disease, unspecified; E78.5 Hyperlipidemia, unspecified; Z86.2 Personal history of diseases of the blood and blood-forming organs and certain disorders involving the immune mechanism; Z79.01 Long term (current) use of anticoagulants; Z79.82 Long term (current) use of aspirin; Z79.899 Other long term (current) drug therapy; Z87.891 Personal history of nicotine dependence; Z88.0 Allergy status to penicillin; Z88.1 Allergy status to other antibiotic agents; Z88.5 Allergy status to narcotic agent; Z88.8 Allergy status to other drugs, medicaments and biological substances

== ENCOUNTER 2020-07-16 04:08 | Emergency (ER) | payer OTHER ==
[~2020-07-16] VITALS: Ht 157.5 cm; Wt 54.4 kg
[~2020-07-16 04:08] MED LIST changes: +NAPROXEN375 MG PO
[2020-07-16 05:00] LABS: ABSOLUTE NEUTROPHILS 4.5 thou/uL (1.4-8.2); BASOPHILS 1.1 % (0.0-2.0); EOSINOPHILS 0.7 % (0.0-3.0); HEMOGLOBIN 9.5 gm/dL (12.0-15.0); MCH 32.4 pg (26.0-34.0); MCHC 32.7 g/dL (28.0-37.0); MCV 99.2 fL (80.0-100.0); MONOCYTES 11.6 % (1.0-8.0); PLATELET COUNT 243 thou/uL (150-400); POLYS 71.6 % (36.0-66.0); RBC 2.93 mil/uL (4.20-5.00); RDW 14.6 % (10.5-14.5); WBC 6.3 thou/uL (4.0-11.0)
[2020-07-16 05:07] LABS: CALCIUM 8.5 mg/dL (8.5-10.1); CREATININE 1.3 mg/dL (0.6-1.0); POTASSIUM 4.9 mmol/L (3.5-5.1)
[2020-07-16 05:16] LABS: ALBUMIN 3.2 g/dL (3.4-5.0); MAGNESIUM 1.9 mg/dL (1.8-2.4); TOTAL BILIRUBIN 0.4 mg/dL (0.2-1.0); TOTAL PROTEIN 8.1 g/dL (6.4-8.2); TROPONIN-I 0.11 ng/mL (<0.06)
[2020-07-16] MEDS ORDERED: LEVOTHYROXINE75 MCG PO (06:36)
[2020-07-16] MEDS ORDERED: HYDRALAZINE 2525 M1 PO (06:43)
[2020-07-16 07:13] VITALS: BP 148/59
--- NOTE | 2020-07-16 07:29 | EKG ---
[facility] [place] [address] ELECTROCARDIOGRAM REPORT Name: LEIDY ADAMES Room #: DEP [facility].#: [id number] Admission: 07/16/20 Attend Phys: Discharge: 07/16/20 Date of : 49 Report #: [id number] THIS REPORT FOR: cc: Jamaal Cho MD, Mark S. MD Lundgren, Craig H. MD [facility] ~ THIS REPORT FOR: //name// [facility] ED Test Date: 2020-07-16 Test Time: 04:12:48 Pat Name: LEIDY ADAMES Department: Room: Gender: F Fur Stretcher: Emiliano SANCHEZ RN : 1945 Requested By: Russell Carpenter Order Number: [id number] MD: Markus Ott Measurements Intervals [place] Rate: 81 P: 73 [place]: 156 QRS: 93 QRSD: 134 T: 10 QT: 426 QTc: 495 Interpretive Statements Sinus rhythm RBBB and LPFB Compared to ECG 06/12/2020 11:58:33 No significant change was found Electronically Signed On 07-16-2020 7:28:51 CDT by Markus Ott [email or web address] <ELECTRONICALLY SIGNED> By: Markus Ott MD, FACC 07/16/20 0728 0412 0412 Markus Ott MD, [facility] /EPI
== END 2020-07-16 07:14 | disposition home or self-care (01) ==
LOC: ER 04:08
PROVIDERS: Emergency Medicine
DX: R07.89 Other chest pain (principal); I10 Essential (primary) hypertension; G89.29 Other chronic pain; M79.669 Pain in unspecified lower leg; I20.8 Other forms of angina pectoris; G43.909 Migraine, unspecified, not intractable, without status migrainosus; J44.9 Chronic obstructive pulmonary disease, unspecified; G40.909 Epilepsy, unspecified, not intractable, without status epilepticus; F41.9 Anxiety disorder, unspecified; E78.5 Hyperlipidemia, unspecified; F03.90 Unspecified dementia, unspecified severity, without behavioral disturbance, psychotic disturbance, mood disturbance, and anxiety; E11.51 Type 2 diabetes mellitus with diabetic peripheral angiopathy without gangrene; I25.2 Old myocardial infarction; Z86.73 Personal history of transient ischemic attack (TIA), and cerebral infarction without residual deficits; Z86.718 Personal history of other venous thrombosis and embolism; Z79.899 Other long term (current) drug therapy; Z79.82 Long term (current) use of aspirin; Z88.8 Allergy status to other drugs, medicaments and biological substances; Z88.0 Allergy status to penicillin; Z88.2 Allergy status to sulfonamides; Z88.1 Allergy status to other antibiotic agents; Z87.891 Personal history of nicotine dependence; Z98.61 Coronary angioplasty status

== ENCOUNTER 2020-07-26 09:35 | Emergency (ER) | payer OTHER ==
[~2020-07-26] VITALS: Ht 157.5 cm; Wt 61.2 kg
[~2020-07-26 09:35] MED LIST changes: +DEMADEX20 MG PO; +HYDRALAZINE 2525 M1 PO; +LEVOTHYROXINE75 MCG PO
[2020-07-26 11:11] LABS: HEMATOCRIT 25.8 % (37.0-47.0); HEMOGLOBIN 8.2 gm/dL (12.0-15.0); MCH 31.8 pg (26.0-34.0); MCHC 31.9 g/dL (28.0-37.0); MCV 99.6 fL (80.0-100.0); RBC 2.58 mil/uL (4.20-5.00); RDW 14.5 % (10.5-14.5); WBC 9.4 thou/uL (4.0-11.0)
[2020-07-26 11:17] LABS: ANION GAP 12 mmol/L (7-16); BUN 53 mg/dL (7-18); CALCIUM 8.8 mg/dL (8.5-10.1); CHLORIDE 104 mmol/L (98-107); CO2 23 mmol/L (21-32); CREATININE 2.3 mg/dL (0.6-1.0); GLUCOSE 89 mg/dL (74-106); SODIUM 139 mmol/L (136-145)
[2020-07-26 11:18] LABS: POTASSIUM 4.7 mmol/L (3.5-5.1)
[2020-07-26 11:39] LABS: TROPONIN-I <0.06 ng/mL (<0.06)
[2020-07-26 12:33] LABS: PLATELET COUNT 265 thou/uL (150-400); PLATELET ESTIMATE NORMAL
[2020-07-26 12:34] LABS: ABSOLUTE NEUTROPHILS 6.9 thou/uL (1.4-8.2)
[2020-07-26 13:09] LABS: CALCIUM 8.3 mg/dL (8.5-10.1); CREATININE 2.2 mg/dL (0.6-1.0); POTASSIUM 4.3 mmol/L (3.5-5.1)
[2020-07-26 14:08] VITALS: BP 172/86
--- NOTE | 2020-07-26 14:16 | EKG ---
[facility] [place] [address] ELECTROCARDIOGRAM REPORT Name: LEIDY ADAMES Room #: DEP [facility]#: [id number] Admission: 07/26/20 Attend Phys: Discharge: 07/26/20 Date of : 49 Report #: [id number] THIS REPORT FOR: cc: Jamaal Cho MD, Mark S. MD Santiago, Patrick MD [facility] ~ THIS REPORT FOR: //name// [facility] ED Test Date: 2020-07-26 Test Time: 11:06:49 Pat Name: LEIDY ADAMES Department: Room: Gender: F Jewel Supervisor: esheets : 1945 Requested By: Denny Winston Order Number: [id number] MD: Jim Griffith Measurements Intervals [place] Rate: 64 P: 47 MT: 175 QRS: 88 QRSD: 126 T: 1 QT: 455 QTc: 470 Interpretive Statements Sinus rhythm Short MT with pre-exitation pattern Compared to ECG 07/16/2020 04:12:48 Left posterior fascicular block no longer present Electronically Signed On 07-26-2020 14:16:42 CDT by Jim Griffith [email or web address] <ELECTRONICALLY SIGNED> By: Jim Griffith MD, FACC 07/26/20 1416 1106 1106 Jim Griffith MD, FAC /EPI
== END 2020-07-26 14:08 | disposition home or self-care (01) ==
LOC: ER 09:35
PROVIDERS: Emergency Medicine
DX: R07.9 Chest pain, unspecified (principal); N17.9 Acute kidney failure, unspecified; I11.0 Hypertensive heart disease with heart failure; I50.9 Heart failure, unspecified; E11.9 Type 2 diabetes mellitus without complications; J44.9 Chronic obstructive pulmonary disease, unspecified; E78.5 Hyperlipidemia, unspecified; I25.10 Atherosclerotic heart disease of native coronary artery without angina pectoris; Z95.1 Presence of aortocoronary bypass graft; Z79.82 Long term (current) use of aspirin; Z79.01 Long term (current) use of anticoagulants; Z79.899 Other long term (current) drug therapy; Z87.891 Personal history of nicotine dependence; Z88.0 Allergy status to penicillin; Z88.2 Allergy status to sulfonamides; Z88.1 Allergy status to other antibiotic agents; Z88.8 Allergy status to other drugs, medicaments and biological substances

== ENCOUNTER 2020-07-28 12:31 | Inpatient (IN) | payer OTHER ==
[~2020-07-28] VITALS: Ht 157.5 cm; Wt 55.5 kg
[2020-07-28 12:34] VITALS: BP 140/50
[2020-07-28 13:30] LABS: MCH 31.8 pg (26.0-34.0)
[2020-07-28 13:32] LABS: BASOPHILS 1.2 % (0.0-2.0); EOSINOPHILS 1.8 % (0.0-3.0); HEMATOCRIT 31.7 % (37.0-47.0); LYMPHOCYTES 13.3 % (24.0-44.0); MCHC 32.1 g/dL (28.0-37.0); MONOCYTES 10.4 % (1.0-8.0); PLATELET COUNT 259 thou/uL (150-400); POLYS 73.3 % (36.0-66.0); RDW 14.5 % (10.5-14.5); WBC 6.8 thou/uL (4.0-11.0)
[2020-07-28 13:33] LABS: ANION GAP 10 mmol/L (7-16); BUN 50 mg/dL (7-18); CALCIUM 8.7 mg/dL (8.5-10.1); CHLORIDE 106 mmol/L (98-107); CO2 26 mmol/L (21-32); CREATININE 2.4 mg/dL (0.6-1.0); GLUCOSE 121 mg/dL (74-106); HEMOGLOBIN 10.2 gm/dL (12.0-15.0); POTASSIUM 5.2 mmol/L (3.5-5.1); SODIUM 142 mmol/L (136-145)
[2020-07-28 13:42] LABS: TROPONIN-I <0.06 ng/mL (<0.06)
[2020-07-28 15:52] VITALS: BP 165/60
[2020-07-28 16:50] VITALS: BP 143/52
--- NOTE | 2020-07-28 17:11 | NUR ---
ASSUMED CARE OF PT APPROX 1700 DELIVERED BY ED. WALKS WITHOUT ANY ASSISTIVE DEVICE AT HOME, YET W/C AND WALKER AT HOME IF NEEDED. BLE 3+, WASNT SOA MOVING AT THIS TIME YET WAS EARLIER IN ED. ENCOURAGED PT TO USE CALL LIGHT FOR ANY NEEDS. SEE SEPARATE INTERVENTIONS FOR ASSESSMENTS, CARDIAC MONITORED. PT IN GOOD SPIRITS. WILL CONTINUE TO MONITOR
[2020-07-28 17:32] VITALS: BP 166/71
[2020-07-28 20:00] VITALS: BP 180/62
--- NOTE | 2020-07-29 02:16 | NUR ---
ASSUMED CARE OF PATIENT AT 1900. AROUND 0100 PATIENT C/O CHEST PAIN. NOTIFIED MACHINE HOSE CUTTER. COMPLETED EKG. NO CHANGES FROM EARLIER EKG. PATIENT REQUESTED NITROGLYCERIN. OBTAINED ORDER FROM MACHINE HOSE CUTTER FOR SUBLINGUAL NITRO. AFTER 2 TABS PATIENT REPORTED RELIEF. NO FURTHER REPORTS OF CHEST PAIN AT THIS POINT. WILL CONTINUE TO MONITOR.
[2020-07-29 04:05] VITALS: BP 176/57
[2020-07-29 06:08] LABS: HEMATOCRIT 29.5 % (37.0-47.0); HEMOGLOBIN 9.6 gm/dL (12.0-15.0); MCH 32.4 pg (26.0-34.0); MCHC 32.6 g/dL (28.0-37.0); MCV 99.4 fL (80.0-100.0); RBC 2.96 mil/uL (4.20-5.00); RDW 14.7 % (10.5-14.5); WBC 5.4 thou/uL (4.0-11.0)
[2020-07-29 06:14] LABS: CALCIUM 8.3 mg/dL (8.5-10.1); CREATININE 1.6 mg/dL (0.6-1.0)
[2020-07-29 07:00] VITALS: BP 185/73
--- NOTE | 2020-07-29 07:58 | NUR ---
ASSUMED CARE OF PT AT SHIFT CHANGE, AMB W/SBA TO BSC, USES WALKER, W/C AT HOME FOR LONG DISTANCES. A&0X4, TRIBE, IS NOT IMPULSIVE, CALLS FREQUENTLY, ENCOURAGED HER TO CALL FOR ANY NEEDS. SEE SEPARATE INTERVENTIONS FOR ASSESSMENTS. REPORTS OF CP THRU NIGHT, DIAGNOSTICS DONE. WILL CONTINUE TO MONITOR
--- NOTE | 2020-07-29 11:14 | EKG ---
[facility] [place] [address] ELECTROCARDIOGRAM REPORT Name: LEIDY ADAMES Room #: 218-P ADM IN M.R.#: [id number] Admission: 07/28/20 Attend Phys: Lorne Saravia MD Discharge: Date of : 49 Report #: [id number] THIS REPORT FOR: cc: Jamaal Cho MD, Mark S. MD Lundgren, Craig H. MD [facility] ~ THIS REPORT FOR: //name// [facility] ED Test Date: 2020-07-28 Test Time: 12:46:23 Pat Name: LEIDY ADAMES Department: Room: 218 Gender: F Anesthesiology Fellow: ERICK : 1945 Requested By: Kirill Solano Order Number: [id number] MD: Markus Ott Measurements Intervals [place] Rate: 68 P: 54 MO: 156 QRS: 98 QRSD: 132 T: 25 QT: 435 QTc: 463 Interpretive Statements Sinus rhythm Probable left atrial enlargement Right bundle branch block Compared to ECG 07/26/2020 11:06:49 No significant change was found Electronically Signed On 07-29-2020 11:14:02 CDT by Markus Ott [email or web address] <ELECTRONICALLY SIGNED> By: Markus Ott MD, FACC 07/29/20 1114 1246 1246 Markus Ott MD, [facility] /EPI
[2020-07-29 11:46] VITALS: BP 151/54
[2020-07-29 12:04] LABS: URINE BILIRUBIN NEGATIVE (Negative); URINE BLOOD NEGATIVE (Negative); URINE CLARITY CLEAR; URINE COLOR YELLOW; URINE GLUCOSE-RANDOM* NEGATIVE (Negative); URINE KETONES NEGATIVE (Negative); URINE LEUKOCYTES NEGATIVE (Negative); URINE NITRITE NEGATIVE (Negative); URINE PROTEIN (DIPSTICK) NEGATIVE (Negative); URINE UROBILINOGEN 0.2 E.U./dl (0.2-1.0)
--- NOTE | 2020-07-29 15:05 | NUR ---
PT CALLED TO SAY SHE FELT CHEST PAIN THEN WHEN GIVING NITRO AND TOLD ABOUT STAT LAB DRAW SHE SMILED AND JOKED ABOUT 'WHAT ARE THEY DOING WITH ALL THE BLOOD?'. WILL CALL CARDIOLOGY WITH ALL RESULTS ONCE COMPLETED AND TO ASK IF THEY NEED FURTHER DIAGNOSTICS OR CALLS SHOULD THIS ONE BE NEGATIVE WELL. PLACED 02 FOR CONSERVATION ON HEART ENERGY, SATS 95% ROOM AIR. PT IN GOOD SPIRITS AND SITTING UP AT THE SIDE OF THE BED. WILL CONTINUE TO MONITOR
--- NOTE | 2020-07-29 15:23 | NUR ---
SOON THE NEGATIVE EGK WAS DONE, PT C/O CHEST PAIN AGAIN. ENCOURAGED HER WITH HER DEEP SLOW BREATHING AND LET HER KNOW IT'S RESULTS AND WED LET PHYSICIAN KNOW OF HER LAB RESULTS AND ASK FOR SOMETHING FOR HER PAIN WELL, SHE LAUGHED AND TALKED ABOUT THE MYSTERY SHOW SHE WAS WATCHING YET ALSO DID EXHALE LIKE SHE WAS IN PAIN
[2020-07-29 16:28] VITALS: BP 124/46
[2020-07-29 21:05] VITALS: BP 131/62
--- NOTE | 2020-07-30 02:47 | NUR ---
ASSUMED CARE OF PATIENT AT 1900. PATIENT C/O PAIN IN LOWER EXTREMETIES, INITIALLY RATING IT 8/10. ADMINISTERED PRN PAIN MEDICATION ORDERED. PATIENT DENIES CHEST PAIN AT ASSESSMENTS. PATIENT CONTINUES TO USE 2L OF OXYGEN FOR COMFORT. 2+ EDEMA OBSERVED IN BILATERAL FEET. SKIN ON FEET DRY AND STARTING TO CRACK. APPLIED SKIN REPAIR TO FEET AND ADVISED PATIENT TO KEEP FEET ELEVATED MUCH POSSIBLE.
[2020-07-30 03:58] VITALS: BP 156/56
[2020-07-30 04:31] LABS: CALCIUM 8.5 mg/dL (8.5-10.1); CREATININE 1.5 mg/dL (0.6-1.0); POTASSIUM 3.9 mmol/L (3.5-5.1)
--- NOTE | 2020-07-30 07:31 | EKG ---
[facility] [place] [address] ELECTROCARDIOGRAM REPORT Name: LEIDY ADAMES Room #: 218-P ADM IN M.R.#: [id number] Admission: 07/28/20 Attend Phys: Lorne Saravia MD Discharge: Date of : 49 Report #: [id number] THIS REPORT FOR: cc: Jamaal Cho MD, Mark S. MD Santiago, Patrick MD [facility] ~ THIS REPORT FOR: //name// [facility] Test Date: 2020-07-29 Test Time: 15:15:04 Pat Name: LEIDY ADAMES Department: Room: 218 P Gender: F Padder: [facility] : 1945 Requested By: Jules Garcia Order Number: [id number] MD: Jim Griffith Measurements Intervals [place] Rate: 80 P: 71 IA: 158 QRS: 85 QRSD: 127 T: 38 QT: 429 QTc: 495 Interpretive Statements Sinus rhythm Probable left atrial enlargement Right bundle branch block Compared to ECG 07/28/2020 12:46:23 No significant changes Electronically Signed On 07-30-2020 7:31:37 CDT by Jim Griffith [email or web address] <ELECTRONICALLY SIGNED> By: Jim Griffith MD, FACC 07/30/20 0731 1515 1515 Jim Griffith MD, FAC /EPI
--- NOTE | 2020-07-30 08:57 | EKG ---
[facility] [place] [address] ELECTROCARDIOGRAM REPORT Name: LEIDY ADAMES Room #: 218-P ADM IN M.R.#: [id number] Admission: 07/28/20 Attend Phys: Lorne Saravia MD Discharge: Date of : 49 Report #: [id number] THIS REPORT FOR: cc: Jamaal Cho MD, Mark S. MD Lundgren, Craig H. MD [facility] ~ THIS REPORT FOR: //name// [facility] Test Date: 2020-07-30 Test Time: 07:50:40 Pat Name: LEIDY ADAMES Department: Room: 218 Gender: F 1St Pressman On Web Press: EDILSON : 1945 Requested By: Markus Ott Order Number: [id number] MD: Markus Ott Measurements Intervals [place] Rate: 65 P: 64 [place]: 159 QRS: 89 QRSD: 130 T: 37 QT: 456 QTc: 475 Interpretive Statements Sinus rhythm Probable left atrial enlargement Right bundle branch block Compared to ECG 07/29/2020 15:15:04 No significant changes Electronically Signed On 07-30-2020 8:57:11 CDT by Markus Ott [email or web address] <ELECTRONICALLY SIGNED> By: Markus Ott MD, [facility] 07/30/20 0857 0750 0750 Markus Ott MD, [facility] /EPI
--- NOTE | 2020-07-30 11:05 | EKG ---
[facility] [place] [address] ELECTROCARDIOGRAM REPORT Name: LEIDY ADAMES Room #: 218-P ADM IN M.R.#: [id number] Admission: 07/28/20 Attend Phys: Lorne Saravia MD Discharge: Date of : 49 Report #: [id number] THIS REPORT FOR: cc: Jamaal Cho MD, Mark S. MD Couchonnal, Luis F. MD ~ THIS REPORT FOR: //name// [facility] Test Date: 2020-07-29 Test Time: 00:53:34 Pat Name: LEIDY ADAMES Department: Room: 218 P Gender: F Music Therapist: PATIENCE : 1945 Requested By: Lorne Saravia Order Number: [id number] MD: Howard Nguyen Measurements Intervals [place] Rate: 68 P: 60 MO: 160 QRS: 82 QRSD: 131 T: 6 QT: 470 QTc: 500 Interpretive Statements Sinus rhythm Probable left atrial enlargement Right bundle branch block Compared to ECG 07/28/2020 12:46:23 No significant changes Electronically Signed On 07-30-2020 11:05:12 CDT by Howard Nguyen [email or web address] <ELECTRONICALLY SIGNED> By: Howard Nguyen MD 07/30/20 1105 0053 0053 Howard Nguyen MD /EPI
[2020-07-30 11:41] VITALS: BP 110/42
[2020-07-30 12:31] VITALS: BP 133/51
--- NOTE | 2020-07-30 16:42 | NUR ---
ASSUMED CARE PT SHIFT CHANGE. ASSESSMENTS CHARTED. MEDS GIVEN PER DEC. PT ALERT AND ORIENTED. VSS. C/O PAIN IN BILAT LOWER EXTRM MANAGED WITH PO PAIN MEDS. DENIES CP THIS SHIFT. PT UP WITH PHYS THERAPY TOLERATING WELL. PT GETS UP TO COMMODE WITH ASSIST TOLERATING WELL. O2 SATS WNL ON ROOM AIR. FAMILY UPDATED ON POC. PT CURRENTLY USING COMMODE WITH ASSISTANCE FROM TOOL AND DIE DESIGNER. WILL CONT TO MONITOR PT AND FOLLOW POC. WILL PASS ON REPORT TO JAIME WAGNER.
[2020-07-30 17:09] VITALS: BP 127/42
[2020-07-30 20:55] VITALS: BP 125/45
[2020-07-31 04:45] VITALS: BP 130/46
[2020-07-31 05:31] LABS: CALCIUM 8.6 mg/dL (8.5-10.1); CREATININE 1.9 mg/dL (0.6-1.0); POTASSIUM 4.5 mmol/L (3.5-5.1)
--- NOTE | 2020-07-31 05:40 | NUR ---
PT RESTING QUIETLY IN ROOM, VSS, NO C/O CP BUT DID C/O LEG PAIN AND PRN PAIN MEDS GIVEN NEEDED, UP WITH ASST TO COMMODE, HOPES TO GO HOME TODAY, WILL CON'T TO MONITOR PER PPOC.
[2020-07-31 08:15] VITALS: BP 144/64
[2020-07-31] MEDS ORDERED: IMDUR 30 MG TAB30 M1 PO (10:23)
[2020-07-31 10:53] VITALS: BP 144/64
--- NOTE | 2020-07-31 11:34 | NUR ---
Patient familiar to casemgt. Patient resides at home with spouse and grandson. Dtr Ramila assists as needed. Prev dtr does not want skilled care due to COVID virus. Therapy evals in process with recommendation of home with HH care. Patient agreeable to HH [facility] prev used. Faxed dc orders and referral packet.
--- NOTE | 2020-07-31 13:45 | NUR ---
patient admits from [facility]. She admits with abd pain/elevated troponin. Patient is confused cannot recall how she came to hospital. Her sister Deborah called in room to speak with her and reports to casemgt she is confused. Reviewed role of casemgt with Deborah. Niece also called. Patient dializes MWF at [facility]. Updated dialysis clinic and [facility]. 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
[2020-07-31 13:47] VITALS: BP 128/47
[2020-07-31 14:31] VITALS: BP 144/64
--- NOTE | 2020-07-31 18:09 | NUR ---
ASSUMED CARE OF PT AT SHIFT CHANGE. ASSESSMENTS CHARTED. MEDS GIVEN PER DEC. PT A&OX4, NO C/0 PAIN. DISCHARGE ORDERS AND INSTRUCTIONS COMLETE. IV AND TELE DC'D. THIS NURSE TOOK PT TO ER ENTRANCE VIA WHEELCHAIR TO GRANDSON IN WAITING CAR.
== END 2020-07-31 14:46 | disposition home health service (06) | DRG 291 ==
LOC: ER 12:31 → EROBS 14:14 → 2N 14:14
PROVIDERS: Internal Medicine; Nurse Practitioner; ADMIT Hospitalist; ATTEND Hospitalist
DX: I13.0 Hypertensive heart and chronic kidney disease with heart failure and stage 1 through stage 4 chronic kidney disease, or unspecified chronic kidney disease (principal); I50.33 Acute on chronic diastolic (congestive) heart failure; N17.9 Acute kidney failure, unspecified; I05.0 Rheumatic mitral stenosis; I25.708 Atherosclerosis of coronary artery bypass graft(s), unspecified, with other forms of angina pectoris; I25.10 Atherosclerotic heart disease of native coronary artery without angina pectoris; J44.9 Chronic obstructive pulmonary disease, unspecified; F41.9 Anxiety disorder, unspecified; E78.5 Hyperlipidemia, unspecified; I27.20 Pulmonary hypertension, unspecified; E11.51 Type 2 diabetes mellitus with diabetic peripheral angiopathy without gangrene; E11.22 Type 2 diabetes mellitus with diabetic chronic kidney disease; N18.9 Chronic kidney disease, unspecified; Z60.2 Problems related to living alone; E03.9 Hypothyroidism, unspecified; M32.9 Systemic lupus erythematosus, unspecified; E55.9 Vitamin D deficiency, unspecified; R53.81 Other malaise; F32.9 Major depressive disorder, single episode, unspecified; G40.909 Epilepsy, unspecified, not intractable, without status epilepticus; G47.00 Insomnia, unspecified; F03.90 Unspecified dementia, unspecified severity, without behavioral disturbance, psychotic disturbance, mood disturbance, and anxiety; Z86.73 Personal history of transient ischemic attack (TIA), and cerebral infarction without residual deficits; I25.2 Old myocardial infarction; Z95.5 Presence of coronary angioplasty implant and graft; Z86.718 Personal history of other venous thrombosis and embolism; Z79.4 Long term (current) use of insulin; Z98.42 Cataract extraction status, left eye; Z90.711 Acquired absence of uterus with remaining cervical stump; Z98.41 Cataract extraction status, right eye; Z95.828 Presence of other vascular implants and grafts; Z88.1 Allergy status to other antibiotic agents; Z88.0 Allergy status to penicillin; Z88.2 Allergy status to sulfonamides; Z88.8 Allergy status to other drugs, medicaments and biological substances; Z87.891 Personal history of nicotine dependence; Z95.2 Presence of prosthetic heart valve; Z82.49 Family history of ischemic heart disease and other diseases of the circulatory system; Z95.1 Presence of aortocoronary bypass graft; Z86.711 Personal history of pulmonary embolism; Z79.82 Long term (current) use of aspirin; Z79.899 Other long term (current) drug therapy; Z23 Encounter for immunization
CPT/HCPCS: 10081

== ENCOUNTER → 2020-08-30 | Outpatient (CLI) | payer OTHER | LOC: ULTRA 08-10 15:16 | PROVIDERS: ATTEND Internal Medicine | DX: K76.0 Fatty (change of) liver, not elsewhere classified (principal); N63.0 Unspecified lump in unspecified breast ==

== ENCOUNTER 2020-10-15 14:00 | Inpatient (IN) | payer OTHER ==
[~2020-10-15] VITALS: Ht 157.5 cm; Wt 53.3 kg
[2020-10-15 14:08] VITALS: BP 180/78
[2020-10-15 15:14] LABS: URINE BILIRUBIN NEGATIVE (Negative); URINE BLOOD NEGATIVE (Negative); URINE CLARITY CLEAR; URINE COLOR YELLOW; URINE GLUCOSE-RANDOM* NEGATIVE (Negative); URINE KETONES NEGATIVE (Negative); URINE LEUKOCYTES-REFLEX NEGATIVE (Negative); URINE NITRITE-REFLEX NEGATIVE (Negative); URINE PROTEIN (DIPSTICK) 3+ (Negative); URINE SPECIFIC GRAVITY 1.015 (1.005-1.035)
[2020-10-15 15:27] LABS: CASTS None Seen /LPF (None Seen); CRYSTALS None Seen /LPF (None Seen); SQUAMOUS 0-3 Few /LPF (0-3)
[2020-10-15 15:28] LABS: URINE WBC-REFLEX 0-5 Rare /HPF (0-5)
[2020-10-15 15:29] LABS: BACTERIA-REFLEX 1-9 Few /HPF (None Seen); URINE RBC 0-2 Rare /HPF (0-2)
[2020-10-15 15:39] LABS: ABSOLUTE NEUTROPHILS 7.9 thou/uL (1.4-8.2); BASOPHILS 0.5 % (0.0-2.0); EOSINOPHILS 0.6 % (0.0-3.0); HEMOGLOBIN 10.6 gm/dL (12.0-15.0); LYMPHOCYTES 8.4 % (24.0-44.0); MCH 31.1 pg (26.0-34.0); MCHC 32.1 g/dL (28.0-37.0); MCV 96.9 fL (80.0-100.0); MONOCYTES 12.7 % (1.0-8.0); PLATELET COUNT 261 thou/uL (150-400); POLYS 77.8 % (36.0-66.0); RDW 16.1 % (10.5-14.5); WBC 10.1 thou/uL (4.0-11.0)
[2020-10-15 15:45] LABS: CALCIUM 8.9 mg/dL (8.5-10.1); CREATININE 1.6 mg/dL (0.6-1.0); POTASSIUM 3.8 mmol/L (3.5-5.1)
[2020-10-15 15:52] LABS: ALBUMIN 3.2 g/dL (3.4-5.0); TOTAL PROTEIN 9.4 g/dL (6.4-8.2)
[2020-10-15 15:59] LABS: APTT 32.6 Seconds (24.5-32.8); INR 1.2
--- NOTE | 2020-10-15 16:04 | EKG ---
[place] [address] [facility] [place] [address] ELECTROCARDIOGRAM REPORT Name: LEIDY ADAMES Room #: [facility]#: [id number] Admission: 10/15/20 Attend Phys: Discharge: Date of : 49 Report #: [id number] [facility] ED Test Date: 2020-10-15 Test Time: 15:18:05 Pat Name: LEIDY ADAMES Department: Room: Gender: F Automatic Grinder Operator: ARMIDA : 1945 Requested By: Rick Reinoso Order Number: [id number] MD: Jim Griffith Measurements Intervals [place] Rate: 85 P: 36 [place]: 167 QRS: 137 QRSD: 147 T: 50 QT: 410 QTc: 488 Interpretive Statements Sinus rhythm Right bundle branch block Compared to ECG 07/30/2020 07:50:40 No significant changes Electronically Signed On 10-15-2020 16:04:05 3RD GRADE TEACHER by Jim Griffith [email or web address] <ELECTRONICALLY SIGNED> By: Jim Griffith MD, [facility] 10/15/20 1604 1518 1518 Jim Griffith MD, FACC /EPI
[2020-10-15 22:19] VITALS: BP 160/74
[2020-10-15 22:20] VITALS: BP 160/74
[2020-10-15 22:34] VITALS: BP 186/86
[2020-10-15 23:19] VITALS: BP 179/71
[2020-10-16 00:43] LABS: BE(vivo) 0.1 mmol/L (-2 to +3); HCO3 22.5 mmol/L (22.0-26.0); PCO2 29.3 mmHg (35.0-45.0); PO2 74.4 mmHg (80.0-100.0); pH 7.503 (7.360-7.450); sO2 96.2 % (92.0-98.0)
--- NOTE | 2020-10-16 03:04 | NUR ---
PT ADMOTTED FROM THE ER AT 2245 WITH C/O FEVER,WEAKNESS,DEHYDRATION,X2DAYS .PT HAS SLURRY SPEECH.PT IS A/O X3.PT IS ON BEDREST.PT HAS A VARELA CATHETER IN PLACE.PT WAS COVID NEGATIVE.PT WAS ABLE TO TAKE MEDICATIONS WHOLE WITH THIN LIQUID.PT IS ACCUCHECK ACHS WITH LOW SLIDING SCALE INSULIN.PT IS ON TELE WITH NSR.PT C/O LLE WITH TYLENOL FOR PAIN MANAGEMENT.WILL CONTINUE TO MONITOR
[2020-10-16 07:00] LABS: BASOPHILS 0.2 % (0.0-2.0); EOSINOPHILS 0.7 % (0.0-3.0); HEMATOCRIT 37.5 % (37.0-47.0); HEMOGLOBIN 12.1 gm/dL (12.0-15.0); LYMPHOCYTES 2.8 % (24.0-44.0); MCH 31.8 pg (26.0-34.0); MCHC 32.3 g/dL (28.0-37.0); MCV 98.5 fL (80.0-100.0); MONOCYTES 4.8 % (1.0-8.0); PLATELET COUNT 223 thou/uL (150-400); POLYS 91.5 % (36.0-66.0); RBC 3.81 mil/uL (4.20-5.00); RDW 15.6 % (10.5-14.5); WBC 7.7 thou/uL (4.0-11.0)
[2020-10-16 07:10] LABS: CALCIUM 8.9 mg/dL (8.5-10.1); CREATININE 1.6 mg/dL (0.6-1.0); POTASSIUM 3.6 mmol/L (3.5-5.1)
[2020-10-16 07:11] LABS: MAGNESIUM 1.7 mg/dL (1.8-2.4)
[2020-10-16 08:12] VITALS: BP 153/68
--- NOTE | 2020-10-16 10:45 | 2DMMODE ---
[facility] [place] [address] 2 D/M-MODE ECHOCARDIOGRAM Name: LEIDY ADAMES Room #: 453-P ADM IN M.R.#: [id number] Admission: 10/15/20 Attend Phys: Duane Muhammad MD Discharge: Date of : 49 Report #: [id number] THIS REPORT FOR: cc: Jamaal Cho MD, Mark S. MD Park, Jin S. MD ~ APPROVED REPORT Study performed: 10/16/2020 09:45:51 EXAM: Comprehensive 2D, Doppler, and color-flow Echocardiogram Patient Location: Bedside Room #: [facility] Status: routine BSA: 1.52 HR: 96 bpm BP: 153/68 mmHg Rhythm: RBBB Other Information Study Quality: Good Indications Congestive Heart Failure Pulmonary Hypertension Dyspnea Hx: MV replacement, CABG, stents, CVA, COPD, PVD, HTN, DM. 2D Dimensions RVDd: 51.44 mm IVSd: 11.08 (7-11mm) LVOT Diam: 18.96 (18-24mm) LVDd: 40.66 mm PWd: 9.18 (7-11mm) LVDs: 27.26 (25-40mm) Aortic Root: 30.64 mm Volumes Left Atrial Volume (Systole) Single Plane 4CH: 87.05 mL Single Plane 2CH: 90.30 mL LA ESV Index: 64.00 mL/m2 Aortic Valve AoV Peak Justice.: 1.53 m/s AO Peak Gr.: 9.30 mmHg LVOT Max P.[address] [facility] [address] [place] [address] 2 D/M-MODE ECHOCARDIOGRAM Name: LEIDY ADAMES Room #: 453-P ADM IN M.R.#: [id number] Admission: 10/15/20 Attend Phys: Duane Muhammad MD Discharge: Date of : 49 Report #: [id number] LVOT Max V: 1.22 m/s NATALIE Vmax: 2.25 cm2 AI Vmax: 4.30 m/s AI [place]: 4.57 m/s2 AI PHT: 272.60 ms Mitral Valve MV Decel. Time: 218.42 ms MV PHT: 63.34 ms MVA (PHT): 3.46 cm2 IVRT: 43.83 ms Pulmonary Valve PV Peak Justice.: 1.07 m/s PV Peak Gr.: 4.57 mmHg Tricuspid Valve TR Peak Justice.: 4.70 m/s RAP Estimate: 10.00 mmHg TR Peak Gr.: 89.00 mmHg PA Pressure: 99.00 mmHg Left Ventricle The left ventricle is normal size. There is normal LV segmental wall motion. Paradoxical septal motion consistent with conduction abnormality. Mild concentric left ventricular hypertrophy. The left ventricular systolic function is normal. The left ventricular ejection fraction is within the normal range. LVEF is 65-70%. Moderate diastolic dysfunction is present. Right Ventricle Right ventricle is moderately dilated and mildly hypokinetic. Atria Left atrium is severely dilated. Right atrium is moderately dilated. Aortic Valve Focal aortic leaflet calcification on the noncoronary cusp. (Unchanged from pervious echo 05/2020). Mild aortic regurgitation. There is no aortic valvular stenosis. Mitral Valve History of bioprosthetic mitral valve replacment. Leaflets and annulus are heavily calcfied with resticted leaflet motion. Severe mitral stenosis. Peak gradient of 27mmHg and mean gradient of 15mmHg. Moderate mitral regurgitation. [facility] [place] [address] 2 D/M-MODE ECHOCARDIOGRAM Name: LEIDY ADAMES Room #: 453-P ADM IN M.R.#: [id number] Admission: 10/15/20 Attend Phys: Duane Muhammad MD Discharge: Date of : 49 Report #: [id number] Tricuspid Valve The tricuspid valve is normal in structure. Severe tricuspid regurgitation. Estimated PAP is 100mmHg. Great Vessels The aortic root is normal in size. The ascending aorta is normal in size. IVC is dilated and collapses <50% with inspiration. Pericardium There is no pericardial effusion. <Conclusion> The left ventricle is normal size. Mild concentric left ventricular hypertrophy. The left ventricular systolic function is normal. Right ventricle is moderately dilated and mildly hypokinetic. Left atrium is severely dilated. Focal aortic leaflet calcification on the noncoronary cusp. (Unchanged from pervious echo 05/2020). Mild aortic regurgitation. History of bioprosthetic mitral valve replacment. Leaflets and annulus are heavily calcfied with resticted leaflet motion. Severe mitral stenosis. Peak gradient of 27mmHg and mean gradient of 15mmHg. Severe tricuspid regurgitation. Estimated PAP is 100mmHg. <ELECTRONICALLY SIGNED> By: Ki Gimenez MD 10/16/20 1045 1045 1045 Ki Gimenez MD /INF
--- NOTE | 2020-10-16 14:38 | NUR ---
PT ADMITTED RELATED TO CHF, DVT, PUI. CM REVIEWED CHART AND SPOKE WITH CARE TEAM. CM ATTEMPTED TO VISIT WITH PT AT BEDSIDE BUT SHE WAS SLEEPING. CM CALLED PT'S DTR AND SHE INDICATED THAT PT HAD BEEN LIVING IN A HOUSE WITH HER SPOUSE AND GSON. SHE INDICATED THAT PT HAD BEEN [facility]CHAR[facility] [place]. PT HAD BEEN ON SERVICES WITH [facility] ELEVATOR EXAMINER. PT HAS A FWW AND A WC FOR HOME USE. NO HOME O2 OR HOSPITAL BED. CM INDICATED THAT CARE TEAM AND CARDIOLOGY GROUP WERE RECOMMENDING PT FOR FOR SKILLED POST ACUTE CARE STAY UPON DC. DTR INDICATED THEY WEREN'T RECEPTIVE TO THAT AND THAT THEY WANTED PT TO RETURN HOME WITH RESUMPTION OF HH SERVICES ONCE MEDICALLY STABLE. DTR ASKED ABOUT GETTING HOSPITAL BED FOR HOME USE. CM INDICATED THAT PT WOULD NEED CERTAIN DX AND TO MEET CERTAIN CRITERIA TO HAVE [facility] FOR HOME BUT THAT CM WOULD LOOK INTO IF PT MIGHT QUALIFY. CM SPOKE ASKED IF PT HAD ANY HCBS AND SHE INDICATED SHE DIDN'T BUT THAT SHE WAS AWARE OF THE WAIVER PROGRAM. CM TO FOLLOW INDICATED WITH DC PLANNING. PT WAS TO HAVE VQ SCAN AND AN ECHO.
[2020-10-16 17:51] VITALS: BP 145/60
--- NOTE | 2020-10-16 19:28 | NUR ---
Assumed pt care this am, vs stable. FC in place patent drainig light yellow urine. Blood sugar moniroting done, poor appetite noted. Small freqent meals and hydration done through out the shift. On telemetry running NSR. POC followed with no signs or verbalizations of distress noted. Refused Q2 turn but allowed Q4 instead. Endorsed to the night nurse.
[2020-10-16 19:30] VITALS: BP 115/50
--- NOTE | 2020-10-17 07:44 | NUR ---
Assumed pt care at 1900. A/OX3,forgetulness noted but able to make needs known. Blood sugar on the lower side at HS,apple juice given and effective,pt with poor appetite and refusing to eat. C/o generalized pain allover 05/21,Alysha METAL FORGER'S ASSISTANT notified and gave orders for Butner 5/325mg,pt verbalized relief afterwards. Lovelace in place to DD with yellow urine in place. SR on telemetry. Fall precautions in place.
[2020-10-17 08:05] VITALS: BP 119/44
[2020-10-17] MEDS ORDERED: CARVEDILOL25 MG PO (10:50)
[2020-10-17] MEDS ORDERED: XARELTO15 MG PO (10:59)
[2020-10-17] MEDS ORDERED: LEVOFLOXACIN750 MG PO (10:59)
[2020-10-17 11:09] LABS: CALCIUM 8.6 mg/dL (8.5-10.1); POTASSIUM 3.6 mmol/L (3.5-5.1)
[2020-10-17 11:13] LABS: CREATININE 2.8 mg/dL (0.6-1.0)
[2020-10-17 12:14] VITALS: BP 119/44
[2020-10-17 12:26] VITALS: BP 119/44
--- NOTE | 2020-10-17 13:47 | NUR ---
WENT TO WALK THE PATIENT TO DETERMINE OXYGE NEEDS. AT THIS TIME THE PT TOLD ME THAT SHE WAS NOT FEELING UP TO WALKING. I STATED THAT WE NEEDED HER TO WALK WITH ME THAT SHE WAS BEING DISCHARGED. PT STILL REFUSED. I LET HER NURSE MIA KNOW.
[2020-10-17 13:52] VITALS: BP 119/44
--- NOTE | 2020-10-17 14:19 | NUR ---
PT DISCHARGING TODAY TO HOME WITH [facility] FAXED DC ORDERS/SUMMARY SPOKE WITH BLANCA IN INTAKE SHE RECEIVED ORDERS AND WILL ARRANGE VISITS WITH PT.
[2020-10-17] MEDS ORDERED: OXYGEN MISCELL (15:03)
[2020-10-17 15:50] VITALS: BP 121/58
--- NOTE | 2020-10-17 15:58 | NUR ---
CARE TEAM INDICATED THAT PT IS MEDICALLY STABLE TO DISCHARGE HOME THIS DAY. CM SPOKE WITH PT'S DTR AND INDICATED THAT CM HIS WORKING TO ORDER HOSPITAL BED AND HOME O2 FOR USE UPON DC. [facility] IS AWARE AND AGREEABLE TO ACCEPT PT FOR SERVICES UPON DC TODAY. [facility] CAN PROVIDE O2 AND HOSPITAL BED. PORTABLE TANK TO BE DELIVERED THIS EVENING. HOSPITAL BED TO BE DELIVED SOON AVAIABLE. FAMILY IS TO PROVIDE TRANSPORT HOME ONCE O2 HAS ARRIVED.
[2020-10-17 18:05] VITALS: BP 119/44
--- NOTE | 2020-10-17 18:37 | NUR ---
Assumed pt care at 7am.Pt in bed very lethargic but arouseable.Assisted with tray setup.Poor appetite noted.OT and PT assisted pt with adl's.Dr Saravia here, dc order noted.residential care facility manager arranged for home o2 via [employer] and was delivered at 1730.Pt family to pick remover pt at shift change.Dc summary compile and reviewed with family.Saline lock dc'd.Pt will be dc with son at shift change.Will continue to monitor.
== END 2020-10-17 19:00 | disposition home health service (06) | DRG 291 ==
LOC: ER 14:00 → 4W 18:01 → EROBS 18:01 → 4W 22:36
PROVIDERS: Emergency Medicine; Nurse Practitioner; ADMIT Internal Medicine; ATTEND Internal Medicine
DX: I13.0 Hypertensive heart and chronic kidney disease with heart failure and stage 1 through stage 4 chronic kidney disease, or unspecified chronic kidney disease (principal); J96.21 Acute and chronic respiratory failure with hypoxia; I50.43 Acute on chronic combined systolic (congestive) and diastolic (congestive) heart failure; J18.9 Pneumonia, unspecified organism; I82.411 Acute embolism and thrombosis of right femoral vein; N17.9 Acute kidney failure, unspecified; I82.431 Acute embolism and thrombosis of right popliteal vein; I69.351 Hemiplegia and hemiparesis following cerebral infarction affecting right dominant side; J44.0 Chronic obstructive pulmonary disease with (acute) lower respiratory infection; I08.0 Rheumatic disorders of both mitral and aortic valves; G43.909 Migraine, unspecified, not intractable, without status migrainosus; E78.5 Hyperlipidemia, unspecified; G40.909 Epilepsy, unspecified, not intractable, without status epilepticus; F03.90 Unspecified dementia, unspecified severity, without behavioral disturbance, psychotic disturbance, mood disturbance, and anxiety; E11.51 Type 2 diabetes mellitus with diabetic peripheral angiopathy without gangrene; I27.20 Pulmonary hypertension, unspecified; E11.22 Type 2 diabetes mellitus with diabetic chronic kidney disease; N18.9 Chronic kidney disease, unspecified; F41.1 Generalized anxiety disorder; M06.9 Rheumatoid arthritis, unspecified; E03.9 Hypothyroidism, unspecified; I25.119 Atherosclerotic heart disease of native coronary artery with unspecified angina pectoris; F32.9 Major depressive disorder, single episode, unspecified; R63.4 Abnormal weight loss; Z20.822 Contact with and (suspected) exposure to COVID-19; Z98.41 Cataract extraction status, right eye; Z90.711 Acquired absence of uterus with remaining cervical stump; Z88.1 Allergy status to other antibiotic agents; Z88.2 Allergy status to sulfonamides; Z95.828 Presence of other vascular implants and grafts; Z79.4 Long term (current) use of insulin; Z95.1 Presence of aortocoronary bypass graft; Z98.42 Cataract extraction status, left eye; Z95.2 Presence of prosthetic heart valve; I25.2 Old myocardial infarction; Z95.820 Peripheral vascular angioplasty status with implants and grafts; Z88.0 Allergy status to penicillin; Z88.8 Allergy status to other drugs, medicaments and biological substances; Z87.891 Personal history of nicotine dependence; Z86.711 Personal history of pulmonary embolism; Z79.52 Long term (current) use of systemic steroids; Z79.82 Long term (current) use of aspirin; Z79.899 Other long term (current) drug therapy; I69.328 Other speech and language deficits following cerebral infarction; Z82.49 Family history of ischemic heart disease and other diseases of the circulatory system; Z68.21 Body mass index [BMI] 21.0-21.9, adult; Z79.01 Long term (current) use of anticoagulants
CPT/HCPCS: 10045

== ENCOUNTER 2020-10-25 21:45 | Inpatient (IN) | payer OTHER ==
[~2020-10-25] VITALS: Ht 157.5 cm; Wt 46.8 kg
[~2020-10-25 21:45] MED LIST changes: +CARVEDILOL25 MG PO; +LEVOFLOXACIN750 MG PO; +OXYGEN MISCELL; +XARELTO15 MG PO
[2020-10-25 21:48] VITALS: BP 144/48
[2020-10-25 22:29] LABS: ABSOLUTE NEUTROPHILS 6.4 thou/uL (1.4-8.2); BASOPHILS 1.1 % (0.0-2.0); EOSINOPHILS 1.9 % (0.0-3.0); HEMATOCRIT 30.3 % (37.0-47.0); HEMOGLOBIN 9.7 gm/dL (12.0-15.0); LYMPHOCYTES 11.5 % (24.0-44.0); MCHC 31.9 g/dL (28.0-37.0); MCV 97.3 fL (80.0-100.0); MONOCYTES 7.3 % (1.0-8.0); PLATELET COUNT 278 thou/uL (150-400); POLYS 78.2 % (36.0-66.0); RBC 3.12 mil/uL (4.20-5.00); RDW 16.2 % (10.5-14.5); WBC 8.2 thou/uL (4.0-11.0)
[2020-10-25 22:50] LABS: ALBUMIN 2.8 g/dL (3.4-5.0); AMYLASE 88 U/L (25-115); ANION GAP 7 mmol/L (7-16); BUN 27 mg/dL (7-18); CHLORIDE 104 mmol/L (98-107); CO2 26 mmol/L (21-32); CREATININE 1.6 mg/dL (0.6-1.0); DIRECT BILIRUBIN < 0.1 mg/dL (<0.1-0.2); GLUCOSE 106 mg/dL (74-106); LIPASE 100 U/L (73-393); MAGNESIUM 1.5 mg/dL (1.8-2.4); SGOT 27 U/L (15-37); SGPT 10 U/L (14-59); SODIUM 137 mmol/L (136-145); TOTAL BILIRUBIN 0.6 mg/dL (0.2-1.0); TOTAL PROTEIN 8.7 g/dL (6.4-8.2); TROPONIN-I <0.06 ng/mL (<0.06)
[2020-10-25 22:52] LABS: POTASSIUM 6.8 mmol/L (3.5-5.1)
[2020-10-25 23:40] LABS: CALCIUM 8.9 mg/dL (8.5-10.1); CREATININE 1.8 mg/dL (0.6-1.0)
[2020-10-25 23:46] LABS: ALBUMIN 2.8 g/dL (3.4-5.0); TOTAL BILIRUBIN 0.4 mg/dL (0.2-1.0); TOTAL PROTEIN 8.3 g/dL (6.4-8.2)
[2020-10-26] VITALS (8 sets, daily range): BP systolic 115–184; BP diastolic 41–67
[2020-10-26 00:09] LABS: POTASSIUM 5.1 mmol/L (3.5-5.1)
[2020-10-26 00:31] LABS: URINE BILIRUBIN NEGATIVE (Negative); URINE BLOOD NEGATIVE (Negative); URINE CLARITY CLEAR; URINE COLOR YELLOW; URINE GLUCOSE-RANDOM* NEGATIVE (Negative); URINE KETONES NEGATIVE (Negative); URINE LEUKOCYTES-REFLEX TRACE (Negative); URINE NITRITE-REFLEX NEGATIVE (Negative); URINE PROTEIN (DIPSTICK) 2+ (Negative); URINE SPECIFIC GRAVITY 1.025 (1.005-1.035); URINE UROBILINOGEN 0.2 E.U./dl (0.2-1.0)
[2020-10-26] MEDS ORDERED: XARELTO15 MG PO (00:48)
[2020-10-26] MEDS ORDERED: FUROSEMIDE 40 M40 M1 PO (00:52)
[2020-10-26 00:55] LABS: BACTERIA-REFLEX 1-9 Few /HPF (None Seen); CRYSTALS None Seen /LPF (None Seen); HYALINE CASTS >10 Many /LPF (None Seen); MUCUS 0-3 Light strn/LPF (None Seen); SQUAMOUS >10 Many /LPF (0-3); URINE RBC 0-2 Rare /HPF (0-2); WBC CLUMPS Few (None Seen)
[2020-10-26] MEDS ORDERED: CARVEDILOL12.5 MG PO (01:00)
[2020-10-26] MEDS ORDERED: AMLODIPINE BESY10 MG PO (01:01)
[2020-10-26] MEDS ORDERED: OMEPRAZOLE40 MG PO (01:01)
--- NOTE | 2020-10-26 03:13 | NUR ---
0130 ADMITTED FROM ER PER CART. ORIENTED TO SELF, SITUATION AND PLACE, FORGETFUL WITH TIME/DATE. ADMISSION PROCESS COMPLETED. DENIES PRESENT 031 COMPLAINTS OF SHORTNESS OF AIR OR CHEST PAIN. SOA WITH ACTIVITY. REMAINS ON 2L/NC PER AT HOME. WORKING ON GOALS AND PLAN OF CARE FOR NOC. DISCUSSED CASE WITH COSMETICS DEMONSTRATOR. ORDERS RECIEVED. CONTINUE TO ASSES CLOSELY.
--- NOTE | 2020-10-26 13:03 | EKG ---
[address] [place] [address] ELECTROCARDIOGRAM REPORT Name: LEIDY ADAMES Room #: 205- ADM IN M.R.#: [id number] Admission: 10/26/20 Attend Phys: Lorne Saravia MD Discharge: Date of : 49 Report #: [id number] [facility] ED Test Date: 2020-10-25 Test Time: 21:55:57 Pat Name: LEIDY ADAMES Department: Room: 205 Gender: F Clerical Order Filler: SELENE : 1945 Requested By: Leo Sherwood Order Number: [id number] MD: Jim Griffith Measurements Intervals [place] Rate: 74 P: 51 ND: 169 QRS: 97 QRSD: 127 T: 15 QT: 426 QTc: 473 Interpretive Statements Sinus rhythm Left atrial enlargement Right bundle branch block Compared to ECG 10/15/2020 15:18:05 Atrial abnormality now present Electronically Signed On 10-26-2020 13:03:02 MACARONI PRESS OPERATOR by Jim Griffith [email or web address] <ELECTRONICALLY SIGNED> By: Jim Griffith MD, [facility] 10/26/20 1303 54 54 Jim Griffith MD, FACC /EPI
--- NOTE | 2020-10-26 13:06 | NUR ---
WOUND CONSULT; THE PATIENT HAS A SINGLE STITCH ON HER RIGHT SECOND TOE. THE INSCISION LINE IS STABLE. NO S/S OF INFECTION. RECOMMENDATION; PAINT WITH BETADINE DAILY. NO NEED TO FOLLOW THIS PATIENT. DISCUSSED WITH KRISTY
--- NOTE | 2020-10-26 17:29 | NUR ---
Case opened. Pt known to cm from frequent admissions. [facility]. She has home o2 in place per [employer] as well as a hospital bed. The pt lives with her spouse and gson. Dtr Ramila very involved. Pt recently here and refused snf referral. Pt diuresing. No weekend dc anticipated. Will ask for therapy evals and reasses on Thursday. Dc plan at this time is home with resumption of hh at dc.
--- NOTE | 2020-10-26 19:31 | NUR ---
ASSUMED CARE PT SHIFT CHANGE. ASSESSMENT CHARTED.MEDS GIVEN PER DEC. VSS. C/O CHEST PAIN MANAGED WITH SUBLING NITRO X1 WITH RELIEF. FAMILY UPDATED ONPOC. PT WORKED WITH PHYS THERAPY TOLERATIGN WELL. O2 SATS WNL 2L. PLAN FOR PT DC HOME WHEN MEDICALLY STABLE. PT CURRENTLY IN NAP DENYING NEEDS. CONTINUING TO MONITOR AND FOLLOW POC. REPORT PASSED ONTO JAIME RN.
[2020-10-27 00:03] VITALS: BP 124/38
[2020-10-27 03:57] LABS: ANION GAP 10 mmol/L (7-16); BUN 35 mg/dL (7-18); CALCIUM 8.5 mg/dL (8.5-10.1); CHLORIDE 103 mmol/L (98-107); CO2 25 mmol/L (21-32); POTASSIUM 4.6 mmol/L (3.5-5.1); SODIUM 138 mmol/L (136-145); TROPONIN-I <0.06 ng/mL (<0.06)
[2020-10-27 03:59] LABS: CREATININE 2.8 mg/dL (0.6-1.0)
[2020-10-27 04:00] VITALS: BP 144/41
[2020-10-27 04:01] LABS: GLUCOSE 85 mg/dL (74-106)
--- NOTE | 2020-10-27 04:16 | NUR ---
Assumed pt care at 1900. Pt is alert and oriented. No sign of distress noted in pt. Pt continues verbalize chest pain. One dose of nitroglycerin administered. Fall precaution in place. Assessment completed and documented. Scheduled meds administered to pt. No acute events overnight. Continue to monitor. No further needs at this time.
[2020-10-27 07:50] VITALS: BP 146/52
[2020-10-27 08:30] LABS: HEMATOCRIT 27.7 % (37.0-47.0); HEMOGLOBIN 9.1 gm/dL (12.0-15.0); MCH 31.5 pg (26.0-34.0); MCHC 32.7 g/dL (28.0-37.0); MCV 96.2 fL (80.0-100.0); RBC 2.88 mil/uL (4.20-5.00); RDW 15.5 % (10.5-14.5); WBC 6.4 thou/uL (4.0-11.0)
[2020-10-27 16:35] VITALS: BP 116/41
--- NOTE | 2020-10-27 18:24 | NUR ---
PT IS ORIENTED X4, BUT APPEARS SLEEPY/DROWSY. PT STATES SHE HAS CHEST PAIN ONLY WHEN HER CHEST IS PRESSED ON. DR CONSULTED. VARELA CATH PLACED FOR STRICT I&Os. PT HAS VOICED A HEADACHE IN AM, BUT DENIED PAIN BY END OF SHIFT. POC IS TO CONTINUE TO MONITOR BLOOD PRESSURE, STRICT I&Os. FALL PRECAUTIONS IN PLACE. NO CONCERNS AT THIS TIME.
[2020-10-27 19:40] VITALS: BP 119/39
[2020-10-28 03:13] LABS: ABSOLUTE NEUTROPHILS 4.7 thou/uL (1.4-8.2); BASOPHILS 1.2 % (0.0-2.0); EOSINOPHILS 3.4 % (0.0-3.0); HEMATOCRIT 28.4 % (37.0-47.0); HEMOGLOBIN 9.1 gm/dL (12.0-15.0); MCH 31.7 pg (26.0-34.0); MCHC 32.2 g/dL (28.0-37.0); MCV 98.5 fL (80.0-100.0); PLATELET COUNT 216 thou/uL (150-400); POLYS 71.4 % (36.0-66.0); RBC 2.88 mil/uL (4.20-5.00); RDW 15.8 % (10.5-14.5); WBC 6.6 thou/uL (4.0-11.0)
[2020-10-28 03:46] LABS: ALBUMIN 2.5 g/dL (3.4-5.0); CALCIUM 8.4 mg/dL (8.5-10.1); CREATININE 3.5 mg/dL (0.6-1.0); MAGNESIUM 1.5 mg/dL (1.8-2.4); PHOSPHORUS 4.1 mg/dL (2.5-4.9); POTASSIUM 4.7 mmol/L (3.5-5.1); TOTAL BILIRUBIN 0.3 mg/dL (0.2-1.0); TOTAL PROTEIN 7.2 g/dL (6.4-8.2)
[2020-10-28 04:43] VITALS: BP 131/54
[2020-10-28 07:45] VITALS: BP 108/43
--- NOTE | 2020-10-28 08:05 | NUR ---
ASSESSMENTS CHARTED, MEDS CHARTED NEEDED. RESTING IN BED DURING SHIFT. LETHARGIC DURING SHIFT. SINUS RHYTHM WITH BBB ON TELEMETRY. CLR/DIM ON 2 LITERS. PATIENT FREQUENTLY TOOK OXYGEN OFF DURING NIGHT. PATIENT ONLY PUT OUT 150ML OF URINE DURING SHIFT. C/O PAIN 6/10 ONE TIME DURING SHIFT. FALL PRECAUTIONS IN PLACE DURING SHIFT.
[2020-10-28 11:30] VITALS: BP 99/41
[2020-10-28 15:35] VITALS: BP 131/79; BP 137/49
--- NOTE | 2020-10-28 15:44 | NUR ---
PT IS ORIENTED X4, DROWSY. PT HAS POOR APPETITE THIS AM. PT STATED SHE HAD CHEST PAIN, RATING IT AT "8". PT WAS SLEEPING AFTER GIVEN MEDICATION. PT HAS CONTINUED TO HAVE POOR APPETITE, AND CLAIMS SHE STILL HAS CHEST PAIN. PT SEEN BY DR HIGGINBOTHAM, DR OBANDO. PT HAS VARELA CATH TO ASSESS KIDNEY FUNCTION. POC TO DETERMINE I&O, MONITOR BP. PT IS RESTING IN BED. FALL PRECAUTIONS IN PLACE. NO CONCERNS AT THIS TIME.
[2020-10-28 19:29] LABS: CALCIUM 8.9 mg/dL (8.5-10.1); CREATININE 3.2 mg/dL (0.6-1.0); POTASSIUM 4.4 mmol/L (3.5-5.1)
[2020-10-28 20:16] VITALS: BP 126/54
[2020-10-29 03:17] LABS: ABSOLUTE NEUTROPHILS 3.5 thou/uL (1.4-8.2); BASOPHILS 1.7 % (0.0-2.0); EOSINOPHILS 3.2 % (0.0-3.0); HEMATOCRIT 27.1 % (37.0-47.0); HEMOGLOBIN 8.8 gm/dL (12.0-15.0); LYMPHOCYTES 15.2 % (24.0-44.0); MCH 31.6 pg (26.0-34.0); MCHC 32.5 g/dL (28.0-37.0); MCV 97.4 fL (80.0-100.0); MONOCYTES 13.2 % (1.0-8.0); PLATELET COUNT 218 thou/uL (150-400); POLYS 66.7 % (36.0-66.0); RBC 2.78 mil/uL (4.20-5.00); RDW 15.7 % (10.5-14.5); WBC 5.2 thou/uL (4.0-11.0)
[2020-10-29 03:39] LABS: ALBUMIN 2.6 g/dL (3.4-5.0); CALCIUM 8.8 mg/dL (8.5-10.1); MAGNESIUM 1.7 mg/dL (1.8-2.4); PHOSPHORUS 3.9 mg/dL (2.6-4.7); POTASSIUM 4.5 mmol/L (3.5-5.1); TOTAL BILIRUBIN 0.3 mg/dL (0.2-1.0); TOTAL PROTEIN 7.3 g/dL (6.4-8.2)
[2020-10-29 03:55] VITALS: BP 134/38
[2020-10-29 07:55] VITALS: BP 118/48
--- NOTE | 2020-10-29 09:03 | NUR ---
ASSESSMENTS CHARTED, MEDS CHARTED GIVEN. PATIENT RESTING IN BED DURING SHIFT. SR W/ BBB ON TELEMETRY. ON [address] DURING SHIFT. PATIENT NOT EATING MEALS WELL, TENDS TO EAT JUNK FOOD AND NOT HEALTHY FOOD. ASBESTOS MICROSCOPIST CONSULTED. C/O CHEST PAIN. PATIENT GETTING GI COCKTAIL FOR POSSIBLE GI SORCE OF CHEST PAIN. PAIN MEDS HAVE BEEN EXTENDED TO Q8 INSTEAD OF Q4. PATIENT CALLED DAUGHTER AND DURING SHIFT TO COMPLAIN OF PAIN AND THE CURRENT PLAN OF CARE. EDUCATION GIVEN TO PATIENT ABOUT CURRENT PLAN OF CARE.
[2020-10-29 11:45] VITALS: BP 120/42
[2020-10-29 16:10] VITALS: BP 174/71
--- NOTE | 2020-10-29 18:47 | NUR ---
AAOX4. CALM, COOPERATIVE. VOIDING SINCE VARELA DISCONTINUED. SR WITH BBB PER TELE. DENIES CP, SOA. FALL PRECAUTIONS IN PLACE.
[2020-10-29 20:09] VITALS: BP 131/53
[2020-10-30] VITALS (7 sets, daily range): BP systolic 114–162; BP diastolic 34–72
[2020-10-30 05:02] LABS: CALCIUM 8.9 mg/dL (8.5-10.1); CREATININE 2.3 mg/dL (0.6-1.0); POTASSIUM 4.3 mmol/L (3.5-5.1)
--- NOTE | 2020-10-30 08:06 | NUR ---
ASSESSMENTS CHARTED, MEDS CHARTED GIVEN. PATIENT STATED SHE WAS FEELING BETTER, HAVING NO CHEST PAIN AT START OF SHIFT AND THAT THE GI COCKTAILS WERE WORKING. AROUND 0130 SHE AGAIN COMPLAINED OF CHEST PAIN, RECEIVED PAIN MED AND GI COCKTAIL WAS SENT FROM PHARMACY. PATIENT DID NOT COMPLAIN OF ANY MORE PAIN DURING THE SHIFT. PATIENT WAS ABLE TO URINATE POST VARELA REMOVAL. UP TO BSC WITH ASSIST.
--- NOTE | 2020-10-30 14:27 | NUR ---
PT ON SERVICE WITH [facility] PRIOR TO ADM FAXED CLINICAL UPDATE AND DC ORDERS/SUMMARY SPOKE WITH MARCOS SHE RECEIVED ORDERS AND WILL RESUME HH AND WILL ARRANGE VISITS WITH PT.
--- NOTE | 2020-10-30 14:45 | NUR ---
DISCHARGING TO HOME WITH HOME HEALTH. PHONED HER DAUGHTER AND SHE ASKED ABOUT PATIENT'S RENAL FUNCTION AND NON-CARDIAC CHEST PAIN. SHE IS CHALLENGING THE DISCHARGE. DR. LADD CALLED AND ASKED TO SPEAK WITH THE DAUGHTER.
[2020-10-30] MEDS ORDERED: DEMADEX20 MG PO (18:05)
[2020-10-31 03:48] VITALS: BP 163/72
[2020-10-31 07:42] VITALS: BP 140/44
[2020-10-31 08:06] LABS: ALBUMIN 2.5 g/dL (3.4-5.0); CALCIUM 8.8 mg/dL (8.5-10.1); CREATININE 2.1 mg/dL (0.6-1.0); PHOSPHORUS 3.5 mg/dL (2.6-4.7); POTASSIUM 4.4 mmol/L (3.5-5.1)
[2020-10-31 13:50] VITALS: BP 162/72
--- NOTE | 2020-10-31 13:57 | NUR ---
PT DISCHARGING TODAY FAXED UPDATED DC ORDERS/SUMMARY TO [facility] SPOKE WITH BLANCA IN INTAKE SHE RECEIVED ORDERS AND WILL CALL TO ARRANGE VISITS.
--- NOTE | 2020-10-31 19:37 | NUR ---
ASSESSMENT CHARTED - MEDS PER MELINDA - MELVA DIET AND FLUIDS WITH NO CO'S OF NASUEA. PT UP TO THE CHAIR - BSC WITH ASSIST. ACCUCHECK THIS AM - 66 GIVEN MILK AND CRACKERS. SEEN BY PHYS AND OCC THERAPY. NO CO'S OF PAIN - PT HOME THIS AFTERNOON - INSTRUCTION RE HOME MEDS/ CARE AND FOLLOW UP GIVEN TO GRAND DAUGHTER SHE STATED UNDERSTANDING OF INSTRUCTION GIVEN. IV AND MONITOR REMOVED PRIOR TO D/C. PT LEFT INIT VIA WHEEL CHAIR ACCOMPANIED BY STAFF - HOME VIA PVT VEHICLE ACCOMAPNAIED BY GRAD DAUGHTER - NO CO'S AT TIME OF D/C.
== END 2020-10-31 14:57 | disposition home health service (06) | DRG 291 ==
LOC: ER 21:45 → EROBS 10-26 00:35 → 2N 10-26 00:35
PROVIDERS: Emergency Medicine; Internal Medicine; Internal Medicine Nephrology; Nurse Practitioner Family; ADMIT Hospitalist; ATTEND Hospitalist
DX: I13.0 Hypertensive heart and chronic kidney disease with heart failure and stage 1 through stage 4 chronic kidney disease, or unspecified chronic kidney disease (principal); I50.33 Acute on chronic diastolic (congestive) heart failure; J96.21 Acute and chronic respiratory failure with hypoxia; E43 Unspecified severe protein-calorie malnutrition; N17.9 Acute kidney failure, unspecified; I69.351 Hemiplegia and hemiparesis following cerebral infarction affecting right dominant side; K21.9 Gastro-esophageal reflux disease without esophagitis; G43.909 Migraine, unspecified, not intractable, without status migrainosus; J44.9 Chronic obstructive pulmonary disease, unspecified; G40.909 Epilepsy, unspecified, not intractable, without status epilepticus; F41.9 Anxiety disorder, unspecified; E78.5 Hyperlipidemia, unspecified; I27.20 Pulmonary hypertension, unspecified; F03.90 Unspecified dementia, unspecified severity, without behavioral disturbance, psychotic disturbance, mood disturbance, and anxiety; E11.51 Type 2 diabetes mellitus with diabetic peripheral angiopathy without gangrene; E03.9 Hypothyroidism, unspecified; E11.22 Type 2 diabetes mellitus with diabetic chronic kidney disease; D63.8 Anemia in other chronic diseases classified elsewhere; I25.119 Atherosclerotic heart disease of native coronary artery with unspecified angina pectoris; R13.10 Dysphagia, unspecified; F32.9 Major depressive disorder, single episode, unspecified; M06.9 Rheumatoid arthritis, unspecified; N18.32 Chronic kidney disease, stage 3b; I05.0 Rheumatic mitral stenosis; Z95.2 Presence of prosthetic heart valve; Z95.828 Presence of other vascular implants and grafts; Z79.4 Long term (current) use of insulin; Z95.1 Presence of aortocoronary bypass graft; Z98.42 Cataract extraction status, left eye; Z98.41 Cataract extraction status, right eye; Z99.81 Dependence on supplemental oxygen; Z90.710 Acquired absence of both cervix and uterus; I25.2 Old myocardial infarction; Z95.5 Presence of coronary angioplasty implant and graft; Z95.820 Peripheral vascular angioplasty status with implants and grafts; Z88.1 Allergy status to other antibiotic agents; Z88.0 Allergy status to penicillin; Z88.2 Allergy status to sulfonamides; Z88.8 Allergy status to other drugs, medicaments and biological substances; Z87.891 Personal history of nicotine dependence; Z86.711 Personal history of pulmonary embolism; Z79.82 Long term (current) use of aspirin; Z79.899 Other long term (current) drug therapy; Z82.49 Family history of ischemic heart disease and other diseases of the circulatory system; Z86.718 Personal history of other venous thrombosis and embolism
CPT/HCPCS: 10081

== ENCOUNTER 2020-11-12 13:14 | Emergency (ER) | payer OTHER ==
[~2020-11-12] VITALS: Ht 157.5 cm; Wt 54.4 kg
[~2020-11-12 13:14] MED LIST changes: +FUROSEMIDE 40 M40 M1 PO; +OMEPRAZOLE40 MG PO
[2020-11-12 14:43] LABS: HEMATOCRIT 31.7 % (37.0-47.0); HEMOGLOBIN 10.1 gm/dL (12.0-15.0); MCH 31.3 pg (26.0-34.0); MCHC 31.8 g/dL (28.0-37.0); MCV 98.5 fL (80.0-100.0); RBC 3.22 mil/uL (4.20-5.00); RDW 16.4 % (10.5-14.5); WBC 5.1 thou/uL (4.0-11.0)
[2020-11-12 15:04] LABS: ANION GAP 9 mmol/L (7-16); BUN 27 mg/dL (7-18); CALCIUM 8.9 mg/dL (8.5-10.1); CHLORIDE 104 mmol/L (98-107); CO2 24 mmol/L (21-32); CREATININE 2.2 mg/dL (0.6-1.0); GLUCOSE 101 mg/dL (74-106); POTASSIUM 4.6 mmol/L (3.5-5.1); SODIUM 137 mmol/L (136-145)
[2020-11-12 15:09] LABS: ALBUMIN 3.3 g/dL (3.4-5.0); SGOT 21 U/L (15-37); SGPT 12 U/L (30-65); TOTAL BILIRUBIN 0.5 mg/dL (0.2-1.0); TROPONIN-I <0.06 ng/mL (<0.06)
[2020-11-12 19:52] VITALS: BP 182/81
--- NOTE | 2020-11-13 07:19 | EKG ---
[address] [address] [place] [address] ELECTROCARDIOGRAM REPORT Name: LEIDY ADAMES [id number] Admission: 11/12/20 Attend Phys: Discharge: 11/12/20 Date of : 49 Report #: [id number] [facility] ED Test Date: 2020-11-12 Test Time: 13:20:53 Pat Name: LEIDY ADAMES Department: Room: Gender: F Glue Bone Drier: cl : 1945 Requested By: Tom Vallejo Order Number: [id number] MD: Jim Griffith Measurements Intervals [place] Rate: 77 P: 52 MO: 164 QRS: 101 QRSD: 131 T: 29 QT: 446 QTc: 505 Interpretive Statements Sinus rhythm Probable left atrial enlargement Right bundle branch block Compared to ECG 10/25/2020 21:55:57 No significant changes Electronically Signed On 11-13-2020 7:19:29 CLOCK REPAIR TECHNICIAN by Jim Grfifith [email or web address] <ELECTRONICALLY SIGNED> By: Jim Griffith MD, [facility] 11/13/20 0719 1320 1320 Jim Griffith MD, FACC /EPI
== END 2020-11-12 22:25 | disposition home or self-care (01) ==
LOC: ER 13:14
PROVIDERS: Emergency Medicine
DX: I20.9 Angina pectoris, unspecified (principal); R07.89 Other chest pain; G40.909 Epilepsy, unspecified, not intractable, without status epilepticus; I11.0 Hypertensive heart disease with heart failure; I50.9 Heart failure, unspecified; I25.2 Old myocardial infarction; G43.909 Migraine, unspecified, not intractable, without status migrainosus; Z87.891 Personal history of nicotine dependence; Z88.0 Allergy status to penicillin; Z88.2 Allergy status to sulfonamides; Z88.8 Allergy status to other drugs, medicaments and biological substances; Z79.899 Other long term (current) drug therapy; Z86.73 Personal history of transient ischemic attack (TIA), and cerebral infarction without residual deficits

== ENCOUNTER 2020-11-26 12:31 | Inpatient (IN) | payer OTHER ==
[~2020-11-26] VITALS: Ht 157.5 cm; Wt 54.4 kg
[2020-11-26 12:32] VITALS: BP 218/99
[2020-11-26 13:25] LABS: ABSOLUTE NEUTROPHILS 3.4 thou/uL (1.4-8.2); BASOPHILS 1.4 % (0.0-2.0); EOSINOPHILS 4.1 % (0.0-3.0); HEMATOCRIT 31.6 % (37.0-47.0); HEMOGLOBIN 10.2 gm/dL (12.0-15.0); LYMPHOCYTES 19.3 % (24.0-44.0); MCH 32.4 pg (26.0-34.0); MCHC 32.3 g/dL (28.0-37.0); MCV 100.5 fL (80.0-100.0); MONOCYTES 10.6 % (1.0-8.0); PLATELET COUNT 283 thou/uL (150-400); POLYS 64.6 % (36.0-66.0); RBC 3.14 mil/uL (4.20-5.00); RDW 17.8 % (10.5-14.5); WBC 5.3 thou/uL (4.0-11.0)
[2020-11-26 13:46] LABS: POTASSIUM 4.5 mmol/L (3.5-5.1); TROPONIN-I 0.06 ng/mL (<0.06)
[2020-11-26 13:56] LABS: CALCIUM 9.1 mg/dL (8.5-10.1); CREATININE 1.8 mg/dL (0.6-1.0)
--- NOTE | 2020-11-26 16:25 | NUR ---
SPOKE WITH DAUGHTER FOR UPDATE ON PT. STATUS
[2020-11-26 18:21] LABS: URINE BILIRUBIN NEGATIVE (Negative); URINE BLOOD NEGATIVE (Negative); URINE CLARITY CLEAR; URINE COLOR YELLOW; URINE GLUCOSE-RANDOM* NEGATIVE (Negative); URINE KETONES NEGATIVE (Negative); URINE LEUKOCYTES-REFLEX NEGATIVE (Negative); URINE NITRITE-REFLEX NEGATIVE (Negative); URINE PROTEIN (DIPSTICK) 2+ (Negative); URINE UROBILINOGEN 0.2 E.U./dl (0.2-1.0)
[2020-11-26 18:34] LABS: CASTS None Seen /LPF (None Seen); SQUAMOUS 4-10 Moderate /LPF (0-3); URINE RBC 0-2 Rare /HPF (0-2); URINE WBC-REFLEX 0-5 Rare /HPF (0-5)
[2020-11-26 18:35] LABS: BACTERIA-REFLEX None Seen /HPF (None Seen); CRYSTALS None Seen /LPF (None Seen)
[2020-11-27 02:46] LABS: HEMATOCRIT 32.3 % (37.0-47.0); HEMOGLOBIN 10.4 gm/dL (12.0-15.0); MCH 32.1 pg (26.0-34.0); MCHC 32.2 g/dL (28.0-37.0); MCV 99.8 fL (80.0-100.0); RBC 3.23 mil/uL (4.20-5.00); RDW 17.2 % (10.5-14.5); WBC 6.5 thou/uL (4.0-11.0)
[2020-11-27 03:05] LABS: ANION GAP 12 mmol/L (7-16); BUN 26 mg/dL (7-18); CALCIUM 9.2 mg/dL (8.5-10.1); CHLORIDE 102 mmol/L (98-107); CO2 24 mmol/L (21-32); CREATININE 1.6 mg/dL (0.6-1.0); GLUCOSE 95 mg/dL (74-106); POTASSIUM 4.2 mmol/L (3.5-5.1); SODIUM 138 mmol/L (136-145); TROPONIN-I <0.06 ng/mL (<0.06)
--- NOTE | 2020-11-27 06:48 | EKG ---
[facility] [place] [address] ELECTROCARDIOGRAM REPORT Name: LEIDY ADAMES Room #: 170-9 ADM IN M.R.#: [id number] Admission: 11/26/20 Attend Phys: Lorne Saravia MD Discharge: Date of : 49 Report #: [id number] [facility] ED Test Date: 2020-11-26 Test Time: 12:38:19 Pat Name: LEIDY ADAMES Department: Room: 170 Gender: F Test Automation Architect: KOREY : 1945 Requested By: Kirill Solano Order Number: [id number] MD: Jim Griffith Measurements Intervals [place] Rate: 96 P: 36 CT: 166 QRS: 105 QRSD: 123 T: -1 QT: 409 QTc: 517 Interpretive Statements Sinus rhythm LAE, consider biatrial enlargement Right bundle branch block Compared to ECG 11/12/2020 13:20:53 No significant changes Electronically Signed On 11-27-2020 6:48:02 SEWING MACHINE OPERATOR SEMIAUTOMATIC by Jim Griffith [email or web address] <ELECTRONICALLY SIGNED> By: Jim Griffith MD, [facility] 11/27/20 0648 D: 028 1238 Jim Griffith MD, FACC /EPI
[2020-11-27 07:39] VITALS: BP 162/72
--- NOTE | 2020-11-27 10:22 | NUR ---
SPOKE WITH JAVIER FROM [facility] PT ON SERVICE WITH THEM PRIOR TO ADM THEY WILL NOT RESUME CARE AT DC PT IS NON COMPLIANT.
[2020-11-27 13:18] VITALS: BP 114/44
[2020-11-27 13:48] VITALS: BP 126/57
[2020-11-27 13:49] VITALS: BP 126/57
--- NOTE | 2020-11-27 13:55 | NUR ---
DISCHARGE INSTRUCTIONS CONFIRMED WITH DR LADD. PT MADE AWARE.
--- NOTE | 2020-11-27 14:00 | NUR ---
SPOKE TO PATIENT DAUGHTER, SAV, NOTIFIED SHE HAS BEEN CLEARED FOR DISCHARGE PER PROVIDER. DAUGHTER REPORTED THAT SHE WILL BE HERE TO PICK HER UP WITHIN AN HOUR. DAUGHTER REPORTED SHE HAD NO CONCERNS OR QUESTIONS. PATIENT MADE AWARE.
[2020-11-27 14:30] VITALS: BP 116/50
[2020-11-27 15:06] VITALS: BP 131/55
== END 2020-11-27 15:06 | disposition home or self-care (01) | DRG 291 ==
LOC: ER 12:31 → EROBS 17:23
PROVIDERS: Nurse Practitioner; ADMIT Hospitalist; ATTEND Hospitalist
DX: I13.0 Hypertensive heart and chronic kidney disease with heart failure and stage 1 through stage 4 chronic kidney disease, or unspecified chronic kidney disease (principal); I50.33 Acute on chronic diastolic (congestive) heart failure; G43.909 Migraine, unspecified, not intractable, without status migrainosus; I25.10 Atherosclerotic heart disease of native coronary artery without angina pectoris; G40.909 Epilepsy, unspecified, not intractable, without status epilepticus; E78.5 Hyperlipidemia, unspecified; I27.20 Pulmonary hypertension, unspecified; F41.9 Anxiety disorder, unspecified; N18.9 Chronic kidney disease, unspecified; F03.90 Unspecified dementia, unspecified severity, without behavioral disturbance, psychotic disturbance, mood disturbance, and anxiety; G89.4 Chronic pain syndrome; I73.9 Peripheral vascular disease, unspecified; Z87.891 Personal history of nicotine dependence; Z95.1 Presence of aortocoronary bypass graft; Z86.718 Personal history of other venous thrombosis and embolism; Z98.42 Cataract extraction status, left eye; Z98.41 Cataract extraction status, right eye; Z90.711 Acquired absence of uterus with remaining cervical stump; Z79.01 Long term (current) use of anticoagulants; Z79.899 Other long term (current) drug therapy; Z88.1 Allergy status to other antibiotic agents; Z88.0 Allergy status to penicillin; Z88.2 Allergy status to sulfonamides; Z88.8 Allergy status to other drugs, medicaments and biological substances

== ENCOUNTER 2021-02-26 15:00 | Emergency (ER) | payer OTHER ==
[~2021-02-26] VITALS: Ht 157.5 cm; Wt 44.9 kg
[2021-02-26] MEDS ORDERED: LEVO-T100 MCG PO (15:19)
[2021-02-26] MEDS ORDERED: LEVOFLOXACIN500 MG PO ×2 (15:38→18:41)
[2021-02-26 15:59] LABS: ABSOLUTE NEUTROPHILS 3.1 thou/uL (1.4-8.2); BASOPHILS 1.2 % (0.0-2.0); EOSINOPHILS 4.1 % (0.0-3.0); HEMATOCRIT 30.5 % (37.0-47.0); HEMOGLOBIN 9.8 gm/dL (12.0-15.0); LYMPHOCYTES 16.8 % (24.0-44.0); MCHC 32.2 g/dL (28.0-37.0); MCV 99.4 fL (80.0-100.0); MONOCYTES 12.2 % (1.0-8.0); PLATELET COUNT 180 thou/uL (150-400); POLYS 65.7 % (36.0-66.0); RBC 3.07 mil/uL (4.20-5.00); RDW 13.2 % (10.5-14.5); WBC 4.7 thou/uL (4.0-11.0)
[2021-02-26 16:07] LABS: ANION GAP 6 mmol/L (7-16); BUN 29 mg/dL (7-18); CALCIUM 8.6 mg/dL (8.5-10.1); CHLORIDE 104 mmol/L (98-107); CO2 24 mmol/L (21-32); CREATININE 1.8 mg/dL (0.6-1.0); GLUCOSE 104 mg/dL (74-106); POTASSIUM 3.9 mmol/L (3.5-5.1); SODIUM 134 mmol/L (136-145)
[2021-02-26 16:16] LABS: TROPONIN-I <0.06 ng/mL (<0.06)
[2021-02-26 17:56] LABS: URINE BILIRUBIN NEGATIVE (Negative); URINE BLOOD NEGATIVE (Negative); URINE CLARITY CLEAR; URINE COLOR YELLOW; URINE GLUCOSE-RANDOM* NEGATIVE (Negative); URINE KETONES NEGATIVE (Negative); URINE LEUKOCYTES-REFLEX NEGATIVE (Negative); URINE NITRITE-REFLEX NEGATIVE (Negative); URINE PROTEIN (DIPSTICK) 1+ (Negative); URINE SPECIFIC GRAVITY >= 1.030 (1.005-1.035); URINE UROBILINOGEN 0.2 E.U./dl (0.2-1.0)
[2021-02-26 18:07] LABS: SQUAMOUS 4-10 Moderate /LPF (0-3)
[2021-02-26 18:08] LABS: HYALINE CASTS 0-3 Few /LPF (None Seen)
[2021-02-26 18:10] LABS: YEAST-REFLEX Present (None Seen)
[2021-02-26 18:11] LABS: CRYSTALS None Seen /LPF (None Seen); URINE RBC 1-2 Rare /HPF (NONE SEEN); URINE WBC-REFLEX 0-5 Rare /HPF (0-5)
[2021-02-26] MEDS ORDERED: DIFLUCAN200 MG PO (18:41)
[2021-02-26] MEDS ORDERED: ULTRAM 50MG TAB50 MG PO (18:41)
[2021-02-26 19:09] VITALS: BP 157/68
--- NOTE | 2021-02-27 08:42 | EKG ---
[facility] [address] ELECTROCARDIOGRAM REPORT Name: LEIDY ADAMES Room #: [facility]#: [id number] Admission: 02/26/21 Attend Phys: Discharge: 02/26/21 Date of : 49 Report #: [id number] [facility] ED Test Date: 2021-02-26 Test Time: 15:42:45 Pat Name: LEIDY ADAMES Department: Room: Gender: F Manager Bakery: frankie : 1945 Requested By: iKrill Solano Order Number: [id number] MD: Jim Griffith Measurements Intervals [place] Rate: 64 P: 54 GA: 184 QRS: 101 QRSD: 137 T: -12 QT: 460 QTc: 475 Interpretive Statements Sinus rhythm Probable left atrial enlargement RBBB and LPFB Anteroseptal infarct, age indeterminate Compared to ECG 11/26/2020 12:38:19 Left posterior fascicular block now present Myocardial infarct finding now present Electronically Signed On 02-27-2021 8:42:22 CDT by Jim Griffith [email or web address] <ELECTRONICALLY SIGNED> By: Jim Griffith MD, [facility] 02/27/21 0842 1542 1542 Jim Griffith MD, [facility] /EPI
== END 2021-02-26 19:09 | disposition home or self-care (01) ==
LOC: ER 15:00
PROVIDERS: Nurse Practitioner
DX: R07.81 Pleurodynia (principal); R07.89 Other chest pain; G43.909 Migraine, unspecified, not intractable, without status migrainosus; I25.10 Atherosclerotic heart disease of native coronary artery without angina pectoris; J44.9 Chronic obstructive pulmonary disease, unspecified; G40.909 Epilepsy, unspecified, not intractable, without status epilepticus; F41.9 Anxiety disorder, unspecified; E78.5 Hyperlipidemia, unspecified; I11.0 Hypertensive heart disease with heart failure; I50.30 Unspecified diastolic (congestive) heart failure; F03.90 Unspecified dementia, unspecified severity, without behavioral disturbance, psychotic disturbance, mood disturbance, and anxiety; E11.51 Type 2 diabetes mellitus with diabetic peripheral angiopathy without gangrene; I25.2 Old myocardial infarction; Z86.718 Personal history of other venous thrombosis and embolism; Z90.711 Acquired absence of uterus with remaining cervical stump; Z79.899 Other long term (current) drug therapy; Z88.8 Allergy status to other drugs, medicaments and biological substances; Z88.0 Allergy status to penicillin; Z88.2 Allergy status to sulfonamides; Z88.1 Allergy status to other antibiotic agents; Z87.891 Personal history of nicotine dependence; W19.XXXA Unspecified fall, initial encounter; Y93.89 Activity, other specified; Y92.89 Other specified places as the place of occurrence of the external cause; Y99.8 Other external cause status

== ENCOUNTER 2021-04-03 17:13 | Inpatient (IN) | payer OTHER ==
[~2021-04-03] VITALS: Ht 157.5 cm; Wt 49.9 kg
[~2021-04-03 17:13] MED LIST changes: +DIFLUCAN200 MG PO; +LEVOFLOXACIN500 MG PO; +ULTRAM 50MG TAB50 MG PO; -VITAMIN D31250 MC1 PO; +VITAMIN D325 MC3 PO
[2021-04-03 17:18] VITALS: BP 215/90
--- NOTE | 2021-04-03 18:00 | NUR ---
PT HAS RIGHT BREAST TISSUE SWELLING THAT EXTENDS INTO THE BACKSIDE. PT RIGHT BREAST SIGNIFICANTLY LARGER THAN HER LEFT BREAST. PT STATES BREAST IS PAINFUL TO THE TOUCH. BREAST IS NOT HOT TO THE TOUCH. PT DENIES FEVERS OR CHILLS. PT BREAST TISSUE ON THE RIGHT IS HARD IN NATURE. PT DAUGHTER AT BEDSIDE STATES THIS SWELLING STARTED ONLY X2 DAYS AGO. PT DENIES PAST HX OF THIS. PT DENIES ANY BREAST DRAINAGE. PT UNSURE OF LAST MAMMOGRAM. PT IS ALSO HYPERTENSIVE ON THE MONITOR, PT DID NOT TAKE BP MEDS TODAY.
[2021-04-03 18:11] LABS: HEMATOCRIT 33.1 % (37.0-47.0); HEMOGLOBIN 11.1 gm/dL (12.0-15.0); MCH 32.5 pg (26.0-34.0); MCHC 33.6 g/dL (28.0-37.0); MCV 96.6 fL (80.0-100.0); RBC 3.42 mil/uL (4.20-5.00); RDW 15.6 % (10.5-14.5); WBC 5.7 thou/uL (4.0-11.0)
--- NOTE | 2021-04-03 19:07 | NUR ---
REPORT GIVEN TO KRISTY DELEON AT THIS TIME
[2021-04-03 19:59] VITALS: BP 224/98
[2021-04-03 21:00] VITALS: BP 201/75
[2021-04-03 21:18] VITALS: BP 170/81
[2021-04-03 22:18] LABS: CHOLESTEROL 106 mg/dL (<200); HDL CHOLESTEROL 43 mg/dL (>40); LDL CHOLESTEROL 52 mg/dL (<100); TC:HDL 2.5 Ratio (Not establshd); TRIGLYCERIDE 58 mg/dL (<150); VLDL 12 mg/dL (<40)
[2021-04-03 22:22] LABS: ALBUMIN 2.8 g/dL (3.4-5.0); ANION GAP 11 mmol/L (7-16); BUN 29 mg/dL (7-18); CALCIUM 8.1 mg/dL (8.5-10.1); CHLORIDE 108 mmol/L (98-107); CO2 24 mmol/L (21-32); CREATININE 1.2 mg/dL (0.6-1.0); GLUCOSE 90 mg/dL (74-106); POTASSIUM 4.2 mmol/L (3.5-5.1); SGOT 23 U/L (15-37); SGPT 20 U/L (30-65); SODIUM 143 mmol/L (136-145); TOTAL BILIRUBIN 0.5 mg/dL (0.2-1.0); TOTAL PROTEIN 7.1 g/dL (6.4-8.2); TROPONIN-I <0.06 ng/mL (<0.06)
[2021-04-03 22:37] LABS: SERUM ASSESSMENT Clear
[2021-04-03 23:05] VITALS: BP 165/74
[2021-04-04 07:40] VITALS: BP 193/94
[2021-04-04 07:51] LABS: CALCIUM 8.4 mg/dL (8.5-10.1); CREATININE 1.1 mg/dL (0.6-1.0); MAGNESIUM 1.9 mg/dL (1.8-2.4); POTASSIUM 4.2 mmol/L (3.5-5.1)
[2021-04-04 07:52] LABS: HEMATOCRIT 31.4 % (37.0-47.0); HEMOGLOBIN 10.3 gm/dL (12.0-15.0); MCH 32.1 pg (26.0-34.0); MCHC 32.7 g/dL (28.0-37.0); MCV 98.2 fL (80.0-100.0); RBC 3.2 mil/uL (4.20-5.00); RDW 14.7 % (10.5-14.5); WBC 4.6 thou/uL (4.0-11.0)
--- NOTE | 2021-04-04 08:23 | EKG ---
[address] [place] [address] ELECTROCARDIOGRAM REPORT Name: LEIDY ADAMES Room #: 215-P ADM IN M.R.#: [id number] Admission: 04/03/21 Attend Phys: Addy Sanz MD Discharge: Date of : 49 Report #: [id number] [facility] ED Test Date: 2021-04-03 Test Time: 17:24:20 Pat Name: LEIDY ADAMES Department: Room: [facility] Gender: F Sanitation Inspector: ANABELL : 1945 Requested By: Tom Vallejo Order Number: [id number] MD: Jim Griffith Measurements Intervals [place] Rate: 83 P: 49 [place]: 174 QRS: 101 QRSD: 136 T: 31 QT: 418 QTc: 492 Interpretive Statements Sinus rhythm Probable left atrial enlargement RBBB and LPFB Compared to ECG 02/26/2021 15:42:45 Myocardial infarct finding no longer present Electronically Signed On 04-04-2021 7:03:05 CDT by Jim Griffith [email or web address] <ELECTRONICALLY SIGNED> By: Jim Griffith MD, [facility] 04/04/21 0703 23 23 Jim Griffith MD, [facility] /EPI
[2021-04-04 11:32] VITALS: BP 145/68
[2021-04-04 15:17] VITALS: BP 194/96
--- NOTE | 2021-04-04 17:00 | NUR ---
Case opened to follow for dc planning. Pt known to cm from previous admissions. She lives with her spouse and gson. Dtr Ramila is involved with managing her medications and dr moore as well as shopping and errands. Spouse helps with iadl's. The pt uses a rwalker and a cane at home. She denies any dc needs or concerns and does not feel she will need snf or hh. She has declined this in the past. She has home o2 and a hospital bed as well. PT/OT geoff requested. Pt's pcp is Dr. post. Brenda had her on service earlier this year but will not accept her again due to non compliance. Pt c/o of bad headache reported to the unit RN. Cm role reintroduced. Pt's goal is to go home soon with outpt f/u. Will follow along.
--- NOTE | 2021-04-04 18:25 | NUR ---
PATIENT'S BP REMAINED LABILE THROUGHOUT THE DAY. AT 1750 ON RECHECK AFTER SCHEDULE HYDRALAZINE WAS GIVEN HER BP READ 197/77. ATTEMPTED TO GIVE PRN IV HYDRALAZINE, BUT IV INFILTRATED. ATTEMPTED TO OBTAIN ACCESS, UNSUCCESSFUL. IV TEAM NOTIFIED FOR NEED OF PIV URGENTLY. I PAGED DR. WATSON ABOUT SITUATION, SEE MAR FOR ORDERS OF PO CLONIDINE DOSE.
[2021-04-04 20:15] VITALS: BP 194/87
[2021-04-05] VITALS (10 sets, daily range): BP systolic 110–171; BP diastolic 46–110
[2021-04-05 02:39] LABS: HEMATOCRIT 31.5 % (37.0-47.0); HEMOGLOBIN 10.4 gm/dL (12.0-15.0); MCH 32.2 pg (26.0-34.0); MCHC 32.9 g/dL (28.0-37.0); MCV 97.9 fL (80.0-100.0); RBC 3.21 mil/uL (4.20-5.00); RDW 14.9 % (10.5-14.5); WBC 4.7 thou/uL (4.0-11.0)
[2021-04-05 03:31] LABS: CALCIUM 8.5 mg/dL (8.5-10.1); MAGNESIUM 1.9 mg/dL (1.8-2.4); POTASSIUM 4.4 mmol/L (3.5-5.1)
--- NOTE | 2021-04-05 07:51 | NUR ---
PATIENTS CARES WERE ASSUMED AT SHIFT CHANGE. PATIENT WAS ASSESSED AND MEDS WERE PASSED. COMPLACATIONS WITH A BAD HEAD ACHE MOST OF THIS SHIFT. NURSING BELIEVES THIS HEAD ACHE IS DUE TO NITRO THAT WAS GIVEN. ALL HER PAIN MED WERE GIVEN WITH LITTLE TO NO HELP. CALLED RISK ENGINEER superintendent radio communications to concider a order of fluids thinking that dehydration is an issue. no responce to this from her. rounds were made, the bed alarm is on, the bed is in a low and locked position.
--- NOTE | 2021-04-05 08:21 | HC ---
[facility] [place] [address] CONSULTATION Name: LEIDY ADAMES Room #: 215-P ADM IN M.R.#: [id number] Admission: 04/03/21 Attend Phys: Addy Sanz MD Discharge: Date of : 49 Report #: [id number] THIS REPORT FOR: cc: Jamaal Cho MD, Mark S. MD Barry, Joseph W. MD ~ DOC #: [id number] Bryce Laboy MD DATE OF SERVICE: 04/04/2021 INFECTIOUS DISEASE CONSULTATION ATTENDING PHYSICIAN: Dr. Sanz. REASON FOR EVALUATION: Right breast cellulitis. HISTORY OF PRESENT ILLNESS: Chart reviewed and the patient was examined. This is a 75-year-old woman with extensive medical history, has known vasculopathy, coronary artery disease, previous bioprosthetic mitral valve replacement, also has pulmonary hypertension, who noted some primarily right-sided chest pain, which she describes as sharp in character may be worsened with coughing, which she has done quite a bit as well. Admits to have reproducible pain on palpation, likely that she has had any fevers. Denies chills. She does note poor appetite, although this has been somewhat chronic upwards of 40-pound weight loss over the course of the last several months. Denies significant GI related complaints in terms of nausea. She was evaluated. Initial chest x-ray showed some scarring without acute process. Breast ultrasound showed tissue inflammation suggestive of cellulitis. She notes no ____ injury. She was empirically started on therapy with clindamycin. ALLERGIES: LISTED TO ERTAPENEM, PENICILLIN, SULFA, TETRACYCLINE. CURRENT MEDICATIONS: Include tramadol, levothyroxine, atorvastatin, clopidogrel, rivaroxaban, isosorbide mononitrate, hydralazine, clindamycin, carvedilol, hydralazine as needed, famotidine, acetaminophen, ondansetron as needed. PAST MEDICAL HISTORY: Diabetes mellitus complicated by vasculopathy, has known coronary artery disease with previous aortocoronary bypass grafting. She has a prior bioprosthetic mitral valve, hypertension, COPD, history of seizure disorder, anxiety, has a cardiomyopathy, severe pulmonary hypertension, dementia, previous stroke, chronic anemia. SOCIAL HISTORY: Former smoker, no ethanol, no illicit drug use. FAMILY HISTORY: Noncontributory. [address] [address] CONSULTATION Name: LEIDY ADAMES Room #: 215-P [facility] IN M.R.#: [id number] Admission: 04/03/21 Attend Phys: Addy Sanz MD Discharge: Date of : 49 Report #: [id number] REVIEW OF SYSTEMS: Otherwise, unremarkable 10-point review of systems. PHYSICAL EXAMINATION: GENERAL: She appears chronically ill and undernourished. She is pleasant and cooperative, although she is at least mild to moderate encephalopathy. VITAL SIGNS: Temperature 97.4, pulse 61, respirations 18, blood pressure 145/68. SKIN: Warm, dry, no rashes. HEENT: Normocephalic. Extraocular muscles intact. NECK: Supple. LUNGS: Diminished breath sounds. Few scattered crackles at the bases. HEART: Regular. Loud systolic murmur. BREASTS: Right breast, moderate degree of surface inflammatory signs. ABDOMEN: Soft, nontender, mildly distended. GENITOURINARY AND RECTAL: Deferred. LABORATORY DATA: Troponin less than 0.06. CBC: White count of 4.6, H and H 10.3 and 31.4, platelets of 161. Electrolytes: Sodium 140, potassium 4.2, chloride 108, bicarbonate 24, anion gap of 8, BUN and creatinine 30 and 1.1, glucose 99. Estimated GFR of 59. TSH 0.989. Liver function tests otherwise unremarkable. Albumin of 2.8, total protein 7.1. Ultrasound of the right breast showed no evidence of abscess, extensive cellulitis, edema suggestive of mastoiditis, ovoid soft tissue mass upper outer right breast, unchanged from ultrasound 08/2020. Chest x-ray, areas of scarring without definite acute process, moderate cardiomegaly. ASSESSMENT AND PLAN: 1. Right breast skin and soft tissue infection with cellulitis. 2. Diabetes mellitus complicated by vasculopathy. 3. Dementia. We will continue empiric therapy with clindamycin given the issue of several other intolerances or hypersensitivities to several antibiotic classes. At this point, she is not overtly toxic. We will continue to monitor expectantly. If we developed more localizing signs or symptoms and any repeat imaging to exclude an abscess in the event of worsening, could started on parenteral therapy such as vancomycin. We will continue to monitor expectantly. Bryce Laboy MD JWB/ALL/NIS [address] [address] CONSULTATION Name: LEIDY ADAMES Room #: 215-P ADM IN M.R.#: [id number] Admission: 04/03/21 Attend Phys: Addy Sanz MD Discharge: Date of : 47 Report #: [id number] <ELECTRONICALLY SIGNED> By: Bryce Laboy MD 04/05/21820 1330 225 Bryce Laboy MD /nt
--- NOTE | 2021-04-06 03:13 | NUR ---
2199 COMPLAINTS OF CHEST PAIN, STATING I TAKE A NTG AND IT GOES AWAY. I HAVE ANGINA AND JUST NEED IT SOMETIMES. VS MONITORED AND 1 NTG GIVEN SL. STATED RELIEF. 2244 PATIENT SLEEPING WITHOUT COMPLAINTS. 314 RESTING QUIETLY WITHOUT PRESENT COMPLAINTS OF CHEST PAIN, SHORTNESS OF AIR, OR N/V AT THIS TIME. WORKING ON GOALS AND PLAN OF CARE FOR NOC. PLANS FOR POSSIBLE DISCHARGE TODAY. CONTINUE TO ASSES NEEDED.
[2021-04-06 04:45] VITALS: BP 119/55
[2021-04-06 08:15] VITALS: BP 115/53
[2021-04-06 08:18] VITALS: BP 115/53
[2021-04-06] MEDS ORDERED: CLEOCIN HCL150 MG PO (08:46)
[2021-04-06] MEDS ORDERED: HYDRALAZINE 5050 MG PO (08:48)
[2021-04-06 09:48] VITALS: BP 115/53
--- NOTE | 2021-04-06 11:53 | NUR ---
PT CARE ASSUMED AT 0700. ASSESSMENTS CHARTED. MEDICATIONS CHARTED. RFA IV. SINUS RHYTHM, BUNDLE BRANCH BLOCK. BSC, ASSIST X 1. DIET: HEART HEALTHY. PT DISCHARGED TO HOME. DISCHARGE PAPERWORK SIGNED. TELEMETRY D/C'D. IV D/C'D.
== END 2021-04-06 12:00 | disposition home or self-care (01) | DRG 600 ==
LOC: ER 17:13 → EROBS 19:27 → 2N 19:27
PROVIDERS: Emergency Medicine; Nurse Practitioner Family; ADMIT Internal Medicine; ATTEND Internal Medicine
DX: N61.0 Mastitis without abscess (principal); M31.9 Necrotizing vasculopathy, unspecified; I50.32 Chronic diastolic (congestive) heart failure; I38 Endocarditis, valve unspecified; I13.0 Hypertensive heart and chronic kidney disease with heart failure and stage 1 through stage 4 chronic kidney disease, or unspecified chronic kidney disease; I16.0 Hypertensive urgency; G43.909 Migraine, unspecified, not intractable, without status migrainosus; I25.10 Atherosclerotic heart disease of native coronary artery without angina pectoris; J44.9 Chronic obstructive pulmonary disease, unspecified; G40.909 Epilepsy, unspecified, not intractable, without status epilepticus; F41.9 Anxiety disorder, unspecified; E78.5 Hyperlipidemia, unspecified; I27.20 Pulmonary hypertension, unspecified; F03.90 Unspecified dementia, unspecified severity, without behavioral disturbance, psychotic disturbance, mood disturbance, and anxiety; E11.51 Type 2 diabetes mellitus with diabetic peripheral angiopathy without gangrene; E03.9 Hypothyroidism, unspecified; I25.118 Atherosclerotic heart disease of native coronary artery with other forms of angina pectoris; N18.9 Chronic kidney disease, unspecified; E11.22 Type 2 diabetes mellitus with diabetic chronic kidney disease; M32.9 Systemic lupus erythematosus, unspecified; Z79.4 Long term (current) use of insulin; Z86.718 Personal history of other venous thrombosis and embolism; Z95.828 Presence of other vascular implants and grafts; Z98.42 Cataract extraction status, left eye; Z98.41 Cataract extraction status, right eye; Z95.1 Presence of aortocoronary bypass graft; I25.2 Old myocardial infarction; Z90.711 Acquired absence of uterus with remaining cervical stump; Z86.73 Personal history of transient ischemic attack (TIA), and cerebral infarction without residual deficits; Z95.2 Presence of prosthetic heart valve; Z88.1 Allergy status to other antibiotic agents; Z88.0 Allergy status to penicillin; Z88.2 Allergy status to sulfonamides; Z88.8 Allergy status to other drugs, medicaments and biological substances; Z87.891 Personal history of nicotine dependence; Z83.3 Family history of diabetes mellitus; Z82.49 Family history of ischemic heart disease and other diseases of the circulatory system; Z80.3 Family history of malignant neoplasm of breast; Z80.8 Family history of malignant neoplasm of other organs or systems; Z91.14 Patient's other noncompliance with medication regimen
CPT/HCPCS: 10081

== ENCOUNTER 2021-04-15 16:56 | Inpatient (IN) | payer OTHER ==
[~2021-04-15] VITALS: Ht 152.4 cm; Wt 52.2 kg
[~2021-04-15 16:56] MED LIST changes: +CLEOCIN HCL150 MG PO; +HYDRALAZINE 5050 MG PO
[2021-04-15 16:58] VITALS: BP 149/71
[2021-04-15 17:58] LABS: BASOPHILS 1.1 % (0.0-2.0); EOSINOPHILS 1.5 % (0.0-3.0); HEMATOCRIT 32.6 % (37.0-47.0); HEMOGLOBIN 10.5 gm/dL (12.0-15.0); LYMPHOCYTES 13.2 % (24.0-44.0); MCHC 32.2 g/dL (28.0-37.0); MCV 99.2 fL (80.0-100.0); MONOCYTES 11.5 % (1.0-8.0); PLATELET COUNT 213 thou/uL (150-400); POLYS 72.7 % (36.0-66.0); RBC 3.29 mil/uL (4.20-5.00); RDW 15.9 % (10.5-14.5); WBC 5.5 thou/uL (4.0-11.0)
[2021-04-15 18:01] LABS: URINE BILIRUBIN NEGATIVE (Negative); URINE BLOOD NEGATIVE (Negative); URINE CLARITY CLEAR; URINE COLOR YELLOW; URINE GLUCOSE-RANDOM* NEGATIVE (Negative); URINE KETONES NEGATIVE (Negative); URINE LEUKOCYTES-REFLEX TRACE (Negative); URINE NITRITE-REFLEX NEGATIVE (Negative); URINE PROTEIN (DIPSTICK) NEGATIVE (Negative); URINE UROBILINOGEN 0.2 E.U./dl (0.2-1.0)
[2021-04-15 18:05] LABS: ANION GAP 7 mmol/L (7-16); BUN 28 mg/dL (7-18); CALCIUM 8.4 mg/dL (8.5-10.1); CHLORIDE 109 mmol/L (98-107); CO2 26 mmol/L (21-32); CREATININE 1.7 mg/dL (0.6-1.0); GLUCOSE 96 mg/dL (74-106); POTASSIUM 4.3 mmol/L (3.5-5.1); SODIUM 142 mmol/L (136-145)
[2021-04-15 18:15] LABS: ALBUMIN 3.2 g/dL (3.4-5.0); SGOT 13 U/L (15-37); SGPT 18 U/L (14-59); TOTAL BILIRUBIN 0.4 mg/dL (0.2-1.0); TOTAL PROTEIN 7.8 g/dL (6.4-8.2); TROPONIN-I <0.06 ng/mL (<0.06)
[2021-04-15 20:33] VITALS: BP 191/69
[2021-04-15 21:01] VITALS: BP 207/70
[2021-04-15 21:15] VITALS: BP 209/83
[2021-04-16] VITALS: BP 193/80
[2021-04-16 03:50] VITALS: BP 177/62
[2021-04-16 05:33] LABS: HEMATOCRIT 32.7 % (37.0-47.0); HEMOGLOBIN 10.9 gm/dL (12.0-15.0); MCH 32.9 pg (26.0-34.0); MCHC 33.4 g/dL (28.0-37.0); MCV 98.7 fL (80.0-100.0); RBC 3.32 mil/uL (4.20-5.00); RDW 15.4 % (10.5-14.5); WBC 4.1 thou/uL (4.0-11.0)
[2021-04-16 05:49] LABS: CALCIUM 8.3 mg/dL (8.5-10.1); CREATININE 1.4 mg/dL (0.6-1.0); POTASSIUM 4.3 mmol/L (3.5-5.1)
--- NOTE | 2021-04-16 07:17 | EKG ---
[address] [place] [address] ELECTROCARDIOGRAM REPORT Name: LEIDY ADAMES Room #: 455-P ADM IN M.R.#: [id number] Admission: 04/15/21 Attend Phys: Samantha Oh MD Discharge: Date of : 49 Report #: [id number] [facility] ED Test Date: 2021-04-15 Test Time: 17:14:41 Pat Name: LEIDY ADAMES Department: Room: [facility] Gender: F Filler In: KRUNAL : 1945 Requested By: Kirill Solano Order Number: [id number] MD: Jim Griffith Measurements Intervals [place] Rate: 63 P: 44 SD: 169 QRS: 117 QRSD: 135 T: 33 QT: 452 QTc: 463 Interpretive Statements Sinus rhythm RBBB and LPFB Compared to ECG 04/03/2021 17:24:20 No significant changes Electronically Signed On 04-16-2021 7:17:43 CDT by Jim Griffith [email or web address] <ELECTRONICALLY SIGNED> By: Jim Griffith MD, [facility] 04/16/21 0717 1714 13 Jim Griffith MD, FACC /EPI
[2021-04-16 08:00] VITALS: BP 222/100
[2021-04-16 10:38] VITALS: BP 140/85
[2021-04-16] MEDS ORDERED: CLEOCIN HCL300 MG PO (14:05)
[2021-04-16] MEDS ORDERED: KEPPRA 500 MG500 MG PO (14:06)
[2021-04-16] MEDS ORDERED: TORSEMIDE20 MG PO (14:09)
[2021-04-16] MEDS ORDERED: PREDNISONE 10 M10 MG PO (14:12)
--- NOTE | 2021-04-16 15:08 | NUR ---
PT ADMITTED RELATED TO HYPERTENSIVE URGENCY, RT BREAST SWELLING, AND GEN WEAKNESS. CM REVIEWED CHART AND SPOKE WITH CARE TEAM. CM MET WITH PT AT BEDSIDE THIS DAY. PT APPEARED TO BE A&O X4. CM ROLE INTRODUCED. PT INDICATED SHE RESIDES IN A HOUSE WITH HER SPOUSE WITH NO STEPS TO ENTER AND NO STEPS INSIDE. PT INDICATED THAT SHE HAS A FWW TO ASSIST WITH [employer]OBILITY [employer]. PT STATED THAT SHE HAS HOME O2 BUT DOESN'T RECALL PROVIDER. PT INDICATED NO RECENT HOME HEALTH HX. PT INDICATED THAT HER DTR ASSISTS WITH SOME ADLS AND THAT SHE PLANS TO RETURN HOME ONCE MEDICALLY STABLE. PT HAD DISCHARGED HOME 04/06. PT IS ON IV VANC. CM FOLLOWING REGARDING DC PLANNING.
--- NOTE | 2021-04-16 19:57 | NUR ---
Assumed pt care this am, elevated bp monitored managed with medications. Complained of head ache for most of the day informed MD. Pt was asleep for most of the shift and refused her lunch. Tenderness and swelling on the right breasat still evident. POC followed, endorsed to the night nurse.
--- NOTE | 2021-04-16 20:01 | NUR ---
Assumed pt care this am, bp closely monitored and managed with medications. Pt complained of right sided head ached, medications given partial relief noted. POC followed, poor appetite for lunch, preferred to go to sleep for most of the shift. Right breast still inflammed. Endorsed to the [facility] nurse.
[2021-04-16 21:39] VITALS: BP 145/60
[2021-04-17 00:48] VITALS: BP 157/62
[2021-04-17 07:56] VITALS: BP 165/76
[2021-04-17 14:56] VITALS: BP 143/69
--- NOTE | 2021-04-17 15:11 | NUR ---
CARE TEAM INDICATE THAT PT IS PROGRESSING TOWARD GOAL OD DC HOME. CARDIOLOGY CONSULTED WELL ID. PT IS ON IV VANC. PT AGAIN INDICATED THAT SHE PLANS TO RETURN HOME ONCE MEDICALLY STABLE. CM CALLED AND SPOKE WITH PT'S DTR SAV AND SHE CONFIRMED THAT PLAN IS FOR PT TO DC HOME ONCE MEDICALLY STABLE. SHE DOESN'T FEEL THAT PT NEEDS HH OR SKILLED EITHER. CM FOLLOWING REGARDING DC PLANNING.
[2021-04-17 15:55] VITALS: BP 159/77
--- NOTE | 2021-04-17 19:50 | NUR ---
Patient has not complained of headache today. She did have 5/10 right breast pain and tylenol given. She has been resting most of the day. She sat up in her chair for 2 hours.
[2021-04-17 20:34] VITALS: BP 155/69
[2021-04-17 21:40] VITALS: BP 163/71
--- NOTE | 2021-04-18 05:53 | NUR ---
patient aox4 makes needs known. patient incontient pericare and barrier cream applied as needed.pain controlled this shift. consult called to dr. shay.fall preacaution in place. patient in bed asleep at this time breathing regular and unlaboured.
[2021-04-18 06:07] VITALS: BP 158/73
[2021-04-18 08:00] VITALS: BP 167/74
--- NOTE | 2021-04-18 15:51 | HC ---
[facility] [place] [address] CONSULTATION Name: LEIDY ADAMES Room #: 455-P ADM IN M.R.#: [id number] Admission: 04/15/21 Attend Phys: Samantha Oh MD Discharge: Date of : 49 Report #: [id number] THIS REPORT FOR: cc: Jamaal Cho MD, Mark S. MD Barry, Joseph W. MD ~ DOC #: [id number] Bryce Laboy MD DATE OF SERVICE: 04/17/2021 INFECTIOUS DISEASE CONSULTATION ATTENDING PHYSICIAN: Dr. Sanz. REASON FOR EVALUATION: Right breast cellulitis. HISTORY OF PRESENT ILLNESS: Chart reviewed and the patient was examined. This is a 75-year-old known to myself, who was recently hospitalized with inflammatory process involving the right breast; however, apparently had persistence and then worsening of her right breast pain as well as hypertension. She had been discharged on systemic antibiotics with clindamycin due to hypersensitivities to multiple antibiotics. She notes a persistent pain at the site and a marked asymmetrical swelling. Does not entirely clear if she has had additional fevers, not noted since she has been hospitalized to have temperature elevation. In addition to that, she was markedly hypertensive as well. She is actually more responsive than previous. Additional evaluation noted. Urinalysis was otherwise unremarkable. Chest x-ray showed stable cardiomegaly with congestion consistent with her known history of cardiomyopathy and congestive heart failure. Ultrasound of the breast does show extensive soft tissue swelling of the right breast with no evidence of focal pyogenic abscess. ProBNP elevated at 23,000. ALLERGIES: LISTED TO ERTAPENEM, PENICILLIN, SULFA, TETRACYCLINE. MEDICATIONS: Include torsemide, tramadol, rivaroxaban, amlodipine, hydralazine, memantine, cholecalciferol, levetiracetam, citalopram, clopidogrel, atorvastatin, isosorbide mononitrate, carvedilol, vancomycin, levothyroxine, p.r.n. analgesics and antiemetics. PAST MEDICAL HISTORY: As described above, history of migraines, systemic lupus erythematosus, diabetes mellitus type 2, insulin requiring, complicated by vasculopathy; known coronary artery disease, previous aortocoronary bypass grafting; cardiomyopathy, congestive heart failure, hypertension, hyperlipidemia, COPD, seizure disorder, anxiety, dementia, previous stroke, chronic anemia. [address] [address] CONSULTATION Name: LEIDY ADAMES Room #: 455-P [facility] IN M.R.#: [id number] Admission: 04/15/21 Attend Phys: Samantha Oh MD Discharge: Date of : 49 Report #: [id number] SOCIAL AND FAMILY HISTORY: Available in chart. REVIEW OF SYSTEMS: Otherwise, unremarkable. PHYSICAL EXAMINATION: GENERAL: She appears chronically ill and undernourished. She is actually more responsive than previous, mild to moderate distress. She has a degree of encephalopathy. VITAL SIGNS: Temperature 98.5, pulse 79, respirations 18, blood pressure is 140/85. HEENT: Normocephalic. Extraocular muscles intact. NECK: Supple. LUNGS: Diminished breath sounds. Few scattered coarse sounds appears to be regular, occasional ectopy, has a soft systolic murmur. ABDOMEN: Mildly distended, slightly firm, nontender. Right breast has marked asymmetrical swelling. There is some palpable tenderness particularly in the dependent area. Abdomen is soft, nontender. EXTREMITIES: No cyanosis. GENITOURINARY AND RECTAL: Deferred. LABORATORY DATA: Most recent labs, electrolytes: Sodium 143, potassium 4.3, chloride 107, bicarbonate is 25, anion gap of 11, BUN and creatinine 25 and 1.4, glucose of 73. CBC: White count 4.1, H and H 10.9 and 32.7, platelets of 214. ProBNP 23,733. Previous LFTs unremarkable. Albumin of 3.2, total protein 7.8. Estimated GFR of 36. CBC: White count of 5.5, H and H 10.5 and 32.6, platelets of 213. ASSESSMENT AND PLAN: 1. Right breast inflammation, suspect component of skin and soft tissue infection, enough that includes the entirety of her issue noted back in February of this year, did undergo CT imaging, which showed numerous enlarged mediastinal lymph nodes and previous history of right breast enlargement that had resolved, which raises question of secondary issue such as lymphatic vessel disruption and lack of ability to drain. We will continue empiric therapy with vancomycin and presume a staph or strep etiology. Repeat the CT imaging of the chest to evaluate, compared to previous film in February of this year. She appears chronically ill. Continue to monitor expectantly. Bryce Laboy MD JWB/ANASTASIIA [address] [address] CONSULTATION Name: LEIDY ADAMES Room #: 455-P ADM IN M.R.#: [id number] Admission: 04/15/21 Attend Phys: Samantha Oh MD Discharge: Date of : 49 Report #: [id number] <ELECTRONICALLY SIGNED> By: Bryce Laboy MD 04/18/21 1551 1432 2256 Bryce Laboy MD /nt
[2021-04-18 16:20] VITALS: BP 130/50
[2021-04-18 19:27] VITALS: BP 135/54
--- NOTE | 2021-04-18 19:37 | NUR ---
Vanco Trough drawn today 7. Same dose given. Patients daugter called for an update today. No pain noted.
[2021-04-18 22:44] VITALS: BP 141/57
--- NOTE | 2021-04-19 02:29 | NUR ---
patient aox3 makes needs known.patient right breast is hard to touch.pain controlled this shift. fall precaution in place. patient in bed asleep at this time breathing regular and unlaboured.
[2021-04-19 05:44] LABS: CALCIUM 7.9 mg/dL (8.5-10.1); CREATININE 1.7 mg/dL (0.6-1.0); POTASSIUM 3.9 mmol/L (3.5-5.1)
[2021-04-19 06:02] VITALS: BP 153/61
[2021-04-19 07:50] VITALS: BP 150/58
--- NOTE | 2021-04-19 14:46 | NUR ---
PT CONTINUES ON IV VANC. HEME-ONC FOLLOWING TO SPEAK WITH PT AND DTR. HOSPITALIST INDICATED PT MAY BE MEDCIALLY STABLE TO DC HOME TOMORROW. PT AND DTR HAVE INDICATED THAT THEY DON'T WANT SKILLED OR HH UPON DC. ANTICAPTE PT RETURNING HOME TO SELF CARE ONCE MEDICALLY STABLE.
[2021-04-19 15:50] VITALS: BP 123/57
--- NOTE | 2021-04-19 17:51 | NUR ---
Patient is calm and forgetful. no bowlmovement today, diet was changed to regular diet. denied pain. no nausea or vomiting.
[2021-04-19 19:32] VITALS: BP 125/56
--- NOTE | 2021-04-20 05:54 | NUR ---
Assumed pt care at 1900. A/OX4,with forgetfulness noted but able to voice needs. VSS. C/o a headache medicated with [place]/Tramadol with relief reported.Up with RW/GB to the bathroom w/o problems. SB on telemetry. Resting quietly w/o distress.Fall [recautions in place,will continue to continue pt.
[2021-04-20 07:47] VITALS: BP 174/80
[2021-04-20 10:19] LABS: HEMOGLOBIN 9.9 gm/dL (12.0-15.0); MCH 32.4 pg (26.0-34.0); MCHC 32.9 g/dL (28.0-37.0); MCV 98.5 fL (80.0-100.0); RBC 3.05 mil/uL (4.20-5.00); WBC 4.1 thou/uL (4.0-11.0)
[2021-04-20 10:24] LABS: CALCIUM 8.2 mg/dL (8.5-10.1); MAGNESIUM 2.1 mg/dL (1.8-2.4)
[2021-04-20 10:30] VITALS: BP 136/65
[2021-04-20] MEDS ORDERED: CLEOCIN HCL300 MG PO (11:48)
[2021-04-20 12:35] VITALS: BP 136/65
--- NOTE | 2021-04-20 13:27 | NUR ---
Received awake on bed. Due medications given as prescribed, able to swallow meds w/o difficulty. On room air. Vital signs stable; with bp elevation this AM- AM meds given and bp rechecked-WNL- Dr Sanz informed and aware. On telemetry; no complains and signs of chest pain, crushing sensation and heaviness. Assisted in ADLs. On carb controlled diet- tolerating well; no nausea, no vomiting and no abdominal pain noted. On blood sugar monitoring, taken and recorded accordingly. Continent of bowel and bladder, able to go to the toilet with standby assist; gait belt and walker. Falls bundle in place. With SL at R upper arm; on IV antibiotics. No complains of pain made during assessment; pt very keen to go home- physician informed. Pt seen and examined by Dr Sanz today; discharge orders made; as per CM note's- home to self care, daughter and pt refusing home health and SNF- relayed to Dr Sanz. Pt called her daughter to informed re: discharge; a/w her for transport. Able to sit out on the chair. To continue monitoring patient.
== END 2021-04-20 16:04 | disposition home or self-care (01) | DRG 292 ==
LOC: ER 16:56 → EROBS 20:14 → 4W 20:14
PROVIDERS: Internal Medicine; Nurse Practitioner; Nurse Practitioner Family; Specialist; ADMIT Hospitalist; ATTEND Hospitalist
DX: I13.0 Hypertensive heart and chronic kidney disease with heart failure and stage 1 through stage 4 chronic kidney disease, or unspecified chronic kidney disease (principal); I50.32 Chronic diastolic (congestive) heart failure; K92.2 Gastrointestinal hemorrhage, unspecified; M31.9 Necrotizing vasculopathy, unspecified; E46 Unspecified protein-calorie malnutrition; J90 Pleural effusion, not elsewhere classified; I16.0 Hypertensive urgency; I42.9 Cardiomyopathy, unspecified; G43.909 Migraine, unspecified, not intractable, without status migrainosus; J44.9 Chronic obstructive pulmonary disease, unspecified; G40.909 Epilepsy, unspecified, not intractable, without status epilepticus; E78.5 Hyperlipidemia, unspecified; F41.9 Anxiety disorder, unspecified; F03.90 Unspecified dementia, unspecified severity, without behavioral disturbance, psychotic disturbance, mood disturbance, and anxiety; E03.9 Hypothyroidism, unspecified; G89.4 Chronic pain syndrome; E11.22 Type 2 diabetes mellitus with diabetic chronic kidney disease; N18.30 Chronic kidney disease, stage 3 unspecified; I25.10 Atherosclerotic heart disease of native coronary artery without angina pectoris; I27.20 Pulmonary hypertension, unspecified; E11.51 Type 2 diabetes mellitus with diabetic peripheral angiopathy without gangrene; N61.0 Mastitis without abscess; R59.0 Localized enlarged lymph nodes; D64.9 Anemia, unspecified; Z68.22 Body mass index [BMI] 22.0-22.9, adult; Z95.1 Presence of aortocoronary bypass graft; Z95.2 Presence of prosthetic heart valve; Z86.718 Personal history of other venous thrombosis and embolism; Z87.891 Personal history of nicotine dependence; Z98.42 Cataract extraction status, left eye; Z98.41 Cataract extraction status, right eye; Z90.711 Acquired absence of uterus with remaining cervical stump; Z86.73 Personal history of transient ischemic attack (TIA), and cerebral infarction without residual deficits; Z79.01 Long term (current) use of anticoagulants; Z79.899 Other long term (current) drug therapy; Z88.1 Allergy status to other antibiotic agents; Z88.0 Allergy status to penicillin; Z88.2 Allergy status to sulfonamides; Z88.8 Allergy status to other drugs, medicaments and biological substances; Z91.19 Patient's noncompliance with other medical treatment and regimen
CPT/HCPCS: 10045

== ENCOUNTER 2021-04-25 18:19 | Emergency (ER) | payer OTHER ==
[~2021-04-25] VITALS: Ht 149.9 cm; Wt 59.0 kg
[~2021-04-25 18:19] MED LIST changes: +CLEOCIN HCL300 MG PO; +KEPPRA 500 MG500 MG PO; +TORSEMIDE20 MG PO
[2021-04-25 20:01] LABS: HEMATOCRIT 31.6 % (37.0-47.0); HEMOGLOBIN 10.3 gm/dL (12.0-15.0); MCHC 32.6 g/dL (28.0-37.0); MCV 98.1 fL (80.0-100.0); RBC 3.22 mil/uL (4.20-5.00); RDW 15.1 % (10.5-14.5); WBC 5.4 thou/uL (4.0-11.0)
[2021-04-25 20:07] LABS: CALCIUM 8.5 mg/dL (8.5-10.1); CREATININE 1.6 mg/dL (0.6-1.0); POTASSIUM 5.8 mmol/L (3.5-5.1)
[2021-04-25 20:14] LABS: ALBUMIN 3.3 g/dL (3.4-5.0); TOTAL BILIRUBIN 0.3 mg/dL (0.2-1.0)
[2021-04-25 21:27] VITALS: BP 201/79
--- NOTE | 2021-04-26 07:11 | EKG ---
[place] [address] [facility] [place] [address] ELECTROCARDIOGRAM REPORT Name: LEIDY ADAMES [id number] Admission: 04/25/21 Attend Phys: Discharge: 04/25/21 Date of : 49 Report #: [id number] [facility] ED Test Date: 2021-04-25 Test Time: 18:38:00 Pat Name: LEIDY ADAMES Department: Room: Gender: F Asset Protection Manager: KATYA : 1945 Requested By: Tamara Quarles Order Number: [id number] MD: Jim Griffith Measurements Intervals [place] Rate: 72 P: 47 IA: 168 QRS: 82 QRSD: 129 T: 37 QT: 421 QTc: 461 Interpretive Statements Sinus rhythm Probable left atrial enlargement Right bundle branch block Compared to ECG 04/15/2021 17:14:41 Left posterior fascicular block no longer present Electronically Signed On 04-26-2021 7:11:31 CDT by Jim Griffith [email or web address] <ELECTRONICALLY SIGNED> By: Jim Griffith MD, [facility] 04/26/21710 37 37 Jim Griffith MD, FACC /EPI
== END 2021-04-25 21:34 | disposition home or self-care (01) ==
LOC: ER 18:19
PROVIDERS: Nurse Practitioner Family
DX: N64.4 Mastodynia (principal); R07.89 Other chest pain; G43.909 Migraine, unspecified, not intractable, without status migrainosus; E11.9 Type 2 diabetes mellitus without complications; J44.9 Chronic obstructive pulmonary disease, unspecified; I50.9 Heart failure, unspecified; I11.0 Hypertensive heart disease with heart failure; F17.210 Nicotine dependence, cigarettes, uncomplicated; E78.5 Hyperlipidemia, unspecified; Z95.1 Presence of aortocoronary bypass graft; Z90.710 Acquired absence of both cervix and uterus; Z86.2 Personal history of diseases of the blood and blood-forming organs and certain disorders involving the immune mechanism; Z86.73 Personal history of transient ischemic attack (TIA), and cerebral infarction without residual deficits; Z88.0 Allergy status to penicillin; Z88.1 Allergy status to other antibiotic agents; Z88.2 Allergy status to sulfonamides

== ENCOUNTER → 2021-05-02 | Outpatient (CLI) | payer OTHER | LOC: BC 13:09 | PROVIDERS: ATTEND Internal Medicine Rheumatology | DX: R92.1 Mammographic calcification found on diagnostic imaging of breast (principal); R60.0 Localized edema ==

== ENCOUNTER → 2021-05-09 | Outpatient (CLI) | payer OTHER | LOC: SJCVC 13:59 | PROVIDERS: ATTEND Internal Medicine | DX: R94.31 Abnormal electrocardiogram [ECG] [EKG] (principal); I45.2 Bifascicular block; I25.10 Atherosclerotic heart disease of native coronary artery without angina pectoris; I11.0 Hypertensive heart disease with heart failure; I50.30 Unspecified diastolic (congestive) heart failure; E78.5 Hyperlipidemia, unspecified; I82.409 Acute embolism and thrombosis of unspecified deep veins of unspecified lower extremity; J44.9 Chronic obstructive pulmonary disease, unspecified; E11.51 Type 2 diabetes mellitus with diabetic peripheral angiopathy without gangrene; I73.9 Peripheral vascular disease, unspecified; Z95.1 Presence of aortocoronary bypass graft; Z98.890 Other specified postprocedural states; Z88.0 Allergy status to penicillin; Z88.2 Allergy status to sulfonamides; Z88.8 Allergy status to other drugs, medicaments and biological substances; Z79.899 Other long term (current) drug therapy; Z86.73 Personal history of transient ischemic attack (TIA), and cerebral infarction without residual deficits; Z87.891 Personal history of nicotine dependence; Z82.49 Family history of ischemic heart disease and other diseases of the circulatory system ==

== ENCOUNTER → 2021-06-07 | Outpatient (CLI) | payer OTHER ==
[2021-06-07 11:15] LABS: CREATININE 1.5 mg/dL (0.6-1.0)
== END ==
LOC: MRI 09:10
PROVIDERS: ATTEND Internal Medicine Hematology & Oncology
DX: N62 Hypertrophy of breast (principal); N63.10 Unspecified lump in the right breast, unspecified quadrant; N61.0 Mastitis without abscess; L03.90 Cellulitis, unspecified; R60.0 Localized edema; R92.8 Other abnormal and inconclusive findings on diagnostic imaging of breast

== ENCOUNTER 2021-06-16 18:23 | Emergency (ER) | payer OTHER ==
[~2021-06-16] VITALS: Ht 154.9 cm; Wt 47.6 kg
[2021-06-16 20:24] VITALS: BP 146/78
== END 2021-06-16 20:20 | disposition home or self-care (01) ==
LOC: ER 18:23
DX: N64.4 Mastodynia (principal); I11.0 Hypertensive heart disease with heart failure; I50.9 Heart failure, unspecified; E11.9 Type 2 diabetes mellitus without complications; E78.5 Hyperlipidemia, unspecified; J44.9 Chronic obstructive pulmonary disease, unspecified; F41.9 Anxiety disorder, unspecified; F03.90 Unspecified dementia, unspecified severity, without behavioral disturbance, psychotic disturbance, mood disturbance, and anxiety; Z90.711 Acquired absence of uterus with remaining cervical stump; Z79.899 Other long term (current) drug therapy; Z87.891 Personal history of nicotine dependence; Z88.0 Allergy status to penicillin; Z88.2 Allergy status to sulfonamides; Z88.1 Allergy status to other antibiotic agents

== ENCOUNTER 2021-07-05 16:15 | Inpatient (IN) | payer OTHER ==
[~2021-07-05] VITALS: Ht 157.5 cm; Wt 53.5 kg
[2021-07-05 16:23] VITALS: BP 111/55
[2021-07-05 17:13] LABS: ABSOLUTE NEUTROPHILS 5.4 thou/uL (1.4-8.2); EOSINOPHILS 1.3 % (0.0-3.0); HEMATOCRIT 34.9 % (37.0-47.0); HEMOGLOBIN 11.4 gm/dL (12.0-15.0); LYMPHOCYTES 11.5 % (24.0-44.0); MCH 32.7 pg (26.0-34.0); MCHC 32.7 g/dL (28.0-37.0); MONOCYTES 8.3 % (1.0-8.0); PLATELET COUNT 232 thou/uL (150-400); POLYS 77.9 % (36.0-66.0); RBC 3.49 mil/uL (4.20-5.00); RDW 15.5 % (10.5-14.5); WBC 6.9 thou/uL (4.0-11.0)
[2021-07-05 17:26] LABS: CALCIUM 8.3 mg/dL (8.5-10.1); CREATININE 1.6 mg/dL (0.6-1.0); POTASSIUM 5.6 mmol/L (3.5-5.1)
[2021-07-05 17:36] LABS: ALBUMIN 3.2 g/dL (3.4-5.0); TOTAL BILIRUBIN 0.3 mg/dL (0.2-1.0); TOTAL PROTEIN 7.5 g/dL (6.4-8.2)
[2021-07-05] MEDS ORDERED: IMDUR 30 MG TAB30 M1 PO (23:30)
[2021-07-05] MEDS ORDERED: MEMANTINE HCL E28 MG PO (23:31)
[2021-07-05] MEDS ORDERED: HYDROCODON-ACE1 EAC5 PO (23:31)
[2021-07-06 05:28] LABS: CALCIUM 8.2 mg/dL (8.5-10.1); CREATININE 1.5 mg/dL (0.6-1.0)
[2021-07-06 05:38] LABS: POTASSIUM 6.9 mmol/L (3.5-5.1)
--- NOTE | 2021-07-06 07:10 | NUR ---
TOOK OVER CARE FROM KRISTY CLEMENTS AT THIS TIME
--- NOTE | 2021-07-06 09:47 | EKG ---
[place] [address] [employer] [place] [address] ELECTROCARDIOGRAM REPORT Name: LEIDY ADAMES Room #: 170-12 ADM IN M.R.#: [id number] Admission: 07/05/21 Attend Phys: Lorne Saravia MD Discharge: Date of : 49 Report #: [id number] [facility] ED Test Date: 2021-07-05 Test Time: 16:23:59 Pat Name: LEIDY ADAMES Department: Room: 170 Gender: F Manager Technology: UNKNOWN : 1945 Requested By: Abiodun Chin Order Number: [id number] MD: Jim Griffith Measurements Intervals [place] Rate: 60 P: 54 KS: 179 QRS: 103 QRSD: 131 T: 65 QT: 454 QTc: 454 Interpretive Statements Sinus rhythm RBBB Minimal ST elevation, lateral leads Compared to ECG 04/25/2021 18:38:00 ST (T wave) deviation now present Electronically Signed On 07-06-2021 9:47:41 CDT by Jim Griffith [email or web address] <ELECTRONICALLY SIGNED> By: Jim Griffith MD, [facility] 07/06/21 0947 22 22 Jim Griffith MD, FACC /EPI
[2021-07-06 13:43] VITALS: BP 136/64
[2021-07-06 13:50] VITALS: BP 136/64
[2021-07-06 14:05] VITALS: BP 143/62
[2021-07-06] MEDS ORDERED: LIPITOR 20 MG T20 M1 PO (16:12)
[2021-07-06] MEDS ORDERED: PREDNISONE 10 M10 MG PO (16:12)
[2021-07-06] MEDS ORDERED: CLINDAMYCIN HC300 MG PO (16:15)
[2021-07-06 16:20] VITALS: BP 133/65
--- NOTE | 2021-07-06 17:56 | NUR ---
Pt transferred to unit from ED. MST. Admission completed. RA. Pain controlled with prn pain medications. Pt a&o3-4. Talked to pt's daughter over the phone and updated on pt's status. Call light within reach. Fall precautions in place. Will continue to monitor.
[2021-07-06 20:37] VITALS: BP 156/72
[2021-07-07 00:14] VITALS: BP 176/81
[2021-07-07 05:43] LABS: HEMATOCRIT 32.8 % (37.0-47.0); HEMOGLOBIN 10.8 gm/dL (12.0-15.0); MCH 32.9 pg (26.0-34.0); MCV 99.8 fL (80.0-100.0); RBC 3.29 mil/uL (4.20-5.00); RDW 15.1 % (10.5-14.5); WBC 6.2 thou/uL (4.0-11.0)
--- NOTE | 2021-07-07 05:45 | NUR ---
PT TRANSFERRING TO BEDSIDE COMMODE WITH ASSIST AND IS TOLERATING FAIR. DENIES PAIN. RESTING COMFORTABLY. NO NEEDS VOICED. CALL LIGHT WITHIN REACH. FREQUENT OBSERVATION.
[2021-07-07 06:04] LABS: CALCIUM 8.4 mg/dL (8.5-10.1); CREATININE 1.8 mg/dL (0.6-1.0)
[2021-07-07 06:06] LABS: POTASSIUM 5.3 mmol/L (3.5-5.1)
[2021-07-07 10:36] VITALS: BP 117/59
--- NOTE | 2021-07-07 11:25 | NUR ---
ASSUMED PT CARE THIS AM. PT IS ALERT & ORIENTED X3 TO SELF, SITUATION AND PLACE. PT IS UP WITH ASSIST X1 TO BEDSIDE COMMODE. PT HAS IV SITE ON LAC SALINE LOCKED. PT IS ACCUCHECK ACHS. BG WAS LOW THIS AM AND GIVEN APPLE JUICE AND RECHECK AGAIN. PT IS ON ROOM AIR. NO C/O OF PAIN, NAUSEA AND VOMITING THIS AM. PT IS ON TELE MONITOR ON. WILL CONTINUE TO MONITOR PT. FOLLOW POC.
[2021-07-07 11:55] VITALS: BP 168/79
[2021-07-07 15:55] VITALS: BP 168/76
[2021-07-07 19:16] VITALS: BP 131/47
[2021-07-08 03:24] VITALS: BP 189/80
--- NOTE | 2021-07-08 05:21 | NUR ---
PT TRANSFERRING TO BEDSIDE COMMODEWITH ASSIST X1 AND IS TOLERATING FAIR. COMPLAINING OF CHEST PAIN AT SHIFT CHANGE--VITALS WITHIN NORMAL LIMITS--O2 SAT 100%--CHEST PAIN ISOLLATED TO MID CHEST. O.4 OF NITRO PO GIVEN--CHEST PAIN RESOLVED. LORTAB PROVIDED RELIEF FOR HEADACHE. RESTING COMFORTABLY. NO NEEDS VOICED. CALL LIGHT WITHIN REACH. FREQUENT OBSERVATION.
[2021-07-08 06:31] LABS: HEMATOCRIT 33.9 % (37.0-47.0); HEMOGLOBIN 11.3 gm/dL (12.0-15.0); MCH 32.9 pg (26.0-34.0); MCHC 33.3 g/dL (28.0-37.0); MCV 98.8 fL (80.0-100.0); RBC 3.43 mil/uL (4.20-5.00); RDW 14.9 % (10.5-14.5)
[2021-07-08 06:46] LABS: CALCIUM 8.4 mg/dL (8.5-10.1); POTASSIUM 4.2 mmol/L (3.5-5.1)
[2021-07-08 07:17] VITALS: BP 192/83
--- NOTE | 2021-07-08 11:44 | NUR ---
ASSESSMENT: CM REVIEWED CHART AND SPOKE WITH PATIENT AT THE BEDSIDE. PT APPEARS ALERT AND ORIENTED X4. PT REPORTS LIVING IN A HOUSE WITH HER . PT HAS NO STEPS TO ENTER OR ONCE INSIDE. PT TYPICALLY GETS AROUND USING HER WHEELCHAIR SHE STATES BUT ALSO HAS A WALKER. PT HAS A GRAB BAR IN THE SHOWER. PT HAS OXYGEN AT HOME BUT STATES ONLY WEARS PRN AND UNSURE THE COMPANY WHO SUPPLIES IT. PT REPORTS SHE HAS NOT HAD HH IN THE PAST. PTS DAUGHTER SAV IS VERY SUPPORTIVE AND HELP ASSISTS PATIENT NEEDED AND RUNS ERRANDS FOR HER. CM DISCUSSED ROLE. ANTICIPATING POSSIBLE DISCHARGE TODAY. CM DISCUSSED HOME HEALTH WITH PATIENT AND PT DOES NOT FEEL SHE NEEDS IT. CM ALSO SPOKE WITH PATIENTS DAUGHTER SAV WHO AGREES THAT PATIENT DOES NOT NEED HOME HEALTH. CM NOTIFIED ATTENDING. POSSIBLE DISCHARGE HOME TODAY.
--- NOTE | 2021-07-08 11:50 | NUR ---
ASSUMED CARE OF PT AT 0700 THIS MORNING. PT IS A/OX3 FORGETFUL. C/O MOORE AND CHEST PAIN. ASSESSMENTS NOTED IN CHART AND OTHERWISE UNREMARKABLE. FALL RISK PRECAUTIONS ARE IN PLACE. CALL LIGHT AND OTHER NEEDS ARE IN REACH. MEDS AND TX GIVEN NEEDED AND SCHEDULED. WILL MONITOR AND NOTE ANY CHANGES.
[2021-07-08] MEDS ORDERED: BAYER CHEWABLE81 MG PO (12:09)
[2021-07-08 14:57] VITALS: BP 192/83
== END 2021-07-08 15:16 | disposition home or self-care (01) | DRG 92 ==
LOC: ER 16:15 → EROBS 18:59 → 4S 18:59
PROVIDERS: Emergency Medicine; Hospitalist; Nurse Practitioner Family; ADMIT Hospitalist; ATTEND Hospitalist
DX: G89.4 Chronic pain syndrome (principal); I13.0 Hypertensive heart and chronic kidney disease with heart failure and stage 1 through stage 4 chronic kidney disease, or unspecified chronic kidney disease; I50.32 Chronic diastolic (congestive) heart failure; I38 Endocarditis, valve unspecified; K92.2 Gastrointestinal hemorrhage, unspecified; I69.351 Hemiplegia and hemiparesis following cerebral infarction affecting right dominant side; I25.10 Atherosclerotic heart disease of native coronary artery without angina pectoris; N18.30 Chronic kidney disease, stage 3 unspecified; E11.22 Type 2 diabetes mellitus with diabetic chronic kidney disease; E87.5 Hyperkalemia; F03.90 Unspecified dementia, unspecified severity, without behavioral disturbance, psychotic disturbance, mood disturbance, and anxiety; E78.5 Hyperlipidemia, unspecified; J44.9 Chronic obstructive pulmonary disease, unspecified; E11.51 Type 2 diabetes mellitus with diabetic peripheral angiopathy without gangrene; F41.9 Anxiety disorder, unspecified; G40.909 Epilepsy, unspecified, not intractable, without status epilepticus; I27.20 Pulmonary hypertension, unspecified; E03.9 Hypothyroidism, unspecified; M06.9 Rheumatoid arthritis, unspecified; Z90.711 Acquired absence of uterus with remaining cervical stump; Z95.828 Presence of other vascular implants and grafts; Z87.898 Personal history of other specified conditions; Z95.1 Presence of aortocoronary bypass graft; Z86.79 Personal history of other diseases of the circulatory system; Z86.718 Personal history of other venous thrombosis and embolism; I25.2 Old myocardial infarction; Z79.4 Long term (current) use of insulin; Z98.42 Cataract extraction status, left eye; Z98.41 Cataract extraction status, right eye; Z88.1 Allergy status to other antibiotic agents; Z88.0 Allergy status to penicillin; Z88.2 Allergy status to sulfonamides; Z88.8 Allergy status to other drugs, medicaments and biological substances; Z87.891 Personal history of nicotine dependence; Z86.711 Personal history of pulmonary embolism; Z91.14 Patient's other noncompliance with medication regimen; Z95.820 Peripheral vascular angioplasty status with implants and grafts; Z79.899 Other long term (current) drug therapy; Z20.822 Contact with and (suspected) exposure to COVID-19
CPT/HCPCS: 10100

== ENCOUNTER 2021-07-13 22:22 | Inpatient (IN) | payer OTHER ==
[~2021-07-13] VITALS: Ht 157.5 cm; Wt 45.8 kg
[~2021-07-13 22:22] MED LIST changes: +CLINDAMYCIN HC300 MG PO; +HYDROCODON-ACE1 EAC5 PO; +LIPITOR 20 MG T20 M1 PO; +MEMANTINE HCL E28 MG PO
[2021-07-13 22:50] VITALS: BP 124/44
[2021-07-13 23:48] LABS: ABSOLUTE NEUTROPHILS 4.4 thou/uL (1.4-8.2); BASOPHILS 0.4 % (0.0-2.0); EOSINOPHILS 0.1 % (0.0-3.0); HEMATOCRIT 23.3 % (37.0-47.0); HEMOGLOBIN 7.7 gm/dL (12.0-15.0); LYMPHOCYTES 11.5 % (24.0-44.0); MCH 32.8 pg (26.0-34.0); MCV 99.6 fL (80.0-100.0); MONOCYTES 6.9 % (1.0-8.0); PLATELET COUNT 228 thou/uL (150-400); POLYS 81.1 % (36.0-66.0); RBC 2.34 mil/uL (4.20-5.00); RDW 14.7 % (10.5-14.5); WBC 5.5 thou/uL (4.0-11.0)
[2021-07-13 23:53] LABS: CALCIUM 8.4 mg/dL (8.5-10.1); CREATININE 2.1 mg/dL (0.6-1.0)
[2021-07-14] LABS: TOTAL BILIRUBIN 0.3 mg/dL (0.2-1.0); TOTAL PROTEIN 7.2 g/dL (6.4-8.2)
[2021-07-14 05:37] VITALS: BP 138/51; BP 146/58
[2021-07-14 08:54] VITALS: BP 144/51
--- NOTE | 2021-07-14 09:31 | EKG ---
[place] [address] [facility] [place] [address] ELECTROCARDIOGRAM REPORT Name: LEIDY ADAMES Room #: 170-5 ADM IN M.R.#: [id number] Admission: 07/14/21 Attend Phys: Duane Muhammad MD Discharge: Date of : 49 Report #: [id number] [facility] ED Test Date: 2021-07-13 Test Time: 22:44:13 Pat Name: LEIDY ADAMES Department: Room: 170 Gender: F Cardiac Rehabilitation Specialist: barney : 1945 Requested By: Kaveh Brown Order Number: [id number] MD: Markus Ott Measurements Intervals [place] Rate: 65 P: 42 SC: 174 QRS: 107 QRSD: 155 T: 39 QT: 472 QTc: 491 Interpretive Statements Sinus rhythm Probable left atrial enlargement RBBB and LPFB Compared to ECG 07/05/2021 16:23:59 No significant change was found Electronically Signed On 07-14-2021 9:31:38 CDT by Markus Ott [email or web address] <ELECTRONICALLY SIGNED> By: Markus Ott MD, [facility] 07/14/21 0931 D: [id number] Markus Ott MD, FAC /EPI
[2021-07-14 09:33] VITALS: BP 128/53
[2021-07-14 10:02] LABS: CHOLESTEROL 94 mg/dL (<200); HDL CHOLESTEROL 31 mg/dL (>40); LDL CHOLESTEROL 48 mg/dL (<100); TRIGLYCERIDE 76 mg/dL (<150); VLDL 15 mg/dL (<40)
[2021-07-14 11:30] VITALS: BP 144/58
--- NOTE | 2021-07-14 15:01 | NUR ---
RECEIVED PT FROM ER. ADMISSION COMPLETED. PT UNABLE TO VERBALIZE SOME ANSWERS. FOLOWED UP WITH DTRSAV, VIA PHONE. PT IS AWAKE, ORIENTED TO SELF, PLACE, AND SITUATION. VSS, AFEBRILE, SR ON THE MONITOR. PT HAS NOT COMPLAINED OF CHEST/ABDOMINAL PAIN. RESTING COMFORTABLY IN BED WITH PROTONIX GTT.DR CABALLERO CONSULTED. PT RECEIVED ONE (1) UNIT PBRC WHILE IN ER. POC IS TO MONITOR LAB VALUES, ASSESS HGB FOR BASELINE. CARDIOLOGY CONSULTED. EGD ON HOLD PENDING CARDIOLOGY REVIEW PER GI. FALL PRECAUTIONS IN PLACE. NO CONCERNS AT THIS TIME.
[2021-07-14 16:30] VITALS: BP 144/57
[2021-07-14 19:55] VITALS: BP 130/46
[2021-07-15 00:20] VITALS: BP 165/45
--- NOTE | 2021-07-15 01:43 | NUR ---
2255 SPOKE WITH DAUGHTER JOSE M FOR 5 MIN. PATIENT RESTING QUIETLY.
[2021-07-15 03:05] LABS: GLYCOHEMOGLOBIN (HGB A1C) 6.6 % (4.8-5.6)
[2021-07-15 04:10] VITALS: BP 167/76
[2021-07-15 04:31] LABS: HEMATOCRIT 27.6 % (37.0-47.0); HEMOGLOBIN 9.1 gm/dL (12.0-15.0); MCH 32.3 pg (26.0-34.0); MCHC 32.9 g/dL (28.0-37.0); MCV 98.1 fL (80.0-100.0); RBC 2.81 mil/uL (4.20-5.00); RDW 14.7 % (10.5-14.5); WBC 6.1 thou/uL (4.0-11.0)
[2021-07-15 07:30] VITALS: BP 187/74
--- NOTE | 2021-07-15 07:31 | NUR ---
SLEPT MOST OF SHIFT. ASSISTED WITH BEDPAN NEEDED. TURNS SELF. NO COMPLAINTS OF STERNUM PAIN THIS AM. CONTINUE TO ASSES CLOSELY.
--- NOTE | 2021-07-15 10:07 | 2DMMODE ---
[facility] [place] [address] 2 D/M-MODE ECHOCARDIOGRAM Name: LEIDY ADAMES Room #: 210-P ADM IN M.R.#: [id number] Admission: 07/14/21 Attend Phys: Duane Muhammad MD Discharge: Date of : 49 Report #: [id number] THIS REPORT FOR: cc: Jamaal Cho MD, Mark S. MD Lammoglia, Francisco J. MD ~ APPROVED REPORT Study performed: 07/15/2021 09:06:30 EXAM: Comprehensive 2D, Doppler, and color-flow Echocardiogram Patient Location: Bedside Room #: 210 Status: routine BSA: 1.44 HR: 70 bpm BP: 187/74 mmHg Rhythm: NSR Other Information Study Quality: Good Indications Pulmonary Hypertension Diabetes Murmur Chest Pain Hypertension/HDD Mitral valve replacement 2D Dimensions RVDd: 55.46 mm IVSd: 9.71 (7-11mm) LVOT Diam: 15.74 (18-24mm) LVDd: 42.23 mm PWd: 11.15 (7-11mm) Ascending Ao: 29.97 (22-36mm) LVDs: 24.37 (25-40mm) Left Atrium: 44.32 (27-40mm) Aortic Root: 26.19 mm IVC: 27.00 mm Volumes Left Atrial Volume (Systole) Single Plane 4CH: 117.11 mL Single Plane 2CH: 97.13 mL LA ESV Index: 78.00 mL/m2 [facility] [address] [place] [address] 2 D/M-MODE ECHOCARDIOGRAM Name: LEIDY ADAMES Room #: 210-P ADM IN M.R.#: [id number] Admission: 07/14/21 Attend Phys: Duane Muhammad MD Discharge: Date of : 49 Report #: [id number] Aortic Valve AoV Peak Justice.: 1.32 m/s AO Peak Gr.: 6.92 mmHg LVOT Max P.97 mmHg LVOT Max V: 1.00 m/s NATALIE Vmax: 1.47 cm2 AI Vmax: 4.74 m/s AI [place]: 3.35 m/s2 AI PHT: 410.07 ms Mitral Valve MV Peak Gr.: 20.73 mmHg MV Mean Gr.: 10.40 mmHg E/A Ratio: 1.0 MV Decel. Time: 409.77 ms MV E Max Justice.: 2.13 m/s MV A Justice.: 2.07 m/s MV Max Justice.: 2.28 m/s MV Mean Justice.: 1.56 m/s MV VTI: 668.70 mm MV PHT: 118.83 ms IVRT: 110.73 ms Pulmonary Valve PV Peak Justice.: 1.02 m/s PV Peak Gr.: 4.14 mmHg Tricuspid Valve TR Peak Justice.: 4.97 m/s TR Peak Gr.: 98.64 mmHg PA Pressure: 114.00 mmHg Left Ventricle The left ventricle is normal size. There is normal LV segmental wall motion. There is normal left ventricular wall thickness. Left ventricular systolic function is hyperdynamic. LVEF is 65-70%. The left ventricular diastolic function is abnormal. Right Ventricle Right ventricle is dilated. Right ventricle is hypokinetic. Atria Left atrium is dilated. Right atrium is dilated. Aortic Valve The aortic valve is normal in structure. Aortic valve is calcified. Mild to moderate aortic regurgitation. There is no aortic valvular stenosis. [facility] [address] [place] [address] 2 D/M-MODE ECHOCARDIOGRAM Name: LEIDY ADAMES Room #: 210-P ADM IN .R.#: [id number] Admission: 07/14/21 Attend Phys: Duane Muhammad MD Discharge: Date of : 49 Report #: [id number] Mitral Valve There is a bioprosthetic mitral valve. Moderate mitral regurgitation. Moderate to severe mitral stenosis. Tricuspid Valve The tricuspid valve is normal in structure. There is moderate tricuspid regurgitation. Estimated PAP 114 mmHg. There is severe pulmonary hypertension. Pulmonic Valve The pulmonary valve is normal in structure. Mild to moderate pulmonic regurgitation. Great Vessels The inferior vena cava is dilated with no inspiratory collapse. Pericardium There is no pericardial effusion. <Conclusion> The left ventricle is normal size. Left ventricular systolic function is hyperdynamic. LVEF is 65-70%. Right ventricle is dilated. Right ventricle is hypokinetic. Left atrium is dilated. Right atrium is dilated. The aortic valve is normal in structure. Aortic valve is calcified. Mild to moderate aortic regurgitation. There is a bioprosthetic mitral valve. Moderate mitral regurgitation. Moderate to severe mitral stenosis. The tricuspid valve is normal in structure. There is moderate tricuspid regurgitation. Estimated PAP 114 mmHg. There is severe pulmonary hypertension. The pulmonary valve is normal in structure. Mild to moderate pulmonic regurgitation. There is no pericardial effusion. <ELECTRONICALLY SIGNED> By: Jules Garcia MD 07/15/21 1006 1006 1006 Jules Garcia MD /INF
[2021-07-15 11:00] VITALS: BP 162/68
--- NOTE | 2021-07-15 11:38 | NUR ---
ASSUMED CARE OF PT AT 0700. PT IS RESTING IN BED AT TIME OF ASSESSMENT. PT IS NPO PT MAY GET EGD THIS MORNING/AFTERNOON. PT IS PLESANT DURING ASSESSMENT, A&O X 4, COMPLIANT WITH MEDICATIONS WHOLE WITH WATER. PT IS SINUS WITH A FIRST DEGREE, AND A BBB. PT IS RESTING IN BED AT THIS TIME. WILL CONTINUE TO MONITOR.
[2021-07-15 15:00] VITALS: BP 160/65
[2021-07-15 19:51] VITALS: BP 168/70
[2021-07-16 04:31] VITALS: BP 180/75
--- NOTE | 2021-07-16 06:54 | NUR ---
ASSUME CARE 1900. PT/VITALS STABLE. BP RUNS HIGH AT TIMES WITH HYDRALAZINE FOR SBP > 165. A/O X 4, APPROPRIATE. ASSESSMETN S CHARTED. PROGRESSING WELL WITH POC. ADEQUATE REST NOTED WITH NO DISTRESS THROUGH THE NIGHT. SR/BBB/1D AVB ON MONITOR. PT IS VERY [place] AND COULD BENEFIT FROM PT/OT EVAL AND TREATMENT. PROGRESSING MODERSTELY WITH POC. PLAN IS POSSIBLE DISCHARGE WITHIN THE NEXT 1-2 DAYS. WILL CONTINUE TO MONITOR AND FOLLOW WITH POC
[2021-07-16 07:00] VITALS: BP 151/64
[2021-07-16 10:56] VITALS: BP 141/61
[2021-07-16 15:00] VITALS: BP 133/51
--- NOTE | 2021-07-16 15:40 | NUR ---
Met with patient. She admits with CP. She resides at home with her spouse and grandson. She has walker, cane but reports she uses walker in home. She has bathtub with a seat. All needs on one level. Sp with dtr Ramila discussed offered home health care and patient declines. Dtr reports no need for home health care. She reports concern patient being dc from hospital too soon. Relayed to phys. Casemgt following for dc planning.
--- NOTE | 2021-07-16 17:57 | NUR ---
PT RESTING COMFORTABLY. BARRIUM SWALLOW STUDY COMPLETED. PT AFEBRILE, ADEQUATE UOP, BM X1, APPROPRIATE APPETITE. WORKED WITH PHYSICAL THERAPY. PT AND FAMILY HAVE BEEN THOUROUGHLY UPDATED AND EDUCATED ON PT CONDITION AND POC. PT SLOWLY PROGRESSING TOWARDS POC.
[2021-07-16 20:26] VITALS: BP 173/64
[2021-07-16 20:48] VITALS: BP 159/75
[2021-07-17 03:35] VITALS: BP 193/77
[2021-07-17 05:00] VITALS: BP 166/66
[2021-07-17 05:02] LABS: HEMATOCRIT 30.1 % (37.0-47.0); MCH 32.6 pg (26.0-34.0); MCHC 33.2 g/dL (28.0-37.0); MCV 98.4 fL (80.0-100.0); RBC 3.06 mil/uL (4.20-5.00); RDW 14.5 % (10.5-14.5); WBC 5.9 thou/uL (4.0-11.0)
--- NOTE | 2021-07-17 06:00 | NUR ---
Pt. rested quietly during the night when checked on during frequent rounds. Her bp was elevated early this am and prn hydralazine was given which was helpful (see VS). Up to the bedside comode with assistance of one. Bed alarm is on.
[2021-07-17 08:00] VITALS: BP 168/66
[2021-07-17] MEDS ORDERED: IMDUR 30 MG TAB30 M1 PO (08:12)
[2021-07-17] MEDS ORDERED: AMLODIPINE BESY10 MG PO (08:16)
[2021-07-17 09:03] VITALS: BP 168/66
--- NOTE | 2021-07-24 16:18 | HC ---
[facility] [place] [address] CONSULTATION Name: LEIDY ADAMES Room #: 210-P DIS IN M.R.#: [id number] Admission: 07/14/21 Attend Phys: Duane Muhammad MD Discharge: 07/17/21 Date of : 49 Report #: [id number] THIS REPORT FOR: cc: Jamaal Cho MD, Mark S. MD McElhinney, Christian C. MD ~ cc: Howard Nguyen MD DATE OF SERVICE: 07/14/2021 HISTORY OF PRESENT ILLNESS: The patient is a 75-year-old female who is admitted through the Emergency Room with chest pain. She has an extensive past medical history including coronary artery disease, pulmonary hypertension. She has undergone coronary artery bypass graft in the past. Last cardiac catheterization was in 11/2019 showing severe multivessel disease. Cardiology has been consulted. Plan is for echocardiogram tomorrow. Reason for GI consultation is anemia and Hemoccult positive stool, which was today. The patient denies any obvious bright red blood per rectum or melena. She is a fair historian. She has a history of DVT with an IVC filter. She has been on Xarelto, aspirin and Plavix. Her admit hemoglobin was 7.7. Looking back in history, her baseline is in the 10 range in general. She denies any abdominal pain, no nausea, vomiting, no reflux, no dysphagia. The patient was seen in October of this last year for dysphagia. She underwent a speech path evaluation showing 1 episode of silent aspiration due to her multiple medical problems, it was felt endoscopy was too high of a risk due to her coronary disease as well as severe pulmonary hypertension. Anesthesia at that time recommended needing nitrous oxide and Flolan prior to procedure. Unclear when or if the patient has had previous EGD, colonoscopy. I went back through the old chart, several years no endoscopies were found. The patient is unsure when she has had one in the past. No family history to known colon cancer. Currently, denies any fevers or chills or shortness of breath or chest pain. She was admitted with this improved. PAST MEDICAL HISTORY: Significant for history of coronary artery disease, history of bypass graft, cardiac catheterization last year showing multivessel disease that could not be treated with catheters with stent placement apparently at that time. History of CVAs, significant pulmonary hypertension, seizure history, hyperlipidemia, hypothyroidism, hypertension, migraines, lupus, diabetes, COPD, anxiety, history of dementia, history of DVT, chronic renal insufficiency, bilateral cataract surgery, hysterectomy, bilateral lower extremity bypass graft, IVC filter placement. ALLERGIES: INVANZ, PENICILLIN, SULFA, BACTRIM, TETRACYCLINE, TRIMETHOPRIM. REVIEW OF SYSTEMS: As per HPI. [address] [address] CONSULTATION Name: LEIDY ADAMSE Room #: 210-P DIS IN M.R.#: [id number] Admission: 07/14/21 Attend Phys: Duane Muhammad MD Discharge: 07/17/21 Date of : 49 Report #: [id number] FAMILY HISTORY: Negative for colon cancer. MEDICATIONS: On admission, Plavix, Celexa, vitamin D3, Coreg, Keppra, torsemide, Xarelto, Nitrostat, Lipitor, prednisone, levothyroxine, Imdur, memantine, hydrocodone/Tylenol p.r.n., aspirin. PHYSICAL EXAMINATION: VITAL SIGNS: Temperature is 97.6, pulse 63, blood pressure 144/58, respiratory rate is 16. GENERAL: She is alert and oriented x3, in no acute distress. HEENT: Sclerae nonicteric. Oropharynx clear. NECK: Supple, without lymphadenopathy. CARDIOVASCULAR: Regular rate. CHEST: Clear to auscultation anteriorly bilaterally. ABDOMEN: Soft, nontender, nondistended. Normoactive bowel sounds. EXTREMITIES: No cyanosis, clubbing or edema. LABORATORY DATA: Sodium 138, potassium 6.0, chloride 106, bicarbonate 24, BUN 88, creatinine 2.1, glucose 266, AST 39, total bilirubin 0.3, alkaline phosphatase 57, ALT 17, total protein 7.2, albumin 3.0. WBC is 5.5, hemoglobin 7.7, MCV 99.6, platelet count is 228. ASSESSMENT AND PLAN: Anemia with Hemoccult positive stool. The patient with multiple medical problems. She is high risk for sedation and endoscopy, has been talked about in the past, even from an anesthesia standpoint as well in October of last year. We will obtain further information about possible previous endoscopies. In the meantime, continue PPI therapy as well as monitoring hemoglobin closely. Thank you for allowing me to participate in her care. <ELECTRONICALLY SIGNED> By: Dariusz Galindo MD 07/24/21 1618 1253 1832 Dariusz Galindo MD /nt
== END 2021-07-17 12:41 | disposition home or self-care (01) | DRG 378 ==
LOC: ER 22:22 → 2N 07-14 04:43 → EROBS 07-14 04:43 → 2N 07-14 10:13
PROVIDERS: Emergency Medicine; Hospitalist; Nurse Practitioner Family; ADMIT Internal Medicine; ATTEND Internal Medicine
DX: K29.71 Gastritis, unspecified, with bleeding (principal); I25.718 Atherosclerosis of autologous vein coronary artery bypass graft(s) with other forms of angina pectoris; I13.0 Hypertensive heart and chronic kidney disease with heart failure and stage 1 through stage 4 chronic kidney disease, or unspecified chronic kidney disease; I50.32 Chronic diastolic (congestive) heart failure; I38 Endocarditis, valve unspecified; D64.9 Anemia, unspecified; E78.5 Hyperlipidemia, unspecified; F03.90 Unspecified dementia, unspecified severity, without behavioral disturbance, psychotic disturbance, mood disturbance, and anxiety; F41.9 Anxiety disorder, unspecified; G40.909 Epilepsy, unspecified, not intractable, without status epilepticus; E11.51 Type 2 diabetes mellitus with diabetic peripheral angiopathy without gangrene; J44.9 Chronic obstructive pulmonary disease, unspecified; N18.9 Chronic kidney disease, unspecified; I27.20 Pulmonary hypertension, unspecified; G43.909 Migraine, unspecified, not intractable, without status migrainosus; Z20.822 Contact with and (suspected) exposure to COVID-19; E87.5 Hyperkalemia; N63.0 Unspecified lump in unspecified breast; E03.9 Hypothyroidism, unspecified; M32.9 Systemic lupus erythematosus, unspecified; E11.22 Type 2 diabetes mellitus with diabetic chronic kidney disease; Z86.718 Personal history of other venous thrombosis and embolism; Z79.4 Long term (current) use of insulin; Z95.1 Presence of aortocoronary bypass graft; Z98.42 Cataract extraction status, left eye; Z98.41 Cataract extraction status, right eye; Z90.711 Acquired absence of uterus with remaining cervical stump; Z95.5 Presence of coronary angioplasty implant and graft; I25.2 Old myocardial infarction; Z86.73 Personal history of transient ischemic attack (TIA), and cerebral infarction without residual deficits; Z95.828 Presence of other vascular implants and grafts; Z88.1 Allergy status to other antibiotic agents; Z88.0 Allergy status to penicillin; Z88.2 Allergy status to sulfonamides; Z88.8 Allergy status to other drugs, medicaments and biological substances; Z87.891 Personal history of nicotine dependence; Z83.3 Family history of diabetes mellitus; Z82.49 Family history of ischemic heart disease and other diseases of the circulatory system; Z80.3 Family history of malignant neoplasm of breast; Z80.8 Family history of malignant neoplasm of other organs or systems; Z86.711 Personal history of pulmonary embolism; Z95.820 Peripheral vascular angioplasty status with implants and grafts
CPT/HCPCS: 10081

== ENCOUNTER 2021-07-21 14:34 | Inpatient (IN) | payer OTHER ==
[~2021-07-21] VITALS: Ht 157.5 cm; Wt 49.9 kg
[2021-07-21 14:49] VITALS: BP 94/34
[2021-07-21 15:44] LABS: WBC 6.7 thou/uL (4.0-11.0)
[2021-07-21 15:46] LABS: ABSOLUTE NEUTROPHILS 4.9 thou/uL (1.4-8.2); BASOPHILS 1.2 % (0.0-2.0); EOSINOPHILS 2.4 % (0.0-3.0); LYMPHOCYTES 16.2 % (24.0-44.0); MCH 32.1 pg (26.0-34.0); MCHC 32.2 g/dL (28.0-37.0); MCV 99.6 fL (80.0-100.0); PLATELET COUNT 207 thou/uL (150-400); POLYS 72.2 % (36.0-66.0); RBC 1.85 mil/uL (4.20-5.00); RDW 14.1 % (10.5-14.5)
[2021-07-21 15:48] LABS: CALCIUM 8.4 mg/dL (8.5-10.1); CREATININE 2.2 mg/dL (0.6-1.0); POTASSIUM 5.1 mmol/L (3.5-5.1)
[2021-07-21 15:56] LABS: HEMATOCRIT 18.5 % (37.0-47.0)
[2021-07-21 17:45] VITALS: BP 109/46
[2021-07-21 18:16] VITALS: BP 111/44
[2021-07-21 20:05] VITALS: BP 104/41
[2021-07-21 20:21] VITALS: BP 110/50; BP 121/56
[2021-07-21 23:20] VITALS: BP 121/56
[2021-07-22] VITALS (9 sets, daily range): BP systolic 105–136; BP diastolic 35–58
[2021-07-22] MEDS ORDERED: CLOPIDOGREL75 MG PO (00:47)
[2021-07-22] MEDS ORDERED: LEVOTHYROXINE100 MCG PO (00:48)
[2021-07-22] MEDS ORDERED: NORCO 10-325 T1 EACH PO (00:52)
--- NOTE | 2021-07-22 00:57 | NUR ---
ASSUMED CARE OF PT AT SHIFT 1845HRS. PT IS ALERT BUT ONLY ORIENTED TO PERSON AND PLACE. FALL PRECAUTION IN PLACE. PT IS A POOR HISTORIAN BUT WAS ABLE TO ANSWER SOME ADMISSION RELATED QUESTIONS. PT WAS ORIENTED TO THE UNIT AND HER ROOM. 1 UNIT PRBC TRANSFUSED; NO REACTIONS NOTED. PT REPORTED SOME RLE PAIN; PRNS PROVIDED. PT USED BEDPAN THIS SHIFT. CONSENTS OBTAINED FROM DTR SAV. PT WAS ABLE TO GET COMFORTABLE AND SLEEP ART OF THE SHIFT. VSS AND NO S.S OF ACUTE DISTRES. WILL CONTINUE TO MONITOR FOR CHANGES.
[2021-07-22] MEDS ORDERED: XARELTO15 MG PO (05:01)
[2021-07-22 05:52] LABS: RBC 1.95 mil/uL (4.20-5.00)
[2021-07-22 05:53] LABS: MCH 32.7 pg (26.0-34.0); MCHC 34.2 g/dL (28.0-37.0); MCV 95.4 fL (80.0-100.0); RDW 14.5 % (10.5-14.5)
[2021-07-22 06:24] LABS: HEMOGLOBIN 6.4 gm/dL (12.0-15.0)
[2021-07-22 06:25] LABS: HEMATOCRIT 18.6 % (37.0-47.0)
--- NOTE | 2021-07-22 07:20 | EKG ---
[place] [address] [facility] [place] [address] ELECTROCARDIOGRAM REPORT Name: LEIDY ADAMES Room #: 459-P ADM IN M.R.#: [id number] Admission: 07/21/21 Attend Phys: Kaylin Joshi Discharge: Date of : 49 Report #: [id number] [facility] ED Test Date: 2021-07-21 Test Time: 14:58:51 Pat Name: LEIDY ADAMES Department: Room: [facility] Gender: F Map Drafter: SHEILA : 1945 Requested By: April Barrera Order Number: [id number] MD: Jim Griffith Measurements Intervals [place] Rate: 59 P: -1 [place]: 192 QRS: 99 QRSD: 143 T: -10 QT: 488 QTc: 484 Interpretive Statements Sinus rhythm RBBB and LPFB Compared to ECG 07/13/2021 22:44:13 No significant changes Electronically Signed On 07-22-2021 7:20:16 CDT by Jim Griffith [email or web address] <ELECTRONICALLY SIGNED> By: Jim Griffith MD, [facility] 07/22/21 0720 D: [id number] Jim Griffith MD, FACC /EPI
--- NOTE | 2021-07-22 12:34 | NUR ---
ASSUMED PT CARE THIS AM. PT A&OX1, ABLE TO MAKE NEEDS KNOWN WITH CALL LIGHT. PATIENT REPORTING PAIN TO THE RIGHT LEG. PATIENT REMAINS CONTINENT, AND USES A BEDPAN. PATIENT RECEIVING 1 UNIT OF BLOOD THIS SHIFT. PATIENT REMAINS ON ROOM AIR. MEDICATIONS TAKEN WITHOUT ISSUE THIS AM. IV REMAINS PATENT. FALL PRECAUTIONS ARE IN PLACE, CALL LIGHT WITHIN REACH.
[2021-07-22 15:54] LABS: HEMATOCRIT 22.8 % (37.0-47.0); HEMOGLOBIN 7.7 gm/dL (12.0-15.0)
--- NOTE | 2021-07-22 16:51 | NUR ---
Case opened to follow for dc planning needs. Pt is well known to cm from frequent admissions. She lives with family and they provide her assist with adls and iadl's. She has needed dme in place. She was recently dc'd to home last week after being treated for a gi bleed. The pt has readmitted with an acute bleed, hgb 6 and is being seen by GI. The pt and dtr normally refuse a hh referral. Will follow along.
--- NOTE | 2021-07-23 05:04 | NUR ---
ASSUMED CARE OF PT AT SHIFT CHANGE. PT IS ALERT BUT ONLY ORIENTED TO PERSON AND PLACE. FALL PRECAUTION IN PLACE. PT USED BED [place] THIS SHIFT. PT REPORTED SOME CP; PRN NITRO PROVIDED. PT DENIED NAUSEA OR SOA. ASSESSMENT CHARTED. PT PLACED NPO AT MIDNIGHT. PT DID NOT SLEEP WELL THIS SHIFT. VSS AND NO S/S OF ACUTE DISTRESS. WILL CONTINUE TO MONITOR FOR CHANGES.
[2021-07-23 05:20] VITALS: BP 124/58
[2021-07-23 05:46] LABS: HEMATOCRIT 23.1 % (37.0-47.0); HEMOGLOBIN 7.6 gm/dL (12.0-15.0); MCH 31.2 pg (26.0-34.0); MCHC 32.7 g/dL (28.0-37.0); MCV 95.2 fL (80.0-100.0); RBC 2.42 mil/uL (4.20-5.00); RDW 14.6 % (10.5-14.5); WBC 7.9 thou/uL (4.0-11.0)
[2021-07-23 07:45] VITALS: BP 145/59
--- NOTE | 2021-07-23 14:16 | NUR ---
ASSUMED PT CARE THIS AM. PT A&OX1, MAKES NEEDS KNOWN WITH CALL LIGHT. PATIENT REMAINS CONTINENT, USING A BEDPAN. PATIENT FREQUENTLY CALLING FOR BEDPAN, BLADDER SCANNED THIS PATIENT AND SHE HAD 40 ML IN HER BLADDER. PATIENT COMPLETING A CAPSULE STUDY THIS SHIFT. FALL PRECAUTIONS ARE IN PLACE, CALL LIGHT WITHIN REACH.
[2021-07-23 16:10] VITALS: BP 141/56
[2021-07-23 19:59] VITALS: BP 142/44
--- NOTE | 2021-07-24 06:40 | NUR ---
ASSUMED CARE OF PT AROUND 1900HRS. PT IS ALERT BUT ONLY ORIENTED TO PERSON AND PLACE. FALL PRECAUTION IN PLACE. PT REPORTED RLE; PRNS PROVIDED. ASSESSMENT CHARTED. PT DENIED NAUSEA OR SOA. PILL CAM READER REMOVED. PT WAS ABLE TO GET COMFORTABLE AND SLEEP PART OF THE SHIFT. BP MEDS HELD DUE TO LOW MAP. NO S/S OF ACUTE DISTRESS. WILL CONTINUE TO MONITOR FOR CHANGES.
[2021-07-24 06:49] LABS: HEMATOCRIT 22.3 % (37.0-47.0); HEMOGLOBIN 7.5 gm/dL (12.0-15.0); MCH 32.2 pg (26.0-34.0); MCHC 33.5 g/dL (28.0-37.0); MCV 96.2 fL (80.0-100.0); RBC 2.31 mil/uL (4.20-5.00); RDW 14.4 % (10.5-14.5); WBC 5.8 thou/uL (4.0-11.0)
[2021-07-24 07:04] VITALS: BP 147/56
--- NOTE | 2021-07-24 10:07 | NUR ---
VIDEO CAPSULE ENDOSCOPY ADMINISTERED 07/23/21 AT 1030 AM. STUDY COMPLETE AND RECORDER TAKEN TO GI AND DOWNLOADED.
[2021-07-24 15:35] VITALS: BP 130/43
--- NOTE | 2021-07-24 16:33 | NUR ---
PT HAD M2 STUDY THIS DAY WHICH GI INDICATED SHOWED BLEEDING IN HER SMALL BOWEL. GI INDICATED THAT PT NEEDS TRANSFERED FOR GI PROCEDURE WE CAN'T PROVIDE HERE. GI GALLERY INTERN NOTIFIED PT'S DTR SAV AND SHE INDICATED THAT THEY WOULD PREFER FOR PT TO GO TO [facility] OVER . CM CONTACTED RAG CUTTING MACHINE FEEDER AT [facility]. THEY INDICATED THEY WERE CHECKING THEIR BED OPENINGS AND WOULD CALL CM BACK. CM COMPLETED [facility] FORM AND TRANSFER FORM. REFERRAL PACKET READY TO FAX ONCE THEY RESPOND. CM UPDATED NURSE AND SOCIAL SERVICE TECHNICIAN. CM FOLLOWING REGARDING HOPEFUL TRANSFER TO [facility].
--- NOTE | 2021-07-24 16:53 | NUR ---
Pt A & O x2. Pt VS stable. Pt is room air. Pt received medications as ordered. Pt also received PRN pain medications as requested by patient. Pt worked with PT/OT this shift. PT is able to make needs known.
[2021-07-24 20:06] VITALS: BP 109/30
--- NOTE | 2021-07-25 05:50 | NUR ---
Pt. rested quietly at intervals during the night when checked on during frequent rounds. She was given po pain meds for c/o abdominal pain (see emar) with some relief noted.
[2021-07-25 06:59] LABS: ALBUMIN 3.2 g/dL (3.4-5.0); CALCIUM 8.5 mg/dL (8.5-10.1); CREATININE 2.1 mg/dL (0.6-1.0); PHOSPHORUS 5.9 mg/dL (2.5-4.9); POTASSIUM 4.3 mmol/L (3.5-5.1)
[2021-07-25 07:44] VITALS: BP 123/34
--- NOTE | 2021-07-25 09:38 | NUR ---
[facility] INDICATED YESTERDAY THAT THEY DIDN'T HAVE ANY BEDS AND THAT THEY WEREN'T COMFORTABLE PUTTING PT ON THEIR WAITING LIST SHE WAS ACTIVELY BLEEDING AND RECOMMENDED THAT WE TRY [facility]. TRANSFER TO INITIATED AFTER 1700 BY PALM AND BACK FORGER. NURSE INDICATED THAT [facility] CALLED THIS AM AND INDICATED THEY HAVE NO BEDS. CM CALLED [facility] TRANSFER [facility]ENTER THIS AM AT 9:20 AND INITIATED TRANSFER THERE AGIAN. THEY INDICATED THAT BEDS STILL LOOK TIGHT BUT THAT THEY WOULD CALL CM BACK.
[2021-07-25 11:13] LABS: HEMATOCRIT 25.5 % (37.0-47.0); HEMOGLOBIN 8.2 gm/dL (12.0-15.0)
[2021-07-25 15:35] VITALS: BP 122/41
--- NOTE | 2021-07-25 19:52 | NUR ---
Assumed pt care this am, encouraged pt to eat small frequent meals. Pt is alert to self and place. [facility] unable to admit since they are at capacity. Pt used the commode. POC followed, endorsed to the night nurse.
[2021-07-25 20:13] VITALS: BP 126/41
--- NOTE | 2021-07-26 02:25 | NUR ---
ASSUMED PT CARE THIS PM. PT IS ALERT AND ORIENTED. PT CAN BE CONFUSED SOMETIMES. PT C/O PAIN TO THE ABD AND BUTT WHICH WAS MANAGED BY [facility]IN [facility]. PT'S DAUGHTER(JOHN) CALLED ABOUT WHEN PT WILL BE TRANSFERRED. PT DID NOT VERBALIZE ANY CONCERNS. PT IS ON SEIZURE PRECAUTIONS. FALL PRECAUTIONS IN PLACE. WILL CONTINUE TO MONITOR.
[2021-07-26 05:31] VITALS: BP 137/38
[2021-07-26 12:25] LABS: HEMOGLOBIN 7.8 gm/dL (12.0-15.0)
--- NOTE | 2021-07-26 16:07 | NUR ---
STILL AWAITING BED FOR HOSPITAL TO HOSPITAL TRANSFER TO [facility] FOR GI PROCEDURE DOUBLE BALLOON ENTROSCOPY. [facility] FORM AND TRANSFER FORM ARE IN PT'S [facility]IST [facility] AND THEY WILL NOTIFY PHYSICIAN AND UNIT ONCE BED IS AVAILABEL. CM FOLLOWING REGARDING DC PLANNING.
[2021-07-26 17:28] VITALS: BP 111/30
--- NOTE | 2021-07-26 20:00 | NUR ---
Assumed pt care this am, vs stable. Alert to self most of the time, would complain of leg pain but not consistent with her statements. Pain is managed with medications, repositioning and off loading. Appetite is poor small frequent feedings are done through out the shift. POC followed with no signs of distress noted. Awaiting bed in [facility] for trasnfer. Endorse to the night nurse.
[2021-07-26 20:30] VITALS: BP 112/41
--- NOTE | 2021-07-27 04:22 | NUR ---
Pt. rested quietly during the night when checked on during frequent rounds. No c/o pain offered. Up to the bedside comode with one assist.
[2021-07-27 07:00] VITALS: BP 127/44
[2021-07-27 10:44] LABS: HEMATOCRIT 25.2 % (37.0-47.0); HEMOGLOBIN 8.2 gm/dL (12.0-15.0)
[2021-07-27 16:00] VITALS: BP 115/37
[2021-07-27 20:10] VITALS: BP 114/41
--- NOTE | 2021-07-27 20:28 | NUR ---
Assumed pt care this am, vs stable. Pt is alert to self, would call the daughter numerous times stating bree has chest pain, when asked pt would say leg pain, then after a few minutes after giving meds wound say foot pain. When a tylenol is given pt is a asleep. Daughter would call multiple times in the day with the same issue, hydro was given pt was asleep for most of the day thus minimal food or fluids were taken in. POC followed ,endorsed to the night nurse.
--- NOTE | 2021-07-28 04:35 | NUR ---
Pt. rested quietly at intervals during the night when checked on during frequent rounds. She c/o right leg pain and po pain meds given (see emar) with some relief noted. Up to the bedside comode with assistance of one. No c/o abdominal discomfort.
[2021-07-28 05:27] VITALS: BP 161/54
[2021-07-28 07:00] VITALS: BP 122/40
--- NOTE | 2021-07-28 12:29 | NUR ---
ASSUMED PT CARE THIS AM. PT A&OX2, ABLE TO MAKE NEEDS KNOWN WITH CALL LIGHT. PATIENT REPORTING PAIN IN THE LEFT LEG, PAIN MANAGED WITH DICLOFENAC CREAM AND PAIN MEDICATION GIVEN PER EMAR. PATIENT REMAINS CONTINENT, UP TO BEDSIDE COMMODE WITH ASSIST. PATIENT REMAINS ON ROOM AIR. IV REMAINS PATENT, SALINE LOCKED. MEDICATIONS TAKEN THIS AM WITHOUT ISSUE. FALL PRECAUTIONS ARE IN PLACE, CALL LIGHT WITHIN REACH.
[2021-07-28 17:07] VITALS: BP 101/38
[2021-07-28 19:34] VITALS: BP 97/28
[2021-07-28 20:07] VITALS: BP 130/56
[2021-07-29 06:19] VITALS: BP 112/40
--- NOTE | 2021-07-29 07:28 | NUR ---
PATIENT AOX2 CONFUSED AND FORETFUL AT TIMES. NO BLEEDING NOTED THIS SHIFT. FALL PRECAUTION INPLACE. PATIENT IN BED ASLEEP AT THIS TIME BREATHING REGULAR AND UNLABOURED.
[2021-07-29 07:50] VITALS: BP 111/34
--- NOTE | 2021-07-29 11:32 | NUR ---
ANDRE reviewed chart and spoke with nursing and attending physician. Pt needing transfer to [facility] for double ballon enteroscopy. Pt is medically stable for transfer. ANDRE placed call to [facility] transfer center and spoke with Lonnie. Pt is on the waiting list. Per Lonnie, they should have a bed availabiliy later today on the med/surg unit. ANDRE updated pt's nurse and attending physician. ANDRE is following to assist as needed with discharge planning.
[2021-07-29 13:15] VITALS: BP 129/41
[2021-07-29 13:26] LABS: HEMATOCRIT 23.8 % (37.0-47.0); HEMOGLOBIN 7.8 gm/dL (12.0-15.0); MCH 31.9 pg (26.0-34.0); MCHC 32.7 g/dL (28.0-37.0); MCV 97.5 fL (80.0-100.0); RBC 2.44 mil/uL (4.20-5.00); RDW 14.9 % (10.5-14.5); WBC 5.2 thou/uL (4.0-11.0)
--- NOTE | 2021-07-29 14:31 | NUR ---
ASSUMED PT CARE THIS AM. PT A&OX2, ABLE TO MAKE NEEDS KNOWN. PATIENT REPORTING PAIN IN HER RIGHT BREAST, MEDICATED EPR EMAR. PATIENT TOOK MORNING MEDICATIONS WITHOUT ISSUE. PATIENT IS UP WITH ASSIST AND REMAINS CONTINENT. FALL PRECAUTIONS ARE IN PLACE, CALL LIGHT WITHIN REACH.
[2021-07-29 19:38] VITALS: BP 96/46
[2021-07-29] MEDS ORDERED: ARTHRITIS PAIN100 GM TOP (22:11)
[2021-07-29 22:56] VITALS: BP 117/37; BP 145/45
--- NOTE | 2021-07-29 23:39 | NUR ---
[facility] called around 2100 with available bed for a procedure of double ballon enteroscopy, available bed is on [facility] on the [address]. cattle sprayer notified for d/c order. tunnel form placing supervisor notified. non emergency transport called.patient had chest pain x1, prn nitro given. daughter called for consents by another nurse. vs wnl and documented on [employer].patient left the unit at around 2256, in stable condition , via stretcher accompanied by 2 corporate compliance officer.
== END 2021-07-29 23:51 | disposition short-term general hospital (02) | DRG 378 ==
LOC: ER 14:34 → 4W 17:03 → EROBS 17:03 → 4W 18:22
PROVIDERS: Emergency Medicine; Hospitalist; Nurse Practitioner; ADMIT Hospitalist; ATTEND Hospitalist
PROC: 30233N1 Transfusion of Nonautologous Red Blood Cells into Peripheral Vein, Percutaneous Approach (ICD-10-PCS; principal; 2021-07-21)
PROC: 0DJ07ZZ Inspection of Upper Intestinal Tract, Via Natural or Artificial Opening (ICD-10-PCS; 2021-07-23)
DX: K92.2 Gastrointestinal hemorrhage, unspecified (principal); D62 Acute posthemorrhagic anemia; E44.1 Mild protein-calorie malnutrition; I45.2 Bifascicular block; N18.4 Chronic kidney disease, stage 4 (severe); I73.9 Peripheral vascular disease, unspecified; I50.9 Heart failure, unspecified; I48.91 Unspecified atrial fibrillation; I27.20 Pulmonary hypertension, unspecified; F03.90 Unspecified dementia, unspecified severity, without behavioral disturbance, psychotic disturbance, mood disturbance, and anxiety; E11.9 Type 2 diabetes mellitus without complications; J44.9 Chronic obstructive pulmonary disease, unspecified; E78.5 Hyperlipidemia, unspecified; I11.0 Hypertensive heart disease with heart failure; Z20.822 Contact with and (suspected) exposure to COVID-19; I25.10 Atherosclerotic heart disease of native coronary artery without angina pectoris; Z95.1 Presence of aortocoronary bypass graft; Z86.73 Personal history of transient ischemic attack (TIA), and cerebral infarction without residual deficits; Z88.1 Allergy status to other antibiotic agents; Z88.0 Allergy status to penicillin; Z88.2 Allergy status to sulfonamides; Z88.8 Allergy status to other drugs, medicaments and biological substances; Z87.891 Personal history of nicotine dependence; Z79.4 Long term (current) use of insulin; Z79.82 Long term (current) use of aspirin; Z79.899 Other long term (current) drug therapy; Z95.820 Peripheral vascular angioplasty status with implants and grafts; Z95.828 Presence of other vascular implants and grafts; Z86.718 Personal history of other venous thrombosis and embolism; Z86.711 Personal history of pulmonary embolism
CPT/HCPCS: 10040